=== PATIENT | female | born 1955 | race Caucasian/White ===

== ENCOUNTER 2021-06-07 13:59 | Inpatient (IN) | payer MEDICARE, OTHER ==
[~2021-06-07] VITALS: Ht 167.6 cm; Wt 97.5 kg
[2021-06-07] MEDS ORDERED: BUPR75TA5 PO (14:12)
[2021-06-07] MEDS ORDERED: BUPR300T92 PO (14:12)
[2021-06-07] MEDS ORDERED: ELIQ5TAB PO ×2 (14:12→21:32)
[2021-06-07] MEDS ORDERED: ASPI81CH33 PO (14:12)
[2021-06-07] MEDS ORDERED: METO37.5 PO ×2 (14:13)
[2021-06-07] MEDS ORDERED: QC A650T3 PO (14:14)
--- OUTSIDE RECORDS SUMMARY | 2021-06-07 18:30 | CCD ---
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 Active confirmed 04774431 Problem Chronic venous hypertension (idiopathic) with ulcer of left lower extremity I87.312 Active confirmed [id number] ALLERGIES Allergen (clinical drug ingredient) Drug/Non Drug Allergy do cumented on EMR Reaction Allergy Type Onset Date Status Motrin Dyspnea Drug Allergy Active ENCOUNTERS from 1955 to 2021-05-24 Encounter Location Date Provider Diagnosis [facility] [address] [facility] [phone] [place] [address] May, Gabriela Phillips IMMUNIZATIONS No Information SOCIAL HISTORY Tobacco Use: Social History Observation Description Date Details (start date - stop date) Current Smoker Sex Assigned At : Social History Observation Description Sex Assigned At Unknown Education: Question Answer Notes Level of Education: Finished High School [employer]: Question Answer Notes [employer] Sexual Hx: Question Answer Notes Had sex in the last 12 months (vaginal, oral, or anal)? 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 No Tobacco Use: Question Answer Notes Are you a: current smoker How many cigarettes a day do you smoke? 2-3 CIGARETTES/DAY REASON FOR REFERRAL No Information VITAL SIGNS No information MEDICATIONS Medication SIG (Take, Route, Frequency, Duration) Notes Start Da te End Date Status Metoprolol Tartrate 100 MG 1 tablet with food Orally Twice a day for 30 day(s) Active Eliquis 5 MG as directed Orally Acti ve Cephalexin 500 MG 1 tablet Orally Four times a day for 5 day(s) Active PROCEDURES No Information RESULTS No Results REASON FOR VISIT Confirmation WCC Apt MEDICAL (GENERAL) HISTORY Type Description Date Medical History ATRIAL FIBRILLATION Medical History DVT IN LEFT LEG Medical History x3 PULMONARY EMBOLISM, MOST RECENT 1987 Medical History HYPERTENSION Surgical History GALLBLADDER REMOVAL Surgical History STRIPPING LIGATION IN BILATERAL LEGS Surgical History TONSILLECTOMY Surgical History RIGHT SHOULDER SURGERY Hospitalization History HOSPITALIZATION AFTER SHOULDER SURGE RY Goals Section No Information Health Concerns No Information MEDICAL EQUIPMENT No Information MENTAL STATUS No Information FUNCTIONAL STATUS No Information ASSESSMENTS No Information PLAN OF TREATMENT Next Appt Details Provider Name:Wilbert Julien, 02:30:00 PM, [address], , [place], [address], Insurance Providers Payer Name Payer Address Payer Phone Insured Name Patient Relati onship to Insured Coverage Start Date Coverage End Date MEDICARE Part A and B [address] [facility] [id number] PILI HERNANDEZ self FOR LIFE [address] [facility] [id number] PILI HERNANDEZ self
--- OUTSIDE RECORDS SUMMARY | 2021-06-07 18:30 | CCD | Continuity of Care Document ---
Author Author Elise HARTMAN PA Organization Unknown Address [address] [facility] [address] [place] [address] Phone [phone] Care Team Providers Care Punch Hand Name Role Phone Antwan Walker MD AUTM [phone] [facility] AUTM [phone] Rakesh Niño MD AUTM Unavailable [facility] Hematology/Oncology AUTM [phone] An Kearns PHYSICIAN INTERNIST AUTM [phone] Problems Active Problems Provider Date Chronic atrial fibrillation Protime Onset: 05/14 Essential hypertension Elise Souza FNP Onset: 05/14/2017 Deep venous thrombosis of lower extremity Elise Souza FN P Onset: 05/14/2017 Pure hypercholesterolemia Elise Souza FNP Onset: 017 Anxiety state Elise Souza FNP Onset: 05/14/2017 Chronic pulmonary embolism Elise Souza FNP Onset: 2016 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 Elise Souza FNP Onset: 05/14/2017 Gastroesophageal reflux disease Elise Souza FNP Onset: 1 07/14/2016 Scoliosis deformity of spine Elise Souza FNP Onset: 02/2017 Chronic tension-type headache Elise Souza FNP Onset: 02/2017 Varicose veins of lower extremity Elise Souza FNP Onset: 05/14/2017 Tobacco user Elise Souza FNP Onset: 05/14/2017 Hypercalcemia Elise Souza FNP Onset: 05/14/2017 Social History Type Date Description Comments Sex Unknown ETOH Use Consumes 3 glasses of wine per w te-moak Tobacco Use Start: Unknown Patient is a current smoker, smo kes every day STARTED AGE 29 1-3 CIGARETTES A DAY Allergies and adverse reactions Active Allergies Criticality Reaction | Severity Comments Date Ibuprofen Unable to assess criticality STOMACH UPSET HEADACHE mo michael 04/22/2017 Latex Unable to assess criticality rash, itches | Mild 04/22/2018 Medications Active Medications SIG Qnty Indications Ordering Provide r Date Claritin 10mg Tablets 1 by mouth every night at bedtime seasonally Brant Castillo 05/22/2021 Fluoxetine HCL 20mg Capsules 1 by mouth every day 90caps Apryl Recinos M.D. 05/22/20 21 Excedrin Migraine [id number] Tab lets 1 as needed h/a as needed mdd=1 Apryl Recinos M.D. 09/20/2020 Famotidine 20mg Tablets 1 by mouth every day 90tabs Apryl Recinos M.D. 09/20/19 21 Furosemide 20mg Tablets 1 by mouth qd 180tabs Apryl Recinos M.D. 09/19/2020 Bupropion Hydrochloride ER (XL) 150mg Tablets ER 24HR take 1 tablet by mouth in the morning 90tabs Apryl Recinos M.D. 08/07/2020 Eliquis 5mg Tablets take one tablet by mouth twice a day 180tabs Apryl Recinos M.D. 2019 Methimazole 5mg Tablets 2 every day by mouth 180tabs Apryl Recinos M.D. 10/04/19 20 Shingrix 50mcg/0.5ML Suspension Re c administer at pharmacy 1units Elise Souza FNP 08/25 Voltaren 1% Gel apply up to 4 grams three times a day to affected knee as needed 100gm Apryl Recinos M.D. 06/19/2018 Aspirin Adult Low Dose 81mg Tablet s DR 1 by mouth every day Elise Souza FNP 7 Acetaminophen Extra Strength 500mg Tablets take 2 tabs every 6 hours as needed Elise Strickland FNP 04/22/2017 Womens 50+ Multi Vitamin & Mineral Formu la Tablets 1 every day PO Vit O=8543Hb KB=338 Elise Souza FNP 04/22/2017 Metoprolol Tartrate 25mg Tablets Take One Tablet By Mouth Twice A Day 180tabs Brant Castillo 04/22/2017 Atorvastatin Calcium 20mg Tablets take one tablet by mouth every day 90tabs Brian Castillo 04/22/2017 Flecainide Acetate 100mg Tablets take one tablet by mouth twice a day 180tabs Brant Castillo 04/22/2017 Digoxin 250mcg Tablets 1 by mouth every day 90tabs Apryl Recinos M.D. History Medications Cephalexin 500mg Capsules take one tablet by mouth 3 times daily x 7 days 21caps KIMBERLY Lebron JR 04/11/2021 - 05/22/2021 Medications Administered in Office Medication SIG Qnty Indications Ordering Provider Date Administration Of Flu Vaccine Inj ection KIMBERLY Spencer JR 021 Administration Of Flu Vaccine Inj ection Apryl Recinos M.D. 04/20/20 20 Administration Of Flu Vaccine Inj ection Elise Souza FNP 04/22/2019 Administration Of Flu Vaccine Inj ection Elise Souza FNP 04/22/2018 Administration Of Flu Vaccine Inj ection Elise Souza FNP 04/22/2017 Immunizations CPT Code Status Date Vaccine Lot # [id number] Given 04/11/2021 Influenza Vaccin e Quadrivalent Preser/Antibiotic Free Im Use [id number] Given 04/20/2020 Influenza Vaccin e Quadrivalent Preser/Antibiotic Free Im Use [id number] 11211 Given 08/31/2019 Shingrix Zoster Vaccine (HZV), Recombinant, Subunit, Adjuvanted 41591 Given 04/22/2019 Influenza Vaccin e Quadrivalent Preser/Antibiotic Free Im Use [id number] 78074 Given 04/22/2018 Influenza Virus Vaccine, Quadrivalent ([id number]), Derived From 6 Given 07/25/2017 Pneumovax 23 [id number] Given 04/22/2017 Influenza Vaccin e Quadrivalent Preser/Antibiotic Free Im Use [id number] Vital Signs Date Vital Result Comment 05/22/2021 11:38am BP Systolic 112 mmHg RT Arm BP Diastolic 70 mmHg RT Arm Heart Rate 68 /min Height 66 inches 5'6" Weight 215.12 lb O2 % BldC Oximetry 96 % BMI (Body Mass Index) 34.7 kg/m2 04/24/2021 3:12pm BP Systolic 122 mmHg BP Diastolic 76 mmHg Heart Rate 86 /min Height 66 inches 5'6" Weight 223.00 lb BMI (Body Mass Index) 36.0 kg/m2 Results Test Acquired Date Facility Test Result H/L Range Note Laboratory test finding 05/22/2021 [facility] ab[facility] martinez Evaporator Repairer: [place] [address] [phone] Magnesium 2.0 mg/dL 1.8 - 2.4 Comprehensive Chem Profile 05/22/2021 [facility] Evaporator Repairer: [place] [address] [phone] Glucose 113 mg/dL High 74 - 99 1 BUN 14 mg/dL 7 - 18 Creatinine 1.0 mg/dL 0.6 - 1.3 Sodium 145 mEq/L 136 - 145 Potassium 4.1 mEq/L 3.5 - 5.1 Chloride 105 mEq/L 98 - 107 Carbon Dioxide 31 mEq/L 21 - 32 Calcium 10.5 mg/dL High 8.5 - 10.1 2 Alk. Phosphatase 110 mg/dL 46 - 116 Total Bilirubin 0.4 mg/dL 0.2 - 1.0 Ast (Sgot) 22 U/L 15 - 37 Alt (SGPT) 27 U/L 12 - 78 Albumin 2.8 g/dL Low 3.4 - 5.0 3 Total Protein 8.3 g/dL High 6.4 - 8.2 A/G Ratio 0.51 CALC Low 1.00 - 1.90 GFR 55 mL/min Low >60 GFR >= 60 mL/min >60 4 Laboratory test finding 05/22/2021 [facility] [address] [place] [address] [phone] Digoxin Level 0.1 NG/ML Low 0.5-2.0 5 Complete Blood Count 05/22/2021 [facility] Evaporator Repairer: [place] [address] [phone] WBC 5.6 x10*3/UL 4.1 - 10.9 RBC 4.36 x10*6/UL 4.20 - 6.30 Hemoglobin 14.0 g/dL 12.0 - 18.0 Hematocrit 40.9 % 37.0 - 51.0 MCV 93.9 fL 80.0 - 97.0 MCH 32.0 pg 26.0 - 32.0 MCHC 34.1 g/dL 31.0 - 38.0 RDW 14.0 % High 11.6 - 13.7 PLT 233 x10*3/UL 140 - 440 MPV 8.9 FL 7.8 - 11.0 Lymph % 20.4 % 10.0 - 58.5 Mid % 5.2 % 1.7 - 9.3 Neut % 74.4 % 37.0 - 92.0 Lymph # 1.1 x10*3/UL 0.6 - 4.1 Mid # 0.3 x10*3/UL 0.1 - 0.6 Neut # 4.2 x10*3/UL 2.0 - 7.8 Laboratory test finding 04/30/[address] [address] [phone] NT-Pro BNP 5817 pg/mL High <125 6 Digoxin Level 0.5 NG/ML Normal 0.5-2.0 7 Thyroxine (T4) 10.1 g/dL Normal 4.5-12.0 8 Thyroid Stimulating Hormone 0.051 uIU/ML Low 0.358-3.740 9 Flecainide <0.10 ug/mL Low 0.20-1.00 10 Basic Metabolic Profile 04/30/[address] [address] [phone] Glucose, Fasting 106 mg/dL High 70-100 Blood Urea Nitrogen 18 mg/dL Normal 7-18 Creatinine For GFR 0.94 mg/dL Normal 0.55-1.30 Glomerular Filtration Rate > 60.0 Normal >45 1 1 Sodium Level 140 mEq/L Normal 136-145 Potassium Serum 4.6 mEq/L Normal 3.5-5.1 Chloride Level 111 mEq/L High 98-107 Carbon Dioxide Level 22 mEq/L Normal 21-32 Anion Gap 7 mEq/L Low 8-16 Calcium Level 10.7 mg/dL High 8.8-10.2 Liver Profile 04/30/2021 [facility]ter [address] [place] [address] [phone] Ast/Sgot 26 U/L Normal 7-37 Alt/SGPT 28 U/L Normal 12-78 Alkaline Phosphatase 105 U/L Normal 45-117 Bilirubin,Total 0.8 mg/dL Normal 0.2-1.0 Bilirubin,Direct 0.4 mg/dL High 0.0-0.2 Total Protein 7.9 GM/DL Normal 6.4-8.2 Albumin 2.8 GM/DL Low 3.2-5.2 Albumin/Globulin Ratio 0.5 Low 1.2-2.2 Cardiac Marker Panel 04/30/2021 [facility] enter [address] [place] [address] [phone] CPK Creatine Phosphokinase 26 U/L Normal 26-19 2 CK-MB Value Mass 1.0 NG/ML Normal <3.6 MB/CK Relative Index 3.85 Normal < Or =4 12 Troponin I 0.02 NG/ML Normal < 0.10 13 CBC With Differential 04/30/[address] [facility] [address] [place] [address] [phone] White Blood Count 6.3 10 Normal 4.0-10.0 Red Blood Count 4.12 10 Normal 4.00-5.40 Hemoglobin 12.9 g/dL Normal 12.0-15.5 Hematocrit 41.3 % Normal 36.0-47.0 Mean Corpuscular Volume 100.2 fl High 80.0-96.0 Mean Corpuscular Hemoglobin 31.3 pg Normal 27.0-33.0 Mean Corpuscular HGB Conc 31.2 g/dL Low 32.0-36.5 Red Cell Distribution Width 14.8 % High 11.5-14.5 Platelet Count, Automated 202 10 Normal 150-450 Neutrophils % 79.5 % High 36.0-66.0 Lymph % 13.8 % Low 24.0-44.0 Alcorn % 4.8 % Normal 2.0-8.0 Eos % 1.1 % Normal 0.0-3.0 Baso % 0.3 % Normal 0.0-1.0 Immature Granulocyte % 0.5 % Normal 0-3.0 Nucleated Red Blood Cell % 0.0 % Normal 0-0 Neutrophils # 5.0 10 Normal 1.5-8.5 Lymph # 0.9 10 Low 1.5-5.0 Alcorn # 0.3 10 Normal 0.0-0.8 Eos # 0.1 10 Normal 0.0-0.5 Baso # 0.0 10 Normal 0.0-0.2 Influenza A/B RSV Covid Amp 04/30/[address] [address] [phone] Influenza A Amplification NEGATIVE Normal Negati ve 14 Influenza B Amplification NEGATIVE Normal Negative 15 RSV Amplification NEGATIVE Normal Negative 16 Sars Covid-19 Amplification NEGATIVE Normal Negative 17 CBC With Differential 01/17/[address] [address] [phone] White Blood Count 6.8 10 Normal 4.0-10.0 Red Blood Count 3.85 10 Low 4.00-5.40 Hemoglobin 12.7 g/dL Normal 12.0-15.5 Hematocrit 39.4 % Normal 36.0-47.0 Mean Corpuscular Volume 102.3 fl High 80.0-96.0 Mean Corpuscular Hemoglobin 33.0 pg Normal 27.0-33.0 Mean Corpuscular HGB Conc 32.2 g/dL Normal 32.0-36.5 Red Cell Distribution Width 12.3 % Normal 11.5-14.5 Platelet Count, Automated 187 10 Normal 150-450 Neutrophils % 72.2 % High 36.0-66.0 Lymph % 19.9 % Low 24.0-44.0 Alcorn % 6.0 % Normal 2.0-8.0 Eos % 1.5 % Normal 0.0-3.0 Baso % 0.3 % Normal 0.0-1.0 Immature Granulocyte % 0.1 % Normal 0-3.0 Nucleated Red Blood Cell % 0.0 % Normal 0-0 Neutrophils # 4.9 10 Normal 1.5-8.5 Lymph # 1.4 10 Low 1.5-5.0 Alcorn # 0.4 10 Normal 0.0-0.8 Eos # 0.1 10 Normal 0.0-0.5 Baso # 0.0 10 Normal 0.0-0.2 PT & Aptt 01/02/2021 [facility] nter [address] [place] [address] [phone] Prothrombin Time 13.8 seconds Normal 12.5-14.3 Inr 1.04 Normal 18 Partial Thromboplastin Time 30.6 seconds Normal 24.2-38.5 CBC With Differential 01/02/[address] [facility] [address] [place] [address] [phone] White Blood Count 6.2 10 Normal 4.0-10.0 Red Blood Count 3.76 10 Low 4.00-5.40 Hemoglobin 12.5 g/dL Normal 12.0-15.5 Hematocrit 39.0 % Normal 36.0-47.0 Mean Corpuscular Volume 103.7 fl High 80.0-96.0 Mean Corpuscular Hemoglobin 33.2 pg High 27.0-33.0 Mean Corpuscular HGB Conc 32.1 g/dL Normal 32.0-36.5 Red Cell Distribution Width 12.9 % Normal 11.5-14.5 Platelet Count, Automated 199 10 Normal 150-450 Neutrophils % 74.5 % High 36.0-66.0 Lymph % 16.4 % Low 24.0-44.0 Alcorn % 7.0 % Normal 2.0-8.0 Eos % 1.1 % Normal 0.0-3.0 Baso % 0.5 % Normal 0.0-1.0 Immature Granulocyte % 0.5 % Normal 0-3.0 Nucleated Red Blood Cell % 0.0 % Normal 0-0 Neutrophils # 4.6 10 Normal 1.5-8.5 Lymph # 1.0 10 Low 1.5-5.0 Alcorn # 0.4 10 Normal 0.0-0.8 Eos # 0.1 10 Normal 0.0-0.5 Baso # 0.0 10 Normal 0.0-0.2 Comprehensive Metabolic Profil 01/02/[address] [facility] [address] [place], [place] [address] [phone] Glucose, Fasting 98 mg/dL Normal 70-100 Blood Urea Nitrogen 28 mg/dL High 7-18 Creatinine For GFR 0.90 mg/dL Normal 0.55-1.30 Glomerular Filtration Rate > 60.0 Normal >45 1 9 Sodium Level 137 mEq/L Normal 136-145 Potassium Serum 4.7 mEq/L Normal 3.5-5.1 Chloride Level 107 mEq/L Normal 98-107 Carbon Dioxide Level 27 mEq/L Normal 21-32 Anion Gap 3 mEq/L Low 8-16 Calcium Level 10.2 mg/dL Normal 8.8-10.2 Ast/Sgot 23 U/L Normal 7-37 Alt/SGPT 19 U/L Normal 12-78 Alkaline Phosphatase 77 U/L Normal 45-117 Bilirubin,Total 0.5 mg/dL Normal 0.2-1.0 Total Protein 8.3 GM/DL High 6.4-8.2 Albumin 3.0 GM/DL Low 3.2-5.2 Albumin/Globulin Ratio 0.6 Low 1.2-2.2 Complete Blood Count 12/25/2020 [facility] Evaporator Repairer: [place] [address] [phone] WBC 5.9 x10*3/UL 4.1 - 10.9 RBC 4.11 x10*6/UL Low 4.20 - 6.30 Hemoglobin 13.6 g/dL 12.0 - 18.0 Hematocrit 40.0 % 37.0 - 51.0 MCV 97.4 fL High 80.0 - 97.0 MCH 33.1 pg High 26.0 - 32.0 MCHC 34.0 g/dL 31.0 - 38.0 RDW 13.2 % 11.6 - 13.7 PLT 209 x10*3/UL 140 - 440 MPV 8.1 FL 7.8 - 11.0 Lymph % 25.6 % 10.0 - 58.5 Mid % 7.5 % 1.7 - 9.3 Neut % 66.9 % 37.0 - 92.0 Lymph # 1.5 x10*3/UL 0.6 - 4.1 Mid # 0.5 x10*3/UL 0.1 - 0.6 Neut # 3.9 x10*3/UL 2.0 - 7.8 Laboratory test finding 12/25/2020 [facility] Efrain martinez Evaporator Repairer: Dr Maxime Ball [place] [id number] [phone] Sed Rate 25 mm/hr High 0 - 15 Basic Metabolic Panel 12/25/2020 [facility] Evaporator Repairer: Dr Maxime Ball [place] [id number] [phone] Glucose 100 mg/dL High 74 - 99 20 BUN 18 mg/dL 7 - 18 Creatinine 0.8 mg/dL 0.6 - 1.3 Sodium 141 mEq/L 136 - 145 Potassium 3.8 mEq/L 3.5 - 5.1 Chloride 104 mEq/L 98 - 107 Carbon Dioxide 29 mEq/L 21 - 32 Calcium 10.8 mg/dL High 8.5 - 10.1 21 GFR >= 60 mL/min >60 GFR >= 60 mL/min >60 22 Laboratory test finding 12/25/2020 [facility] Efrain martinez Evaporator Repairer: [place] [address] [phone] Thyroid Stimulating Hormone 0.19 uIU/mL Low 0.3 6 - 3.74 1 100-125 mg/dL PRE-DIABET ES/FASTING >126 mg/dL DIABETES/FASTING 2 NOTE: RESULT VERIFIED. 3 NOTE: RESULT VERIFIED. 4 CHRONIC KIDNEY DISEASE STAGI NG PER NKF STAGE I & II GFR >= 60 NORMAL TO MILDLY DECREASED STAGE III GFR 30-59 MODERATELY DECREASED STAGE IV GFR 15-29 SEVERELY DECREASED STAGE V GFR <15 VERY LITTLE GFR LEFT ESRD GFR <[address] JUDGE 5 note:<nlbl:demographic_chang ed> 6 note:<nlbl:demographic_chang ed> 7 note:<nlbl:demographic_chang ed> 8 note:<nlbl:demographic_chang ed> 9 note:<nlbl:demographic_chang ed> 10 This test was developed and its performance characteristics determined by [facility]. It has not been cleared or approved by the Food and Drug Administration. Detection Limit = 0.10 Performed at: [address] [id number] Evaporator Repairer: Jyoti Espinal MD, Phone: [phone] 11 Units are mL/min/1.73 m2 Chronic Kidney Disease Staging per NKF: Stage I & II GFR >=60 Normal to Mildly Decreased Stage III GFR 30-59 Moderately Decreased Stage IV GFR 15-29 Severely Decreased Stage V GFR <15 Very Little GFR Left ESRD GFR <[address] JUDGE 12 DIAGNOSIS CRITERIA MMB ng/ml Relative Index (RI) NON-AMI < or = 5 N/A LAM ZONE > 5 < or = 4 AMI > 5 > 4 13 Troponin I Reference Interva l for [facility] [place] LOCI: 99th Percentile= 0.00-0.045 ng/ml Risk Stratification: <= 0.10 ng/ml Decreased Risk for Adverse Clinical Events. 0.10-1.50 ng/ml Increased Risk for Adv erse Clinical Events. Evaluation of additional criterion and/or repeat testing in 2-6 hours is suggested to rule out myocardial damage. >= 1.50 ng/ml Indicative of Myocardial Injury. 14 Negative results do not prec lude influenza or RSV virus infection and should not be used as the sole basis for treatment or other patient management decisions. 15 Negative results do not prec lude influenza or RSV virus infection and should not be used as the sole basis for treatment or other patient management decisions. 16 Negative results do not prec lude influenza or RSV virus infection and should not be used as the sole basis for treatment or other patient management decisions. 17 A false negative result may occur if a specimen is improperly collected, transported or handled. False negative results may also occur if inadequate numbers of organisms are present in the specimen. As with any molecular test, mutations within the target regions of [employer] SARS-CoV-2 could affect primer and/or probe binding resulting in failure to detect the presence of virus. This test cannot rule out diseases caused by other bacterial or viral pathogens. DISCLAIMER: Testing was performed using the [facility] SARS-CoV-2 test. This test was developed and its performance characteristics determined by [facility]. This test has not been FDA cleared or approved. This test has been authorized by FDA under an Emergency Use Authorization (EUA). This test is only authorized for the duration of time the declaration that circumstances exist justifying the authorization of the emergency use of in vitro diagnostic tests for detection of SARS-CoV-2 virus and/or diagnosis of COVID-19 infection under section 564(b)(1) of the Act, 21 U.S.C. 360bbb-3(b)(1), unless the authorization is terminated or revoked sooner. 18 THERAPUTIC HUMAN INR VALUES INDICATIONS NORMAL RANGES PROPHYLAXIS/TREATMENT OF: VENOUS THROMBOSIS 2.0-3.0 PULMONARY EMBOLISM 2.0-3.0 PREVENTION OF SYSTEMIC EMBOLISM FROM: TISSUE HEART VALVES 2.0-3.0 ACUTE MYOCARDIAL INFARCTION 2.0-3.0 VALVULAR HEART DISEASE 2.0-3.0 ATRIAL FIBRILLATION 2.0-3.0 MECHANICAL VALVES(HIGH RISK) 2.5-3.5 RECURRENT MYOCARDIAL INFARCTION 2.5-3.5 19 Units are mL/min/1.73 m2 Chronic Kidney Disease Staging per NKF: Stage I & II GFR >=60 Normal to Mildly Decreased Stage III GFR 30-59 Moderately Decreased Stage IV GFR 15-29 Severely Decreased Stage V GFR <15 Very Little GFR Left ESRD GFR <[address] JUDGE 20 100-125 mg/dL PRE-DIABET ES/FASTING >126 mg/dL DIABETES/FASTING 21 NOTE: CALCIUM,TSH VERIFIED 22 CHRONIC KIDNEY DISEASE STAGI NG PER NKF STAGE I & II GFR >= 60 NORMAL TO MILDLY DECREASED STAGE III GFR 30-59 MODERATELY DECREASED STAGE IV GFR 15-29 SEVERELY DECREASED STAGE V GFR <15 VERY LITTLE GFR LEFT ESRD GFR <[address] JUDGE Procedures Date Code Description Status 04/24/2021 63321 Office/Outpatient Established Lo w MDM 20-29 Min Completed 04/11/2021 38610 Office/Outpatient Established Lo w MDM 20-29 Min Completed 04/05/2021 49385 Complex Chronic Care MGMT Servic e Ea Addl 30 Min Completed 04/05/2021 49605 Complex Chronic Care Management SVC 1St 60 Min Completed 04/04/2021 97963 Complex Chronic Care MGMT Servic e Ea Addl 30 Min Completed 04/04/2021 62358 Complex Chronic Care Management SVC 1St 60 Min Completed 02/16/2021 91449 Chronic Care MGMT 20 Mins Clinical Staff Time Per Calendar Month Completed 02/16/2021 98635 Chronic Care Management Services Ea Addl 20 Min Completed 01/30/2021 53978 Complex Chronic Care MGMT Servic e Ea Addl 30 Min Completed 01/30/2021 66180 Complex Chronic Care Management SVC 1St 60 Min Completed 12/29/2020 09204 Complex Chronic Care MGMT Servic e Ea Addl 30 Min Completed 12/29/2020 61858 Complex Chronic Care Management SVC 1St 60 Min Completed 12/25/2020 75802 Office/Outpatient Established Mo d MDM 30-39 Min Completed 09/21/2020 [id number] Bone Mineral Density Test Comple katy 09/21/2020 [id number] Mammogram Completed Medical Devices Description No Information Available Encounters Type Date Location Provider Dx Diagnosis Office Visit 04/24/2021 3:20p Topher InternBelén martinez JR, [place] S81.802D Unspecified open wound, left lower leg, subsequent encounter I11.0 Hypertensive heart disease w ith heart failure Office Visit 04/11/2021 2:20p Topher InternBelén martinez JR, [place] S81.802A Unspecified open wound, left lower leg, initial encounter Z23 Encounter for immunization Office Visit 12/25/2020 1:30p Topher InternBelén martinez M.D. 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 nticoagulants R60.9 Edema, unspecified I10 Essential (primary) hyperten pippa E05.90 Thyrotoxicosis, unsp without thyrotoxic crisis or storm I82.502 Chronic embolism and thombos unsp deep veins of l low extrem F17.210 Nicotine dependence, cigaret nunu, uncomplicated F32.89 Other specified depressive e pisodes D47.2 Monoclonal gammopathy K21.9 Gastro-esophageal reflux dis ease without esophagitis M19.90 Unspecified osteoarthritis, unspecified site E78.00 Pure hypercholesterolemia, u nspecified Assessments Date Code Description Provider 05/22/2021 I48.20 Chronic atrial fibrillation, uns pecified Apryl Recinos M.D. 05/22/2021 Z79.01 termite treater helper (current) use of antic oagulants Apryl Recinos M.D. 05/22/2021 I11.0 Hypertensive heart disease with heart failure Apryl Recinos M.D. 05/22/2021 E05.00 Thyrotoxicosis with diffuse goiter without thyrotoxic crisis or storm Apryl Recinos M.D. 05/22/2021 I82.502 Chronic embolism and thrombosis of unspecified deep veins of left lower extremity Apryl Recinos M.D. 05/22/2021 F32.89 Other specified depressive episo jimenez Apryl Recinos M.D. 05/22/2021 D47.2 Monoclonal gammopathy Apryl merritt M.D. 05/22/2021 K21.9 Gastro-esophageal reflux disease without esophagitis Apryl Recinos M.D. 05/22/2021 S81.802A Unspecified open wound, left low er leg, initial encounter Apryl Recinos M.D. 05/22/2021 G31.84 Mild cognitive impairment, so st ated Apryl Recinos M.D. 04/24/2021 S81.802D Unspecified open wou nd, left lower leg, subsequent encounter KIMBERLY Spencer JR 04/24/2021 I11.0 Hypertensive heart disease with heart failure KIMBERLY Spencer JR 04/11/2021 S81.802A Unspecified open wound, left low er leg, initial encounter KIMBERLY Spencer JR 04/11/2021 Z23 Encounter for immunization KIMBERLY Islas JR 04/05/2021 I10 Essential (primary) hypertension Apryl Recinos M.D. 04/05/2021 K21.9 Gastro-esophageal reflux disease without esophagitis Apryl Recinos M.D. 04/05/2021 M15.9 Polyosteoarthritis, unspecified Apryl Recinos M.D. 04/04/2021 I10 Essential (primary) hypertension Apryl Recinos M.D. 04/04/2021 K21.9 Gastro-esophageal reflux disease without esophagitis Apryl Recinos M.D. 04/04/2021 I11.0 Hypertensive heart disease with heart failure Apryl Recinos M.D. 02/16/2021 I10 Essential (primary) hypertension Apryl Recinos M.D. 02/16/2021 K21.9 Gastro-esophageal reflux disease without esophagitis Apryl Recinos M.D. 02/16/2021 E78.00 Pure hypercholesterolemia, unspe cified Apryl Recinos M.D. 01/30/2021 I10 Essential (primary) hypertension Apryl Recinos M.D. 01/30/2021 K21.9 Gastro-esophageal reflux disease without esophagitis Apryl Recinos M.D. 01/30/2021 E78.00 Pure hypercholesterolemia, unspe cified Apryl Recinso M.D. 01/30/2021 M15.9 Polyosteoarthritis, unspecified Apryl Recinos M.D. 12/29/2020 I10 Essential (primary) hypertension Apryl Recinos M.D. 12/29/2020 K21.9 Gastro-esophageal reflux disease without esophagitis Apryl Recinos M.D. 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 12/25/2020 I48.20 Chronic atrial fibrillation, uns pecleandro Recinos M.D. 12/25/2020 Z79.01 correction (current) use of antic oagulants Apryl Recinos M.D. 12/25/2020 R60.9 Edema, unspecified Apryl hale M.D. 12/25/2020 I10 Essential (primary) hypertension Apryl Recinos M.D. 12/25/2020 E05.90 Thyrotoxicosis, unspecified with out thyrotoxic crisis or sto Apryl Recinos M.D. 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 12/25/2020 F17.210 Nicotine dependence, cigarettes, uncomplicated Apryl Recinos M.D. 12/25/2020 F32.89 Other specified depressive episo jimenez Apryl Recinos M.D. 12/25/2020 D47.2 Monoclonal gammopathy Apryl merritt M.D. 12/25/2020 K21.9 Gastro-esophageal reflux disease without esophagitis Apryl Recinos M.D. 12/25/2020 M19.90 Unspecified osteoarthritis, unsp ecified site Apryl Recinos M.D. 12/25/2020 E78.00 Pure hypercholesterolemia, unspe cified Apryl Recinos M.D. Plan of Treatment Future Appointment(s):* 06/07/2021 11:00 am - REESE Haney at [facility] * 06/13/2021 3:15 pm - Apryl Recinos M.D. at [facility] 05/22/2021 - Apryl Recinos M.D.* I48.20 Chronic atrial fibrillation, unspecified * Z79.01 termite treater helper (current) use of anticoagulants * I11.0 Hypertensive heart disease with heart failure * E05.00 Thyrotoxicosis with diffuse goiter without thyrotoxic crisis or storm * I82.502 Chronic embolism and thrombosis of unspecified deep veins of left lower extremity * F32.89 Other specified depressive episodes * D47.2 Monoclonal gammopathy * K21.9 Gastro-esophageal reflux disease without esophagitis * S81.802A Unspecified open wound, left lower leg, initial encounter * G31.84 Mild cognitive impairment, so stated * All * New Medication:* Fluoxetine HCL 20 mg - 1 by mouth every day * Claritin 10 mg - 1 by mouth every night at bedtime seasonally Functional Status Description No Information Available Mental Status Description No Information Available Referrals Refer to Reason for Referral Status Appt Date Nadia Salas CARDIOLOGY CONSULT FOR CHF,ATRIAL FIB Created [facility] [address] , [place] [address] [phone] Wilbert Julien MD STAT CONSULT FOR OPEN WOUND LT LEG PLEASE LET OFFICE KNOW WHEN APPT IS MADE Created [facility] [address] [place] [address] [phone] Janes Martinez MD CONSULT FOR PVD WITH OPEN WOUND LT LEG Patient Declined 04/25/2021 [facility] [address] ,[address] [facility] [address] [phone]
--- OUTSIDE RECORDS SUMMARY | 2021-06-07 18:31 | CCD | Continuity of Care Document ---
Author Author Elise Recinos M.D. 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 AUTM [phone] Problems Active Problems Provider Date Chronic atrial [...] Gastroesophageal reflux disease Elise Souza FNP Onset: 07/14/2016 Scoliosis deformity of spine Elise Souza FNP Onset: 02/2017 Chronic tension-type headache Elise Souza FNP Onset: 02/2017 Varicose veins of lower extremity Elise Souza FNP Onset: 05/14/2017 Tobacco user Elise Souza FNP Onset: 05/14/2017 Hypercalcemia Elise Souza FNP Onset: 05/14/2017 Social History Type Date Description Comments Sex Unknown ETOH Use Consumes 3 glasses of wine per w [place] Tobacco Use Start: Unknown Patient is a [...] Apryl Recinos M.D. 05/22/20 21 Excedrin Migraine [phone] Tab lets 1 as needed h/a as [...] la Tablets 1 every day PO Vit L=[id number] HN=998 Elise Souza FNP 04/22/2017 Metoprolol Tartrate 25mg [...] JR 021 Administration Of Flu Vaccine Inj nareshion Apryl Recinos M.D. 04/20/20 20 [facility] FNP 04/22/2019 Administration Of Flu Vaccine Inj ection Elise Souza FNP 04/22/2018 Administration Of Flu Vaccine Inj [facility] Elise Souza FNP 04/22/2017 Immunizations CPT Code Status Date Vaccine Lot # [id number] Given 04/11/2021 Influenza Vaccin e Quadrivalent Preser/Antibiotic Free Im Use [id number] 80159 Given 04/20/2020 Influenza Vaccin e Quadrivalent Preser/Antibiotic Free Im Use [id number] 48614 Given 08/31/2019 Shingrix Zoster Vaccine (HZV), Recombinant, Subunit, Adjuvanted 50567 Given 04/22/2019 Influenza Vaccin e Quadrivalent Preser/Antibiotic Free Im Use [id number] 80480 Given 04/22/2018 Influenza Virus Vaccine, Quadrivalent (Cciiv4), Derived From 4 Given 07/25/2017 Pneumovax 23 [id number] 33727 Given 04/22/2017 Influenza Vaccin e Quadrivalent Preser/Antibiotic Free Im Use [id number] Vital Signs Date Vital Result Comment 05/22/2021 [...] H/L Range Note Laboratory test finding 05/22/2021 [facility] abril martinez Confectionery Cooker: Dr Maxime Ball [place], [place] [id number] [phone] Magnesium, Serum <pending> Laboratory test finding 04/30/2021 [facility] [address] [place], [place] [address] [phone] NT-Pro BNP 5817 pg/mL High <125 1 Digoxin Level 0.5 NG/ML Normal 0.5-2.0 2 Thyroxine (T4) 10.1 g/dL Normal 4.5-12.0 3 Thyroid Stimulating Hormone 0.051 uIU/ML Low 0.358-3.740 4 Flecainide <0.10 ug/mL Low 0.20-1.00 5 Basic Metabolic Profile 04/30/2021 [facility] [address] [place] [address] [phone] Glucose, Fasting 106 mg/dL High 70-100 Blood Urea Nitrogen 18 mg/dL Normal 7-18 Creatinine For GFR 0.94 mg/dL Normal 0.55-1.30 Glomerular Filtration Rate > 60.0 Normal >45 6 Sodium Level 140 mEq/L Normal 136-145 Potassium Serum 4.6 mEq/L Normal 3.5-5.1 Chloride Level 111 mEq/L High 98-107 Carbon Dioxide Level 22 mEq/L Normal 21-32 Anion Gap 7 mEq/L Low 8-16 Calcium Level 10.7 mg/dL High 8.8-10.2 Liver Profile 04/30/2021 [facility] nter [address] [place] [address] [phone] Ast/Sgot 26 U/L Normal 7-37 Alt/SGPT 28 U/L Normal 12-78 Alkaline Phosphatase 105 U/L Normal 45-117 Bilirubin,Total 0.8 mg/dL Normal 0.2-1.0 Bilirubin,Direct 0.4 mg/dL High 0.0-0.2 Total Protein 7.9 GM/DL Normal 6.4-8.2 Albumin 2.8 GM/DL Low 3.2-5.2 Albumin/Globulin Ratio 0.5 Low 1.2-2.2 Cardiac Marker Panel 04/30/2021 [facility] enter [address] [place] [address] [phone] CPK Creatine Phosphokinase 26 U/L Normal 26-19 2 CK-MB Value Mass 1.0 NG/ML Normal <3.6 MB/CK Relative Index 3.85 Normal < Or =4 7 Troponin I 0.02 NG/ML Normal < 0.10 8 CBC With Differential 04/30/2021 [facility] [address] [place] [address] [phone] White Blood Count 6.3 10 Normal 4.0-10.0 [...] 36.0-66.0 Lymph % 13.8 % Low 24.0-44.0 Tensas % 4.8 % Normal 2.0-8.0 Eos % 1.1 % Normal 0.0-3.0 Baso % 0.3 % Normal 0.0-1.0 Immature Granulocyte % 0.5 % Normal 0-3.0 Nucleated Red Blood Cell % 0.0 % Normal 0-0 Neutrophils # 5.0 10 Normal 1.5-8.5 Lymph # 0.9 10 Low 1.5-5.0 Tensas # 0.3 10 Normal 0.0-0.8 Eos # 0.1 10 Normal 0.0-0.5 Baso # 0.0 10 Normal 0.0-0.2 Influenza A/B RSV Covid Amp 04/30/[address] [address] [phone] Influenza A Amplification NEGATIVE Normal Negati ve 9 Influenza B Amplification NEGATIVE Normal Negative 10 RSV Amplification NEGATIVE Normal Negative 11 Sars Covid-19 Amplification NEGATIVE Normal Negative 12 CBC With Differential 01/17/[address] [address] [phone] White Blood Count 6.8 10 Normal 4.0-10.0 [...] 36.0-66.0 Lymph % 19.9 % Low 24.0-44.0 Tensas % 6.0 % Normal 2.0-8.0 Eos % 1.5 % Normal 0.0-3.0 Baso % 0.3 % Normal 0.0-1.0 Immature Granulocyte % 0.1 % Normal 0-3.0 Nucleated Red Blood Cell % 0.0 % Normal 0-0 Neutrophils # 4.9 10 Normal 1.5-8.5 Lymph # 1.4 10 Low 1.5-5.0 Tensas # 0.4 10 Normal 0.0-0.8 Eos # 0.1 10 Normal 0.0-0.5 Baso # 0.0 10 Normal 0.0-0.2 PT & Aptt 01/02/2021 [facility] nter [address] [place] [address] [phone] Prothrombin Time 13.8 seconds Normal 12.5-14.3 Inr 1.04 Normal 13 Partial Thromboplastin Time 30.6 seconds Normal 24.2-38.5 CBC With Differential 01/02/[address] [address] [phone] White Blood Count 6.2 10 Normal 4.0-10.0 [...] 36.0-66.0 Lymph % 16.4 % Low 24.0-44.0 Tensas % 7.0 % Normal 2.0-8.0 Eos % 1.1 % Normal 0.0-3.0 Baso % 0.5 % Normal 0.0-1.0 Immature Granulocyte % 0.5 % Normal 0-3.0 Nucleated Red Blood Cell % 0.0 % Normal 0-0 Neutrophils # 4.6 10 Normal 1.5-8.5 Lymph # 1.0 10 Low 1.5-5.0 Tensas # 0.4 10 Normal 0.0-0.8 Eos # 0.1 10 Normal 0.0-0.5 Baso # 0.0 10 Normal 0.0-0.2 Comprehensive Metabolic Profil 01/02/[address] [address] [phone] Glucose, Fasting 98 mg/dL Normal 70-100 Blood Urea Nitrogen 28 mg/dL High 7-18 Creatinine For GFR 0.90 mg/dL Normal 0.55-1.30 Glomerular Filtration Rate > 60.0 Normal >45 1 4 Sodium Level 137 mEq/L Normal 136-145 Potassium [...] 0.6 Low 1.2-2.2 Complete Blood Count 12/25/2020 [facility] Confectionery Cooker: [place] [address] [phone] WBC 5.9 x10*3/UL 4.1 - 10.9 RBC [...] 2.0 - 7.8 Laboratory test finding 12/25/2020 [facility] Confectionery Cooker: [place] [address] [phone] Sed Rate 25 mm/hr High 0 - 15 Basic Metabolic Panel 12/25/2020 [facility] Confectionery Cooker: [place] [address] [phone] Glucose 100 mg/dL High 74 - 99 15 BUN 18 mg/dL 7 - 18 Creatinine 0.8 mg/dL 0.6 - 1.3 Sodium 141 mEq/L 136 - 145 Potassium 3.8 mEq/L 3.5 - 5.1 Chloride 104 mEq/L 98 - 107 Carbon Dioxide 29 mEq/L 21 - 32 Calcium 10.8 mg/dL High 8.5 - 10.1 16 GFR >= 60 mL/min >60 GFR >= 60 mL/min >60 17 Laboratory test finding 12/25/2020 [facility] Confectionery Cooker: [place] [address] [phone] Thyroid Stimulating Hormone 0.19 uIU/mL Low 0.3 6 - 3.74 1 note:<nlbl:demographic_chang ed> 2 note:<nlbl:demographic_chang ed> 3 note:<nlbl:demographic_chang ed> 4 note:<nlbl:demographic_chang ed> 5 This test was developed and its performance characteristics determined by [facility]. It has not been cleared or approved by the Food and Drug Administration. Detection Limit = 0.10 Performed at: [address] [id number] Confectionery Cooker: Jyoti Epsinal MD, Phone: [phone] Units are mL/min/1.73 m2 Chronic Kidney Disease Staging per NKF: Stage I & II GFR >=60 Normal to Mildly Decreased Stage III GFR 30-59 Moderately Decreased Stage IV GFR 15-29 Severely Decreased Stage V GFR <15 Very Little GFR Left ESRD GFR <15 on CORRECTIONS OFFICER 7 DIAGNOSIS CRITERIA MMB ng/ml Relative Index (RI) NON-AMI < or = 5 N/A ALM ZONE > 5 < or = 4 AMI > 5 > 4 8 Troponin I Reference Interva l for [facility] LOCI: 99th Percentile= 0.00-0.045 ng/ml Risk Stratification: <= 0.10 ng/ml Decreased Risk for Adverse Clinical Events. 0.10-1.50 ng/ml Increased Risk for Adv erse Clinical Events. Evaluation of additional criterion and/or repeat testing in 2-6 hours is suggested to rule out myocardial damage. >= 1.50 ng/ml Indicative of Myocardial Injury. 9 Negative results do not prec lude influenza or RSV virus infection and should not be used as the sole basis for treatment or other patient management decisions. 10 Negative results do not prec lude influenza or RSV virus infection and should not be used as the sole basis for treatment or other patient management decisions. 11 Negative results do not prec lude influenza or RSV virus infection and should not be used as the sole basis for treatment or other patient management decisions. 12 A false negative result may occur if [...] pathogens. DISCLAIMER: Testing was performed using the [employer] SARS-CoV-2 test. This test was developed and its performance characteristics determined by [employer]. This test has not been FDA cleared [...] the authorization is terminated or revoked sooner. 13 THERAPUTIC HUMAN INR VALUES INDICATIONS NORMAL RANGES PROPHYLAXIS/TREATMENT OF: VENOUS THROMBOSIS 2.0-3.0 PULMONARY EMBOLISM 2.0-3.0 PREVENTION OF SYSTEMIC EMBOLISM FROM: TISSUE HEART VALVES 2.0-3.0 ACUTE MYOCARDIAL INFARCTION 2.0-3.0 VALVULAR HEART DISEASE 2.0-3.0 ATRIAL FIBRILLATION 2.0-3.0 MECHANICAL VALVES(HIGH RISK) 2.5-3.5 RECURRENT MYOCARDIAL INFARCTION 2.5-3.5 14 Units are mL/min/1.73 m2 Chronic Kidney Disease Staging per NKF: Stage I & II GFR >=60 Normal to Mildly Decreased Stage III GFR 30-59 Moderately Decreased Stage IV GFR 15-29 Severely Decreased Stage V GFR <15 Very Little GFR Left ESRD GFR <15 on CORRECTIONS OFFICER 15 100-125 mg/dL PRE-DIABET ES/FASTING >126 mg/dL DIABETES/FASTING 16 NOTE: CALCIUM,TSH VERIFIED 17 CHRONIC KIDNEY DISEASE STAGI NG PER NKF STAGE I & II GFR >= 60 NORMAL TO MILDLY DECREASED STAGE III GFR 30-59 MODERATELY DECREASED STAGE IV GFR 15-29 SEVERELY DECREASED STAGE V GFR <15 VERY LITTLE GFR LEFT ESRD GFR <15 ON CORRECTIONS OFFICER Procedures Date Code Description Status 04/11/2021 45731 Office/Outpatient Established Lo w MDM 20-29 Min Completed 04/05/2021 46663 Complex Chronic Care MGMT Servic e Ea Addl 30 Min Completed 04/05/2021 29433 Complex Chronic Care Management SVC 1St 60 Min Completed 02/16/2021 33126 Chronic Care MGMT 20 Mins Clinical Staff Time Per Calendar Month Completed 02/16/2021 41640 Chronic Care Management Services Ea Addl 20 Min Completed 01/30/2021 43873 Complex Chronic Care MGMT Servic e Ea Addl 30 Min Completed 01/30/2021 47614 Complex Chronic Care Management SVC 1St 60 Min Completed 12/29/2020 59621 Complex Chronic Care MGMT Servic e Ea Addl 30 Min Completed 12/29/2020 36675 Complex Chronic Care Management SVC 1St 60 Min Completed 12/25/2020 76199 Office/Outpatient Established Mo d MDM 30-39 Min Completed 11/27/2020 52143 Complex Chronic Care MGMT Servic e Ea Addl 30 Min Completed 11/27/2020 17999 Complex Chronic Care Management SVC 1St 60 Min Completed 09/21/2020 771700506 Bone Mineral Density Test Comple [facility] 09/21/2020 [id number] Mammogram Completed Medical Devices Description No Information Available Encounters Type Date Location Provider Dx Diagnosis Office Visit 04/11/2021 2:20p [facility] PHelen Holt JR, PA S81.802A Unspecified open wound, left lower leg, initial encounter Z23 Encounter for immunization Office Visit 12/25/2020 1:30p [facility] Recinos M.D. I48.20 Chronic atrial fibrillation, unspecified Z79.01 shelter (current) use of a nticoagulants R60.9 Edema, [...] u nspecified Assessments Date Code Description Provider 04/11/2021 S81.802A Unspecified open wound, left low er leg, initial encounter KIMBERLY Spencer JR 04/11/2021 Z23 Encounter for immunization KIMBERLY Islas JR 04/05/2021 I10 Essential (primary) hypertension Apryl Recinos M.D. 04/05/2021 K21.9 Gastro-esophageal reflux disease without esophagitis Apryl Recinos M.D. 04/05/2021 M15.9 Polyosteoarthritis, unspecified Apryl Recinos M.D. 02/16/2021 I10 Essential (primary) hypertension Apryl Recinos M.D. 02/16/2021 K21.9 Gastro-esophageal reflux disease without esophagitis Apryl Recinos M.D. 02/16/2021 E78.00 Pure hypercholesterolemia, unspe cified Apryl Recinos M.D. 01/30/2021 I10 Essential (primary) hypertension Apryl Recinos M.D. 01/30/2021 K21.9 Gastro-esophageal reflux disease without esophagitis Apryl Recinos M.D. 01/30/2021 E78.00 Pure hypercholesterolemia, unspe cified Apryl Recinos M.D. 01/30/2021 M15.9 Polyosteoarthritis, unspecified Apryl Recinos M.D. 12/29/2020 I10 Essential (primary) hypertension Apryl Recinos M.D. 12/29/2020 K21.9 Gastro-esophageal reflux disease without esophagitis Apryl Recinos M.D. 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 12/25/2020 I48.20 Chronic atrial fibrillation, uns pecified Apryl Recinos M.D. 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 11/27/2020 I10 Essential (primary) hypertension Apryl Recinos M.D. 11/27/2020 K21.9 Gastro-esophageal reflux disease without esophagitis Apryl Recinos M.D. 11/27/2020 E78.00 Pure hypercholesterolemia, unspe cified Apryl Recinos M.D. Plan of Treatment Future Appointment(s):* 06/13/2021 3:15 pm - Apryl Recinos M.D. at [facility] Functional Status Description No Information Available Mental Status Description No Information Available Referrals Refer to Reason for Referral Status Appt Date Wilbert Julien MD STAT CONSULT FOR OPEN WOUND LT LEG PLEASE LET OFFICE KNOW WHEN APPT IS MADE Created [facility] [address] [facility] [place] [address] [phone] Janes Martinez MD CONSULT FOR PVD WITH OPEN WOUND LT LEG Patient Declined 04/25/2021 [facility] [address] [facility] ,[address] [facility] [address] [phone]
--- OUTSIDE RECORDS SUMMARY | 2021-06-07 18:31 | CCD ---
Author Author [facility] Organization [facility] Address Unknown Phone Unavailable Care Team Providers Care Assistant To The Dean Name Role Phone Gabriela Phillips Unavailable PROBLEMS Type Condition ICD9-CM Code [id number] Code Onset Dates Condition S tatus W/U Status Risk SNOMED Code Notes Problem Non-pressure chronic ulcer o f other part of left lower leg with fat layer exposed L97.822 Active confirmed 85378229 Problem Chronic venous hypertension (idiopathic) with ulcer of left lower extremity I87.312 Active confirmed [id number] ALLERGIES Allergen (clinical drug ingredient) Drug/Non Drug Allergy do cumented on EMR Reaction Allergy Type Onset Date Status Motrin Dyspnea Drug Allergy Active ENCOUNTERS from 1955 to 2021-05-03 Encounter Location Date Provider Diagnosis [facility] [address] [place] [address] [place] [address] Apr, Gabriela Phillips Chronic venous hypertension (idiopathic) with ulcer of left lower extremity I87.312 and Non-pressure chronic ulcer of other part of left lower leg with fat layer exposed L97.822 IMMUNIZATIONS No Information SOCIAL HISTORY Tobacco Use: Social History Observation Description Date Details (start date - stop date) Current Smoker Sex Assigned At : Social History Observation Description Sex Assigned At Unknown Education: Question Answer Notes Level of Education: Finished High School Temple: Question Answer Notes [employer] Sexual Hx: Question Answer Notes Had sex in the last 12 months (vaginal, oral, or anal)? 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 No Tobacco Use: Question Answer Notes Are you a: current smoker How many cigarettes a day do you smoke? 2-3 CIGARETTES/DAY REASON FOR REFERRAL No Information VITAL SIGNS Weight 240 lbs Apr, Weight-kg 108.86 kg Apr, Height 65 in Apr, BMI 39.93 kg/m2 Apr, Heart Rate 70 /min Apr, Respiratory Rate 18 /min Apr, Temperature 95.2 degrees Fahrenheit Apr, Oximetry 93 Apr, Blood pressure systolic 121 mm Hg Apr, Blood pressure diastolic 84 mm Hg Apr, MEDICATIONS Medication SIG (Take, Route, Frequency, Duration) Notes Start Da te End Date Status Metoprolol Tartrate 100 MG 1 tablet with food Orally Twice a day for 30 day(s) Active Eliquis 5 MG as directed Orally Acti ve Cephalexin 500 MG 1 tablet Orally Four times a day for 5 day(s) Active PROCEDURES from 1955 to 2021-05-03 Procedure Date Ordered Result Body Site Medication: 4% Lidocaine topical cream (Anecream) 5gm 2021-05-01 N/A RESULTS No Results REASON FOR VISIT LLE Wound MEDICAL (GENERAL) HISTORY Type Description Date Medical [...] No Information FUNCTIONAL STATUS No Information ASSESSMENTS Encounter Date Diagnosis Assessment Notes Treatment Notes Treatm ent Clinical Notes Apr, Chronic venous hypertension (idiopathic) with ulcer of left lower extremity (ICD-10 - I87.312) Dressing changes 3x a week. The dressing should follow those documented in the procedure note Apr, Non-pressure chronic ulcer o f other part of left lower leg with fat layer exposed (ICD-10 - L97.822) PLAN OF TREATMENT Treatment Notes Assessment Notes Clinical Notes Chronic venous hypertension (idiopathic) with ulcer of left lower extremity Dressing changes 3x a week. The dressing should follow those documented in the procedure note Next Appt Details 1 Week Reason: Provider Name:Gabriela Phillips, 05-10 09:30:00 AM, [address], , [place], [address], Insurance Providers Payer Name Payer Address Payer Phone Insured Name Patient Relati onship to Insured Coverage Start Date Coverage End Date MEDICARE Part A and B [address] [facility] [address] PILI HERNANDEZ self FOR LIFE [address] [facility] [address] PILI HERNANDEZ self
--- OUTSIDE RECORDS SUMMARY | 2021-06-07 18:31 | CCD ---
Author Author [facility] Organization [facility] Address Unknown Phone Unavailable Care Team Providers Care Mixing Roll Operator Name Role Phone Alan, Gabriela Unavailable PROBLEMS Type Condition ICD9-CM Code [id number] Code Onset Dates Condition S tatus W/U Status Risk SNOMED Code Notes Problem Non-pressure chronic ulcer o f other part of left lower leg with fat layer exposed L97.822 Active confirmed 05708410 Problem Chronic venous hypertension (idiopathic) with ulcer of left lower extremity I87.312 Active confirmed [id number] ALLERGIES Allergen (clinical drug ingredient) Drug/Non Drug Allergy do cumented on EMR Reaction Allergy Type Onset Date Status Motrin Dyspnea Drug Allergy Active ENCOUNTERS from 1955 to 2021-05-18 Encounter Location Date Provider Diagnosis [facility] [address] [facility] [phone] [place] [address] May, Gabriela Phillips IMMUNIZATIONS No Information SOCIAL HISTORY Tobacco Use: Social History Observation Description Date Details (start date - stop date) Current Smoker Sex Assigned At : Social History Observation Description Sex Assigned At Unknown Education: Question Answer Notes Level of Education: Finished High School Yazdanism: Question Answer Notes Yazdanism CHRISTIAN Sexual Hx: Question Answer Notes Had sex in the last 12 months (vaginal, oral, or anal)? 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 No [...] Information RESULTS No Results REASON FOR VISIT R/s [facility] Apt. MEDICAL (GENERAL) HISTORY Type Description Date Medical [...] PLAN OF TREATMENT Next Appt Details Provider Name:Gabriela Phillips, 05-24 09:45:00 AM, [address], , [place], [address], Insurance Providers Payer Name Payer Address Payer Phone Insured Name Patient Relati onship to Insured Coverage Start Date Coverage End Date MEDICARE Part A and B [address] [facility] [phone] PILI HERNANDEZ FOR LIFE [address] [facility] [address] PILI HERNANDEZ self
--- OUTSIDE RECORDS SUMMARY | 2021-06-07 18:31 | CCD | Continuity of Care Document ---
Author Author Elise Recinos M.D. Organization Unknown Address [address] [facility] [address] [place] [address] Phone [phone] Care Team Providers Care Clinical Genetics Laboratory Chief Name Role Phone Antwan Walker MD AUTM [phone] [facility] Hea AUTM [phone] Rakesh Niño MD AUTM Unavailable [facility] Hematology/Oncology AUTM [phone] An [facility]ear[facility] IN HOME CAREGIVER AUTM [phone] Problems Active Problems Provider Date Chronic atrial [...] Consumes 3 glasses of wine per w [place] Tobacco Use Start: Unknown Patient is a [...] Apryl Recinos M.D. 05/22/20 21 Excedrin Migraine [phone] Tab lets 1 as needed h/a as [...] la Tablets 1 every day PO Vit [id number] JN=216 Elise Souza FNP 04/22/2017 Metoprolol Tartrate 25mg [...] 04/20/20 20 Administration Of Flu Vaccine Inj [facility] Elise Souza FNP 04/22/2019 Administration Of Flu Vaccine Inj ection Elsie Souza FNP 04/22/2018 Administration Of Flu Vaccine Inj formerly [facility] Elise Souza FNP 04/22/2017 Immunizations CPT Code Status Date Vaccine Lot # [id number] Given 04/11/2021 Influenza Vaccin e Quadrivalent Preser/Antibiotic Free Im Use [id number] 95530 Given 04/20/2020 Influenza Vaccin e Quadrivalent Preser/Antibiotic Free Im Use [id number] 18620 Given 08/31/2019 Shingrix Zoster Vaccine (HZV), Recombinant, Subunit, Adjuvanted 49373 Given 04/22/2019 Influenza Vaccin e Quadrivalent Preser/Antibiotic Free Im Use [id number] 00650 Given 04/22/2018 Influenza Virus Vaccine, Quadrivalent (Cciiv4), Derived From 3 Given 07/25/2017 Pneumovax 23 [id number] 23554 Given 04/22/2017 Influenza Vaccin e Quadrivalent Preser/Antibiotic Free Im Use [id number] Vital Signs Date Vital Result Comment 05/22/2021 [...] H/L Range Note Laboratory test finding 05/22/2021 [facility] ab[facility] martinez Kerrick Kleaner Operator: Dr Maxime Ball [place], [place] [id number] [phone] Magnesium 2.0 mg/dL 1.8 - 2.4 Comprehensive Chem Profile 05/22/2021 [facility] Kerrick Kleaner Operator: Dr Maxime Ball [place], [place] [id number] [phone] Glucose 113 mg/dL High 74 - 99 [...] mL/min >60 4 Laboratory test finding 05/22/2021 [facility] [address] [place] [address] [phone] Digoxin Level 0.1 NG/ML Low 0.5-2.0 5 Complete Blood Count 05/22/2021 [facility] Kerrick Kleaner Operator: Dr Maxime Ball [place] [id number] [phone] WBC 5.6 x10*3/UL 4.1 - 10.9 RBC [...] 2.0 - 7.8 Laboratory test finding 04/30/[address] [address] [phone] NT-Pro BNP 5817 pg/mL High <125 6 Digoxin Level 0.5 NG/ML Normal 0.5-2.0 7 Thyroxine (T4) 10.1 g/dL Normal 4.5-12.0 8 Thyroid Stimulating Hormone 0.051 uIU/ML Low 0.358-3.740 9 Flecainide <0.10 ug/mL Low 0.20-1.00 10 Basic Metabolic Profile 04/30/[address] [address] [phone] Glucose, Fasting 106 mg/dL High 70-100 Blood [...] 10.7 mg/dL High 8.8-10.2 Liver Profile 04/30/2021 [facility] nter [address] [place], [place] [address]761 [phone] Ast/Sgot 26 U/L Normal 7-37 Alt/SGPT 28 U/L Normal 12-78 Alkaline Phosphatase 105 U/L Normal 45-117 Bilirubin,Total 0.8 mg/dL Normal 0.2-1.0 Bilirubin,Direct 0.4 mg/dL High 0.0-0.2 Total Protein 7.9 GM/DL Normal 6.4-8.2 Albumin 2.8 GM/DL Low 3.2-5.2 Albumin/Globulin Ratio 0.5 Low 1.2-2.2 Cardiac Marker Panel 04/30/2021 [facility] enter [address] [place], [place] [id number] [phone] CPK Creatine Phosphokinase 26 U/L Normal 26-19 2 CK-MB Value Mass 1.0 NG/ML Normal <3.6 MB/CK Relative Index 3.85 Normal < Or =4 12 Troponin I 0.02 NG/ML Normal < 0.10 13 CBC With Differential 04/30/2021 [facility] [address] [place] [address] [phone] White Blood Count 6.3 10 Normal 4.0-10.0 [...] 36.0-66.0 Lymph % 13.8 % Low 24.0-44.0 Angelina % 4.8 % Normal 2.0-8.0 Eos % 1.1 % Normal 0.0-3.0 Baso % 0.3 % Normal 0.0-1.0 Immature Granulocyte % 0.5 % Normal 0-3.0 Nucleated Red Blood Cell % 0.0 % Normal 0-0 Neutrophils # 5.0 10 Normal 1.5-8.5 Lymph # 0.9 10 Low 1.5-5.0 Angelina # 0.3 10 Normal 0.0-0.8 Eos # 0.1 10 Normal 0.0-0.5 Baso # 0.0 10 Normal 0.0-0.2 Influenza A/B RSV Covid Amp 04/30/[address] [address] [phone] Influenza A Amplification NEGATIVE Normal Negati ve 14 Influenza B Amplification NEGATIVE Normal Negative 15 RSV Amplification NEGATIVE Normal Negative 16 Sars Covid-19 Amplification NEGATIVE Normal Negative 17 CBC With Differential 01/17/[address] [address] [phone] White Blood Count 6.8 10 Normal 4.0-10.0 [...] 36.0-66.0 Lymph % 19.9 % Low 24.0-44.0 Angelina % 6.0 % Normal 2.0-8.0 Eos % 1.5 % Normal 0.0-3.0 Baso % 0.3 % Normal 0.0-1.0 Immature Granulocyte % 0.1 % Normal 0-3.0 Nucleated Red Blood Cell % 0.0 % Normal 0-0 Neutrophils # 4.9 10 Normal 1.5-8.5 Lymph # 1.4 10 Low 1.5-5.0 Angelina # 0.4 10 Normal 0.0-0.8 Eos # 0.1 10 Normal 0.0-0.5 Baso # 0.0 10 Normal 0.0-0.2 PT & Aptt 01/02/2021 [facility] nter [address] [place] [address] [phone] Prothrombin Time 13.8 seconds Normal 12.5-14.3 Inr 1.04 Normal 18 Partial Thromboplastin Time 30.6 seconds Normal 24.2-38.5 CBC With Differential 01/02/2021 [facility] [address] [place] [address] [phone] White Blood Count 6.2 10 Normal 4.0-10.0 [...] 36.0-66.0 Lymph % 16.4 % Low 24.0-44.0 Angelina % 7.0 % Normal 2.0-8.0 Eos % 1.1 % Normal 0.0-3.0 Baso % 0.5 % Normal 0.0-1.0 Immature Granulocyte % 0.5 % Normal 0-3.0 Nucleated Red Blood Cell % 0.0 % Normal 0-0 Neutrophils # 4.6 10 Normal 1.5-8.5 Lymph # 1.0 10 Low 1.5-5.0 Angelina # 0.4 10 Normal 0.0-0.8 Eos # 0.1 10 Normal 0.0-0.5 Baso # 0.0 10 Normal 0.0-0.2 Comprehensive Metabolic Profil 01/02/2021 [facility] [address] [place], [place] [address] [phone] Glucose, Fasting 98 mg/dL Normal 70-100 Blood [...] 0.6 Low 1.2-2.2 Complete Blood Count 12/25/2020 [facility] Kerrick Kleaner Operator: Dr Maxime Ball [place], [place] [id number] [phone] WBC 5.9 x10*3/UL 4.1 - 10.9 RBC [...] 2.0 - 7.8 Laboratory test finding 12/25/2020 [place] Efrain martinez Kerrick Kleaner Operator: Dr Maxime Ball [place] [address]93 [phone] Sed Rate 25 mm/hr High 0 - 15 Basic Metabolic Panel 12/25/2020 [facility] Kerrick Kleaner Operator: Dr Maxime Ball [place] [address]34 [phone] Glucose 100 mg/dL High 74 - 99 [...] mL/min >60 22 Laboratory test finding 12/25/2020 [place] Efrain martinez, Kerrick Kleaner Operator: [place] [address] [phone] Thyroid Stimulating Hormone 0.19 uIU/mL Low 0.3 [...] LITTLE GFR LEFT ESRD GFR <15 ON REFINERY OPERATOR 5 note:<nlbl:demographic_chang ed> 6 note:<nlbl:demographic_chang ed> 7 note:<nlbl:demographic_chang ed> 8 note:<nlbl:demographic_chang ed> 9 note:<nlbl:demographic_chang ed> 10 This test was developed and its performance characteristics determined by [employer]. It has not been cleared or approved by the Food and Drug Administration. Detection Limit = 0.10 Performed at: [address] [id number] Kerrick Kleaner Operator: Jyoti Espinal MD, Phone: [phone] Units are mL/min/1.73 m2 Chronic Kidney Disease Staging per NKF: Stage I & II GFR >=60 Normal to Mildly Decreased Stage III GFR 30-59 Moderately Decreased Stage IV GFR 15-29 Severely Decreased Stage V GFR <15 Very Little GFR Left ESRD GFR <15 on REFINERY OPERATOR 12 DIAGNOSIS CRITERIA MMB ng/ml Relative Index (RI) NON-AMI < or = 5 N/A LAM ZONE > 5 < or = 4 AMI > 5 > 4 13 Troponin I Reference Interva l for [employer] [place] LOCI: 99th Percentile= 0.00-0.045 ng/ml Risk Stratification: [...] pathogens. DISCLAIMER: Testing was performed using the [employer] SARS-CoV-2 test. This test was developed and its performance characteristics determined by [employer]. This test has not been FDA cleared [...] Little GFR Left ESRD GFR <15 on REFINERY OPERATOR 20 100-125 mg/dL PRE-DIABET ES/FASTING >126 mg/dL DIABETES/FASTING 21 NOTE: CALCIUM,TSH VERIFIED 22 CHRONIC KIDNEY DISEASE STAGI NG PER NKF STAGE I & II GFR >= 60 NORMAL TO MILDLY DECREASED STAGE III GFR 30-59 MODERATELY DECREASED STAGE IV GFR 15-29 SEVERELY DECREASED STAGE V GFR <15 VERY LITTLE GFR LEFT ESRD GFR <15 ON REFINERY OPERATOR Procedures Date Code Description Status 04/11/2021 15483 Office/Outpatient Established Lo w MDM 20-29 Min Completed 04/05/2021 52461 Complex Chronic Care MGMT Servic e Ea Addl 30 Min Completed 04/05/2021 34851 Complex Chronic Care Management SVC 1St 60 Min Completed 02/16/2021 16142 Chronic Care MGMT 20 Mins Clinical Staff Time Per Calendar Month Completed 02/16/2021 38854 Chronic Care Management Services Ea Addl 20 Min Completed 01/30/2021 99076 Complex Chronic Care MGMT Servic e Ea Addl 30 Min Completed 01/30/2021 58960 Complex Chronic Care Management SVC 1St 60 Min Completed 12/29/2020 37832 Complex Chronic Care MGMT Servic e Ea Addl 30 Min Completed 12/29/2020 65615 Complex Chronic Care Management SVC 1St 60 Min Completed 12/25/2020 73802 Office/Outpatient Established Mo d MDM 30-39 Min Completed 11/27/2020 33212 Complex Chronic Care MGMT Servic e Ea Addl 30 Min Completed 11/27/2020 90535 Complex Chronic Care Management SVC 1St 60 Min Completed 09/21/2020 788690143 Bone Mineral Density Test Comple katy 09/21/2020 70584828 Mammogram Completed Medical Devices Description No Information Available Encounters Type Date Location Provider Dx Diagnosis Office Visit 04/11/2021 2[facility]p [facility] [place] S81.802A Unspecified open wound, left lower leg, initial encounter Z23 Encounter for immunization Office Visit 12/25/2020 1:30p [facility] Rec[facility] M.[facility] I48.20 Chronic atrial fibrillation, unspecified Z79.01 long-term (current) use of a nticoagulants R60.9 Edema, [...] uns pecified Apryl Recinos M.D. 05/22/2021 Z79.01 manager terminal (current) use of antic oagulants Apryl Recinos M.D. 05/22/2021 I11.0 Hypertensive heart disease with heart failure Apryl Recinos M.D. 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 04/11/2021 S81.802A Unspecified open wound, left low [...] fibrillation, uns pecleandro Recinos M.D. 12/25/2020 Z79.01 long-term (current) use of antic oagulants Apryl Recinos M.D. 12/25/2020 R60.9 Edema, unspecified Apryl ahle M.D. 12/25/2020 I10 Essential (primary) hypertension Apryl [...] Recinos M.D. 12/25/2020 E78.00 Pure hypercholesterolemia, unspe ciesha Recinos M.D. 11/27/2020 I10 Essential (primary) hypertension Apryl Recinos M.D. 11/27/2020 K21.9 Gastro-esophageal reflux disease without esophagitis Apryl Recinos M.D. 11/27/2020 E78.00 Pure hypercholesterolemia, unspe cified Apryl Recinos M.D. Plan of Treatment Future Appointment(s):* 06/13/2021 3:15 pm - Apryl Recinos M.D. at [facility] Functional Status Description No Information Available Mental Status Description No Information Available Referrals Refer to Dr Reason for Referral Status Appt Date Nadia Salas CARDIOLOGY CONSULT FOR CHF,ATRIAL FIB Created [facility] [address] [place] [address] [phone] Wilbert Julien MD STAT CONSULT FOR OPEN WOUND LT LEG PLEASE LET OFFICE KNOW WHEN APPT IS MADE Created [facility] [address] [place] [address] [phone] Janes Martinez MD CONSULT FOR PVD WITH OPEN WOUND LT LEG Patient Declined 04/25/2021 [facility] [address] ,[address] [facility] [address] [phone]
--- OUTSIDE RECORDS SUMMARY | 2021-06-07 18:31 | CCD ---
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.822 Active confirmed 31622311 Problem Chronic venous hypertension (idiopathic) with ulcer of left lower extremity I87.312 Active confirmed [id number] ALLERGIES Allergen (clinical drug ingredient) Drug/Non Drug Allergy do cumented on EMR Reaction Allergy Type Onset Date Status Motrin Dyspnea Drug Allergy Active ENCOUNTERS from 1955 to 2021-04-30 Encounter Location Date Provider Diagnosis [facility] [address] [phone] [place] [address] Apr, Wilbert Julien Chronic venous hypertension (idiopathic) with ulcer of [...] Notes Level of Education: Finished High School Evangelical: Question Answer Notes Evangelical YAZIDI Sexual Hx: Question Answer Notes Had sex in the last 12 months (vaginal, oral, or anal)? 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 No Tobacco Use: Question Answer Notes Are you a: current smoker How many cigarettes a day do you smoke? 2-3 CIGARETTES/DAY REASON FOR REFERRAL No Information VITAL SIGNS Weight 240 lbs Apr, Weight-kg 108.86 kg Apr, Height 65 in Apr, BMI 39.93 kg/m2 Apr, Heart Rate 153 /min Apr, Respiratory Rate 18 /min Apr, Temperature 98.2 degrees Fahrenheit Apr, Oximetry 99 ON ROOM AIR Apr, Blood pressure systolic 142 mm Hg Apr, Blood pressure diastolic 96 mm Hg Apr, MEDICATIONS Medication SIG (Take, Route, Frequency, Duration) Notes Start Da te End Date Status Metoprolol Tartrate 100 MG 1 tablet with food Orally Twice a day for 30 day(s) Active Cephalexin 500 MG 1 tablet Orally Four times a day for 5 day(s) Active Eliquis 5 MG as directed Orally Acti ve PROCEDURES from 1955 to 2021-04-30 Procedure Date Ordered Result Body Site Medication: 4% Lidocaine topical cream (Anecream) 5gm 2021-04-26 N/A RESULTS No Results REASON FOR VISIT [...] of left lower extremity (ICD-10 - I87.312) Apr, Non-pressure chronic ulcer o f other part of left lower leg with fat layer exposed (ICD-10 - L97.822) Apr, Other Chronic venous i nsufficiency material was printed,Quiting smoking material was printed,Debridement of a wound, infection, or burn material was printed PLAN OF TREATMENT Next Appt Details 1 Week Reason: Provider Name:Gabriela Phillips, 05-03 09:45:00 AM, Kasi ROSS, , [place], [address], Insurance Providers Payer Name Payer Address Payer Phone Insured Name Patient Relati onship to Insured Coverage Start Date Coverage End Date MEDICARE Part A and B [address] [facility] [phone] PILI HERNANDEZ self FOR LIFE [address] [facility] [id number] PILI HERNANDEZ self
--- OUTSIDE RECORDS SUMMARY | 2021-06-07 18:31 | CCD | Continuity of Care Document ---
Author Author Elise Recinos M.D. Organization Unknown Address [address] [facility] [address] [place] [address] Phone [phone] Care Team Providers Care Compensation Associate Name Role Phone Antwan Walker MD AUTM [phone] [facility] AUTM [phone] Rakesh Niño MD AUTM Unavailable [facility] Hematology/Oncology AUTM [phone] An Kearns DRAWER UPFITTER AUTM [phone] Problems Active Problems Provider Date Chronic atrial [...] Consumes 3 glasses of wine per w augustine Tobacco Use Start: Unknown Patient is a [...] Apryl Recinos M.D. 05/22/20 21 Excedrin Migraine [phone] Tab lets 1 as needed h/a as [...] la Tablets 1 every day PO Vit A=[id number] LO=360 Elise Souza FNP 04/22/2017 Metoprolol Tartrate 25mg [...] 04/20/20 20 [facility] FNP 04/22/2019 Administration Of Flu Vaccine Inj ection Elise Souza FNP 04/22/2018 Administration Of Flu Vaccine Inj [facility] Elise Souza FNP 04/22/2017 Immunizations CPT Code Status Date Vaccine Lot # [id number] Given 04/11/2021 Influenza Vaccin e Quadrivalent Preser/Antibiotic Free Im Use [id number] 25073 Given 04/20/2020 Influenza Vaccin e Quadrivalent Preser/Antibiotic Free Im Use [id number] 84621 Given 08/31/2019 Shingrix Zoster Vaccine (HZV), Recombinant, Subunit, Adjuvanted 89957 Given 04/22/2019 Influenza Vaccin e Quadrivalent Preser/Antibiotic Free Im Use [id number] 81370 Given 04/22/2018 Influenza Virus Vaccine, Quadrivalent (Cciiv4), Derived From 7 Given 07/25/2017 Pneumovax 23 [id number] 31615 Given 04/22/2017 Influenza Vaccin e Quadrivalent Preser/Antibiotic Free Im Use [id number] Vital Signs Date Vital Result Comment 05/22/2021 [...] H/L Range Note Laboratory test finding 05/22/2021 [facility] abril martinez Principal Clerk Typist: Dr Maxime Ball [place] [id number] [phone] Magnesium 2.0 mg/dL 1.8 - 2.4 Comprehensive Chem Profile 05/22/2021 [facility] morse Principal Clerk Typist: [place] [address] [phone] Glucose 113 mg/dL High 74 - 99 [...] >60 GFR >= 60 mL/min >60 4 Complete Blood Count 05/22/2021 [place] [facility] Joshua Principal Clerk Typist: Dr Maxime Ball [place], [place] [id number] [phone] WBC 5.6 x10*3/UL 4.1 - 10.9 RBC [...] 2.0 - 7.8 Laboratory test finding 04/30/2021 [facility] [address] [place] [address] [phone] NT-Pro BNP 5817 pg/mL High <125 5 Digoxin Level 0.5 NG/ML Normal 0.5-2.0 6 Thyroxine (T4) 10.1 g/dL Normal 4.5-12.0 7 Thyroid Stimulating Hormone 0.051 uIU/ML Low 0.358-3.740 8 Flecainide <0.10 ug/mL Low 0.20-1.00 9 Basic Metabolic Profile 04/30/2021 [facility] [address] [place], [place] [id number] [phone] Glucose, Fasting 106 mg/dL High 70-100 Blood Urea Nitrogen 18 mg/dL Normal 7-18 Creatinine For GFR 0.94 mg/dL Normal 0.55-1.30 Glomerular Filtration Rate > 60.0 Normal >45 1 0 Sodium Level 140 mEq/L Normal 136-145 Potassium Serum 4.6 mEq/L Normal 3.5-5.1 Chloride Level 111 mEq/L High 98-107 Carbon Dioxide Level 22 mEq/L Normal 21-32 Anion Gap 7 mEq/L Low 8-16 Calcium Level 10.7 mg/dL High 8.8-10.2 Liver Profile 04/30/2021 [facility] [address] [place] [address] [phone] Ast/Sgot 26 U/L Normal 7-37 Alt/SGPT 28 U/L Normal 12-78 Alkaline Phosphatase 105 U/L Normal 45-117 Bilirubin,Total 0.8 mg/dL Normal 0.2-1.0 Bilirubin,Direct 0.4 mg/dL High 0.0-0.2 Total Protein 7.9 GM/DL Normal 6.4-8.2 Albumin 2.8 GM/DL Low 3.2-5.2 Albumin/Globulin Ratio 0.5 Low 1.2-2.2 Cardiac Marker Panel 04/30/2021 [facility] [address] [place] [address] [phone] CPK Creatine Phosphokinase 26 U/L Normal 26-19 2 CK-MB Value Mass 1.0 NG/ML Normal <3.6 MB/CK Relative Index 3.85 Normal < Or =4 11 Troponin I 0.02 NG/ML Normal < 0.10 12 CBC With Differential 04/30/2021 [place] [address] [place] [address] [phone] White Blood Count 6.3 10 Normal 4.0-10.0 [...] 36.0-66.0 Lymph % 13.8 % Low 24.0-44.0 Laurel % 4.8 % Normal 2.0-8.0 Eos % 1.1 % Normal 0.0-3.0 Baso % 0.3 % Normal 0.0-1.0 Immature Granulocyte % 0.5 % Normal 0-3.0 Nucleated Red Blood Cell % 0.0 % Normal 0-0 Neutrophils # 5.0 10 Normal 1.5-8.5 Lymph # 0.9 10 Low 1.5-5.0 Laurel # 0.3 10 Normal 0.0-0.8 Eos # 0.1 10 Normal 0.0-0.5 Baso # 0.0 10 Normal 0.0-0.2 Influenza A/B RSV Covid Amp 04/30/2021 [place] [id number] [phone] Influenza A Amplification NEGATIVE Normal Negati ve 13 Influenza B Amplification NEGATIVE Normal Negative 14 RSV Amplification NEGATIVE Normal Negative 15 Sars Covid-19 Amplification NEGATIVE Normal Negative 16 CBC With Differential 01/17/[address] [address] [phone] White Blood Count 6.8 10 Normal 4.0-10.0 [...] 36.0-66.0 Lymph % 19.9 % Low 24.0-44.0 Laurel % 6.0 % Normal 2.0-8.0 Eos % 1.5 % Normal 0.0-3.0 Baso % 0.3 % Normal 0.0-1.0 Immature Granulocyte % 0.1 % Normal 0-3.0 Nucleated Red Blood Cell % 0.0 % Normal 0-0 Neutrophils # 4.9 10 Normal 1.5-8.5 Lymph # 1.4 10 Low 1.5-5.0 Laurel # 0.4 10 Normal 0.0-0.8 Eos # 0.1 10 Normal 0.0-0.5 Baso # 0.0 10 Normal 0.0-0.2 PT & Aptt 01/02/2021 [facility] [address] [place] [address] [phone] Prothrombin Time 13.8 seconds Normal 12.5-14.3 Inr 1.04 Normal 17 Partial Thromboplastin Time 30.6 seconds Normal 24.2-38.5 CBC With Differential 01/02/[address] [address] [phone] White Blood Count 6.2 10 Normal 4.0-10.0 [...] 36.0-66.0 Lymph % 16.4 % Low 24.0-44.0 Laurel % 7.0 % Normal 2.0-8.0 Eos % 1.1 % Normal 0.0-3.0 Baso % 0.5 % Normal 0.0-1.0 Immature Granulocyte % 0.5 % Normal 0-3.0 Nucleated Red Blood Cell % 0.0 % Normal 0-0 Neutrophils # 4.6 10 Normal 1.5-8.5 Lymph # 1.0 10 Low 1.5-5.0 Laurel # 0.4 10 Normal 0.0-0.8 Eos # 0.1 10 Normal 0.0-0.5 Baso # 0.0 10 Normal 0.0-0.2 Comprehensive Metabolic Profil 01/02/[address] [address] [phone] Glucose, Fasting 98 mg/dL Normal 70-100 Blood Urea Nitrogen 28 mg/dL High 7-18 Creatinine For GFR 0.90 mg/dL Normal 0.55-1.30 Glomerular Filtration Rate > 60.0 Normal >45 1 8 Sodium Level 137 mEq/L Normal 136-145 Potassium [...] 0.6 Low 1.2-2.2 Complete Blood Count 12/25/2020 [facility] Principal Clerk Typist: Dr Maxime Ball [place], [place] [id number] [phone] WBC 5.9 x10*3/UL 4.1 - 10.9 RBC [...] 2.0 - 7.8 Laboratory test finding 12/25/2020 [facility] Principal Clerk Typist: Dr Maxime Ball [place], [place] [id number] [phone] Sed Rate 25 mm/hr High 0 - 15 Basic Metabolic Panel 12/25/2020 [facility] Principal Clerk Typist: [place] [address] [phone] Glucose 100 mg/dL High 74 - 99 19 BUN 18 mg/dL 7 - 18 Creatinine 0.8 mg/dL 0.6 - 1.3 Sodium 141 mEq/L 136 - 145 Potassium 3.8 mEq/L 3.5 - 5.1 Chloride 104 mEq/L 98 - 107 Carbon Dioxide 29 mEq/L 21 - 32 Calcium 10.8 mg/dL High 8.5 - 10.1 20 GFR >= 60 mL/min >60 GFR >= 60 mL/min >60 21 Laboratory test finding 12/25/2020 [facility] Principal Clerk Typist: [place] [address] [phone] Thyroid Stimulating Hormone 0.19 uIU/mL Low 0.3 [...] LITTLE GFR LEFT ESRD GFR <15 ON SIEVE MAKER 5 note:<nlbl:demographic_chang ed> 6 note:<nlbl:demographic_chang ed> 7 note:<nlbl:demographic_chang ed> 8 note:<nlbl:demographic_chang ed> 9 This test was developed and its performance characteristics determined by [facility]. It has not been cleared or approved by the Food and Drug Administration. Detection Limit = 0.10 Performed at: [address] [id number] Principal Clerk Typist: Jyoti Espinal MD, Phone: [phone] 10 Units are mL/min/1.73 m2 Chronic Kidney Disease Staging per NKF: Stage I & II GFR >=60 Normal to Mildly Decreased Stage III GFR 30-59 Moderately Decreased Stage IV GFR 15-29 Severely Decreased Stage V GFR <15 Very Little GFR Left ESRD GFR <15 on SIEVE MAKER 11 DIAGNOSIS CRITERIA MMB ng/ml Relative Index (RI) NON-AMI < or = 5 N/A LAM ZONE > 5 < or = 4 AMI > 5 > 4 12 Troponin I Reference Interva l for Siemens [place] LOCI: 99th Percentile= 0.00-0.045 ng/ml Risk Stratification: <= 0.10 ng/ml Decreased Risk for Adverse Clinical Events. 0.10-1.50 ng/ml Increased Risk for Adv erse Clinical Events. Evaluation of additional criterion and/or repeat testing in 2-6 hours is suggested to rule out myocardial damage. >= 1.50 ng/ml Indicative of Myocardial Injury. 13 Negative results do not prec lude influenza or RSV virus infection and should not be used as the sole basis for treatment or other patient management decisions. 14 Negative results do not prec lude influenza or RSV virus infection and should not be used as the sole basis for treatment or other patient management decisions. 15 Negative results do not prec lude influenza or RSV virus infection and should not be used as the sole basis for treatment or other patient management decisions. 16 A false negative result may occur if [...] pathogens. DISCLAIMER: Testing was performed using the [employer] SARS-CoV-2 test. This test was developed and its performance characteristics determined by [facility]. This test has not been FDA cleared [...] the authorization is terminated or revoked sooner. 17 THERAPUTIC HUMAN INR VALUES INDICATIONS NORMAL RANGES PROPHYLAXIS/TREATMENT OF: VENOUS THROMBOSIS 2.0-3.0 PULMONARY EMBOLISM 2.0-3.0 PREVENTION OF SYSTEMIC EMBOLISM FROM: TISSUE HEART VALVES 2.0-3.0 ACUTE MYOCARDIAL INFARCTION 2.0-3.0 VALVULAR HEART DISEASE 2.0-3.0 ATRIAL FIBRILLATION 2.0-3.0 MECHANICAL VALVES(HIGH RISK) 2.5-3.5 RECURRENT MYOCARDIAL INFARCTION 2.5-3.5 18 Units are mL/min/1.73 m2 Chronic Kidney Disease Staging per NKF: Stage I & II GFR >=60 Normal to Mildly Decreased Stage III GFR 30-59 Moderately Decreased Stage IV GFR 15-29 Severely Decreased Stage V GFR <15 Very Little GFR Left ESRD GFR <15 on [facility]KER 19 100-125 mg/dL PRE-DIABET ES/FASTING >126 mg/dL DIABETES/FASTING 20 NOTE: CALCIUM,TSH VERIFIED 21 CHRONIC KIDNEY DISEASE STAGI NG PER NKF STAGE I & II GFR >= 60 NORMAL TO MILDLY DECREASED STAGE III GFR 30-59 MODERATELY DECREASED STAGE IV GFR 15-29 SEVERELY DECREASED STAGE V GFR <15 VERY LITTLE GFR LEFT ESRD GFR <15 ON SIEV[facility] Procedures Date Code Description Status 04/11/2021 00049 Office/Outpatient Established Lo w MDM 20-29 Min Completed 04/05/2021 70675 Complex Chronic Care MGMT Servic e Ea Addl 30 Min Completed 04/05/2021 10853 Complex Chronic Care Management SVC 1St 60 Min Completed 02/16/2021 16181 Chronic Care MGMT 20 Mins Clinical Staff Time Per Calendar Month Completed 02/16/2021 22528 Chronic Care Management Services Ea Addl 20 Min Completed 01/30/2021 65276 Complex Chronic Care MGMT Servic e Ea Addl 30 Min Completed 01/30/2021 67505 Complex Chronic Care Management SVC 1St 60 Min Completed 12/29/2020 00271 Complex Chronic Care MGMT Servic e Ea Addl 30 Min Completed 12/29/2020 34787 Complex Chronic Care Management SVC 1St 60 Min Completed 12/25/2020 55246 Office/Outpatient Established Mo d MDM 30-39 Min Completed 11/27/2020 26090 Complex Chronic Care MGMT Servic e Ea Addl 30 Min Completed 11/27/2020 20010 Complex Chronic Care Management SVC 1St 60 Min Completed 09/21/2020 [id number] Bone Mineral Density Test Comple katy 09/21/2020 [id number] Mammogram Completed Medical Devices Description No Information Available Encounters Type Date Location Provider Dx Diagnosis Office Visit 04/11/2021 2:20p [facility] PKIMBERLY Mcpherson JR S81.802A Unspecified open wound, left lower leg, initial encounter Z23 Encounter for immunization Office Visit 12/25/2020 1:30p [facility] PHelen Recinos M.D. 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 05/22/2021 Z79.01 watermelon inspector (current) use of antic oagulants Apryl Recinos [...] Spencer JR 04/11/2021 Z23 Encounter for immunization Joaquin KIMBERLY Hernandez JR 04/05/2021 I10 Essential (primary) hypertension Apryl [...] uns pecified Apryl Recinos M.D. 12/25/2020 Z79.01 watermelon inspector (current) use of antic oagulants Apryl Recinos [...] 3:15 pm - Apryl Recinos M.D. at [facility] Functional Status Description No Information Available Mental Status Description No Information Available Referrals Refer to Dr Reason for Referral Status Appt Date Wilbert Julien MD STAT CONSULT FOR OPEN WOUND LT LEG PLEASE LET OFFICE KNOW WHEN APPT IS MADE Created [facility] [address] [place], [place] [id number] [phone] Janes Martinez MD CONSULT FOR PVD WITH OPEN WOUND LT LEG Patient Declined 04/25/2021 [facility] [address] [facility] [id number] [phone]
--- OUTSIDE RECORDS SUMMARY | 2021-06-07 18:31 | CCD | Continuity of Care Document ---
Author Author Elise Recinos M.D. Organization Unknown Address [address] [facility] [address] [place] [address] Phone [phone] Care Team Providers Care Storm Door Maker Name Role Phone Antwan Walker MD AUTM [phone] [facility] Hea AUTM [phone] Rakesh Niño MD AUTM Unavailable [facility] Hematology/Oncology AUTM [phone] An Kearns RESIDENTIAL LIVING ASSISTANT AUTM [phone] Problems Active Problems Provider Date Chronic atrial [...] Consumes 3 glasses of wine per w [place] Tobacco Use Start: Unknown Patient is a current smoker, smo kes every day STARTED AGE 29 1-3 CIGARETTES A DAY Allergies and adverse reactions Active Allergies Criticality Reaction | Severity Comments Date Ibuprofen Unable to assess criticality STOMACH UPSET HEADACHE mo michael 04/22/2017 Latex Unable to assess criticality rash, itches | Mild 04/22/2018 Medications Active Medications SIG Qnty Indications Ordering Provide r Date Cephalexin 500mg Capsules take one tablet by mouth 3 times daily x 7 days 21caps Paresh gaines JR, PA 04/11/2021 Excedrin Migraine [id number] Tab lets 1 as needed h/a as needed mdd=1 Apryl Recinos M.D. 09/20/2020 Famotidine 20mg Tablets 1 by mouth every day 90tabs Apryl Recinos M.D. 09/20/19 21 Furosemide 20mg Tablets 1 by mouth twice a day 180tabs Apryl Recinos M.D. 09/20/19 21 Bupropion Hydrochloride ER (XL) 150mg Tablets ER [...] la Tablets 1 every day PO Vit Z=[id number] LG=825 Elise Souza FNP 04/22/2017 Metoprolol Tartrate 25mg Tablets Take One Tablet By Mouth Twice A Day 180tabs Brant Castillo 04/22/2017 Atorvastatin Calcium 20mg Tablets take one tablet by mouth every day 90tabs Brian Castillo 04/22/2017 Flecainide Acetate 100mg Tablets take one tablet by mouth twice a day 180tabs Brant Castillo 04/22/2017 Digoxin 250mcg Tablets 1 by mouth every day 90tabs Apryl Recinos M.D. Medications Administered in Office Medication SIG Qnty Indications Ordering Provider Date Administration Of Flu Vaccine Inj ection KIMBERLY Spencer JR 021 Administration Of Flu Vaccine Inj nareshion Apryl Recinos M.D. 04/20/20 20 Administration Of Flu Vaccine Inj ection Elise Souza FNP 04/22/2019 Administration Of Flu Vaccine Inj ection Elise Souza FNP 04/22/2018 Administration Of Flu Vaccine Inj Elise Schofield FNP 04/22/2017 Immunizations CPT Code Status Date Vaccine Lot # [id number] Given 04/11/2021 Influenza Vaccin e Quadrivalent Preser/Antibiotic Free Im Use [id number] Given 04/20/2020 Influenza Vaccin e Quadrivalent Preser/Antibiotic Free Im Use [id number] 37795 Given 08/31/2019 Shingrix Zoster Vaccine (HZV), Recombinant, Subunit, Adjuvanted 99472 Given 04/22/2019 Influenza Vaccin e Quadrivalent Preser/Antibiotic Free Im Use [id number] 21822 Given 04/22/2018 Influenza Virus Vaccine, Quadrivalent ([id number]), Derived From 3 Given 07/25/2017 Pneumovax 23 [id number] [id number] Given 04/22/2017 Influenza Vaccin e Quadrivalent Preser/Antibiotic Free Im Use [id number] Vital Signs Date Vital Result Comment 04/24/2021 3:12pm BP Systolic 122 mmHg BP Diastolic 76 mmHg Heart Rate 86 /min Height 66 inches 5'6" Weight 223.00 lb BMI (Body Mass Index) 36.0 kg/m2 04/11/2021 2:17pm BP Systolic 124 mmHg BP Diastolic 68 mmHg Heart Rate 86 /min Height 66 inches 5'6" Weight 217.00 lb BMI (Body Mass Index) 35.0 kg/m2 Results Test Acquired Date Facility Test Result H/L Range Note Influenza A/B RSV Covid Amp 04/30/[address] [address] [phone] Influenza A Amplification NEGATIVE Normal Negati ve 1 Influenza B Amplification NEGATIVE Normal Negative 2 RSV Amplification NEGATIVE Normal Negative 3 Sars Covid-19 Amplification NEGATIVE Normal Negative 4 CBC With Differential 04/30/[address] [address] [phone] White Blood Count 6.3 10 Normal 4.0-10.0 [...] 36.0-66.0 Lymph % 13.8 % Low 24.0-44.0 Davie % 4.8 % Normal 2.0-8.0 Eos % 1.1 % Normal 0.0-3.0 Baso % 0.3 % Normal 0.0-1.0 Immature Granulocyte % 0.5 % Normal 0-3.0 Nucleated Red Blood Cell % 0.0 % Normal 0-0 Neutrophils # 5.0 10 Normal 1.5-8.5 Lymph # 0.9 10 Low 1.5-5.0 Davie # 0.3 10 Normal 0.0-0.8 Eos # 0.1 10 Normal 0.0-0.5 Baso # 0.0 10 Normal 0.0-0.2 Cardiac Marker Panel 04/30/2021 [facility] C enter [address] [place] [address] [phone] CPK Creatine Phosphokinase 26 U/L Normal 26-19 2 CK-MB Value Mass 1.0 NG/ML Normal <3.6 MB/CK Relative Index 3.85 Normal < Or =4 5 Troponin I 0.02 NG/ML Normal < 0.10 6 Liver Profile 04/30/2021 [facility] nter [address] [place] [address] [phone] Ast/Sgot 26 U/L Normal 7-37 Alt/SGPT 28 U/L Normal 12-78 Alkaline Phosphatase 105 U/L Normal 45-117 Bilirubin,Total 0.8 mg/dL Normal 0.2-1.0 Bilirubin,Direct 0.4 mg/dL High 0.0-0.2 Total Protein 7.9 GM/DL Normal 6.4-8.2 Albumin 2.8 GM/DL Low 3.2-5.2 Albumin/Globulin Ratio 0.5 Low 1.2-2.2 Basic Metabolic Profile 04/30/2021 [facility] [address] [place] [address] [phone] Glucose, Fasting 106 mg/dL High 70-100 Blood Urea Nitrogen 18 mg/dL Normal 7-18 Creatinine For GFR 0.94 mg/dL Normal 0.55-1.30 Glomerular Filtration Rate > 60.0 Normal >45 7 Sodium Level 140 mEq/L Normal 136-145 Potassium Serum 4.6 mEq/L Normal 3.5-5.1 Chloride Level 111 mEq/L High 98-107 Carbon Dioxide Level 22 mEq/L Normal 21-32 Anion Gap 7 mEq/L Low 8-16 Calcium Level 10.7 mg/dL High 8.8-10.2 Laboratory test finding 04/30/2021 [facility] [address] [place] [address] [phone] NT-Pro BNP 5817 pg/mL High <125 8 Digoxin Level 0.5 NG/ML Normal 0.5-2.0 9 Thyroxine (T4) 10.1 g/dL Normal 4.5-12.0 10 Thyroid Stimulating Hormone 0.051 uIU/ML Low 0.358-3.740 11 CBC With Differential 01/17/2021 [facility] [address] [place] [address] [phone] White Blood Count 6.8 10 Normal 4.0-10.0 [...] 36.0-66.0 Lymph % 19.9 % Low 24.0-44.0 Davie % 6.0 % Normal 2.0-8.0 Eos % 1.5 % Normal 0.0-3.0 Baso % 0.3 % Normal 0.0-1.0 Immature Granulocyte % 0.1 % Normal 0-3.0 Nucleated Red Blood Cell % 0.0 % Normal 0-0 Neutrophils # 4.9 10 Normal 1.5-8.5 Lymph # 1.4 10 Low 1.5-5.0 Davie # 0.4 10 Normal 0.0-0.8 Eos # 0.1 10 Normal 0.0-0.5 Baso # 0.0 10 Normal 0.0-0.2 PT & Aptt 01/02/2021 [facility] nter [address] [place] [address] [phone] Prothrombin Time 13.8 seconds Normal 12.5-14.3 Inr 1.04 Normal 12 Partial Thromboplastin Time 30.6 seconds Normal 24.2-38.5 CBC With Differential 01/02/2021 [facility] [address] [place] [address] [phone] White Blood Count 6.2 10 Normal 4.0-10.0 [...] 36.0-66.0 Lymph % 16.4 % Low 24.0-44.0 Davie % 7.0 % Normal 2.0-8.0 Eos % 1.1 % Normal 0.0-3.0 Baso % 0.5 % Normal 0.0-1.0 Immature Granulocyte % 0.5 % Normal 0-3.0 Nucleated Red Blood Cell % 0.0 % Normal 0-0 Neutrophils # 4.6 10 Normal 1.5-8.5 Lymph # 1.0 10 Low 1.5-5.0 Davie # 0.4 10 Normal 0.0-0.8 Eos # 0.1 10 Normal 0.0-0.5 Baso # 0.0 10 Normal 0.0-0.2 Comprehensive Metabolic Profil 01/02/[address] [address] [phone] Glucose, Fasting 98 mg/dL Normal 70-100 Blood Urea Nitrogen 28 mg/dL High 7-18 Creatinine For GFR 0.90 mg/dL Normal 0.55-1.30 Glomerular Filtration Rate > 60.0 Normal >45 1 3 Sodium Level 137 mEq/L Normal 136-145 Potassium [...] 0.6 Low 1.2-2.2 Complete Blood Count 12/25/2020 [facility] Guide Tour: [place] [address] [phone] WBC 5.9 x10*3/UL 4.1 - 10.9 RBC [...] 2.0 - 7.8 Laboratory test finding 12/25/2020 [facility] Guide Tour: [place] [address] [phone] Sed Rate 25 mm/hr High 0 - 15 Basic Metabolic Panel 12/25/2020 [facility] Guide Tour: [place] [address] [phone] Glucose 100 mg/dL High 74 - 99 14 BUN 18 mg/dL 7 - 18 Creatinine 0.8 mg/dL 0.6 - 1.3 Sodium 141 mEq/L 136 - 145 Potassium 3.8 mEq/L 3.5 - 5.1 Chloride 104 mEq/L 98 - 107 Carbon Dioxide 29 mEq/L 21 - 32 Calcium 10.8 mg/dL High 8.5 - 10.1 15 GFR >= 60 mL/min >60 GFR >= 60 mL/min >60 16 Laboratory test finding 12/25/2020 [facility] abril martinez Guide Tour: [place] [address] [phone] Thyroid Stimulating Hormone 0.19 uIU/mL Low 0.3 6 - 3.74 1 Negative results do not prec lude influenza or RSV virus infection and should not be used as the sole basis for treatment or other patient management decisions. 2 Negative results do not prec lude influenza or RSV virus infection and should not be used as the sole basis for treatment or other patient management decisions. 3 Negative results do not prec lude influenza or RSV virus infection and should not be used as the sole basis for treatment or other patient management decisions. 4 A false negative result may occur if [...] pathogens. DISCLAIMER: Testing was performed using the [facility] SARS-CoV-2 test. This test was developed and its performance characteristics determined by [employer]. This test has not been FDA cleared [...] the authorization is terminated or revoked sooner. 5 DIAGNOSIS CRITERIA MMB ng/ml Relative Index (RI) NON-AMI < or = 5 N/A LAM ZONE > 5 < or = 4 AMI > 5 > 4 6 Troponin I Reference Interva l for Siemens [place] LOCI: 99th Percentile= 0.00-0.045 ng/ml Risk Stratification: <= 0.10 ng/ml Decreased Risk for Adverse Clinical Events. 0.10-1.50 ng/ml Increased Risk for Adv erse Clinical Events. Evaluation of additional criterion and/or repeat testing in 2-6 hours is suggested to rule out myocardial damage. >= 1.50 ng/ml Indicative of Myocardial Injury. 7 Units are mL/min/1.73 m2 Chronic Kidney Disease Staging per NKF: Stage I & II GFR >=60 Normal to Mildly Decreased Stage III GFR 30-59 Moderately Decreased Stage IV GFR 15-29 Severely Decreased Stage V GFR <15 Very Little GFR Left ESRD GFR <15 on NEGATIVE STRIPPER 8 note:<nlbl:demographic_[facility] ed> 9 note:<nlbl:demographic_[facility] ed> 10 note:<nlbl:demographic_[facility] ed> 11 note:<nlbl:[facility] ed> 12 THERAPUTIC HUMAN INR VALUES INDICATIONS NORMAL RANGES PROPHYLAXIS/TREATMENT OF: VENOUS THROMBOSIS 2.0-3.0 PULMONARY EMBOLISM 2.0-3.0 PREVENTION OF SYSTEMIC EMBOLISM FROM: TISSUE HEART VALVES 2.0-3.0 ACUTE MYOCARDIAL INFARCTION 2.0-3.0 VALVULAR HEART DISEASE 2.0-3.0 ATRIAL FIBRILLATION 2.0-3.0 MECHANICAL VALVES(HIGH RISK) 2.5-3.5 RECURRENT MYOCARDIAL INFARCTION 2.5-3.5 13 Units are mL/min/1.73 m2 Chronic Kidney Disease Staging per NKF: Stage I & II GFR >=60 Normal to Mildly Decreased Stage III GFR 30-59 Moderately Decreased Stage IV GFR 15-29 Severely Decreased Stage V GFR <15 Very Little GFR Left ESRD GFR <15 on NEGATIVE STRIPPER 14 100-125 mg/dL PRE-DIABET ES/FASTING >126 mg/dL DIABETES/FASTING 15 NOTE: CALCIUM,TSH VERIFIED 16 CHRONIC KIDNEY DISEASE STAGI NG PER NKF STAGE I & II GFR >= 60 NORMAL TO MILDLY DECREASED STAGE III GFR 30-59 MODERATELY DECREASED STAGE IV GFR 15-29 SEVERELY DECREASED STAGE V GFR <15 VERY LITTLE GFR LEFT ESRD GFR <15 ON NEGATIVE STRIPPER Procedures Date Code Description Status 04/11/2021 76304 Office/Outpatient Established Lo w MDM 20-29 Min Completed 04/05/2021 78021 Complex Chronic Care MGMT Servic e Ea Addl 30 Min Completed 04/05/2021 26294 Complex Chronic Care Management SVC 1St 60 Min Completed 02/16/2021 50793 Chronic Care MGMT 20 Mins Clinical Staff Time Per Calendar Month Completed 02/16/2021 65591 Chronic Care Management Services Ea Addl 20 Min Completed 01/30/2021 71845 Complex Chronic Care MGMT Servic e Ea Addl 30 Min Completed 01/30/2021 52322 Complex Chronic Care Management SVC 1St 60 Min Completed 12/29/2020 48624 Complex Chronic Care MGMT Servic e Ea Addl 30 Min Completed 12/29/2020 25557 Complex Chronic Care Management SVC 1St 60 Min Completed 12/25/2020 68456 Office/Outpatient Established Mo d MDM 30-39 Min Completed 11/27/2020 60184 Complex Chronic Care MGMT Servic e Ea Addl 30 Min Completed 11/27/2020 43302 Complex Chronic Care Management SVC 1St 60 Min Completed 09/21/2020 578027911 Bone Mineral Density Test Comple katy 09/21/2020 86635315 Mammogram Completed Medical Devices Description No Information Available Encounters Type Date Location Provider Dx Diagnosis Office Visit 04/11/2021 2:20p [facility]CKIMBERLY Rawls JR S81.802A Unspecified open wound, left lower leg, initial encounter Z23 Encounter for immunization Office Visit 12/25/2020 1:30p [facility]CAmber Recinos M.D. I48.20 Chronic atrial fibrillation, unspecified Z79.01 detention (current) use of a nticoagulants R60.9 Edema, [...] Recinos M.D. 01/30/2021 E78.00 Pure hypercholesterolemia, unspe ciesha Recinos M.D. 01/30/2021 M15.9 Polyosteoarthritis, unspecified Apryl Recinos M.D. 12/29/2020 I10 Essential (primary) hypertension Apryl Recinos M.D. 12/29/2020 K21.9 Gastro-esophageal reflux disease without esophagitis Apryl Recinos M.D. 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 12/25/2020 I48.20 Chronic atrial fibrillation, uns pecleandro Recinos M.D. 12/25/2020 Z79.01 detention (current) use of antic oagulants Apryl Recinos [...] 3:15 pm - Apryl Recinos M.D. at [facility] Functional Status Description No Information Available Mental Status Description No Information Available Referrals Refer to Dr Reason for Referral Status Appt Date Wilbert Julien MD STAT CONSULT FOR OPEN WOUND LT LEG PLEASE LET OFFICE KNOW WHEN APPT IS MADE [facility] [address] [place] [address] [phone] Janes Martinez MD CONSULT FOR PVD WITH OPEN WOUND LT LEG Patient Declined 04/25/2021 [facility] [address] ,[address] [place] [address] [phone]
--- OUTSIDE RECORDS SUMMARY | 2021-06-07 18:31 | CCD ---
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 Active confirmed 11494063 Problem Chronic venous hypertension (idiopathic) with ulcer of left lower extremity I87.312 Active confirmed [id number] ALLERGIES Allergen (clinical drug ingredient) Drug/Non Drug Allergy do cumented on EMR Reaction Allergy Type Onset Date Status Motrin Dyspnea Drug Allergy Active ENCOUNTERS from 1955 to 2021-05-10 Encounter Location Date Provider Diagnosis [facility] [address] [facility] [phone] [place] [address] May, Gabriela Phillips IMMUNIZATIONS No Information SOCIAL HISTORY Tobacco Use: Social History Observation Description Date Details (start date - stop date) Current Smoker Sex Assigned At : Social History Observation Description Sex Assigned At Unknown Education: Question Answer Notes Level of Education: Finished High School Mormon: Question Answer Notes Mormon [place] Sexual Hx: Question Answer Notes Had sex in the last 12 months (vaginal, oral, or anal)? No LMP: ADJUSTER Have you ever had an STD? No [...] Information RESULTS No Results REASON FOR VISIT R/S WCC APT MEDICAL (GENERAL) HISTORY Type Description Date Medical [...] TREATMENT Next Appt Details Provider Name:Gabriela Phillips, 05-17 09:30:00 AM, [address], , [place], [address], Insurance Providers Payer Name Payer Address Payer Phone Insured Name Patient Relati onship to Insured Coverage Start Date Coverage End Date MEDICARE Part A and B [address] [facility] [id number] PILI HERNANDEZ self FOR LIFE [address] [facility] [address] PILI HERNANDEZ self
--- OUTSIDE RECORDS SUMMARY | 2021-06-07 18:31 | CCD | Continuity of Care Document ---
Author Author Elise Recinos M.D. Organization Unknown Address [address] [facility] [address] [place] [address] Phone [phone] Care Team Providers Care Business Analytics Manager Name Role Phone Antwan Walker MD AUTM [phone] [facility] Hea AUTM [phone] Rakesh Niño MD AUTM Unavailable [facility] Hematology/Oncology AUTM [phone] An Kearns RADIATION ONCOLOGY NURSE AUTM [phone] Problems Active Problems Provider Date Chronic atrial [...] Consumes 3 glasses of wine per w [place] Tobacco Use Start: Unknown Patient is a [...] Paresh gaines JR, PA 04/11/2021 Excedrin Migraine [phone] Tab lets 1 as needed h/a as [...] la Tablets 1 every day PO Vit O=9556Gp IH=067 Elise Souza FNP 04/22/2017 Metoprolol Tartrate 25mg [...] CPT Code Status Date Vaccine Lot # 63677 Given 04/11/2021 Influenza Vaccin e Quadrivalent Preser/Antibiotic Free Im Use [id number] 35152 Given 04/20/2020 Influenza Vaccin e Quadrivalent Preser/Antibiotic Free Im Use [id number] 87822 Given 08/31/2019 Shingrix Zoster Vaccine (HZV), Recombinant, Subunit, Adjuvanted 29005 Given 04/22/2019 Influenza Vaccin e Quadrivalent Preser/Antibiotic Free Im Use [id number] 64727 Given 04/22/2018 Influenza Virus Vaccine, Quadrivalent (Cciiv4), Derived From 0 Given 07/25/2017 Pneumovax 23 [id number] 51242 Given 04/22/2017 Influenza Vaccin e Quadrivalent Preser/Antibiotic Free Im Use [id number] Vital Signs Date Vital Result Comment 04/24/2021 [...] Note Influenza A/B RSV Covid Amp 04/30/[address] [address] [phone] Influenza A Amplification NEGATIVE Normal Negati ve 1 Influenza B Amplification NEGATIVE Normal Negative 2 RSV Amplification NEGATIVE Normal Negative 3 Sars Covid-19 Amplification NEGATIVE Normal Negative 4 CBC With Differential 04/30/[address] [address] [phone] White Blood Count 6.3 10 Normal 4.0-10.0 [...] 36.0-66.0 Lymph % 13.8 % Low 24.0-44.0 Gaston % 4.8 % Normal 2.0-8.0 Eos % 1.1 % Normal 0.0-3.0 Baso % 0.3 % Normal 0.0-1.0 Immature Granulocyte % 0.5 % Normal 0-3.0 Nucleated Red Blood Cell % 0.0 % Normal 0-0 Neutrophils # 5.0 10 Normal 1.5-8.5 Lymph # 0.9 10 Low 1.5-5.0 Gaston # 0.3 10 Normal 0.0-0.8 Eos # 0.1 10 Normal 0.0-0.5 Baso # 0.0 10 Normal 0.0-0.2 Cardiac Marker Panel 04/30/2021 [facility] C enter [address] [place] [address] [phone] CPK Creatine Phosphokinase 26 U/L Normal 26-19 2 CK-MB Value Mass 1.0 NG/ML Normal <3.6 MB/CK Relative Index 3.85 Normal < Or =4 5 Troponin I 0.02 NG/ML Normal < 0.10 6 Liver Profile 04/30/2021 [facility] nter [address] [place] [address] [phone] Ast/Sgot 26 U/L Normal 7-37 Alt/SGPT 28 U/L Normal 12-78 Alkaline Phosphatase 105 U/L Normal 45-117 Bilirubin,Total 0.8 mg/dL Normal 0.2-1.0 Bilirubin,Direct 0.4 mg/dL High 0.0-0.2 Total Protein 7.9 GM/DL Normal 6.4-8.2 Albumin 2.8 GM/DL Low 3.2-5.2 Albumin/Globulin Ratio 0.5 Low 1.2-2.2 Basic Metabolic Profile 04/30/2021 [facility] [address] [place] [address] [phone] Glucose, Fasting 106 mg/dL High 70-100 Blood [...] mg/dL High 8.8-10.2 Laboratory test finding 04/30/2021 [facility] [address] [place] [address] [phone] NT-Pro BNP 5817 pg/mL High <125 8 Digoxin Level 0.5 NG/ML Normal 0.5-2.0 9 Thyroxine (T4) 10.1 g/dL Normal 4.5-12.0 10 Thyroid Stimulating Hormone 0.051 uIU/ML Low 0.358-3.740 11 Flecainide <0.10 ug/mL Low 0.20-1.00 12 CBC With Differential 01/17/2021 [facility] [address] [place] [address] [phone] White Blood Count 6.8 10 Normal 4.0-10.0 [...] 36.0-66.0 Lymph % 19.9 % Low 24.0-44.0 Gaston % 6.0 % Normal 2.0-8.0 Eos % 1.5 % Normal 0.0-3.0 Baso % 0.3 % Normal 0.0-1.0 Immature Granulocyte % 0.1 % Normal 0-3.0 Nucleated Red Blood Cell % 0.0 % Normal 0-0 Neutrophils # 4.9 10 Normal 1.5-8.5 Lymph # 1.4 10 Low 1.5-5.0 Gaston # 0.4 10 Normal 0.0-0.8 Eos # 0.1 10 Normal 0.0-0.5 Baso # 0.0 10 Normal 0.0-0.2 PT & Aptt 01/02/2021 [facility] nter [address] [place] [address] [phone] Prothrombin Time 13.8 seconds Normal 12.5-14.3 Inr 1.04 Normal 13 Partial Thromboplastin Time 30.6 seconds Normal 24.2-38.5 CBC With Differential 01/02/2021 [facility] [address] [place] [address] [phone] White Blood Count 6.2 10 Normal 4.0-10.0 [...] 36.0-66.0 Lymph % 16.4 % Low 24.0-44.0 Gaston % 7.0 % Normal 2.0-8.0 Eos % 1.1 % Normal 0.0-3.0 Baso % 0.5 % Normal 0.0-1.0 Immature Granulocyte % 0.5 % Normal 0-3.0 Nucleated Red Blood Cell % 0.0 % Normal 0-0 Neutrophils # 4.6 10 Normal 1.5-8.5 Lymph # 1.0 10 Low 1.5-5.0 Gaston # 0.4 10 Normal 0.0-0.8 Eos # 0.1 10 Normal 0.0-0.5 Baso # 0.0 10 Normal 0.0-0.2 Comprehensive Metabolic Profil 01/02/2021 [place] 4667505 [phone] Glucose, Fasting 98 mg/dL Normal 70-100 Blood [...] 0.6 Low 1.2-2.2 Complete Blood Count 12/25/2020 [facility] Automatic I Threading Machine Feeder: Dr Maxime Ball [place] [id number] [phone] WBC 5.9 x10*3/UL 4.1 - 10.9 RBC [...] 2.0 - 7.8 Laboratory test finding 12/25/2020 [facility] Automatic I Threading Machine Feeder: [place] [address] [phone] Sed Rate 25 mm/hr High 0 - 15 Basic Metabolic Panel 12/25/2020 [facility] Automatic I Threading Machine Feeder: [place] [address] [phone] Glucose 100 mg/dL High 74 - 99 [...] mL/min >60 17 Laboratory test finding 12/25/2020 [facility] abril martinez Automatic I Threading Machine Feeder: [place] [address] [phone] Thyroid Stimulating Hormone 0.19 uIU/mL Low 0.3 [...] pathogens. DISCLAIMER: Testing was performed using the [facility] SARS-CoV-2 test. This test was developed and its performance characteristics determined by [facility]. This test has not been FDA cleared [...] 6 Troponin I Reference Interva l for Thucy LOCI: 99th Percentile= 0.00-0.045 ng/ml Risk Stratification: [...] Little GFR Left ESRD GFR <15 on TAR AND AMMONIA PUMP OPERATOR 8 note:<nlbl:demographic_chang ed> 9 note:<nlbl:demographic_[facility] ed> 10 note:<nlbl:demographic_[facility] ed> 11 note:<nlbl:demographic_[facility] ed> 12 This test was developed and its performance characteristics determined by [facility]. It has not been cleared or approved by the Food and Drug Administration. Detection Limit = 0.10 Performed at: [address] [id number] Automatic I Threading Machine Feeder: Jyoti Espinal MD, Phone: [phone] 13 THERAPUTIC HUMAN INR VALUES INDICATIONS NORMAL [...] Little GFR Left ESRD GFR <15 on TAR AND AMMONIA PUMP OPERATOR 15 100-125 mg/dL PRE-DIABET ES/FASTING >126 mg/dL DIABETES/FASTING 16 NOTE: CALCIUM,TSH VERIFIED 17 CHRONIC KIDNEY DISEASE STAGI NG PER NKF STAGE I & II GFR >= 60 NORMAL TO MILDLY DECREASED STAGE III GFR 30-59 MODERATELY DECREASED STAGE IV GFR 15-29 SEVERELY DECREASED STAGE V GFR <15 VERY LITTLE GFR LEFT ESRD GFR <15 ON TAR AND AMMONIA PUMP OPERATOR Procedures Date Code Description Status 04/11/2021 32872 Office/Outpatient Established Lo w MDM 20-29 Min Completed 04/05/2021 71213 Complex Chronic Care MGMT Servic e Ea Addl 30 Min Completed 04/05/2021 23355 Complex Chronic Care Management SVC 1St 60 Min Completed 02/16/2021 44447 Chronic Care MGMT 20 Mins Clinical Staff Time Per Calendar Month Completed 02/16/2021 95711 Chronic Care Management Services Ea Addl 20 Min Completed 01/30/2021 90053 Complex Chronic Care MGMT Servic e Ea Addl 30 Min Completed 01/30/2021 56006 Complex Chronic Care Management SVC 1St 60 Min Completed 12/29/2020 56663 Complex Chronic Care MGMT Servic e Ea Addl 30 Min Completed 12/29/2020 09668 Complex Chronic Care Management SVC 1St 60 Min Completed 12/25/2020 38095 Office/Outpatient Established Mo d MDM 30-39 Min Completed 11/27/2020 43054 Complex Chronic Care MGMT Servic e Ea Addl 30 Min Completed 11/27/2020 11420 Complex Chronic Care Management SVC 1St 60 Min Completed 09/21/2020 820633015 Bone Mineral Density Test Comple katy 09/21/2020 13698133 Mammogram Completed Medical Devices Description No Information Available Encounters Type Date Location Provider Dx Diagnosis Office Visit 04/11/2021 2:20p [facility]mber[facility] Holt JR, PA S81.802A Unspecified open wound, left lower leg, initial encounter Z23 Encounter for immunization Office Visit 12/25/2020 1:30p [facility] Recinos M.D. I48.20 Chronic atrial fibrillation, unspecified Z79.01 long term care phlebotomist (current) use of a nticoagulants R60.9 Edema, [...] fibrillation, uns pecleandro Recinos M.D. 12/25/2020 Z79.01 group home (current) use of antic oagulants Apryl Recinos [...] Recinos M.D. Plan of Treatment Future Appointment(s):* 05/21/2021 3:30 pm - Apryl Recinos M.D. at [facility] * 06/13/2021 3:15 pm - Apryl Recinos M.D. at [facility] Functional Status Description No Information Available Mental Status Description No Information Available Referrals Refer to Reason for Referral Status Appt Date Wilbert Julien MD STAT CONSULT FOR OPEN WOUND LT LEG PLEASE LET OFFICE KNOW WHEN APPT IS MADE [facility] [address] [place] [id number] [phone] Janes Martinez MD CONSULT FOR PVD WITH OPEN WOUND LT LEG Patient Declined 04/25/2021 [facility] [address] ,[address] [place] [id number] [phone]
--- OUTSIDE RECORDS SUMMARY | 2021-06-07 18:31 | CCD ---
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 Active confirmed 95515573 Problem Chronic venous hypertension (idiopathic) with ulcer of left lower extremity I87.312 Active confirmed [id number] ALLERGIES Allergen (clinical drug ingredient) Drug/Non Drug Allergy do cumented on EMR Reaction Allergy Type Onset Date Status Motrin Dyspnea Drug Allergy Active ENCOUNTERS from 1955 to 2021-05-22 Encounter Location Date Provider Diagnosis [facility] Care [address] [facility] [phone] [place] [address] May, Gabriela Phillips IMMUNIZATIONS No Information SOCIAL HISTORY Tobacco Use: Social History Observation Description Date Details (start date - stop date) Current Smoker Sex Assigned At : Social History Observation Description Sex Assigned At Unknown Education: Question Answer Notes Level of Education: Finished High School Buddhism: Question Answer Notes Buddhism RELIGION Sexual Hx: Question Answer Notes Had sex in the last 12 months (vaginal, oral, or anal)? 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 No [...] RESULTS No Results REASON FOR VISIT R/S Appt MEDICAL (GENERAL) HISTORY Type Description Date Medical [...] TREATMENT Next Appt Details Provider Name:Gabriela Phillips, 06-12 02:30:00 PM, [address], , [place], [address], Insurance Providers Payer Name Payer Address Payer Phone Insured Name Patient Relati onship to Insured Coverage Start Date Coverage End Date MEDICARE Part A and B [address] [facility] [phone] PILI HERNANDEZ self FOR LIFE [address] [facility] [address] PILI HERNANDEZ self
--- OUTSIDE RECORDS SUMMARY | 2021-06-07 18:32 | CCD | Continuity of Care Document ---
Author Author Elise HARTMAN PA Organization Unknown Address [address] [facility] [address] [place] [address] Phone [phone] Care Team Providers Care Gymnastics Coach Name Role Phone Antwan Walker MD AUTM [phone] [facility] AUTM [phone] Rakesh Niño MD AUTM Unavailable [facility] Hematology/Oncology AUTM [phone] An Kearns REFINISHER AUTM [phone] Problems Active Problems Provider Date Chronic atrial [...] Consumes 3 glasses of wine per w [place] Tobacco Use Start: Unknown Patient is a [...] daily x 7 days 21caps Paresh gaines JR PA 04/11/2021 Excedrin Migraine [phone] Tab lets 1 as needed h/a as [...] la Tablets 1 every day PO Vit Z=7661Sd CP=038 Elise Souza FNP 04/22/2017 Metoprolol Tartrate 25mg [...] JR 021 Administration Of Flu Vaccine Inj won Recinos M.D. 04/20/20 20 Administration Of Flu Vaccine Inj nareshion Elise Souza FNP 04/22/2019 Administration Of Flu Vaccine Inj ection Elise Souza FNP 04/22/2018 Administration Of Flu Vaccine Inj Elise Schofield FNP 04/22/2017 Immunizations CPT Code Status Date Vaccine Lot # [id number] Given 04/11/2021 Influenza Vaccin e Quadrivalent Preser/Antibiotic Free Im Use [id number] 48996 Given 04/20/2020 Influenza Vaccin e Quadrivalent Preser/Antibiotic Free Im Use 541036 92832 Given 08/31/2019 Shingrix Zoster Vaccine (HZV), Recombinant, Subunit, Adjuvanted 62337 Given 04/22/2019 Influenza Vaccin e Quadrivalent Preser/Antibiotic Free Im Use 277818 92799 Given 04/22/2018 Influenza Virus Vaccine, Quadrivalent (Cciiv4), Derived From 2 Given 07/25/2017 Pneumovax 23 [id number] 61858 Given 04/22/2017 Influenza Vaccin e Quadrivalent Preser/Antibiotic Free Im Use 847188 Vital Signs Date Vital Result Comment 04/24/2021 [...] Result H/L Range Note Laboratory test finding 04/11/2021 [facility] [address] [place] [address] [phone] Wound Culture <pending> CBC With Differential 01/17/2021 [facility] [address] [place] [address] [phone] White Blood Count 6.8 10 Normal 4.0-10.0 [...] 36.0-66.0 Lymph % 19.9 % Low 24.0-44.0 [place] % 6.0 % Normal 2.0-8.0 Eos % 1.5 % Normal 0.0-3.0 Baso % 0.3 % Normal 0.0-1.0 Immature Granulocyte % 0.1 % Normal 0-3.0 Nucleated Red Blood Cell % 0.0 % Normal 0-0 Neutrophils # 4.9 10 Normal 1.5-8.5 Lymph # 1.4 10 Low 1.5-5.0 [place] # 0.4 10 Normal 0.0-0.8 Eos # 0.1 10 Normal 0.0-0.5 Baso # 0.0 10 Normal 0.0-0.2 PT & Aptt 01/02/2021 [facility] nter [address] [place] [address] [phone] Prothrombin Time 13.8 seconds Normal 12.5-14.3 Inr 1.04 Normal 1 Partial Thromboplastin Time 30.6 seconds Normal 24.2-38.5 CBC With Differential 01/02/[address] [address] [phone] White Blood Count 6.2 10 Normal 4.0-10.0 [...] 36.0-66.0 Lymph % 16.4 % Low 24.0-44.0 [place] % 7.0 % Normal 2.0-8.0 Eos % 1.1 % Normal 0.0-3.0 Baso % 0.5 % Normal 0.0-1.0 Immature Granulocyte % 0.5 % Normal 0-3.0 Nucleated Red Blood Cell % 0.0 % Normal 0-0 Neutrophils # 4.6 10 Normal 1.5-8.5 Lymph # 1.0 10 Low 1.5-5.0 [place] # 0.4 10 Normal 0.0-0.8 Eos # 0.1 10 Normal 0.0-0.5 Baso # 0.0 10 Normal 0.0-0.2 Comprehensive Metabolic Profil 01/02/[address] [address] [phone] Glucose, Fasting 98 mg/dL Normal 70-100 Blood Urea Nitrogen 28 mg/dL High 7-18 Creatinine For GFR 0.90 mg/dL Normal 0.55-1.30 Glomerular Filtration Rate > 60.0 Normal >45 2 Sodium Level 137 mEq/L Normal 136-145 Potassium [...] 0.6 Low 1.2-2.2 Complete Blood Count 12/25/2020 [facility] Dust Operator: [place] [address] [phone] WBC 5.9 x10*3/UL 4.1 - 10.9 RBC [...] 2.0 - 7.8 Laboratory test finding 12/25/2020 [facility] Dust Operator: [place] [address] [phone] Sed Rate 25 mm/hr High 0 - 15 Basic Metabolic Panel 12/25/2020 [facility] Dust Operator: [place] [address] [phone] Glucose 100 mg/dL High 74 - 99 3 BUN 18 mg/dL 7 - 18 Creatinine 0.8 mg/dL 0.6 - 1.3 Sodium 141 mEq/L 136 - 145 Potassium 3.8 mEq/L 3.5 - 5.1 Chloride 104 mEq/L 98 - 107 Carbon Dioxide 29 mEq/L 21 - 32 Calcium 10.8 mg/dL High 8.5 - 10.1 4 GFR >= 60 mL/min >60 GFR >= 60 mL/min >60 5 Laboratory test finding 12/25/2020 [facility] Dust Operator: [place] [address] [phone] Thyroid Stimulating Hormone 0.19 uIU/mL Low 0.3 6 - 3.74 Complete Blood Count 10/26/2020 [facility] Dust Operator: [place] [address] [phone] WBC 8.4 x10*3/UL 4.1 - 10.9 RBC 4.20 x10*6/UL 4.20 - 6.30 Hemoglobin 14.0 g/dL 12.0 - 18.0 Hematocrit 40.3 % 37.0 - 51.0 MCV 95.8 fL 80.0 - 97.0 MCH 33.3 pg High 26.0 - 32.0 MCHC 34.7 g/dL 31.0 - 38.0 RDW 13.3 % 11.6 - 13.7 PLT 207 x10*3/UL 140 - 440 MPV 8.0 FL 7.8 - 11.0 Lymph % 17.5 % 10.0 - 58.5 Mid % 4.8 % 1.7 - 9.3 Neut % 77.7 % 37.0 - 92.0 Lymph # 1.4 x10*3/UL 0.6 - 4.1 Mid # 0.5 x10*3/UL 0.1 - 0.6 Neut # 6.5 x10*3/UL 2.0 - 7.8 Laboratory test finding 10/26/2020 [facility] Dust Operator: [place] [address] [phone] Sed Rate 45 mm/hr High 0 - 15 Magnesium 1.8 mg/dL 1.8 - 2.4 Basic Metabolic Panel 10/26/2020 [facility] Dust Operator: [place] [address] [phone] Glucose 70 mg/dL Low 74 - 99 6 BUN 23 mg/dL High 7 - 18 Creatinine 0.9 mg/dL 0.6 - 1.3 Sodium 144 mEq/L 136 - 145 Potassium 3.8 mEq/L 3.5 - 5.1 Chloride 104 mEq/L 98 - 107 Carbon Dioxide 32 mEq/L 21 - 32 Calcium 10.1 mg/dL 8.5 - 10.1 GFR >= 60 mL/min >60 GFR >= 60 mL/min >60 7 Lipid Profile 10/26/2020 [facility] Dust Operator: [place] [address] [phone] Cholesterol 132 mg/dL 131 - 200 Triglycerides 72 mg/dL 30 - 150 HDL Cholesterol 54 mg/dL 35 - 60 LDL (Calculated) 64 CALC 50 - 159 Laboratory test finding 10/26/2020 [facility] Dust Operator: [place] [address] [phone] Thyroid Stimulating Hormone 0.32 uIU/mL Low 0.3 6 - 3.74 Laboratory test finding 10/26/2020 [facility] [address] [place] [address] [phone] Digoxin Level 0.3 NG/ML Low 0.5-2.0 8 1 THERAPUTIC HUMAN INR VALUES INDICATIONS NORMAL RANGES PROPHYLAXIS/TREATMENT OF: VENOUS THROMBOSIS 2.0-3.0 PULMONARY EMBOLISM 2.0-3.0 PREVENTION OF SYSTEMIC EMBOLISM FROM: TISSUE HEART VALVES 2.0-3.0 ACUTE MYOCARDIAL INFARCTION 2.0-3.0 VALVULAR HEART DISEASE 2.0-3.0 ATRIAL FIBRILLATION 2.0-3.0 MECHANICAL VALVES(HIGH RISK) 2.5-3.5 RECURRENT MYOCARDIAL INFARCTION 2.5-3.5 2 Units are mL/min/1.73 m2 Chronic Kidney Disease Staging per NKF: Stage I & II GFR >=60 Normal to Mildly Decreased Stage III GFR 30-59 Moderately Decreased Stage IV GFR 15-29 Severely Decreased Stage V GFR <15 Very Little GFR Left ESRD GFR <15 on PERSONAL LINES SALES REP 3 100-125 mg/dL PRE-DIABET ES/FASTING >126 mg/dL DIABETES/FASTING 4 NOTE: CALCIUM,TSH VERIFIED 5 CHRONIC KIDNEY DISEASE STAGI NG PER NKF STAGE I & II GFR >= 60 NORMAL TO MILDLY DECREASED STAGE III GFR 30-59 MODERATELY DECREASED STAGE IV GFR 15-29 SEVERELY DECREASED STAGE V GFR <15 VERY LITTLE GFR LEFT ESRD GFR <15 ON PERSONAL LINES SALES REP 6 100-125 mg/dL PRE-DIABET ES/FASTING >126 mg/dL DIABETES/FASTING 7 CHRONIC KIDNEY DISEASE STAGI NG PER NKF STAGE I & II GFR >= 60 NORMAL TO MILDLY DECREASED STAGE III GFR 30-59 MODERATELY DECREASED STAGE IV GFR 15-29 SEVERELY DECREASED STAGE V GFR <15 VERY LITTLE GFR LEFT ESRD GFR <15 ON PERSONAL LINES SALES REP 8 note:<nlbl:demographic_chang ed> Procedures Date Code Description Status 04/11/2021 34104 Office/Outpatient Established Lo w MDM 20-29 Min Completed 02/16/2021 80436 Chronic Care MGMT 20 Mins Clinical Staff Time Per Calendar Month Completed 02/16/2021 10834 Chronic Care Management Services Ea Addl 20 Min Completed 01/30/2021 38264 Complex Chronic Care MGMT Servic e Ea Addl 30 Min Completed 01/30/2021 43559 Complex Chronic Care Management SVC 1St 60 Min Completed 12/29/2020 25136 Complex Chronic Care MGMT Servic e Ea Addl 30 Min Completed 12/29/2020 02608 Complex Chronic Care Management SVC 1St 60 Min Completed 12/25/2020 06819 Office/Outpatient Established Mo d MDM 30-39 Min Completed 11/27/2020 15549 Complex Chronic Care MGMT Servic e Ea Addl 30 Min Completed 11/27/2020 16641 Complex Chronic Care Management SVC 1St 60 Min Completed 10/27/2020 67731 Complex Chronic Care MGMT Servic e Ea Addl 30 Min Completed 10/27/2020 54865 Complex Chronic Care Management SVC 1St 60 Min Completed 10/26/2020 12266 Office/Outpatient Established Mo d MDM 30-39 Min Completed 09/21/2020 630298162 Bone Mineral Density Test Comple katy 09/21/2020 05445186 Mammogram Completed Medical Devices Description No Information Available Encounters Type Date Location Provider Dx Diagnosis Office Visit 04/11/2021 2:20p [place] [facility], [place] S81.802A Unspecified open wound, left lower leg, initial encounter Z23 Encounter for immunization Office Visit 12/25/2020 1:30p [facility] Belén Cesar M.D. 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 Z79.01 nursing home (current) use of a nticoagulants F17.210 Nicotine dependence, cigaret nunu, uncomplicated F32.89 Other specified depressive e pisodes E83.52 Hypercalcemia D47.2 Monoclonal gammopathy K21.9 Gastro-esophageal reflux dis ease without esophagitis M15.9 Polyosteoarthritis, unspecif ied E78.00 Pure hypercholesterolemia, u nspecified Assessments Date Code Description Provider 04/11/2021 S81.802A Unspecified open wound, left low er leg, initial encounter KIMBERLY Spencer JR 04/11/2021 Z23 Encounter for immunization KIMBERLY Islas JR 02/16/2021 I10 Essential (primary) hypertension Apryl Recinos [...] fibrillation, uns pecleandro Recinos M.D. 12/25/2020 Z79.01 inventory clerk (current) use of antic oagulants Apryl Recinos [...] Pure hypercholesterolemia, unspe cified Apryl Recinos M.D. 10/27/2020 I48.20 Chronic atrial fibrillation, uns pecified Apryl Recinos M.D. 10/27/2020 F17.210 Nicotine dependence, cigarettes, uncomplicated Apryl Recinos M.D. 10/27/2020 K21.9 Gastro-esophageal reflux disease without esophagitis Apryl Recinos M.D. 10/27/2020 E78.00 Pure hypercholesterolemia, unspe ciesha Recinos M.D. 10/26/2020 I48.20 Chronic atrial fibrillation, uns pecleandro Recinos M.D. 10/26/2020 I10 Essential (primary) hypertension Apryl Recinos M.D. 10/26/2020 E05.90 Thyrotoxicosis, unspecified with out thyrotoxic crisis or sto Apryl Recinos M.D. 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 10/26/2020 Z79.01 nursing home (current) use of antic oagulants Apryl Recinos M.D. 10/26/2020 F17.210 Nicotine dependence, cigarettes, uncomplicated Apryl Recinos M.D. 10/26/2020 F32.89 Other specified depressive episo jimenez Apryl Recinos M.D. 10/26/2020 E83.52 Hypercalcemia Apryl campbell M.D. 10/26/2020 D47.2 Monoclonal gammopathy Apryl merritt M.D. 10/26/2020 K21.9 Gastro-esophageal reflux disease without esophagitis Apryl Recinos M.D. 10/26/2020 M15.9 Polyosteoarthritis, unspecified Apryl Recinos M.D. 10/26/2020 E78.00 Pure hypercholesterolemia, unspe cified Apryl Recinos M.D. Plan of Treatment Future Appointment(s):* 06/13/2021 3:15 pm - Apyrl Recinos M.D. at [facility] Functional Status Description No Information Available Mental Status Description No Information Available Referrals Refer to Dr Reason for Referral Status Appt Date Wilbert Julien MD STAT CONSULT FOR OPEN WOUND LT LEG PLEASE LET OFFICE KNOW WHEN APPT IS MADE Created [facility] [address] [facility] [place] [address] [phone] Janes Martinez MD CONSULT FOR PVD WITH OPEN WOUND LT LEG Patient Declined 04/25/2021 [facility] [address] [facility] [address] [phone]
--- OUTSIDE RECORDS SUMMARY | 2021-06-07 18:32 | CCD | Continuity of Care Document ---
Author Author Elise HARTMAN PA Organization Unknown Address [address] [facility] [address] [place] [address] Phone [phone] Care Team Providers Care Powerhouse Mechanic Supervisor Name Role Phone Antwan Walker MD AUTM [phone] [facility] AUTM [phone] Rakesh Niño MD AUTM Unavailable [facility] Hematology/Oncology AUTM [phone] An [place] [employer] AUTM [phone] Problems Active Problems Provider Date Chronic atrial [...] Souza FNP Onset: 05/14/2017 Tobacco user Elise Souaz FNP Onset: 05/14/2017 Hypercalcemia Elise Souza FNP Onset: 05/14/2017 Social History Type Date Description Comments Sex Unknown ETOH Use Consumes 3 glasses of wine per w chipewwa Tobacco Use Start: Unknown Patient is a [...] Paresh gaines JR PA 04/11/2021 Excedrin Migraine [phone] Tab lets 1 as needed h/a as [...] la Tablets 1 every day PO Vit [id number] Elise Souza FNP 04/22/2017 Metoprolol Tartrate 25mg [...] Provider Date Administration Of Flu Vaccine Inj nareshion Apryl Recinos M.D. 04/20/20 20 Administration Of Flu Vaccine Inj ection Elise Souza FNP 04/22/2019 Administration Of Flu Vaccine Inj ection Elise Souza FNP 04/22/2018 Administration Of Flu Vaccine Inj ection Elise Souza FNP 04/22/2017 Immunizations CPT Code Status Date Vaccine Lot # [id number] Given 04/11/2021 Influenza Vaccin e Quadrivalent Preser/Antibiotic Free Im Use [id number] 51410 Given 04/20/2020 Influenza Vaccin e Quadrivalent Preser/Antibiotic Free Im Use [id number] 86524 Given 08/31/2019 Shingrix Zoster Vaccine (HZV), Recombinant, Subunit, Adjuvanted 43248 Given 04/22/2019 Influenza Vaccin e Quadrivalent Preser/Antibiotic Free Im Use [id number] 69335 Given 04/22/2018 Influenza Virus Vaccine, Quadrivalent (Cciiv4), Derived From 3 Given 07/25/2017 Pneumovax 23 [id number] 01184 Given 04/22/2017 Influenza Vaccin e Quadrivalent Preser/Antibiotic Free Im Use [id number] Vital Signs Date Vital Result Comment 04/11/2021 2:17pm BP Systolic 124 mmHg BP Diastolic 68 mmHg Heart Rate 86 /min Height 66 inches 5'6" Weight 217.00 lb BMI (Body Mass Index) 35.0 kg/m2 12/25/2020 1:31pm BP Systolic 136 mmHg RT Arm BP Diastolic 88 mmHg RT Arm Heart Rate 120 /min Height 66 inches 5'6" Weight 223.50 lb BMI (Body Mass Index) 36.1 kg/m2 Results Test Acquired Date Facility Test Result H/L Range Note Laboratory test finding 04/11/2021 [facility] [address] [place] [address] [phone] Wound Culture <pending> CBC With Differential 01/17/2021 [facility] [address] [place] [address] [phone] White Blood Count 6.8 10 Normal 4.0-10.0 [...] 36.0-66.0 Lymph % 19.9 % Low 24.0-44.0 [place] % 6.0 % Normal 2.0-8.0 Eos % 1.5 % Normal 0.0-3.0 Baso % 0.3 % Normal 0.0-1.0 Immature Granulocyte % 0.1 % Normal 0-3.0 Nucleated Red Blood Cell % 0.0 % Normal 0-0 Neutrophils # 4.9 10 Normal 1.5-8.5 Lymph # 1.4 10 Low 1.5-5.0 [place] # 0.4 10 Normal 0.0-0.8 Eos # 0.1 10 Normal 0.0-0.5 Baso # 0.0 10 Normal 0.0-0.2 PT & Aptt 01/02/2021 [facility] [address] [place] [address] [phone] Prothrombin Time 13.8 seconds Normal 12.5-14.3 Inr 1.04 Normal 1 Partial Thromboplastin Time 30.6 seconds Normal 24.2-38.5 CBC With Differential 01/02/[address] [address] [phone] White Blood Count 6.2 10 Normal 4.0-10.0 [...] 36.0-66.0 Lymph % 16.4 % Low 24.0-44.0 [place] % 7.0 % Normal 2.0-8.0 Eos % 1.1 % Normal 0.0-3.0 Baso % 0.5 % Normal 0.0-1.0 Immature Granulocyte % 0.5 % Normal 0-3.0 Nucleated Red Blood Cell % 0.0 % Normal 0-0 Neutrophils # 4.6 10 Normal 1.5-8.5 Lymph # 1.0 10 Low 1.5-5.0 [place] # 0.4 10 Normal 0.0-0.8 Eos # 0.1 10 Normal 0.0-0.5 Baso # 0.0 10 Normal 0.0-0.2 Comprehensive Metabolic Profil 01/02/[address] [address] [phone] Glucose, Fasting 98 mg/dL Normal 70-100 Blood [...] 0.6 Low 1.2-2.2 Complete Blood Count 12/25/2020 [facility] Coding Compliance Manager: [place] [address] [phone] WBC 5.9 x10*3/UL 4.1 - 10.9 RBC [...] 2.0 - 7.8 Laboratory test finding 12/25/2020 [facility] Coding Compliance Manager: [place] [address] [phone] Sed Rate 25 mm/hr High 0 - 15 Basic Metabolic Panel 12/25/2020 [facility] Coding Compliance Manager: [place] [address] [phone] Glucose 100 mg/dL High 74 - 99 [...] mL/min >60 5 Laboratory test finding 12/25/2020 [facility] Coding Compliance Manager: [place] [address] [phone] Thyroid Stimulating Hormone 0.19 uIU/mL Low 0.3 6 - 3.74 Lipid Profile 10/26/2020 [facility] Coding Compliance Manager: [place] [address] [phone] Cholesterol 132 mg/dL 131 - 200 Triglycerides 72 mg/dL 30 - 150 HDL Cholesterol 54 mg/dL 35 - 60 LDL (Calculated) 64 CALC 50 - 159 Laboratory test finding 10/26/[address] [id number] [phone] Digoxin Level 0.3 NG/ML Low 0.5-2.0 6 Laboratory test finding 10/26/2020 [facility] Coding Compliance Manager: Dr Maxime Ball [place], [place] [id number] [phone] Thyroid Stimulating Hormone 0.32 uIU/mL Low 0.3 6 - 3.74 Basic Metabolic Panel 10/26/2020 [facility] Coding Compliance Manager: Dr Maxime Ball [place], [place] [address] [phone] Glucose 70 mg/dL Low 74 - 99 7 BUN 23 mg/dL High 7 - 18 Creatinine 0.9 mg/dL 0.6 - 1.3 Sodium 144 mEq/L 136 - 145 Potassium 3.8 mEq/L 3.5 - 5.1 Chloride 104 mEq/L 98 - 107 Carbon Dioxide 32 mEq/L 21 - 32 Calcium 10.1 mg/dL 8.5 - 10.1 GFR >= 60 mL/min >60 GFR >= 60 mL/min >60 8 Laboratory test finding 10/26/2020 [facility] Coding Compliance Manager: [place] [address] [phone] Sed Rate 45 mm/hr High 0 - 15 Magnesium 1.8 mg/dL 1.8 - 2.4 Complete Blood Count 10/26/2020 [facility] Coding Compliance Manager: [place] [address] [phone] WBC 8.4 x10*3/UL 4.1 - 10.9 RBC [...] Neut # 6.5 x10*3/UL 2.0 - 7.8 Ua Routine 10/18/2020 [facility] [address] [place] [address] [phone] Appearance, Urine CLEAR Normal Clear Color, Urine [place] Normal Yellow PH,Urine 5.0 units Normal 5.0-9.0 Specific [place] Urine Auto 1.028 Normal 1.002-1.035 Protein, Urine Auto 2+ mg/dL High Negative Glucose, Urine (Ua) Auto NEGATIVE mg/dL Normal Negative Ketone, Urine Auto TRACE mg/dL High Negative Urobilinogen, Urine Auto 4.0 mg/dL High 0.0-2.0 Bilirubin, Urine Auto NEGATIVE Normal Negative Nitrite, Urine Auto NEGATIVE Normal Negative Leukocyte Esterase, Urine Auto NEGATIVE Normal Negative Blood, Urine Blood NEGATIVE Normal Negative WBC, Urine Auto 2 /HPF Normal 0-3 RBC, Urine Auto 2 /HPF Normal 0-3 Bacteria, Urine Auto 1+ High Negative Squamous Epithelial Cell Ur AU 0 /HPF Normal 0-6 Mucus, Urine SMALL Normal Negative Hyaline Cast, Urine Auto 0 /LPF Normal 0-1 CBC With Differential 10/18/[address] [address] [phone] White Blood Count 7.6 10 Normal 4.0-10.0 Red Blood Count 4.29 10 Normal 4.00-5.40 Hemoglobin 13.9 g/dL Normal 12.0-15.5 Hematocrit 43.3 % Normal 36.0-47.0 Mean Corpuscular Volume 100.9 fl High 80.0-96.0 Mean Corpuscular Hemoglobin 32.4 pg Normal 27.0-33.0 Mean Corpuscular HGB Conc 32.1 g/dL Normal 32.0-36.5 Red Cell Distribution Width 13.1 % Normal 11.5-14.5 Platelet Count, Automated 175 10 Normal 150-450 Neutrophils % 73.1 % High 36.0-66.0 Lymph % 18.1 % Low 24.0-44.0 [place] % 6.8 % Normal 2.0-8.0 Eos % 1.3 % Normal 0.0-3.0 Baso % 0.3 % Normal 0.0-1.0 Immature Granulocyte % 0.4 % Normal 0-3.0 Nucleated Red Blood Cell % 0.0 % Normal 0-0 Neutrophils # 5.6 10 Normal 1.5-8.5 Lymph # 1.4 10 Low 1.5-5.0 [place] # 0.5 10 Normal 0.0-0.8 Eos # 0.1 10 Normal 0.0-0.5 Baso # 0.0 10 Normal 0.0-0.2 Laboratory test finding 10/18/2020 [facility] [address] [place] [address] [phone] Erythrocyte Sedimentation Rate 68 mm/hr High 0 -30 Comprehensive Metabolic Profil 10/18/2020 [place] [address] [place] [address] [phone] Glucose, Fasting 97 mg/dL Normal 70-100 Blood Urea Nitrogen 24 mg/dL High 7-18 Creatinine For GFR 0.85 mg/dL Normal 0.55-1.30 Glomerular Filtration Rate > 60.0 Normal >45 9 Sodium Level 139 mEq/L Normal 136-145 Potassium Serum 4.6 mEq/L Normal 3.5-5.1 Chloride Level 106 mEq/L Normal 98-107 Carbon Dioxide Level 26 mEq/L Normal 21-32 Anion Gap 7 mEq/L Low 8-16 Calcium Level 11.8 mg/dL High 8.8-10.2 Ast/Sgot 33 U/L Normal 7-37 Alt/SGPT 44 U/L Normal 12-78 Alkaline Phosphatase 116 U/L Normal 45-117 Bilirubin,Total 0.6 mg/dL Normal 0.2-1.0 Total Protein 8.9 GM/DL High 6.4-8.2 Albumin 3.2 GM/DL Normal 3.2-5.2 Albumin/Globulin Ratio 0.6 Low 1.2-2.2 Total Iron Binding Capacit 10/18/2020 [place] [id number] [phone] Iron (Fe) 131 g/dL Normal 50-170 Total Iron Binding Capacity 305 g/dL Normal 250-450 Percent Saturation 43.0 % Normal 13.2-45.0 Immunoglobulin G,A,M 10/18/[address] [address] [phone] Immunoglobulin A 2640.0 mg/dL High 70-400 Immunoglobulin G 510 mg/dL Low 681-1648 Immunoglobulin M < 5.3 mg/dL Low 40-230 Immunotyping (Immunofixation) Serum (If 10/18/[address] [address] [phone] Immunotyping Serum Iga ABNORMAL High Normal Immunotyping Serum Lambda ABNORMAL High Normal It Serum Interpretation SEE COMMENT Normal 10 Its Pathologist Review REV'D BY O ADJAP <SEE NOTE> Normal 11 Laboratory test finding 10/18/[address] [address] [phone] Ferritin 128 NG/ML Normal 8-252 12 Beta 2 Microglobulin 3.7 mg/L High 0.6-2.4 13 Free [place] & Lambda LT Chains 10/18/2020 [place] [address] [place] [id number] [phone] Free [place] Light Chains Serum 6.4 mg/L Normal 3. 3-19.4 Free Lambda Light Chains Serum 517.2 mg/L High 5.7-26.3 [place]/Lambda Ratio Serum 0.01 Low 0.26-1.65 1 THERAPUTIC HUMAN INR VALUES INDICATIONS NORMAL [...] Little GFR Left ESRD GFR <15 on WIRE TURNING MACHINE OPERATOR 3 100-125 mg/dL PRE-DIABET ES/FASTING >126 mg/dL DIABETES/FASTING 4 NOTE: CALCIUM,TSH VERIFIED 5 CHRONIC KIDNEY DISEASE STAGI NG PER NKF STAGE I & II GFR >= 60 NORMAL TO MILDLY DECREASED STAGE III GFR 30-59 MODERATELY DECREASED STAGE IV GFR 15-29 SEVERELY DECREASED STAGE V GFR <15 VERY LITTLE GFR LEFT ESRD GFR <15 ON WIRE TURNING MACHINE OPERATOR 6 note:<nlbl:demographic_chang ed> 7 100-125 mg/dL PRE-DIABET ES/FASTING >126 mg/dL DIABETES/FASTING 8 CHRONIC KIDNEY DISEASE STAGI NG PER NKF STAGE I & II GFR >= 60 NORMAL TO MILDLY DECREASED STAGE III GFR 30-59 MODERATELY DECREASED STAGE IV GFR 15-29 SEVERELY DECREASED STAGE V GFR <15 VERY LITTLE GFR LEFT ESRD GFR <15 ON WIRE TURNING MACHINE OPERATOR 9 Units are mL/min/1.73 m2 Chronic Kidney Disease Staging per NKF: Stage I & II GFR >=60 Normal to Mildly Decreased Stage III GFR 30-59 Moderately Decreased Stage IV GFR 15-29 Severely Decreased Stage V GFR <15 Very Little GFR Left ESRD GFR <15 on WIRE TURNING MACHINE OPERATOR 10 MONOCLONAL IGA,LAMBDA 11 REV'D BY Cindy AL 12 note:<nlbl:demographic_chang ed> 13 Siemens Immulite 2000 Immuno chemiluminometric assay (ICMA) . Values obtained with different assay methods or kits cannot be used interchangeably. Results cannot be interpreted as absolute evidence of the presence or absence of malignant disease. Performed at: - [facility] [address] [id number] Coding Compliance Manager: Claudia Ellis MD, Phone: [phone] Performed at: - [facility] [address] [id number] Coding Compliance Manager: Jyoti Espinal MD, Phone: [phone] Procedures Date Code Description Status 02/16/2021 74371 Chronic Care MGMT 20 Mins Clinical Staff Time Per Calendar Month Completed 02/16/2021 05989 Chronic Care Management Services Ea Addl 20 Min Completed 01/30/2021 95019 Complex Chronic Care MGMT Servic e Ea Addl 30 Min Completed 01/30/2021 00650 Complex Chronic Care Management SVC 1St 60 Min Completed 12/29/2020 76813 Complex Chronic Care MGMT Servic e Ea Addl 30 Min Completed 12/29/2020 05196 Complex Chronic Care Management SVC 1St 60 Min Completed 12/25/2020 52877 Office/Outpatient Established Mo d MDM 30-39 Min Completed 11/27/2020 47686 Complex Chronic Care MGMT Servic e Ea Addl 30 Min Completed 11/27/2020 85629 Complex Chronic Care Management SVC 1St 60 Min Completed 10/27/2020 14014 Complex Chronic Care MGMT Servic e Ea Addl 30 Min Completed 10/27/2020 26624 Complex Chronic Care Management SVC 1St 60 Min Completed 10/26/2020 38780 Office/Outpatient Established Mo d MDM 30-39 Min Completed 09/21/2020 [id number] Bone Mineral Density Test Comple katy 09/21/2020 [id number] Mammogram Completed Medical Devices Description No Information Available Encounters Type Date Location Provider Dx Diagnosis Office Visit 12/25/2020 1:30p [facility] Recinos M.D. I48.20 Chronic atrial fibrillation, unspecified Z79.01 alf (current) use of a nticoagulants R60.9 Edema, [...] hypercholesterolemia, u nspecified Office Visit 10/26/2020 1:30p [facility] Goldy Recinos M.D. 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 12/25/2020 Z79.01 alf (current) use of antic oagulants Apryl Recinos M.D. 12/25/2020 R60.9 Edema, unspecified Apryl hale M.D. 12/25/2020 I10 Essential (primary) hypertension Apryl Recinos M.D. 12/25/2020 E05.90 Thyrotoxicosis, unspecified with out thyrotoxic crisis or sto Apryl Reicnos M.D. 12/25/2020 I82.502 Chronic embolism and thrombosis [...] M.D. 10/27/2020 I48.20 Chronic atrial fibrillation, uns pecleandro Recinos M.D. 10/27/2020 F17.210 Nicotine dependence, cigarettes, uncomplicated Apryl Recinos M.D. 10/27/2020 K21.9 Gastro-esophageal reflux disease without esophagitis Apryl Recinos M.D. 10/27/2020 E78.00 Pure hypercholesterolemia, unspe ciesha Recinos M.D. 10/26/2020 I48.20 Chronic atrial fibrillation, uns david Recinos M.D. 10/26/2020 I10 Essential (primary) hypertension Apryl Recinos M.D. 10/26/2020 E05.90 Thyrotoxicosis, unspecified with out thyrotoxic crisis or sto Apryl Recinos M.D. 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 10/26/2020 Z79.01 alf (current) use of antic oagulants Apryl Recinos [...] 3:15 pm - [facility] 04/11/2021 - KIMBERLY Spencer JR* S81.802A Unspecified open wound, left lower leg, initial encounter * All * New Medication:* Cephalexin 500 mg - take one tablet by mouth 3 times daily x 7 days Functional Status Description No Information Available Mental Status Description No Information Available Referrals Description No Information Available
--- OUTSIDE RECORDS SUMMARY | 2021-06-07 18:32 | CCD | Continuity of Care Document ---
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 [employer] AUTM [phone] Problems Active Problems Provider Date Chronic atrial [...] Consumes 3 glasses of wine per w [place] Tobacco Use Start: Unknown Patient is a [...] Paresh gaines JR PA 04/11/2021 Excedrin Migraine [phone] Tab lets 1 as needed h/a as [...] la Tablets 1 every day PO Vit [id number] Elise Souza FNP 04/22/2017 Metoprolol Tartrate 25mg [...] CPT Code Status Date Vaccine Lot # [id number] Given 04/11/2021 Influenza Vaccin e Quadrivalent Preser/Antibiotic Free Im Use [id number] 81909 Given 04/20/2020 Influenza Vaccin e Quadrivalent Preser/Antibiotic Free Im Use [id number] 02896 Given 08/31/2019 Shingrix Zoster Vaccine (HZV), Recombinant, Subunit, Adjuvanted 08821 Given 04/22/2019 Influenza Vaccin e Quadrivalent Preser/Antibiotic Free Im Use 274124 11272 Given 04/22/2018 Influenza Virus Vaccine, Quadrivalent (Cciiv4), Derived From 8 Given 07/25/2017 Pneumovax 23 [id number] 91684 Given 04/22/2017 Influenza Vaccin e Quadrivalent Preser/Antibiotic Free Im Use [id number] Vital Signs Date Vital Result Comment 04/11/2021 [...] H/L Range Note Laboratory test finding 04/11/2021 [facility] [address] [place] [address] [phone] Wound Culture <pending> CBC With Differential 01/17/2021 [facility] [address] [place] [address] [phone] White Blood Count 6.8 10 Normal 4.0-10.0 [...] 36.0-66.0 Lymph % 19.9 % Low 24.0-44.0 [place] % 6.0 % Normal 2.0-8.0 Eos % 1.5 % Normal 0.0-3.0 Baso % 0.3 % Normal 0.0-1.0 Immature Granulocyte % 0.1 % Normal 0-3.0 Nucleated Red Blood Cell % 0.0 % Normal 0-0 Neutrophils # 4.9 10 Normal 1.5-8.5 Lymph # 1.4 10 Low 1.5-5.0 [place] # 0.4 10 Normal 0.0-0.8 Eos # 0.1 10 Normal 0.0-0.5 Baso # 0.0 10 Normal 0.0-0.2 PT & Aptt 01/02/2021 [facility] [address] [place] [address] [phone] Prothrombin Time 13.8 seconds Normal 12.5-14.3 Inr 1.04 Normal 1 Partial Thromboplastin Time 30.6 seconds Normal 24.2-38.5 CBC With Differential 01/02/[address] [address] [phone] White Blood Count 6.2 10 Normal 4.0-10.0 [...] 36.0-66.0 Lymph % 16.4 % Low 24.0-44.0 [place] % 7.0 % Normal 2.0-8.0 Eos % 1.1 % Normal 0.0-3.0 Baso % 0.5 % Normal 0.0-1.0 Immature Granulocyte % 0.5 % Normal 0-3.0 Nucleated Red Blood Cell % 0.0 % Normal 0-0 Neutrophils # 4.6 10 Normal 1.5-8.5 Lymph # 1.0 10 Low 1.5-5.0 [place] # 0.4 10 Normal 0.0-0.8 Eos # 0.1 10 Normal 0.0-0.5 Baso # 0.0 10 Normal 0.0-0.2 Comprehensive Metabolic Profil 01/02/[address] [address] [phone] Glucose, Fasting 98 mg/dL Normal 70-100 Blood [...] 0.6 Low 1.2-2.2 Complete Blood Count 12/25/2020 [facility] Floor Manager: [place] [address] [phone] WBC 5.9 x10*3/UL 4.1 - 10.9 RBC [...] 2.0 - 7.8 Laboratory test finding 12/25/2020 [facility] Floor Manager: [place] [address] [phone] Sed Rate 25 mm/hr High 0 - 15 Basic Metabolic Panel 12/25/2020 [facility] Floor Manager: [place] [address] [phone] Glucose 100 mg/dL High 74 - 99 [...] mL/min >60 5 Laboratory test finding 12/25/2020 [facility] Floor Manager: [place] [address] [phone] Thyroid Stimulating Hormone 0.19 uIU/mL Low 0.3 6 - 3.74 Lipid Profile 10/26/2020 [facility] Floor Manager: [place] [address] [phone] Cholesterol 132 mg/dL 131 - 200 Triglycerides 72 mg/dL 30 - 150 HDL Cholesterol 54 mg/dL 35 - 60 LDL (Calculated) 64 CALC 50 - 159 Laboratory test finding 10/26/[address] [id number] [phone] Digoxin Level 0.3 NG/ML Low 0.5-2.0 6 Laboratory test finding 10/26/2020 [facility]inez Floor Manager: Dr Maxime Ball [place], [place] [address] [phone] Thyroid Stimulating Hormone 0.32 uIU/mL Low 0.3 6 - 3.74 Basic Metabolic Panel 10/26/2020 [facility] Floor Manager: Dr Maxime Ball [place], [place] [address]692 [phone] Glucose 70 mg/dL Low 74 - 99 [...] mL/min >60 8 Laboratory test finding 10/26/2020 [facility] Floor Manager: [place] [address] [phone] Sed Rate 45 mm/hr High 0 - 15 Magnesium 1.8 mg/dL 1.8 - 2.4 Complete Blood Count 10/26/2020 [facility] Floor Manager: [place] [address] [phone] WBC 8.4 x10*3/UL 4.1 - 10.9 RBC [...] x10*3/UL 2.0 - 7.8 Ua Routine 10/18/2020 [facility] [address] [place] [address] [phone] Appearance, Urine CLEAR Normal Clear Color, Urine [place] Normal Yellow PH,Urine 5.0 units Normal 5.0-9.0 Specific [place] Urine Auto 1.028 Normal 1.002-1.035 Protein, Urine [...] /LPF Normal 0-1 CBC With Differential 10/18/[address] [address] [phone] White Blood Count 7.6 10 Normal 4.0-10.0 [...] 36.0-66.0 Lymph % 18.1 % Low 24.0-44.0 [place] % 6.8 % Normal 2.0-8.0 Eos % 1.3 % Normal 0.0-3.0 Baso % 0.3 % Normal 0.0-1.0 Immature Granulocyte % 0.4 % Normal 0-3.0 Nucleated Red Blood Cell % 0.0 % Normal 0-0 Neutrophils # 5.6 10 Normal 1.5-8.5 Lymph # 1.4 10 Low 1.5-5.0 [place] # 0.5 10 Normal 0.0-0.8 Eos # 0.1 10 Normal 0.0-0.5 Baso # 0.0 10 Normal 0.0-0.2 Laboratory test finding 10/18/2020 [facility] [address] [place] [address] [phone] Erythrocyte Sedimentation Rate 68 mm/hr High 0 -30 Comprehensive Metabolic Profil 10/18/2020 [place] [address] [place] [address] [phone] Glucose, Fasting 97 mg/dL Normal 70-100 Blood [...] Low 1.2-2.2 Total Iron Binding Capacit 10/18/2020 [place] [id number] [phone] Iron (Fe) 131 g/dL Normal 50-170 Total Iron Binding Capacity 305 g/dL Normal 250-450 Percent Saturation 43.0 % Normal 13.2-45.0 Immunoglobulin G,A,M 10/18/[address] [address] [phone] Immunoglobulin A 2640.0 mg/dL High 70-400 Immunoglobulin G 510 mg/dL Low 681-1648 Immunoglobulin M < 5.3 mg/dL Low 40-230 Immunotyping (Immunofixation) Serum (If 10/18/[address] [address] [phone] Immunotyping Serum Iga ABNORMAL High Normal Immunotyping Serum Lambda ABNORMAL High Normal It Serum Interpretation SEE COMMENT Normal 10 Its Pathologist Review REV'D BY O ADJAP <SEE NOTE> Normal 11 Laboratory test finding 10/18/[address] [address] [phone] Ferritin 128 NG/ML Normal 8-252 12 Beta 2 Microglobulin 3.7 mg/L High 0.6-2.4 13 Free [place] & Lambda LT Chains 10/18/2020 [place] [address] [place] [address]561 [phone] Free [place] Light Chains Serum 6.4 mg/L Normal 3. 3-19.4 Free Lambda Light Chains Serum 517.2 mg/L High 5.7-26.3 [place]/Lambda Ratio Serum 0.01 Low 0.26-1.65 1 THERAPUTIC [...] Little GFR Left ESRD GFR <15 on SANDING MACHINE TENDER AUT[employer]AT[employer] 3 100-125 mg/dL PRE-DIABET ES/FASTING >126 mg/dL DIABETES/FASTING 4 NOTE: CALCIUM,TSH VERIFIED 5 CHRONIC KIDNEY DISEASE STAGI NG PER NKF STAGE I & II GFR >= 60 NORMAL TO MILDLY DECREASED STAGE III GFR 30-59 MODERATELY DECREASED STAGE IV GFR 15-29 SEVERELY DECREASED STAGE V GFR <15 VERY LITTLE GFR LEFT ESRD GFR <15 ON SANDING MACHINE TENDER AUTOMATIC 6 note:<nlbl:demographic_chang ed> 7 100-125 mg/dL PRE-DIABET ES/FASTING >126 mg/dL DIABETES/FASTING 8 CHRONIC KIDNEY DISEASE STAGI NG PER NKF STAGE I & II GFR >= 60 NORMAL TO MILDLY DECREASED STAGE III GFR 30-59 MODERATELY DECREASED STAGE IV GFR 15-29 SEVERELY DECREASED STAGE V GFR <15 VERY LITTLE GFR LEFT ESRD GFR <15 ON SANDING MACHINE TENDER [employer]IC 9 Units are mL/min/1.73 m2 Chronic Kidney Disease Staging per NKF: Stage I & II GFR >=60 Normal to Mildly Decreased Stage III GFR 30-59 Moderately Decreased Stage IV GFR 15-29 Severely Decreased Stage V GFR <15 Very Little GFR Left ESRD GFR <15 on SANDING MACHINE TENDER [employer]IC 10 MONOCLONAL IGA,LAMBDA 11 REV'D BY Cindy AL 12 note:<nlbl:demographic_chang ed> 13 Siemens Immulite 2000 Immuno chemiluminometric assay (ICMA) . Values obtained with different assay methods or kits cannot be used interchangeably. Results cannot be interpreted as absolute evidence of the presence or absence of malignant disease. Performed at: - [facility] [address] [id number] Floor Manager: Claudia Ellis MD, Phone: [phone] Performed at: - [facility] [address] [id number] Floor Manager: Jyoti Espinal MD, Phone: [phone] Procedures Date Code Description Status 02/16/2021 00907 Chronic Care MGMT 20 Mins Clinical Staff Time Per Calendar Month Completed 02/16/2021 90587 Chronic Care Management Services Ea Addl 20 Min Completed 01/30/2021 21543 Complex Chronic Care MGMT Servic e Ea Addl 30 Min Completed 01/30/2021 14125 Complex Chronic Care Management SVC 1St 60 Min Completed 12/29/2020 37183 Complex Chronic Care MGMT Servic e Ea Addl 30 Min Completed 12/29/2020 04426 Complex Chronic Care Management SVC 1St 60 Min Completed 12/25/2020 14598 Office/Outpatient Established Mo d MDM 30-39 Min Completed 11/27/2020 98242 Complex Chronic Care MGMT Servic e Ea Addl 30 Min Completed 11/27/2020 38871 Complex Chronic Care Management SVC 1St 60 Min Completed 10/27/2020 04174 Complex Chronic Care MGMT Servic e Ea Addl 30 Min Completed 10/27/2020 62432 Complex Chronic Care Management SVC 1St 60 Min Completed 10/26/2020 73633 Office/Outpatient Established Mo d MDM 30-39 Min Completed 09/21/2020 [id number] Bone Mineral Density Test Comple katy 09/21/2020 38390936 Mammogram Completed Medical Devices Description No Information Available Encounters Type Date Location Provider Dx Diagnosis Office Visit 12/25/2020 1:30p [facility] Recinos M.D. I48.20 Chronic atrial fibrillation, unspecified Z79.01 longterm (current) use of a nticoagulants R60.9 Edema, [...] hypercholesterolemia, u nspecified Office Visit 10/26/2020 1:30p [facility] Goldy Recinos M.D. 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 Z79.01 longterm (current) use of a nticoagulants F17.210 Nicotine [...] Recinos M.D. 01/30/2021 I10 Essential (primary) hypertension Aprly Recinos M.D. 01/30/2021 K21.9 Gastro-esophageal reflux disease [...] uns pecified Apryl Recinos M.D. 12/25/2020 Z79.01 longterm (current) use of antic oagulants Apryl Recinos M.D. 12/25/2020 R60.9 Edema, unspecified Apryl hale M.D. 12/25/2020 I10 Essential (primary) hypertension Apryl Recinos M.D. 12/25/2020 E05.90 Thyrotoxicosis, unspecified with out thyrotoxic crisis or sto Apryl Recions M.D. 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 12/25/2020 F17.210 Nicotine dependence, cigarettes, uncomplicated Apryl Recnios M.D. 12/25/2020 F32.89 Other specified depressive episo [...] unspecified deep veins of left lower extremity Arpyl Recinos M.D. 10/26/2020 Z79.01 longterm (current) use of antic oagulants Apryl Recinos [...] 3:15 pm - Apryl Rec[facility].D[facility] at [facility] 04/11/2021 - KIMBERLY Spencer JR* S81.802A Unspecified open wound, left lower leg, initial encounter * All * New Medication:* Cephalexin 500 mg - take one tablet by mouth 3 times daily x 7 days Functional Status Description No Information Available Mental Status Description No Information Available Referrals Description No Information Available
--- OUTSIDE RECORDS SUMMARY | 2021-06-07 18:32 | CCD | Continuity of Care Document ---
Author Author Elise HARTMAN PA Organization Unknown Address [address] [facility] [address] [place] [address] Phone [phone] Care Team Providers Care Home Health Travel Pt Name Role Phone Antwan Walker MD AUTM [phone] [facility] AUTM [phone] Rakesh Niño MD AUTM Unavailable [facility] Hematology/Oncology AUTM [phone] An Kearns ARABIC LINGUIST AUTM [phone] Problems Active Problems Provider Date Chronic atrial [...] Consumes 3 glasses of wine per w [place] Tobacco Use Start: Unknown Patient is a [...] Paresh gaines JR PA 04/11/2021 Excedrin Migraine [phone] Tab lets 1 as needed h/a as [...] la Tablets 1 every day PO Vit H=2234Hw GB=046 Elise Souza FNP 04/22/2017 Metoprolol Tartrate 25mg [...] CPT Code Status Date Vaccine Lot # 30785 Given 04/11/2021 Influenza Vaccin e Quadrivalent Preser/Antibiotic Free Im Use [id number] 99339 Given 04/20/2020 Influenza Vaccin e Quadrivalent Preser/Antibiotic Free Im Use 636118 20939 Given 08/31/2019 Shingrix Zoster Vaccine (HZV), Recombinant, Subunit, Adjuvanted 73127 Given 04/22/2019 Influenza Vaccin e Quadrivalent Preser/Antibiotic Free Im Use 985394 34798 Given 04/22/2018 Influenza Virus Vaccine, Quadrivalent (Cciiv4), Derived From 0 Given 07/25/2017 Pneumovax 23 [id number] 76402 Given 04/22/2017 Influenza Vaccin e Quadrivalent Preser/Antibiotic Free Im Use 478142 Vital Signs Date Vital Result Comment 04/24/2021 [...] Date Facility Test Result H/L Range Note CBC With Differential 01/17/2021 [facility] [address] [place] [address] [phone] White Blood Count 6.8 10 Normal 4.0-10.0 [...] 36.0-66.0 Lymph % 19.9 % Low 24.0-44.0 [place] % 6.0 % Normal 2.0-8.0 Eos % 1.5 % Normal 0.0-3.0 Baso % 0.3 % Normal 0.0-1.0 Immature Granulocyte % 0.1 % Normal 0-3.0 Nucleated Red Blood Cell % 0.0 % Normal 0-0 Neutrophils # 4.9 10 Normal 1.5-8.5 Lymph # 1.4 10 Low 1.5-5.0 [place] # 0.4 10 Normal 0.0-0.8 Eos # 0.1 10 Normal 0.0-0.5 Baso # 0.0 10 Normal 0.0-0.2 PT & Aptt 01/02/2021 [facility] [address] [place], [place] [address] [phone] Prothrombin Time 13.8 seconds Normal 12.5-14.3 Inr 1.04 Normal 1 Partial Thromboplastin Time 30.6 seconds Normal 24.2-38.5 CBC With Differential 01/02/[address] [address]216[address] [phone] White Blood Count 6.2 10 Normal 4.0-10.0 [...] 36.0-66.0 Lymph % 16.4 % Low 24.0-44.0 [place] % 7.0 % Normal 2.0-8.0 Eos % 1.1 % Normal 0.0-3.0 Baso % 0.5 % Normal 0.0-1.0 Immature Granulocyte % 0.5 % Normal 0-3.0 Nucleated Red Blood Cell % 0.0 % Normal 0-0 Neutrophils # 4.6 10 Normal 1.5-8.5 Lymph # 1.0 10 Low 1.5-5.0 [place] # 0.4 10 Normal 0.0-0.8 Eos # 0.1 10 Normal 0.0-0.5 Baso # 0.0 10 Normal 0.0-0.2 Comprehensive Metabolic Profil 01/02/[address] [address]2512 [phone] Glucose, Fasting 98 mg/dL Normal 70-100 Blood [...] 0.6 Low 1.2-2.2 Complete Blood Count 12/25/2020 [facility] Software Development Manager: [place] [address] [phone] WBC 5.9 x10*3/UL 4.1 - 10.9 RBC [...] 2.0 - 7.8 Laboratory test finding 12/25/2020 [facility] Software Development Manager: [place] [address] [phone] Sed Rate 25 mm/hr High 0 - 15 Basic Metabolic Panel 12/25/2020 [facility] Software Development Manager: [place] [address] [phone] Glucose 100 mg/dL High 74 - 99 [...] mL/min >60 5 Laboratory test finding 12/25/2020 [facility] Software Development Manager: Dr Maxime Ball [place] [address] [phone] Thyroid Stimulating Hormone 0.19 uIU/mL Low 0.3 6 - 3.74 1 THERAPUTIC HUMAN INR VALUES INDICATIONS NORMAL [...] Little GFR Left ESRD GFR <15 on NETWORK SYSTEMS ADMINISTRATOR 3 100-125 mg/dL PRE-DIABET ES/FASTING >126 mg/dL DIABETES/FASTING 4 NOTE: CALCIUM,TSH VERIFIED 5 CHRONIC KIDNEY DISEASE STAGI NG PER NKF STAGE I & II GFR >= 60 NORMAL TO MILDLY DECREASED STAGE III GFR 30-59 MODERATELY DECREASED STAGE IV GFR 15-29 SEVERELY DECREASED STAGE V GFR <15 VERY LITTLE GFR LEFT ESRD GFR <15 ON NETWORK SYSTEMS ADMINISTRATOR Procedures Date Code Description Status 04/11/2021 88518 Office/Outpatient Established Lo w MDM 20-29 Min Completed 02/16/2021 93608 Chronic Care MGMT 20 Mins Clinical Staff Time Per Calendar Month Completed 02/16/2021 30522 Chronic Care Management Services Ea Addl 20 Min Completed 01/30/2021 94957 Complex Chronic Care MGMT Servic e Ea Addl 30 Min Completed 01/30/2021 74478 Complex Chronic Care Management SVC 1St 60 Min Completed 12/29/2020 54646 Complex Chronic Care MGMT Servic e Ea Addl 30 Min Completed 12/29/2020 42815 Complex Chronic Care Management SVC 1St 60 Min Completed 12/25/2020 46133 Office/Outpatient Established Mo d MDM 30-39 Min Completed 11/27/2020 99604 Complex Chronic Care MGMT Servic e Ea Addl 30 Min Completed 11/27/2020 42247 Complex Chronic Care Management SVC 1St 60 Min Completed 10/27/2020 90859 Complex Chronic Care MGMT Servic e Ea Addl 30 Min Completed 10/27/2020 21254 Complex Chronic Care Management SVC 1St 60 Min Completed 09/21/2020 [id number] Bone Mineral Density Test Comple katy 09/21/2020 [id number] Mammogram Completed Medical Devices Description No Information Available Encounters Type Date Location Provider Dx Diagnosis Office Visit 04/11/2021 2:20p [facility]CKIMBERLY Rawls JR S81.802A Unspecified open wound, left lower leg, initial encounter Z23 Encounter for immunization Office Visit 12/25/2020 1:30p [facility] M.[facility]. 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 02/16/2021 K21.9 Gastro-esophageal reflux disease without [...] fibrillation, uns pecleandro Recinos M.D. 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 10/27/2020 E78.00 Pure hypercholesterolemia, unspe cified Apryl Recinos M.D. Plan of Treatment Future Appointment(s):* 06/13/2021 3:15 pm - Apryl Recinos M.D. at [facility] Functional Status Description No Information Available Mental Status Description No Information Available Referrals Refer to Dr Reason for Referral Status Appt Date Wilbert Julien MD STAT CONSULT FOR OPEN WOUND LT LEG PLEASE LET OFFICE KNOW WHEN APPT IS MADE Created [facility] [address] [place] [address] [phone] Janes Martinez MD CONSULT FOR PVD WITH OPEN WOUND LT LEG Patient Declined 04/25/2021 [facility] [address] [facility] [address] [phone]
--- OUTSIDE RECORDS SUMMARY | 2021-06-07 18:32 | CCD | Continuity of Care Document ---
Author Author Elise Recinos M.D. Organization Unknown Address [address] [facility] [address] [place] [address] Phone [phone] Care Team Providers Care Instructional Design Technologist Name Role Phone Antwan Walker MD AUTM [phone] [facility] Hea AUTM [phone] Rakesh Niño MD AUTM Unavailable [facility] Hematology/Oncology AUTM [phone] An Kearns VOLUNTEER MANAGER AUTM [phone] Problems Active Problems Provider Date Chronic atrial [...] Consumes 3 glasses of wine per w tanana Tobacco Use Start: Unknown Patient is a [...] Paresh gaines JR, PA 04/11/2021 Excedrin Migraine [phone] Tab lets 1 as needed h/a as [...] la Tablets 1 every day PO Vit J=6615Oa OC=094 Elise Souza FNP 04/22/2017 Metoprolol Tartrate 25mg [...] CPT Code Status Date Vaccine Lot # [id number] Given 04/11/2021 Influenza Vaccin e Quadrivalent Preser/Antibiotic Free Im Use [id number] 29457 Given 04/20/2020 Influenza Vaccin e Quadrivalent Preser/Antibiotic Free Im Use 736047 29999 Given 08/31/2019 Shingrix Zoster Vaccine (HZV), Recombinant, Subunit, Adjuvanted 56120 Given 04/22/2019 Influenza Vaccin e Quadrivalent Preser/Antibiotic Free Im Use 984621 39628 Given 04/22/2018 Influenza Virus Vaccine, Quadrivalent (Cciiv4), Derived From 6 Given 07/25/2017 Pneumovax 23 [id number] 60499 Given 04/22/2017 Influenza Vaccin e Quadrivalent Preser/Antibiotic Free Im Use 014432 Vital Signs Date Vital Result Comment 04/24/2021 [...] Note Influenza A/B RSV Covid Amp 04/30/[address] [address] [phone] Influenza A Amplification NEGATIVE Normal Negati ve 1 Influenza B Amplification NEGATIVE Normal Negative 2 RSV Amplification NEGATIVE Normal Negative 3 Sars Covid-19 Amplification NEGATIVE Normal Negative 4 CBC With Differential 04/30/[address] [address] [phone] White Blood Count 6.3 10 Normal 4.0-10.0 [...] 36.0-66.0 Lymph % 13.8 % Low 24.0-44.0 [place] % 4.8 % Normal 2.0-8.0 Eos % 1.1 % Normal 0.0-3.0 Baso % 0.3 % Normal 0.0-1.0 Immature Granulocyte % 0.5 % Normal 0-3.0 Nucleated Red Blood Cell % 0.0 % Normal 0-0 Neutrophils # 5.0 10 Normal 1.5-8.5 Lymph # 0.9 10 Low 1.5-5.0 [place] # 0.3 10 Normal 0.0-0.8 Eos # 0.1 10 Normal 0.0-0.5 Baso # 0.0 10 Normal 0.0-0.2 Cardiac Marker Panel 04/30/2021 [facility] enter [address] [place] [address] [phone] CPK Creatine Phosphokinase 26 U/L Normal 26-19 2 CK-MB Value Mass 1.0 NG/ML Normal <3.6 MB/CK Relative Index 3.85 Normal < Or =4 5 Troponin I 0.02 NG/ML Normal < 0.10 6 Liver Profile 04/30/2021 [facility] n[facility] [address] [place] [address] [phone] Ast/Sgot 26 U/L Normal 7-37 Alt/SGPT 28 U/L Normal 12-78 Alkaline Phosphatase 105 U/L Normal 45-117 Bilirubin,Total 0.8 mg/dL Normal 0.2-1.0 Bilirubin,Direct 0.4 mg/dL High 0.0-0.2 Total Protein 7.9 GM/DL Normal 6.4-8.2 Albumin 2.8 GM/DL Low 3.2-5.2 Albumin/Globulin Ratio 0.5 Low 1.2-2.2 Basic Metabolic Profile 04/30/2021 [facility] [address] [place] [address] [phone] Glucose, Fasting 106 mg/dL High 70-100 Blood [...] mg/dL High 8.8-10.2 Laboratory test finding 04/30/2021 [facility] [address] [place] [address] [phone] NT-Pro BNP 5817 pg/mL High <125 8 Digoxin Level 0.5 NG/ML Normal 0.5-2.0 9 Thyroxine (T4) 10.1 g/dL Normal 4.5-12.0 10 Thyroid Stimulating Hormone 0.051 uIU/ML Low 0.358-3.740 11 CBC With Differential 01/17/2021 [facility] [address] [place] [address] [phone] White Blood Count 6.8 10 Normal 4.0-10.0 [...] 36.0-66.0 Lymph % 19.9 % Low 24.0-44.0 [place] % 6.0 % Normal 2.0-8.0 Eos % 1.5 % Normal 0.0-3.0 Baso % 0.3 % Normal 0.0-1.0 Immature Granulocyte % 0.1 % Normal 0-3.0 Nucleated Red Blood Cell % 0.0 % Normal 0-0 Neutrophils # 4.9 10 Normal 1.5-8.5 Lymph # 1.4 10 Low 1.5-5.0 [place] # 0.4 10 Normal 0.0-0.8 Eos # 0.1 10 Normal 0.0-0.5 Baso # 0.0 10 Normal 0.0-0.2 PT & Aptt 01/02/2021 [facility] [address] [place] [address] [phone] Prothrombin Time 13.8 seconds Normal 12.5-14.3 Inr 1.04 Normal 12 Partial Thromboplastin Time 30.6 seconds Normal 24.2-38.5 CBC With Differential 01/02/2021 [facility] [address] [place] [address] [phone] White Blood Count 6.2 10 Normal 4.0-10.0 [...] 36.0-66.0 Lymph % 16.4 % Low 24.0-44.0 [place] % 7.0 % Normal 2.0-8.0 Eos % 1.1 % Normal 0.0-3.0 Baso % 0.5 % Normal 0.0-1.0 Immature Granulocyte % 0.5 % Normal 0-3.0 Nucleated Red Blood Cell % 0.0 % Normal 0-0 Neutrophils # 4.6 10 Normal 1.5-8.5 Lymph # 1.0 10 Low 1.5-5.0 [place] # 0.4 10 Normal 0.0-0.8 Eos # 0.1 10 Normal 0.0-0.5 Baso # 0.0 10 Normal 0.0-0.2 Comprehensive Metabolic Profil 01/02/[address] [address] [phone] Glucose, Fasting 98 mg/dL Normal 70-100 Blood [...] 0.6 Low 1.2-2.2 Complete Blood Count 12/25/2020 [facility] Power Plant Operations Manager: [place] [address] [phone] WBC 5.9 x10*3/UL 4.1 - 10.9 RBC [...] 2.0 - 7.8 Laboratory test finding 12/25/2020 [employer] [facility] Power Plant Operations Manager: [place] [address] [phone] Sed Rate 25 mm/hr High 0 - 15 Basic Metabolic Panel 12/25/2020 [facility] Power Plant Operations Manager: [place] [address] [phone] Glucose 100 mg/dL High 74 - 99 [...] mL/min >60 16 Laboratory test finding 12/25/2020 [employer] [facility] abril martinez Power Plant Operations Manager: [place] [address] [phone] Thyroid Stimulating Hormone 0.19 uIU/mL Low 0.3 [...] pathogens. DISCLAIMER: Testing was performed using the [employer] SARS-CoV-2 test. This test was developed and its performance characteristics determined by [employer]. This test has not been FDA cleared [...] Troponin I Reference Interva l for Siemens [place] LOCI: 99th Percentile= 0.00-0.045 ng/ml Risk Stratification: [...] Little GFR Left ESRD GFR <15 on RADIO AERIAL INSTALLER 8 note:<nlbl:demographic_[facility] ed> 9 note:<nlbl:demographic_[facility] ed> 10 note:<nlbl:demographic_[facility] ed> 11 note:<nlbl:[facility] ed> 12 THERAPUTIC HUMAN INR VALUES INDICATIONS [...] Little GFR Left ESRD GFR <15 on RADIO AERIAL INSTALLER 14 100-125 mg/dL PRE-DIABET ES/FASTING >126 mg/dL DIABETES/FASTING 15 NOTE: CALCIUM,TSH VERIFIED 16 CHRONIC KIDNEY DISEASE STAGI NG PER NKF STAGE I & II GFR >= 60 NORMAL TO MILDLY DECREASED STAGE III GFR 30-59 MODERATELY DECREASED STAGE IV GFR 15-29 SEVERELY DECREASED STAGE V GFR <15 VERY LITTLE GFR LEFT ESRD GFR <15 ON RADIO AERIAL INSTALLER Procedures Date Code Description Status 04/11/2021 46838 Office/Outpatient Established Lo w MDM 20-29 Min Completed 04/05/2021 15257 Complex Chronic Care MGMT Servic e Ea Addl 30 Min Completed 04/05/2021 77187 Complex Chronic Care Management SVC 1St 60 Min Completed 02/16/2021 60003 Chronic Care MGMT 20 Mins Clinical Staff Time Per Calendar Month Completed 02/16/2021 49534 Chronic Care Management Services Ea Addl 20 Min Completed 01/30/2021 80082 Complex Chronic Care MGMT Servic e Ea Addl 30 Min Completed 01/30/2021 76836 Complex Chronic Care Management SVC 1St 60 Min Completed 12/29/2020 00561 Complex Chronic Care MGMT Servic e Ea Addl 30 Min Completed 12/29/2020 59232 Complex Chronic Care Management SVC 1St 60 Min Completed 12/25/2020 51753 Office/Outpatient Established Mo d MDM 30-39 Min Completed 11/27/2020 96344 Complex Chronic Care MGMT Servic e Ea Addl 30 Min Completed 11/27/2020 71518 Complex Chronic Care Management SVC 1St 60 Min Completed 09/21/2020 894495009 Bone Mineral Density Test Comple katy 09/21/2020 [id number] Mammogram Completed Medical Devices Description No Information Available Encounters Type Date Location Provider Dx Diagnosis Office Visit 04/11/2021 2:20p [facility]CKIMBERLY Rawls JR S81.802A Unspecified open wound, left lower leg, initial encounter Z23 Encounter for immunization Office Visit 12/25/2020 1:30p [facility]CAmber Recinos M.D. I48.20 Chronic atrial fibrillation, unspecified Z79.01 [facility] (current) use of a nticoagulants R60.9 Edema, [...] fibrillation, uns pecleandro Recinos M.D. 12/25/2020 Z79.01 [facility] (current) use of antic oagulants Apryl Recinos [...] 3:15 pm - Apryl Recinos M.D. at [facility] Functional Status Description No Information Available Mental Status Description No Information Available Referrals Refer to Dr Reason for Referral Status Appt Date Wilbetr Julien MD STAT CONSULT FOR OPEN WOUND LT LEG PLEASE LET OFFICE KNOW WHEN APPT IS MADE [facility] [address] [place] [address] [phone] Janes Martinez MD CONSULT FOR PVD WITH OPEN WOUND LT LEG Patient Declined 04/25/2021 [facility] [address] ,[address] [place] [address] [phone]
--- OUTSIDE RECORDS SUMMARY | 2021-06-07 18:32 | CCD | Continuity of Care Document ---
Author Author Elise HARTMAN PA Organization Unknown Address [address] [facility] [address] [place] [address] Phone [phone] Care Team Providers Care Ship Rigger Apprentice Name Role Phone Antwan Walker MD AUTM [phone] [facility] AUTM [phone] Rakesh Niño MD AUTM Unavailable [facility] Hematology/Oncology AUTM [phone] An Kearns CREDIT RATING INSPECTOR AUTM [phone] Problems Active Problems Provider Date Chronic atrial [...] FNP Onset: 02/2017 Chronic tension-type headache Elise oSuza FNP Onset: 02/2017 Varicose veins of lower extremity Elise Souza FNP Onset: 05/14/2017 Tobacco user Elise Souza FNP Onset: 05/14/2017 Hypercalcemia Elise Souza FNP Onset: 05/14/2017 Social History Type Date Description Comments Sex Unknown ETOH Use Consumes 3 glasses of wine per w [employer] Tobacco Use Start: Unknown Patient is a [...] Paresh gaines JR PA 04/11/2021 Excedrin Migraine [phone] Tab lets 1 as needed h/a as [...] la Tablets 1 every day PO Vit D=5557Le OD=783 Elise Souza FNP 04/22/2017 Metoprolol Tartrate 25mg [...] CPT Code Status Date Vaccine Lot # 21331 Given 04/11/2021 Influenza Vaccin e Quadrivalent Preser/Antibiotic Free Im Use [id number] 82332 Given 04/20/2020 Influenza Vaccin e Quadrivalent Preser/Antibiotic Free Im Use 639750 96818 Given 08/31/2019 Shingrix Zoster Vaccine (HZV), Recombinant, Subunit, Adjuvanted 11419 Given 04/22/2019 Influenza Vaccin e Quadrivalent Preser/Antibiotic Free Im Use 214955 18685 Given 04/22/2018 Influenza Virus Vaccine, Quadrivalent (Cciiv4), Derived From 9 Given 07/25/2017 Pneumovax 23 [id number] 12367 Given 04/22/2017 Influenza Vaccin e Quadrivalent Preser/Antibiotic Free Im Use 707909 Vital Signs Date Vital Result Comment 04/11/2021 [...] H/L Range Note Laboratory test finding 04/11/2021 [facility] [address] [place] [address] [phone] Wound Culture <pending> CBC With Differential 01/17/2021 [facility] [address] [place] [address] [phone] White Blood Count 6.8 10 Normal 4.0-10.0 [...] 36.0-66.0 Lymph % 19.9 % Low 24.0-44.0 [place] % 6.0 % Normal 2.0-8.0 Eos % 1.5 % Normal 0.0-3.0 Baso % 0.3 % Normal 0.0-1.0 Immature Granulocyte % 0.1 % Normal 0-3.0 Nucleated Red Blood Cell % 0.0 % Normal 0-0 Neutrophils # 4.9 10 Normal 1.5-8.5 Lymph # 1.4 10 Low 1.5-5.0 [place] # 0.4 10 Normal 0.0-0.8 Eos # 0.1 10 Normal 0.0-0.5 Baso # 0.0 10 Normal 0.0-0.2 PT & Aptt 01/02/2021 [facility] nter [address] [place] [address] [phone] Prothrombin Time 13.8 seconds Normal 12.5-14.3 Inr 1.04 Normal 1 Partial Thromboplastin Time 30.6 seconds Normal 24.2-38.5 CBC With Differential 01/02/[address] [address] [phone] White Blood Count 6.2 10 Normal 4.0-10.0 [...] 36.0-66.0 Lymph % 16.4 % Low 24.0-44.0 [place] % 7.0 % Normal 2.0-8.0 Eos % 1.1 % Normal 0.0-3.0 Baso % 0.5 % Normal 0.0-1.0 Immature Granulocyte % 0.5 % Normal 0-3.0 Nucleated Red Blood Cell % 0.0 % Normal 0-0 Neutrophils # 4.6 10 Normal 1.5-8.5 Lymph # 1.0 10 Low 1.5-5.0 [place] # 0.4 10 Normal 0.0-0.8 Eos # 0.1 10 Normal 0.0-0.5 Baso # 0.0 10 Normal 0.0-0.2 Comprehensive Metabolic Profil 01/02/[address] [address] [phone] Glucose, Fasting 98 mg/dL Normal 70-100 Blood [...] 0.6 Low 1.2-2.2 Complete Blood Count 12/25/2020 [facility] Paper Sales Manager: [place] [address] [phone] WBC 5.9 x10*3/UL 4.1 - 10.9 RBC [...] 2.0 - 7.8 Laboratory test finding 12/25/2020 [facility] Paper Sales Manager: [place] [address] [phone] Sed Rate 25 mm/hr High 0 - 15 Basic Metabolic Panel 12/25/2020 [facility] Paper Sales Manager: [place] [address] [phone] Glucose 100 mg/dL High 74 - 99 [...] mL/min >60 5 Laboratory test finding 12/25/2020 [facility] abril martinez Paper Sales Manager: [place] [address] [phone] Thyroid Stimulating Hormone 0.19 uIU/mL Low 0.3 6 - 3.74 Lipid Profile 10/26/2020 [facility] Paper Sales Manager: [place] [address] [phone] Cholesterol 132 mg/dL 131 - 200 Triglycerides 72 mg/dL 30 - 150 HDL Cholesterol 54 mg/dL 35 - 60 LDL (Calculated) 64 CALC 50 - 159 Laboratory test finding 10/26/[address] [address]73 [phone] Digoxin Level 0.3 NG/ML Low 0.5-2.0 6 Laboratory test finding 10/26/2020 [facility] abril martinez Paper Sales Manager: Dr Maxime Ball [place], [place] [address] [phone] Thyroid Stimulating Hormone 0.32 uIU/mL Low 0.3 6 - 3.74 Basic Metabolic Panel 10/26/2020 [facility] Paper Sales Manager: Dr Maxime Ball [place], [place] [address] [phone] Glucose 70 mg/dL Low 74 - 99 [...] mL/min >60 8 Laboratory test finding 10/26/2020 [facility] abril martinez Paper Sales Manager: [place] [address] [phone] Sed Rate 45 mm/hr High 0 - 15 Magnesium 1.8 mg/dL 1.8 - 2.4 Complete Blood Count 10/26/2020 [facility] Paper Sales Manager: [place] [address] [phone] WBC 8.4 x10*3/UL 4.1 - 10.9 RBC [...] x10*3/UL 2.0 - 7.8 Ua Routine 10/18/2020 [facility] nter [address] [place] [address] [phone] Appearance, Urine CLEAR Normal Clear Color, Urine [place] Normal Yellow PH,Urine 5.0 units Normal 5.0-9.0 Specific [place] Urine Auto 1.028 Normal 1.002-1.035 Protein, Urine [...] /LPF Normal 0-1 CBC With Differential 10/18/[address] [address] [phone] White Blood Count 7.6 10 Normal 4.0-10.0 [...] 36.0-66.0 Lymph % 18.1 % Low 24.0-44.0 [place] % 6.8 % Normal 2.0-8.0 Eos % 1.3 % Normal 0.0-3.0 Baso % 0.3 % Normal 0.0-1.0 Immature Granulocyte % 0.4 % Normal 0-3.0 Nucleated Red Blood Cell % 0.0 % Normal 0-0 Neutrophils # 5.6 10 Normal 1.5-8.5 Lymph # 1.4 10 Low 1.5-5.0 [place] # 0.5 10 Normal 0.0-0.8 Eos # 0.1 10 Normal 0.0-0.5 Baso # 0.0 10 Normal 0.0-0.2 Laboratory test finding 10/18/2020 [facility] [address] [place] [address] [phone] Erythrocyte Sedimentation Rate 68 mm/hr High 0 -30 Comprehensive Metabolic Profil 10/18/2020 [place] [address] [place] [address] [phone] Glucose, Fasting 97 mg/dL Normal 70-100 Blood [...] Low 1.2-2.2 Total Iron Binding Capacit 10/18/2020 [place] [id number] [phone] Iron (Fe) 131 g/dL Normal 50-170 Total Iron Binding Capacity 305 g/dL Normal 250-450 Percent Saturation 43.0 % Normal 13.2-45.0 Immunoglobulin G,A,M 10/18/[address] [address] [phone] Immunoglobulin A 2640.0 mg/dL High 70-400 Immunoglobulin G 510 mg/dL Low 681-1648 Immunoglobulin M < 5.3 mg/dL Low 40-230 Immunotyping (Immunofixation) Serum (If 10/18/[address] [address] [phone] Immunotyping Serum Iga ABNORMAL High Normal Immunotyping Serum Lambda ABNORMAL High Normal It Serum Interpretation SEE COMMENT Normal 10 Its Pathologist Review REV'D BY O ADJAP <SEE NOTE> Normal 11 Laboratory test finding 10/18/[address] [address] [phone] Ferritin 128 NG/ML Normal 8-252 12 Beta 2 Microglobulin 3.7 mg/L High 0.6-2.4 13 Free Brandon & Lambda LT Chains 10/18/2020 [place] [address] [place] 0[address]5561 [phone] Free Brandon Light Chains Serum 6.4 mg/L Normal 3. 3-19.4 Free Lambda Light Chains Serum 517.2 mg/L High 5.7-26.3 Brandon/Lambda Ratio Serum 0.01 Low 0.26-1.65 1 THERAPUTIC [...] Little GFR Left ESRD GFR <15 on HYDRO ELECTRIC STATION OPERATOR 3 100-125 mg/dL PRE-DIABET ES/FASTING >126 mg/dL DIABETES/FASTING 4 NOTE: CALCIUM,TSH VERIFIED 5 CHRONIC KIDNEY DISEASE STAGI NG PER NKF STAGE I & II GFR >= 60 NORMAL TO MILDLY DECREASED STAGE III GFR 30-59 MODERATELY DECREASED STAGE IV GFR 15-29 SEVERELY DECREASED STAGE V GFR <15 VERY LITTLE GFR LEFT ESRD GFR <15 ON HYDRO ELECTRIC STATION OPERATOR 6 note:<nlbl:demographic_chang ed> 7 100-125 mg/dL PRE-DIABET ES/FASTING >126 mg/dL DIABETES/FASTING 8 CHRONIC KIDNEY DISEASE STAGI NG PER NKF STAGE I & II GFR >= 60 NORMAL TO MILDLY DECREASED STAGE III GFR 30-59 MODERATELY DECREASED STAGE IV GFR 15-29 SEVERELY DECREASED STAGE V GFR <15 VERY LITTLE GFR LEFT ESRD GFR <15 ON HYDRO ELECTRIC STATION OPERATOR 9 Units are mL/min/1.73 m2 Chronic Kidney Disease Staging per NKF: Stage I & II GFR >=60 Normal to Mildly Decreased Stage III GFR 30-59 Moderately Decreased Stage IV GFR 15-29 Severely Decreased Stage V GFR <15 Very Little GFR Left ESRD GFR <15 on HYDRO ELECTRIC STATION OPERATOR 10 MONOCLONAL IGA,LAMBDA 11 REV'D BY Cindy AL 12 note:<nlbl:demographic_chang ed> 13 Siemens Immulite 2000 Immuno chemiluminometric assay (ICMA) . Values obtained with different assay methods or kits cannot be used interchangeably. Results cannot be interpreted as absolute evidence of the presence or absence of malignant disease. Performed at: - [facility] [address] [id number] Paper Sales Manager: Claudia Ellis MD, Phone: [phone] Performed at: - [facility] [address] [id number] Paper Sales Manager: Jyoti Espinal MD, Phone: [phone] Procedures Date Code Description Status 02/16/2021 65437 Chronic Care MGMT 20 Mins Clinical Staff Time Per Calendar Month Completed 02/16/2021 30338 Chronic Care Management Services Ea Addl 20 Min Completed 01/30/2021 24114 Complex Chronic Care MGMT Servic e Ea Addl 30 Min Completed 01/30/2021 28371 Complex Chronic Care Management SVC 1St 60 Min Completed 12/29/2020 33189 Complex Chronic Care MGMT Servic e Ea Addl 30 Min Completed 12/29/2020 90067 Complex Chronic Care Management SVC 1St 60 Min Completed 12/25/2020 37758 Office/Outpatient Established Mo d MDM 30-39 Min Completed 11/27/2020 97614 Complex Chronic Care MGMT Servic e Ea Addl 30 Min Completed 11/27/2020 30276 Complex Chronic Care Management SVC 1St 60 Min Completed 10/27/2020 45675 Complex Chronic Care MGMT Servic e Ea Addl 30 Min Completed 10/27/2020 79573 Complex Chronic Care Management SVC 1St 60 Min Completed 10/26/2020 66362 Office/Outpatient Established Mo d MDM 30-39 Min Completed 09/21/2020 [id number] Bone Mineral Density Test Comple katy 09/21/2020 39591198 Mammogram Completed Medical Devices Description No Information Available Encounters Type Date Location Provider Dx Diagnosis Office Visit 12/25/2020 1:30p [facility] Rec[facility] M.[facility]. I48.20 Chronic atrial [...] hypercholesterolemia, u nspecified Office Visit 10/26/2020 1:30p [facility] Goldy Recinos M.D. I48.20 Chronic [...] hale M.D. 12/25/2020 I10 Essential (primary) hypertension pAryl Recinos M.D. 12/25/2020 E05.90 Thyrotoxicosis, unspecified with [...] 3:15 pm - [facility] 04/11/2021 - KIMBERLY Spencer JR* S81.802A Unspecified open wound, left lower leg, initial encounter * All * New Medication:* Cephalexin 500 mg - take one tablet by mouth 3 times daily x 7 days Functional Status Description No Information Available Mental Status Description No Information Available Referrals Description No Information Available
--- OUTSIDE RECORDS SUMMARY | 2021-06-07 18:32 | CCD | Continuity of Care Document ---
Author Author Elise HARTMAN PA Organization Unknown Address [address] [facility] [address] [place] [address] Phone [phone] Care Team Providers Care Drawbench Operator Name Role Phone Antwan Walker MD AUTM [phone] [facility] AUTM [phone] Rakesh Niño MD AUTM Unavailable [facility] Hematology/Oncology AUTM [phone] An [place] CASHIER CREDIT AUTM [phone] Problems Active Problems Provider Date Chronic atrial [...] Consumes 3 glasses of wine per w [place] Tobacco Use Start: Unknown Patient is a [...] Paresh gaines JR PA 04/11/2021 Excedrin Migraine [phone] Tab lets 1 as needed h/a as needed mdd=1 Apryl Recinos M.D. 09/20/2020 Famotidine 20mg Tablets 1 by mouth every day 90tabs Apryl Recinso M.D. 09/20/19 21 Furosemide 20mg Tablets 1 [...] s DR 1 by mouth every day Eilse Souza FNP 7 Acetaminophen Extra Strength 500mg Tablets take 2 tabs every 6 hours as needed Elise Strickland FNP 04/22/2017 Womens 50+ Multi Vitamin & Mineral Formu la Tablets 1 every day PO Vit [id number] BH=487 Elise Souza FNP 04/22/2017 Metoprolol Tartrate 25mg [...] CPT Code Status Date Vaccine Lot # [id number] Given 04/11/2021 Influenza Vaccin e Quadrivalent Preser/Antibiotic Free Im Use [id number] 58971 Given 04/20/2020 Influenza Vaccin e Quadrivalent Preser/Antibiotic Free Im Use [id number] 38393 Given 08/31/2019 Shingrix Zoster Vaccine (HZV), Recombinant, Subunit, Adjuvanted 34013 Given 04/22/2019 Influenza Vaccin e Quadrivalent Preser/Antibiotic Free Im Use [id number] 20761 Given 04/22/2018 Influenza Virus Vaccine, Quadrivalent (Cciiv4), Derived From 6 Given 07/25/2017 Pneumovax 23 [id number] 55068 Given 04/22/2017 Influenza Vaccin e Quadrivalent Preser/Antibiotic Free Im Use [id number] Vital Signs Date Vital Result Comment 04/11/2021 [...] H/L Range Note Laboratory test finding 04/11/2021 [facility] [address] [place] [address] [phone] Wound Culture <pending> CBC With Differential 01/17/2021 [facility] [address] [place] [address] [phone] White Blood Count 6.8 10 Normal 4.0-10.0 [...] 36.0-66.0 Lymph % 19.9 % Low 24.0-44.0 Nolan % 6.0 % Normal 2.0-8.0 Eos % 1.5 % Normal 0.0-3.0 Baso % 0.3 % Normal 0.0-1.0 Immature Granulocyte % 0.1 % Normal 0-3.0 Nucleated Red Blood Cell % 0.0 % Normal 0-0 Neutrophils # 4.9 10 Normal 1.5-8.5 Lymph # 1.4 10 Low 1.5-5.0 Nolan # 0.4 10 Normal 0.0-0.8 Eos # 0.1 10 Normal 0.0-0.5 Baso # 0.0 10 Normal 0.0-0.2 PT & Aptt 01/02/2021 [facility] [address] [place] [address] [phone] Prothrombin Time 13.8 seconds Normal 12.5-14.3 Inr 1.04 Normal 1 Partial Thromboplastin Time 30.6 seconds Normal 24.2-38.5 CBC With Differential 01/02/[address] [address] [phone] White Blood Count 6.2 10 Normal 4.0-10.0 [...] 36.0-66.0 Lymph % 16.4 % Low 24.0-44.0 Nolan % 7.0 % Normal 2.0-8.0 Eos % 1.1 % Normal 0.0-3.0 Baso % 0.5 % Normal 0.0-1.0 Immature Granulocyte % 0.5 % Normal 0-3.0 Nucleated Red Blood Cell % 0.0 % Normal 0-0 Neutrophils # 4.6 10 Normal 1.5-8.5 Lymph # 1.0 10 Low 1.5-5.0 Nolan # 0.4 10 Normal 0.0-0.8 Eos # 0.1 10 Normal 0.0-0.5 Baso # 0.0 10 Normal 0.0-0.2 Comprehensive Metabolic Profil 01/02/[address] [address] [phone] Glucose, Fasting 98 mg/dL Normal 70-100 Blood [...] 0.6 Low 1.2-2.2 Complete Blood Count 12/25/2020 [facility] Photograph Inspector: [place] [address] [phone] WBC 5.9 x10*3/UL 4.1 - 10.9 RBC [...] 2.0 - 7.8 Laboratory test finding 12/25/2020 [facility] Photograph Inspector: [place] [address] [phone] Sed Rate 25 mm/hr High 0 - 15 Basic Metabolic Panel 12/25/2020 [facility] Photograph Inspector: [place] [address] [phone] Glucose 100 mg/dL High 74 - 99 [...] mL/min >60 5 Laboratory test finding 12/25/2020 [facility] Photograph Inspector: [place] [address] [phone] Thyroid Stimulating Hormone 0.19 uIU/mL Low 0.3 6 - 3.74 Complete Blood Count 10/26/2020 [facility] Photograph Inspector: Dr Maxime Ball [place] [id number] [phone] WBC 8.4 x10*3/UL 4.1 - 10.9 RBC [...] 2.0 - 7.8 Laboratory test finding 10/26/2020 [facility] Photograph Inspector: [place] [address] [phone] Sed Rate 45 mm/hr High 0 - 15 Magnesium 1.8 mg/dL 1.8 - 2.4 Basic Metabolic Panel 10/26/2020 [facility] Photograph Inspector: [place] [address] [phone] Glucose 70 mg/dL Low 74 - 99 [...] 60 mL/min >60 7 Lipid Profile 10/26/2020 [facility] Photograph Inspector: [place] [address] [phone] Cholesterol 132 mg/dL 131 - 200 Triglycerides 72 mg/dL 30 - 150 HDL Cholesterol 54 mg/dL 35 - 60 LDL (Calculated) 64 CALC 50 - 159 Laboratory test finding 10/26/2020 [facility] Photograph Inspector: [place] [address] [phone] Thyroid Stimulating Hormone 0.32 uIU/mL Low 0.3 6 - 3.74 Laboratory test finding 10/26/2020 [facility] [address] [place] [address] [phone] Digoxin Level 0.3 NG/ML Low 0.5-2.0 8 [...] Little GFR Left ESRD GFR <15 on BUILDING TRADES TEACHER 3 100-125 mg/dL PRE-DIABET ES/FASTING >126 mg/dL DIABETES/FASTING 4 NOTE: CALCIUM,TSH VERIFIED 5 CHRONIC KIDNEY DISEASE STAGI NG PER NKF STAGE I & II GFR >= 60 NORMAL TO MILDLY DECREASED STAGE III GFR 30-59 MODERATELY DECREASED STAGE IV GFR 15-29 SEVERELY DECREASED STAGE V GFR <15 VERY LITTLE GFR LEFT ESRD GFR <15 ON BUILDING TRADES TEACHER 6 100-125 mg/dL PRE-DIABET ES/FASTING >126 mg/dL DIABETES/FASTING 7 CHRONIC KIDNEY DISEASE STAGI NG PER NKF STAGE I & II GFR >= 60 NORMAL TO MILDLY DECREASED STAGE III GFR 30-59 MODERATELY DECREASED STAGE IV GFR 15-29 SEVERELY DECREASED STAGE V GFR <15 VERY LITTLE GFR LEFT ESRD GFR <15 ON BUILDING TRADES TEACHER 8 note:<nlbl:demographic_chang ed> Procedures Date Code Description Status 04/11/2021 83983 Office/Outpatient Established Lo w MDM 20-29 Min Completed 02/16/2021 23176 Chronic Care MGMT 20 Mins Clinical Staff Time Per Calendar Month Completed 02/16/2021 95477 Chronic Care Management Services Ea Addl 20 Min Completed 01/30/2021 80838 Complex Chronic Care MGMT Servic e Ea Addl 30 Min Completed 01/30/2021 12281 Complex Chronic Care Management SVC 1St 60 Min Completed 12/29/2020 51270 Complex Chronic Care MGMT Servic e Ea Addl 30 Min Completed 12/29/2020 26843 Complex Chronic Care Management SVC 1St 60 Min Completed 12/25/2020 46755 Office/Outpatient Established Mo d MDM 30-39 Min Completed 11/27/2020 88691 Complex Chronic Care MGMT Servic e Ea Addl 30 Min Completed 11/27/2020 61501 Complex Chronic Care Management SVC 1St 60 Min Completed 10/27/2020 74855 Complex Chronic Care MGMT Servic e Ea Addl 30 Min Completed 10/27/2020 54036 Complex Chronic Care Management SVC 1St 60 Min Completed 10/26/2020 73229 Office/Outpatient Established Mo d MDM 30-39 Min Completed 09/21/2020 [id number] Bone Mineral Density Test Comple katy 09/21/2020 19780714 Mammogram Completed Medical Devices Description No Information Available Encounters Type Date Location Provider Dx Diagnosis [facility] S81.802A Unspecified open wound, left lower leg, initial encounter Z23 Encounter for immunization Office Visit 12/25/2020 1:30p [facility] I48.20 Chronic atrial fibrillation, unspecified Z79.01 jail (current) use of a nticoagulants R60.9 Edema, [...] hypercholesterolemia, u nspecified Office Visit 10/26/2020 1[facility]p [facility] 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 12/25/2020 Z79.01 jail (current) use of antic oagulants Apryl Recinos [...] Recinos M.D. 11/27/2020 E78.00 Pure hypercholesterolemia, unspe ciesha Recinos M.D. 10/27/2020 I48.20 Chronic atrial fibrillation, [...] lower extremity Apryl Recinos M.D. 10/26/2020 Z79.01 jail (current) use of antic oagulants Apryl Recinos [...] 3:15 pm - [facility] 04/11/2021 - KIMBERLY Spencer JR* S81.802A Unspecified open wound, left lower leg, initial encounter * Z23 Encounter for immunization * All * New Medication:* Cephalexin 500 mg - take one tablet by mouth 3 times daily x 7 days * Comments:* Total time spent was 43 minutes. Most of this time was spent counseling the patient and dressing the wound. She verbalized understanding and agreement, She was accompanied by a friend who also verbalized understanding and agreement.Flu shot was given. Functional Status Description No Information Available Mental Status Description No Information Available Referrals Refer to Dr Reason for Referral Status Appt Date Wilbert Julien MD STAT CONSULT FOR OPEN WOUND LT LEG PLEASE LET OFFICE KNOW WHEN APPT IS MADE Created [facility] [address] [place] [address] [phone] Janes Martinez MD CONSULT FOR PVD WITH OPEN WOUND LT LEG Patient Declined 04/25/2021 [facility] [address] [facility] ,[address] [place] [address] [phone]
--- OUTSIDE RECORDS SUMMARY | 2021-06-07 18:32 | CCD ---
Author Author [facility] Organization [facility] Address Unknown Phone Unavailable Care Team Providers Care Electrolytic De Scaler Name Role Phone Agustinthai Wilbert Unavailable PROBLEMS Type Condition ICD9-CM Code [id number] Code Onset Dates Condition S tatus W/U Status Risk SNOMED Code Notes Problem Non-pressure chronic ulcer o f other part of left lower leg with fat layer exposed L97.822 Active confirmed 43676196 Problem Chronic venous hypertension (idiopathic) with ulcer of left lower extremity I87.312 Active confirmed [id number] ALLERGIES Allergen (clinical drug ingredient) Drug/Non Drug Allergy do cumented on EMR Reaction Allergy Type Onset Date Status Motrin Dyspnea Drug Allergy Active ENCOUNTERS from 1955 to 2021-04-26 Encounter Location Date Provider Diagnosis [facility] [address] [facility] [phone] [place] [address] Apr, Wilbert Julien IMMUNIZATIONS No Information SOCIAL HISTORY Tobacco Use: Social History Observation Description Date Details (start date - stop date) Current Smoker Sex Assigned At : Social History Observation Description Sex Assigned At Unknown Education: Question Answer Notes Level of Education: Finished High School Christian: Question Answer Notes Christian [employer] Sexual Hx: Question Answer Notes Had sex in the last 12 months (vaginal, oral, or anal)? 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 No [...] MG as directed Orally Acti ve PROCEDURES No Information RESULTS No Results REASON FOR VISIT tachycardia MEDICAL (GENERAL) HISTORY Type Description Date Medical [...] TREATMENT Next Appt Details Provider Name:Gabriela Phillips, 05-03 09:45:00 AM, [address], , [place], [address], Insurance Providers Payer Name Payer Address Payer Phone Insured Name Patient Relati onship to Insured Coverage Start Date Coverage End Date FOR LIFE [address] [facility] [id number] PILI HERNANDEZ self MEDICARE Part A and B [address] [facility] [address] [phone] PILI HERNANDEZ self
[2021-06-07] MEDS ORDERED: ISOVUE-370 76% 100ML VIAL As Ordered ONE (18:33)
--- OUTSIDE RECORDS SUMMARY | 2021-06-07 18:33 | CCD | Continuity of Care Document ---
Author Author Elise GRANADO PA Organization Unknown Address [address] [place] [address], [place] [address] Phone [phone] Care Team Providers Care Corrosion Control Engineer Name Role Phone Apryl Recinos MD AUTM [phone] Fernanda Guzmán MD AUTM [phone] Problems Active Problems Provider Date Precordial pain Wilbert Hayes MD Onset: 06/14/2019 Dyspnea Wilbert Hayes MD Onset: 06/14/2019 Palpitations Wilbert Hayes MD Onset: 06/14/2019 Paroxysmal atrial fibrillation Wilbert Hayes MD Onset: Electrocardiogram abnormal Wilbert Hayes MD Onset: 2018 Cardiomegaly Wilbert Hayes MD Onset: 06/14/2019 Right bundle branch block Wilbert Hayes MD Onset: 019 Dietary management surveillance Wilbert Hayes MD Onset: 1 08/15/2018 Obstructive sleep apnea syndrome Wilbert Hayes MD Onset: 06/14/2019 Syncope and collapse Wilbert Hayes MD Onset: 06/14/2019 Chronic diastolic heart failure Wilbert Hayes MD Onset: 0 09/13/2019 Chronic pulmonary heart disease Wilbert Hayes MD Onset: 0 09/13/2019 Benign hypertensive heart disease with congestive card iac failure Wilbert Hayes MD Onset: 09/13/2019 Mitral valve disorder Wilbert Hayes MD Onset: 09/13/2019 Chronic cor pulmonale KIMBERLY Castellanos Onset: 02/27/20 21 Mixed hyperlipidemia KIMBERLY Castellanos Onset: 1 Deep venous thrombosis of lower extremity KIMBERLY Castellanos Onset: 08/29/2020 Carotid artery occlusion KIMBERLY Castellanos Onset: 08/29 Social History Type Date Description Comments Sex Unknown ETOH Use Occasionally consumes wine Tobacco Use Start: Unknown Patient is a current smoker, smo kes every day Started smoking at age 26, smokes 3 cigarettes a day Smoking Status Reviewed: 08/29/20 Patient is a current smoker, smokes every day Started smoking at age 26, smokes 3 cigarettes a day Exercise Type/Frequency Walks daily in good weather Exercise Type/Frequency Does housework daily Exercise Limitations Back Pain Exercise Limitations Orthopedic Problem Knee sheila n Exercise Limitations Claudication Allergies, Adverse Reactions, Alerts Active Allergies Criticality Reaction | Severity Comments Date Motrin Unable to assess criticality GI Upset 06/14/2019 Medications Active Medications SIG Qnty Indications Ordering Provide r Date Eliquis 5mg Tablets 1 by mouth twice a day Apryl Recinos MD 08/28/2020 Digox 250mcg Tablets 1 by mouth every day 90tabs Wilbert Hayes MD 08/01/2019 Famotidine 40mg Tablets 1 tablet daily at bedtime 30tabs R07.2 Wilbert Hayes MD 06/14/2019 Acetaminophen 500mg Tablets 1-2 by mouth every 6 hours as needed Unknown 06/13/20 19 Atorvastatin Calcium 20mg Tablets 1 by mouth every night at bedtime Unknown 02/2019 One Daily Tablets 1 by mo uth every day Unknown 06/13/2019 Methimazole 10mg Tablets 1 by mouth every morning Unknown 06/13/2019 Vitamin E Blend 400Unit Capsules 1 by mouth every day Unknown 06/13/2019 Flecainide Acetate 100mg Tablets take one tablet by mouth twice a day 180tabs Wilbert Hayes MD 1 08/14/[address] 1 by mouth every day Unknown 06/13/2019 Metoprolol Tartrate 25mg Tablets 1 by mouth twice a day Unknown 06/13/2019 Mucus Relief DM 20-400mg Tablets 1 tab po at bedtime Unknown 06/13/2019 Furosemide 20mg Tablets 1 by mouth once a day Unknown Immunizations Description No Information Available Vital Signs Date Vital Result Comment 08/29/2020 1:02pm Weight 220.00 lb Height 65 inches 5'5" BMI (Body Mass Index) 36.6 kg/m2 Heart Rate 65 /min BP Systolic Sitting 136 mmHg Ra, large cuff BP Diastolic Sitting 84 mmHg Ra, large cuff 12/09/2019 12:43pm Weight 229.00 lb Height 65 inches 5'5" BMI (Body Mass Index) 38.1 kg/m2 Heart Rate 67 /min BP Systolic Sitting 126 mmHg large cuff, Ra BP Diastolic Sitting 74 mmHg large cuff, Ra Results Test Acquired Date Facility Test Result H/L Range Note CBC without Differential 01/17/2021 [facility] - not inter faced (315)- - White Blood Count 6.8 5.0-10.0 Red Blood Count 3.85 Low 4.00-5.40 Platelets 187 172-450 Hemoglobin 12.7 Hematocrit 39.4 CBC without Differential 01/02/2021 [facility] - not inter faced (315)- - White Blood Count 6.2 5.0-10.0 Red Blood Count 3.76 Low 4.00-5.40 Platelets 199 172-450 Hemoglobin 12.5 Hematocrit 39.0 CMP 01/02/2021 [facility] - not interfaced (315)- - Albumin Serum/Plasma 3.0 Alt - SGPT 19 Calcium Ser/Plasma Mass/Vol 10.2 Carbon Dioxide Ser/Plasm 27 Chloride Serum/Plasma 107 Alkaline Phosphatase 77 Potassium 4.7 Protein Total 8.3 Sodium 137 Ast - Sgot 23 BUN - Urea Nitrogen 28 Glucose 98 83-110 Creatinine For GFR 0.90 Complete Blood Count 10/26/2020 N2N[facility]Direct CCD Impo rt WBC 8.4 x10*3/UL 4.1-10.9 RBC 4.20 x10*6/UL 4.20-6.30 Hemoglobin 14.0 g/dL 12.0-18.0 Hematocrit 40.3 % 37.0-51.0 MCV 95.8 fL 80.0-97.0 MCH 33.3 pg High 26.0-32.0 MCHC 34.7 g/dL 31.0-38.0 RDW 13.3 % 11.6-13.7 PLT 207 x10*3/UL 140-440 MPV 8.0 FL 7.8-11.0 Lymph % 17.5 % 10.0-58.5 Mid % 4.8 % 1.7-9.3 Neut % 77.7 % 37.0-92.0 Lymph # 1.4 x10*3/UL 0.6-4.1 Mid # 0.5 x10*3/UL 0.1-0.6 Neut # 6.5 x10*3/UL 2.0-7.8 Basic Metabolic Panel 10/26/2020 [facility]Direct CCD Imp ort Glucose 70 mg/dL Low 74-99 1 BUN 23 mg/dL High 7-18 Creatinine 0.9 mg/dL 0.6-1.3 Sodium 144 mEq/L 136-145 Potassium 3.8 mEq/L 3.5-5.1 Chloride 104 mEq/L 98-107 Carbon Dioxide 32 mEq/L 21-32 Calcium 10.1 mg/dL 8.5-10.1 GFR >= 60 mL/min GFR >= 60 mL/min 2 Lipid Profile 10/26/2020 N[facility]Direct CCD Impor t Cholesterol 132 mg/dL 131-200 Triglycerides 72 mg/dL 30-150 HDL Cholesterol 54 mg/dL 35-60 LDL (Calculated) 64 CALC 50-159 Laboratory test finding 10/26/2020 N2N/Direct CCD I mport Thyroid Stimulating Hormone 0.32 uIU/mL Low 0.36-3.74 Digoxin Level 0.3 ng/mL Low 0.5-2.0 3 1 100-125 mg/dL PRE-DIABET ES/FASTING >126 mg/dL DIABETES/FASTING 2 CHRONIC KIDNEY DISEASE STAGI NG PER NKF STAGE I & II GFR >= 60 NORMAL TO MILDLY DECREASED STAGE III GFR 30-59 MODERATELY DECREASED STAGE IV GFR 15-29 SEVERELY DECREASED STAGE V GFR <15 VERY LITTLE GFR LEFT ESRD GFR <15 ON ENCHILADA MAKER 3 note:<nlbl:demographic_chang ed> Procedures Date Code Description Status 03/09/2021 42529 Office/Outpatient Established Mo d MDM 30-39 Min Completed 03/09/2021 29809 ECG 12-Lead Completed 02/26/2021 97702 Office/Outpatient Established Mo d MDM 30-39 Min Completed 02/26/2021 41468 ECG 12-Lead Completed Medical Devices Description No Information Available Encounters Description No Information Available Assessments Date Code Description Provider 03/09/2021 I48.0 Paroxysmal atrial fibrillation C KIMBERLY Nye 03/09/2021 I50.32 Chronic diastolic (congestive) h eart failure KIMBERLY Castellanos 03/09/2021 I11.0 Hypertensive heart disease with heart failure Christy Dickerson, PA 03/09/2021 I27.81 Cor pulmonale (chronic) Shellyr ruben Dickerson, PA 03/09/2021 I65.29 Occlusion and stenosis of unspec ified carotid artery Christy Dickerson, PA 03/09/2021 I34.0 Nonrheumatic mitral (valve) insu fficiency Christy Dickerson, PA 03/09/2021 E78.2 Mixed hyperlipidemia Christy Dickerson, PA 03/09/2021 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, bilateral Christy Dickerson, PA 03/09/2021 R94.31 Abnormal electrocardiogram [ECG] [EKG] Christy Dickerson, PA 03/09/2021 Z71.3 Dietary counseling and surveilla nve Christy Dickerson PA 02/26/2021 I48.0 Paroxysmal atrial fibrillation C tano Dickerson, PA 02/26/2021 I50.32 Chronic diastolic (congestive) h eart failure Christy Dickerson, PA 02/26/2021 I11.0 Hypertensive heart disease with heart failure Christy Dickerson, PA 02/26/2021 I27.81 Cor pulmonale (chronic) Pedro Dickerson, PA 02/26/2021 I65.29 Occlusion and stenosis of unspec ified carotid artery Christy Dickerson, PA 02/26/2021 I34.0 Nonrheumatic mitral (valve) insu fficiency Christy Dickerson, PA 02/26/2021 E78.2 Mixed hyperlipidemia Christy Dickerson, PA 02/26/2021 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, bilateral Christy Dickerson, PA 02/26/2021 R94.31 Abnormal electrocardiogram [ECG] [EKG] Christy Dickerson, KIMBERLY 02/26/2021 Z71.3 Dietary counseling and surveilla KIMBERLY Lamas Plan of Treatment 08/29/2020 - KIMBERLY Castellanos* I48.0 Paroxysmal atrial fibrillation* Recommendations:* Continue Eliquis, digoxin, flecainide, and metoprolol at the current dosages Patient agreeable to contact us with more frequent episodes of tachycardia or palpitations, discussed Holter monitor therapy with patient at this time she would like to refrain further evaluation * I50.32 Chronic diastolic (congestive) heart failure* Recommendations:* Continue digoxin, furosemide, and metoprolol at the current dosages Please alert our office with a weight gain of more than 3 pounds, onset of shortness of breath, or lower extremity edema * I11.0 Hypertensive heart disease with heart failure* Recommendations:* Continue metoprolol at the current dosage Advised patient to monitor blood pressures at home and to alert our office with readings >140/>90 * I27.81 Cor pulmonale (chronic)* Recommendations:* No medication changes made today Patient agreeable to contact us with the onset of any shortness of breath or edema * I65.29 Occlusion and stenosis of unspecified carotid artery* Recommendations: * Carotid ultrasound ordered for further evaluation Advised patient to seek emergency medical attention if she develops any further lateralizing neurologic symptoms * I34.0 Nonrheumatic mitral (valve) insufficiency* Recommendations:* No further evaluation is needed at this time * E78.2 Mixed hyperlipidemia* Recommendations:* Please obtain fasting labs Continue atorvastatin at the current dosage * 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 Guzmán for further evaluation of patient's probable coagulopathy Please obtain labs, to patient's knowledge she has never been assessed for protein C or protein S deficiency or for factor V Leiden mutation Advised patient to seek emergency medical attention if she does believe she is having another DVT or if she develops symptoms of shortness of breath, hemoptysis, or chest pain * R94.31 Abnormal electrocardiogram [ECG] [EKG]* Recommendations:* No further evaluation is needed at this time. * Z71.3 Dietary counseling and surveillance* Recommendations:* Recommended for patient to follow a more whole food diet. Advised patient to avoid overly processed foods and packaged foods. Advised patient to avoid sodas, juices and other liquid calories. Recommended at least 30 minutes of exercise 3 days a week. * All * Follow up:* Follow up in 6 months Functional Status Functional Condition Comment Date Status Independent with all ADL's Activ e Requires assistance with ambulating Active Mental Status Description No Information Available Referrals Description No Information Available
--- OUTSIDE RECORDS SUMMARY | 2021-06-07 18:33 | CCD ---
Continuity of Care Document (CCD) Created on: 03/13/2021 Elise Reeves External Reference #: [id number] : [id number] Sex: Female Author Author Elise DICKERSON PA Organization Unknown Address [address] [place] [address], [place] [address] Phone [phone] Care Team Providers Care Slot Floor Person Name Role Phone Apryl Recinos MD [facility] [phone] Fernanda Guzmán MD [facility] [phone] Problems Active Problems Provider Date Precordial pain [...] H/L Range Note CBC without Differential 01/17/2021 [facility] - not inter faced (315)- - White Blood Count 6.8 5.0-10.0 Red Blood Count 3.85 Low 4.00-5.40 Platelets 187 172-450 Hemoglobin 12.7 Hematocrit 39.4 CBC without Differential 01/02/2021 [facility] - not inter faced (315)- - White Blood Count 6.2 5.0-10.0 Red Blood Count 3.76 Low 4.00-5.40 Platelets 199 172-450 Hemoglobin 12.5 Hematocrit 39.0 CMP 01/02/2021 [facility] - not interfaced (315)- - Albumin Serum/Plasma [...] LITTLE GFR LEFT ESRD GFR <15 ON MANAGER LEARNING 3 note:<nlbl:[email or web address]> Procedures Date Code Description Status 03/09/2021 74294 Office/Outpatient Established Mo d MDM 30-39 Min Completed 03/09/2021 20455 ECG 12-Lead Completed 02/26/2021 56388 Office/Outpatient Established Mo d MDM 30-39 Min Completed 02/26/2021 48029 ECG 12-Lead Completed Medical Devices Description No [...] PA 03/09/2021 Z71.3 Dietary counseling and surveilla vae Christy Dickerson PA 02/26/2021 I48.0 Paroxysmal atrial [...]
--- OUTSIDE RECORDS SUMMARY | 2021-06-07 18:35 | CCD ---
Author Author [facility] Organization [facility] Address Unknown Phone Unavailable Care Team Providers Care Procurement Accountant Name Role Phone Karen Calix MD Unavailable Unavailable Karen Calix MD Unavailable Unavailable Karen Calix MD Unavailable Unavailable Karen Calix MD Unavailable Unavailable Karen Calix MD Unavailable Unavailable Karen Calix MD Unavailable Unavailable Karen Calix MD Unavailable Unavailable Karen Calix MD Unavailable Unavailable Karen Calix MD Unavailable Unavailable Karen Calix MD Unavailable Unavailable Karen Calix MD Unavailable Unavailable Fish, B Santosh TINOCO Unavailable Unavailable Fish, B Santosh T[place] Unavailable Unavailable Fish, B Santosh [place] Unavailable Unavailable Fish, B Santosh [place] Unavailable Unavailable Fish, B Santosh [place] Unavailable Unavailable Fish, B Santosh [place] Unavailable Unavailable Fish, B Santosh [place] Unavailable Unavailable Fish, B Santosh [place] Unavailable Unavailable Fish, B Santosh [place] Unavailable Unavailable Fish, B Santosh [place] Unavailable Unavailable Fish, B Santosh [place] Unavailable Unavailable Fish, B Santosh [place] Unavailable Unavailable Fish, B Santosh [place] Unavailable Unavailable Fish, B Santosh [place] Unavailable Unavailable Fish, B Santosh [place] Unavailable Unavailable Fish, B Santosh [place] Unavailable Unavailable Fish, B Santosh [place] Unavailable Unavailable Fish, B Santosh [place] Unavailable Unavailable Fish, B Santosh [place] Unavailable Unavailable Fish, B Santosh [place] Unavailable Unavailable Fish, B Santosh [place] Unavailable Unavailable Fish, B Santosh [place] Unavailable Unavailable Fish, B Santosh [place] Unavailable Unavailable Fish, B Santosh [place] Unavailable Unavailable Fish, B Santosh [place] Unavailable Unavailable Fish, B Santosh [place] Unavailable Unavailable Fish, B Santosh [place] Unavailable Unavailable Fish, B Santosh [place] Unavailable Unavailable Fish, B Santosh T[place] Unavailable Unavailable Fish, B Santosh [place] Unavailable Unavailable Fish, B Santosh [place] Unavailable Unavailable Fish, B Santosh [place] Unavailable Unavailable Fish, B Santosh [place] Unavailable Unavailable Fish, B Santosh [place] Unavailable Unavailable Fish, B Santosh [place] Unavailable Unavailable Fish, B Santosh [place] Unavailable Unavailable Fish, B Santosh [place] Unavailable Unavailable Fish, B Santosh T[place]O Unavailable Unavailable Fish, B Santosh T[place] Unavailable Unavailable Fish, B Santosh [place] Unavailable Unavailable Fish, B Santosh [place] Unavailable Unavailable Fish, B Santosh [place] Unavailable Unavailable Fish, B Santosh [place] Unavailable Unavailable Fish, B Santosh T[place] Unavailable Unavailable Fish, B Santosh T[place] Unavailable Unavailable Fish, B Santosh T[place] Unavailable Unavailable Fish, B Santosh T[place] Unavailable Unavailable Fish, B Santosh T[place] Unavailable Unavailable Fish, B Santosh T[place] Unavailable Unavailable Fish, B Santosh T[place] Unavailable Unavailable Fish, B Santosh [place] Unavailable Unavailable Fish, B Santosh [place] Unavailable Unavailable Fish, B Santosh [place] Unavailable Unavailable Fish, B Santosh [place] Unavailable Unavailable Fish, B Santosh [place] Unavailable Unavailable Fish, B Santosh [place] Unavailable Unavailable Fish, B Santosh [place] Unavailable Unavailable Fish, [facility], PA-C Unavailable Unavailabl e Fish, [facility], PA-C Unavailable Unavailabl e Fish, [facility], PA-C Unavailable Unavailabl e Fish, [facility], PA-C Unavailable Unavailabl e Fish, [facility], PA-C Unavailable Unavailabl e Fish, [facility], PA-C Unavailable Unavailabl e Fish, [facility], PA-C Unavailable Unavailabl e Fish, [facility], PA-C Unavailable Unavailabl e Fish, [facility], PA-C Unavailable Unavailabl e Fish, [facility], PA-C Unavailable Unavailabl e Fish, [facility], PA-C Unavailable Unavailabl e Fish, [facility], PA-C Unavailable Unavailabl e Fish, [facility], PA-C Unavailable Unavailabl e Fish, [facility], PA-C Unavailable Unavailabl e Fish, [facility], PA-C Unavailable Unavailabl e Fish, [facility], PA-C Unavailable Unavailabl e Fish, [facility], PA-C Unavailable Unavailabl e Fish, [facility], PA-C Unavailable Unavailabl e Fish, [facility], PA-C Unavailable Unavailabl e Fish, [facility], PA-C Unavailable Unavailabl e Fish, [facility], PA-C Unavailable Unavailabl e Fish, [facility], PA-C Unavailable Unavailabl e Fish, [facility], PA-C Unavailable Unavailabl e Fish, [facility], PA-C Unavailable Unavailabl e Fish, [facility], PA-C Unavailable Unavailabl e Fish, [facility], PA-C Unavailable Unavailabl e Fish, [facility], PA-C Unavailable Unavailabl e Fish, [facility], PA-C Unavailable Unavailabl e Fish, [facility], PA-C Unavailable Unavailabl e Fish, [facility], PA-C Unavailable Unavailabl e Fish, [facility], PA-C Unavailable Unavailabl e Fish, [facility], PA-C Unavailable Unavailabl e Fish, [facility], PA-C Unavailable Unavailabl e Fish, [facility], PA-C Unavailable Unavailabl e Fish, [facility], PA-C Unavailable Unavailabl e Fish, [facility], PA-C Unavailable Unavailabl e PICKKaren GAUTAM JR, PA-C Unavailable Unavailable PICKERAL JR, Karen MENDOZA PA-C Unavailable Unavailable PICKERAL JRKaren PA-C Unavailable Unavailable PICKERAL JRKaren PA-C Unavailable Unavailable PICKERAL JRKaren PA-C Unavailable Unavailable PICKERAL JRKaren PA-C Unavailable Unavailable PICKERAL JR, J KELLY PA-C Unavailable Unavailable PICKERAL JR, J KELLY PA-C Unavailable Unavailable PICKERAL JR, J KELLY PA-C Unavailable Unavailable PICKERAL JR, J KELLY PA-C Unavailable Unavailable PICKERAL JR, J KELLY PA-C Unavailable Unavailable PICKERAL JR, J KELLY PA-C Unavailable Unavailable PICKERAL JR, J KELLY PA-C Unavailable Unavailable PICKERAL JR, J KELLY PA-C Unavailable Unavailable PICKERAL JR, J KELLY PA-C Unavailable Unavailable PICKERAL JR, J KELLY PA-C Unavailable Unavailable PICKERAL JR, J KELLY PA-C Unavailable Unavailable PICKERAL JR, J KELLY PA-C Unavailable Unavailable PICKERAL JR, J KELLY PA-C Unavailable Unavailable PICKERAL JR, J KELLY PA-C Unavailable Unavailable PICKERAL JR, J KELLY PA-C Unavailable Unavailable PICKERAL JR, J KELLY PA-C Unavailable Unavailable PICKERAL JR, J KELLY PA-C Unavailable Unavailable PICKERAL JR, J KELLY PA-C Unavailable Unavailable PICKERAL JR, J KELLY PA-C Unavailable Unavailable PICKERAL JR, J KELLY PA-C Unavailable Unavailable PICKERAL JR, J KELLY PA-C Unavailable Unavailable Brant Recinos MD Unavailable Unavailable Brant Recinos MD Unavailable Unavailable Brant Recinos MD Unavailable Unavailable Brant Recinos MD Unavailable Unavailable Brant Recinos MD Unavailable Unavailable Brant Recinos MD Unavailable Unavailable Brant Recinos MD Unavailable Unavailable Brant Recinos MD Unavailable Unavailable Brant Recinos MD Unavailable Unavailable Brant Recinos MD Unavailable Unavailable Brant Recinos MD Unavailable Unavailable Brant Recinos MD Unavailable Unavailable Brant Recinos MD Unavailable Unavailable Brant Recinos MD Unavailable Unavailable Brant Recinos MD Unavailable Unavailable Brant Recinos MD Unavailable Unavailable Brant Recinos MD Unavailable Unavailable Brant Recinos MD Unavailable Unavailable Brant Recinos MD Unavailable Unavailable Brant Recinos MD Unavailable Unavailable Brant Recinos MD Unavailable Unavailable Brant Recinos MD Unavailable Unavailable Brant Recinos MD Unavailable Unavailable Brant Recinos MD Unavailable Unavailable Brant Recinos MD Unavailable Unavailable Brant Recinos MD Unavailable Unavailable Brant Recinos MD Unavailable Unavailable Brant Recinos MD Unavailable Unavailable GriselBrant MD Unavailable Unavailable GriselBrant vicente MD Unavailable Unavailable GriselBrant MD Unavailable Unavailable GriselBrant MD Unavailable Unavailable GriselBrant MD Unavailable Unavailable GriselBrant MD Unavailable Unavailable GriselBrant MD Unavailable Unavailable GriselBrant MD Unavailable Unavailable GriselBrant MD Unavailable Unavailable GriselBrant campbell MD Unavailable Unavailable GriselBrant MD Unavailable Unavailable GriselBrant MD Unavailable Unavailable GriselBrant MD Unavailable Unavailable GriselBrant vicente MD Unavailable Unavailable GriselBrant MD Unavailable Unavailable GriselBrant MD Unavailable Unavailable GriselBrant MD Unavailable Unavailable GriselBrant campbell MD Unavailable Unavailable GriselBrant MD Unavailable Unavailable Brant Recinos MD Unavailable Unavailable GriselBrant vicente MD Unavailable Unavailable Brant Recinos MD Unavailable Unavailable Brant Recinos MD Unavailable Unavailable Brant Recinos MD Unavailable Unavailable Brant Recinos MD Unavailable Unavailable Brant Recinos MD Unavailable Unavailable Brant Recinos MD Unavailable Unavailable Brant Recinos MD Unavailable Unavailable Brant Recinos MD Unavailable Unavailable Brant Recinos MD Unavailable Unavailable Brant Recinos MD Unavailable Unavailable Brant Recinos MD Unavailable Unavailable Brant Recinos MD Unavailable Unavailable Brant Recinos MD Unavailable Unavailable Brant Recinos MD Unavailable Unavailable Brant Recinos MD Unavailable Unavailable Brant Recinos MD Unavailable Unavailable Brant Recinos MD Unavailable Unavailable Brant Recinos MD Unavailable Unavailable Brant Recinos MD Unavailable Unavailable Brant Recinos MD Unavailable Unavailable Brant Recinos MD Unavailable Unavailable Brant Recinos MD Unavailable Unavailable Brant Recinos MD Unavailable Unavailable Brant Recinos MD Unavailable Unavailable Brant Recinos MD Unavailable Unavailable Brant Recinos MD Unavailable Unavailable Brant Recinos MD Unavailable Unavailable Brant Recinos MD Unavailable Unavailable Brant Recinos MD Unavailable Unavailable Grisel, Brant Pink MD Unavailable Unavailable Grisel, Brant Pink MD Unavailable Unavailable Grisel, Brant Pink MD Unavailable Unavailable Grisel, Brant Pink MD Unavailable Unavailable Grisel, Brant Pink MD Unavailable Unavailable Grisel, Brant Pink MD Unavailable Unavailable Grisel, Brant Pink MD Unavailable Unavailable PAULA, L ALONSO PA Unavailable Unavailable PAULA, L ALONSO PA Unavailable Unavailable PAULA, L ALONSO PA Unavailable Unavailable PAULA, L ALONSO PA Unavailable Unavailable PAULA, L ALONSO PA Unavailable Unavailable PAULA, L ALONSO PA Unavailable Unavailable PAULA, L ALONSO PA Unavailable Unavailable PAULA, L ALONSO PA Unavailable Unavailable PAULA, L ALONSO PA Unavailable Unavailable PAULA, L ALONSO PA Unavailable Unavailable PAULA, L ALONSO PA Unavailable Unavailable PAULA, L ALONSO PA Unavailable Unavailable PAULA, L ALNOSO PA Unavailable Unavailable PAULA, L ALONSO PA Unavailable Unavailable PAULA, L ALONSO PA Unavailable Unavailable PAULA, L ALONSO PA Unavailable Unavailable ADJAPONG, NOAM Unavailable Unavailable Vargas, L Lety RPA Unavailable Unavailable Vargas, L Lety RPA Unavailable Unavailable Vargas, L Lety RPA Unavailable Unavailable Vargas, L Lety RPA Unavailable Unavailable Vargas, L Lety RPA Unavailable Unavailable Vargas, L Lety RPA Unavailable Unavailable Vargas, L Lety RPA Unavailable Unavailable Vargas, L Lety RPA Unavailable Unavailable Vargas, L Lety RPA Unavailable Unavailable Vargas, L Lety RPA Unavailable Unavailable Vargas, L Lety RPA Unavailable Unavailable Vargas, L Lety RPA Unavailable Unavailable Vargas, L Lety RPA Unavailable Unavailable Vargas, L Lety RPA Unavailable Unavailable Vargas, L Lety RPA Unavailable Unavailable Vargas, L Lety RPA Unavailable Unavailable Vargas, L Lety RPA Unavailable Unavailable Vargas, L Lety RPA Unavailable Unavailable Vargas, L Lety RPA Unavailable Unavailable Vargas, L Lety RPA Unavailable Unavailable Vargas, L Lety RPA Unavailable Unavailable Vargas, L Lety RPA Unavailable Unavailable Vargas, L Lety RPA Unavailable Unavailable Vargas, L Lety RPA Unavailable Unavailable Vargas, L Lety RPA Unavailable Unavailable Vargas, L Lety RPA Unavailable Unavailable Vargas, L Lety RPA Unavailable Unavailable Vargas, L Lety RPA Unavailable Unavailable Vargas, L Lety RPA Unavailable Unavailable Vargas, L Lety RPA Unavailable Unavailable Vargas, L Lety RPA Unavailable Unavailable Vargas, L Lety RPA Unavailable Unavailable Re-disclosure Warning The records that you are about to access may contain information from federally-assisted alcohol or drug abuse programs. If such information is present, then the following federally mandated warning applies: This information has been disclosed to you from records protected by federal confidentiality rules (42 CFR part 2). The federal rules prohibit you from making any further disclosure of this information unless further disclosure is expressly permitted by the written consent of the person to whom it pertains or as otherwise permitted by 42 CFR part 2. A general authorization for the release of medical or other information is NOT sufficient for this purpose. The Federal rules restrict any use of the information to criminally investigate or prosecute any alcohol or drug abuse patient.The records that you are about to access may contain highly sensitive health information, the redisclosure of which is protected by Article 27-F of the [facility] Public Health law. If you continue you may have access to information: Regarding HIV / AIDS; Provided by facilities licensed or operated by the [facility] Office of Mental Health; or Provided by the [facility] Office for People With Developmental Disabilities. If such information is present, then the following [facility] mandated warning applies: This information has been disclosed to you from confidential records which are protected by state law. State law prohibits you from making any further disclosure of this information without the specific written consent of the person to whom it pertains, or as otherwise permitted by law. Any unauthorized further disclosure in violation of state law may result in a fine or shelter sentence or both. A general authorization for the release of medical or other information is NOT sufficient authorization for further disc losure. Allergies and Adverse Reactions Type Description Substance Reaction Status Data Source(s ) Drug Allergy Drug Allergy NKDA MEDENT ([facility]) Family History Family Member Name Family Member Gender Family Member Status Date o f Status Description Data Source(s) Unknown Male Problem MEDENT ([facility]) Unknown Male Problem MEDENT ([facility]) Encounters Encounter Providers Location Date Indications Data Source(s ) O Attender: Apryl Recinos MD 05/30/2021 12:00:00 AM EST NDOC ([facility]) Patient admitted. Unknown [address] [facility] [place] [address] 05/22/2021 12:00:00 AM EST [facility] [place] [address] [facility] [place] [address] 05/18/2021 12:00:00 AM EST [facility]CW[facility] Unknown [address] [facility] [place] [address] 05/17/2021 12:00:00 AM EST [facility]CW1 [facility] [place] [address] [facility] [place] [address] 05/10/2021 12:00:00 AM EDT eCW1 [facility]) Outpatient [address] [place] [address] 05/01/2021 12:00:00 AM EDT eCW1 [facility]) (WND NP120) New Patient 120 Min [address] [place] [address] 04/26/2021 12:00:00 AM EDT eCW1 ([facility]) Unknown [address] [facility] [address] 04/26/2021 12:00:00 AM EDT eCW1 [facility]) Outpatient Attender: KELLY Saeed 1 03:20:00 PM EDT MEDENT ([facility] ) Outpatient Attender: KELLY Saeed 1 02:20:00 PM EDT MEDENT ([facility] ) Outpatient Admitter: NOAM ALReferrer: NOAM AL 01/17/2021 12:00:00 AM EDT Multiple myeloma not having achieved remission [facility] Multiple myeloma not having achieved rem ission Outpatient Attender: Lety Ordoñez/Kassidy/Lázaro/Zay veliz 01/01/2021 10:15:00 AM EDT MEDENT ([facility]) Outpatient Attender: Apryl Saeed 01:30:00 PM EDT MEDENT ([facility] ) Outpatient Attender: Lety Vargas RPA Tiago/Williston/Lázaro/R eindl 12/14/2020 10:45:00 AM EDT MEDENT ([facility] Outpatient Attender: Apryl Saeed 01:30:00 PM EDT MEDENT ([facility] ) Outpatient Attender: Jordan Calix MD Physical Therapy 10:30:00 AM EDT MEDENT ([facility] ) Office Visit Attender: Susy BURGOS PA-C Physical Therapy 10/17/2020 01:15:00 PM EDT MEDENT ([facility] ) Outpatient Attender: Santosh Bailey MD Physical Therapy 10/03/2020 1 2:45:00 PM EDT MEDENT ([facility] ) Outpatient Attender: Susy BURGOS PA-C Physical Therapy 09/26/2020 11:15:00 AM EDT [facility] Out[facility] Attender: Apryl Saeed 02:30:00 PM EDT MEDENT ([facility] ) Outpatient Attender: Lety Alanizang/Williston/Lázaro/R eindl 09/14/2020 09:15:00 AM EST MEDENT ([facility] ) Outpatient Attender: ALONSO HARRIS Main Office 08/29/2020 1 1:45:00 AM EST MEDENT ([facility]) Outpatient Attender: Apryl Saeed 12:00:00 PM EST MEDENT ([facility] ) Outpatient Attender: Apryl Saeed 10:30:00 AM EDT MEDENT ([facility] ) Immunizations Vaccine Date Status Description Data Source(s) Influenza, injectable, MDCK, preservative free, pierce valent 04/11/2021 02:31:00 PM EDT completed [facility]) Influenza, injectable, MDCK, preservative free, pierce valent 04/20/2020 12:10:00 PM EDT completed [facility] ([facility]) Medications Medication Brand Name Start Date Product Form Dose Route Admi nistrative Instructions Pharmacy Instructions Status Indications Reaction Description Data Source(s) Fluoxetine 20 MG Oral Capsule Fluoxetine HCL 05/22/2021 12:00:[address] ORAL active MEDENT ([facility]) Loratadine 10 MG Oral Tablet [Claritin] Claritin 05/22/2021 12:00:0 0 AM EST ORAL active MEDENT ([facility]) Cephalexin 500 MG Oral Capsule CEPHALEXIN 04/25/2021 12:00:00 AM EDT capsule 21 TAKE ONE CAPSULE BY MOUTH THREE TIMES A DAY FOR 7 DAYS TAKE ONE CAPSULE BY MOUTH THREE TIMES A DAY FOR 7 DAYS SOLD: 04/25/2021 [facility] Cephalexin 500 MG Oral Capsule CEPHALEXIN 04/11/2021 12:00:00 AM EDT capsule 21 TAKE ONE CAPSULE BY MOUTH THREE TIMES A DAY FOR 7 DAYS TAKE ONE CAPSULE BY MOUTH THREE TIMES A DAY FOR 7 DAYS SOLD: 04/11/2021 [facility] Cephalexin 500 MG Oral Capsule Cephalexin 04/11/2021 12:00:00 AM EDT ORAL completed [facility] ([facility]) Administration Of Flu Vaccine 04/11/2021 12:00:00 AM EDT completed [facility] ([facility]) Medication administered onsite 2 ML Sodium Hyaluronate 10 MG/ML Prefilled Syringe [Euflexxa ] Euflexxa 10/17/2020 12:00:00 AM EDT active MEDENT ([facility] ) atorvastatin 20 MG Oral Tablet ATORVASTATIN CALCIUM 09/27/2020 1 2:00:00 AM EDT tablet 90 TAKE ONE TABLET BY MOUTH EVERY D AY TAKE ONE TABLET BY MOUTH EVERY DAY SOLD: 10/10/2020 [facility] 25 mg 09/27/2020 12:00:00 AM EDT tablet 180 TAKE ONE TABLET BY MOUTH TWICE A DAY TAKE ONE TABLET BY MOUTH TWICE A DAY SOLD: 04/27/2021 [facility] atorvastatin 20 MG Oral Tablet ATORVASTATIN CALCIUM 09/27/2020 1 2:00:00 AM EDT tablet 90 TAKE ONE TABLET BY MOUTH EVERY D AY TAKE ONE TABLET BY MOUTH EVERY DAY SOLD: 04/27/2021 [facility] 25 mg 09/27/2020 12:00:00 AM EDT tablet 180 TAKE ONE TABLET BY MOUTH TWICE A DAY TAKE ONE TABLET BY MOUTH TWICE A DAY SOLD: 10/10/2020 [facility] 100 mg 09/21/2020 12:00:00 AM EDT tablet 180 TAKE ONE TABLET BY MOUTH TWICE A DAY TAKE ONE TABLET BY MOUTH TWICE A DAY SOLD: 09/22/2020 [facility] Famotidine 20 MG Oral Tablet FAMOTIDINE 09/20/2020 12:00:00 AM EDT tab let 90 TAKE ONE TABLET BY MOUTH EVERY DAY TAKE ONE TABLET BY MOUTH EVERY DAY SOLD: 04/27/2021 [facility] Acetaminophen 250 MG / Aspirin 250 MG / Caffeine 65 MG Oral Tablet [Excedrin] Excedrin Migraine 09/20/2020 12:00:00 AM EDT activ e MEDENT ([facility]) 20 mg 09/20/2020 12:00:00 AM EDT tablet 180 TAKE ONE TABLET BY MOUTH TWICE A DAY TAKE ONE TABLET BY MOUTH TWICE A DAY SOLD: 04/27/2021 [facility] 20 mg 09/20/2020 12:00:00 AM EDT tablet 90 TAKE ONE TABLET BY MOUTH EVERY DAY TAKE ONE TABLET BY MOUTH EVERY DAY SOLD: 09/21/2020 [facility] 20 mg 09/20/2020 12:00:00 AM EDT tablet 180 TAKE ONE TABLET BY MOUTH TWICE A DAY TAKE ONE TABLET BY MOUTH TWICE A DAY SOLD: 09/21/2020 [facility] 1 % 09/20/2020 12:00:00 AM EDT gel 100 APPLY UP TO 4 GRAMS THREE TIMES A DAY TO AFFECTED KNEE NEEDED APPLY UP TO 4 GRAMS THREE TIMES A DAY TO AFFECTED KNEE NEEDED SOLD: 09/21/2020 [facility] Famotidine 20 MG Oral Tablet Famotidine 09/19/2020 12:00:00 AM EDT ORAL active [facility] ([facility]) Furosemide 20 MG Oral Tablet Furosemide 09/19/2020 12:00:00 AM EDT ORAL active [facility] ([facility]) 5 mg 09/18/2020 12:00:00 AM EDT tablet 40 TAKE ONE TABLET BY MOUTH EVERY DAY, EXCEPT TAKE 2 TABLETS ON FRIDAY, FRIDAY AND FRIDAY TAKE ONE TABLET BY MOUTH EVERY DAY, EXCEPT TAKE 2 TABLETS ON FRIDAY, FRIDAY AND FRIDAY SOLD: 09/19/2020 [facility] apixaban 5 MG Oral Tablet [Eliquis] Eliquis 08/28/2020 12:00:[address] ORAL active [facility]) 24 HR Bupropion Hydrochloride 150 MG Extended Release Oral T ablet BUPROPION HCL 08/08/2020 12:00:00 AM EST tablet extended release 24 hr 30 TAKE ONE TABLET BY MOUTH EVERY MORNING TAKE ONE TABLET BY MOUTH EVERY MORNING SOLD: 08/09/2020 [facility] 5 mg 08/08/2020 12:00:00 AM EST tablet 60 TAKE ONE TABLET BY MOUTH TWICE A DAY TAKE ONE TABLET BY MOUTH TWICE A DAY SOLD: 09/19/2020 [facility] 24 HR Bupropion Hydrochloride 150 MG Extended Release Oral T ablet BUPROPION HCL 08/08/2020 12:00:00 AM EST tablet extended release 24 hr 30 TAKE ONE TABLET BY MOUTH EVERY MORNING TAKE ONE TABLET BY MOUTH EVERY MORNING SOLD: 09/17/2020 [facility] 5 mg 08/08/2020 12:00:00 AM EST tablet 60 TAKE ONE TABLET BY MOUTH TWICE A DAY TAKE ONE TABLET BY MOUTH TWICE A DAY SOLD: 08/09/2020 [facility] 24 HR Bupropion Hydrochloride 150 MG Extended Release Oral Tablet Bupropion Hydrochloride ER (XL) 08/07/2020 12:00:00 AM EST ORAL a ctive MEDENT ([facility]) 24 HR Bupropion Hydrochloride 150 MG Extended Release Oral Tablet Bupropion Hydrochloride ER (XL) 08/07/2020 12:00:00 AM EST ORAL a ctive MEDENT ([facility]) 5 mg 06/17/2020 12:00:00 AM EST tablet 30 TAKE ONE TABLET BY MOUTH TWICE A DAY TAKE ONE TABLET BY MOUTH TWICE A DAY SOLD: 06/19/2020 [facility] 5 mg 06/17/2020 12:00:00 AM EST tablet 30 TAKE ONE TABLET BY MOUTH TWICE A DAY TAKE ONE TABLET BY MOUTH TWICE A DAY SOLD: 07/20/2020 [facility] Cephalexin 500 MG Oral Capsule CEPHALEXIN 06/16/2020 12:00:00 AM EST capsule 30 TAKE ONE CAPSULE BY MOUTH THREE TIMES A DAY TAKE ONE C APSULE BY MOUTH THREE TIMES A DAY SOLD: 06/19/2020 [facility] apixaban 5 MG Oral Tablet [Eliquis] Eliquis 05/22/2020 12:00:[address] ORAL active MED[facility] ([facility]) apixaban 5 MG Oral Tablet [Eliquis] Eliquis 05/22/2020 12:00:[address] ORAL active [facility] ([facility]) Administration Of Flu Vaccine 04/20/2020 12:00:00 AM EDT completed [facility]) Medication administered onsite 20 mg 02/09/2020 12:00:00 AM EDT tablet 90 TAKE ONE TABLET BY MOUTH EVERY MORNING TAKE ONE TABLET BY MOUTH EVERY MORNING SOLD: 07/20/2020 [facility] 5 mg 01/12/2020 12:00:00 AM EDT tablet 30 TAKE 1/2 TABLET BY MOUTH ONCE DAILY TAKE 1/2 TABLET BY MOUTH ONCE DAILY SOLD: 04/29/2020 [facility] 40 mg 12/21/2019 12:00:00 AM EDT tablet 30 TAKE ONE TABLET BY MOUTH AT BEDTIME TAKE ONE TABLET BY MOUTH AT BEDTIME SOLD: 04/29/2020 [facility] 40 mg 12/21/2019 12:00:00 AM EDT tablet 30 TAKE ONE TABLET BY MOUTH AT BEDTIME TAKE ONE TABLET BY MOUTH AT BEDTIME SOLD: 07/20/2020 [facility] Famotidine 40 MG Oral Tablet FAMOTIDINE 12/21/2019 12:00:00 AM EDT tab let 30 TAKE ONE TABLET BY MOUTH AT BEDTIME TAKE ONE TABLET BY MOUTH AT BEDTIME SOLD: 09/17/2020 [facility] Digoxin 0.25 MG Oral Tablet 250 mcg (0.25 mg) DIGOXIN 10/07/2019 12:00:00 AM EDT tablet 90 TAKE ONE TABLET BY MOUTH HUGO DAY TAKE ONE TABLET BY MOUTH EVERY DAY SOLD: 07/20/2020 [facility] 10 mg 06/09/2019 12:00:00 AM EST tablet 90 TAKE ONE TABLET BY MOUTH EVERY DAY TAKE ONE TABLET BY MOUTH EVERY DAY SOLD: 04/29/2020 [facility] 100 mg 05/27/2019 12:00:00 AM EST tablet 180 TAKE ONE TABLET BY MOUTH TWICE A DAY TAKE ONE TABLET BY MOUTH TWICE A DAY SOLD: 04/29/2020 [facility] 25 mg 05/27/2019 12:00:00 AM EST tablet 180 TAKE ONE TABLET BY MOUTH TWICE A DAY TAKE ONE TABLET BY MOUTH TWICE A DAY SOLD: 04/29/2020 [facility] Insurance Providers Payer name Policy type / Coverage type Policy ID Covered libertarian ID Covered libertarian's relationship to marroquin Policy Mar[place]quin Plan Information [place] [facility] [facility] Part B [id number] Family Dependent [id number] [place] [facility] Part B [id number] Family Dependent [id number] [place] [employer] [facility] Part B [id number] Family Dependent [id number] MEDICARE A [id number] Self [id number] [id number] Medicare Natl Govt Servic Medicare Primary [id number] Self [id number] [place] [id number] Self [id number] [place] Primary [id number] Self [id number] Medicare Natl Govt Servic Medicare Primary [id number] Self [id number] [place] Primary [id number] Self [id number] Medicare Natl Govt Servic Medicare Primary [id number] Self [id number] Medicare Natl Govt Servic Medicare Primary [id number] Self [id number] Medicare Natl Govt Servic Medicare Primary [id number] [id number] Self [id number] Medicare Natl Govt Serv Medicare Primary [id number] [id number] Self [id number] Medicare Natl Govt Serv Medicare Primary [id number] Self [id number] Medicare Natl [facility] Medicare Primary [id number] Self [id number] Medicare Natl Govt Servic Medicare Primary [id number] Self [id number] Medicare Natl Govt Servic Medicare Primary [id number] Self [id number] Medicare Natl [facility] Medicare Primary [id number] Self [id number] Medicare Natl Govt Servic Medicare Primary [id number] Self [id number] Medicare Natl [facility] Serv[facility] Medicare Primary [id number] Self [id number] FOR LIFE U [id number] Self [id number] [employer] For Life Medigap Part B [id number] Family Dependent [id number] [facility] C [id number] S [id number] WPS For Life Medigap Part B [id number] Family Dependent [id number] [employer] Life Medigap Part B [id number] Family Dependent [id number] [employer] Life Medigap Part B [id number] Family Dependent [id number] MEDICARE [id number] SP [id number] R49 MEDICARE C [id number] S [id number] R49 FOR LIFE O [id number] S [id number] [employer]PS For Life Medigap Part B [id number] Family Dependent [id number] [employer] For Life Medigap Part B [id number] Family Dependent [id number] MEDICARE [id number] SP [id number] [employer]PS For Life Medigap Part B [id number] Family Dependent [id number] [employer] For Life Medigap Part B [id number] Family Dependent [id number] [employer] Life Medigap Part B [id number] Family Dependent [id number] [employer] For Life Medigap Part B [id number] Family Dependent [id number] FOR LIFE [id number] [facility] [id number] WPS For Life Medigap Part B [id number] Family Dependent [id number] [employer] For Life Medigap Part B [id number] Family Dependent [id number] [employer] For Life Medigap Part B [id number] Family Dependent [id number] MEDICARE [id number] SP [id number] A MEDICARE C [id number] S [id number] A Problems, Conditions, and Diagnoses Code Display Name Description Problem Type Effective Dates Data Source(s) Z86.711 Personal history of pulmonary embolism P ersonal history of pulmonary embolism Diagnosis 05/30/2021 12:00:00 AM EST NDOC ([facility] [employer] [facility]) 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 Diagnosis 05/30/2021 12:00:00 AM EST NDOC ([facility]) E78.5 Hyperlipidemia, unspecified Hyperlipidemia, unspecifie d Diagnosis 05/30/2021 12:00:00 AM EST NDOC ([facility]) K21.9 Gastro-esophageal reflux disease without esophagitis Gastro-esophageal reflux disease without esophagitis Diagnosis 05/30/2021 12:00:00 AM ES T NDOC ([facility]) D47.2 Monoclonal gammopathy Monoclonal gammopathy Diagnosis 05/30/2021 12:00:00 AM EST [facility] ([facility]) 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 Diagnosis 05/30/2021 12:00:00 AM EST [facility] ([facility]) F32.89 Other specified depressive episodes Other specif ied depressive episodes Diagnosis 05/30/2021 12:00:00 AM EST [facility]OC ([facility] ) N17.9 Acute kidney failure, unspecified Acute kidney f ailure, unspecified Diagnosis 05/30/2021 12:00:00 AM EST [facility]OC ([facility] ) G31.84 Mild cognitive impairment, so stated Mil d cognitive impairment, so stated Diagnosis 05/30/2021 12:00:00 AM EST NDOC ([facility]) I25.10 Atherosclerotic heart diseas e of [place] coronary artery without angina pectoris Atherosclerotic heart disease of [place] coronary artery without angina pectoris Diagnosis 05/30/2021 12:00:00 AM EST NDOC ([facility]) I48.20 I48.20 Chronic atrial fibrillation, unspecified Diagnosis 05/30/2021 12:00:00 AM EST NDOC ([facility]) I82.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 Chronic embolism and thrombosis of unspe cified deep veins of left lower extremity Diagnosis 05/30/2021 12:00:00 AM EST NDOC ([facility]) S81.802D Unspecified open wound, left lower leg, subsequent encounter Unspecified open wound, left lower leg, subsequent encounter Diagnosis 05/30/2021 12:00:00 AM EST NDOC ([facility]) I50.23 Acute on chronic systolic (congestive) h eart failure Acute on chronic systolic (congestive) heart failure Diagnosis 05/30/2021 12:00:[address] [facility] ([facility]) I11.0 Hypertensive heart disease with heart fa ilure Hypertensive heart disease with heart failure Diagnosis 05/30/2021 12:00:00 AM EST NDOC ([facility]) C90.00 Multiple myeloma not having achieved rem ission Multiple myeloma not having achieved remission Diagnosis 01/17/2021 01:43:00 PM EDT [facility] I87.312 [id number] Chronic venous hyper tension (idiopathic) with ulcer of left lower extremity Problem 04/26/2021 12:00:00 AM EDT eCW1 ([facility]) L97.822 [id number] Non-pressure chronic ulcer of other part of left lower leg with fat layer exposed Problem 04/26/2021 12:00:00 AM EDT eCW1 ([facility]) I27.81 Chronic cor pulmonale Chronic cor pulmonale Problem 02/26/2021 12:00:00 AM EDT MEDENT ([facility]) I65.29 Carotid artery occlusion Carotid artery occlusion Prob rubio 08/29/2020 12:00:00 AM EST MED[facility] ([facility]) I82.503 Deep venous thrombosis of lower extremit y Deep venous thrombosis of lower extremity Problem 08/29/2020 12:00:00 AM EST [facility] E78.2 Mixed hyperlipidemia Mixed hyperlipidemia Problem 08/29/2020 12:00:00 AM EST [facility] ([facility]) Surgeries/Procedures Procedure Description Date Indications Data Source(s) FINE NEEDLE ASPIRATION W/O IMAGING GUIDANCE 05/01/2021 12:00:00 AM EDT eCW ([facility]) FINE NEEDLE ASPIRATION W/O IMAGING GUIDANCE 04/26/2021 12:00:00 AM EDT eC ([facility]) OFFICE OUTPATIENT VISIT 15 MINUTES 04/24/2021 12:00:00 AM EDT MEDENT ([facility]) OFFICE OUTPATIENT VISIT 15 MINUTES 04/11/2021 12:00:00 AM EDT MEDENT ([facility]) Complex Chronic Care Management SVC 1St 60 Min 021 12:00:00 AM EDT MED[facility] ([facility]) Complex Chronic Care MGMT Service Ea Addl 30 Min 04/05 12:00:00 AM EDT MEDJD ([facility]) Complex Chronic Care Management SVC 1St 60 Min 021 12:00:00 AM EDT [facility] ([facility]) Complex Chronic Care MGMT Service Ea Addl 30 Min 04/04 12:00:00 AM EDT [facility] ECG ROUTINE ECG W/LEAST 12 LDS W/I&R 03/09/2021 12:00: 00 AM EDT MEDENT ([facility]) OFFICE OUTPATIENT VISIT 25 MINUTES 03/09/2021 12:00:00 AM EDT MED[facility] ([facility]) ECG ROUTINE ECG W/LEAST 12 LDS W/I&R 02/26/2021 12:00: 00 AM EDT MED[facility] ([facility]) OFFICE OUTPATIENT VISIT 25 MINUTES 02/26/2021 12:00:00 AM EDT MEDJD ([facility]) Chronic Care Management Services Ea Addl 20 Min 2020 12:00:00 AM EDT MEDJD ([facility]) Chronic Care MGMT 20 Mins Clinical Staff Time Per Calendar [facility] 02/16/2021 12:00:00 AM EDT MEDJD ([facility] ) Complex Chronic Care Management SVC 1St 60 Min 021 12:00:00 AM EDT MED[facility] ([facility]) Complex Chronic Care MGMT Service Ea Addl 30 Min 01/30 12:00:00 AM EDT MED[facility] ([facility]) OFFICE OUTPATIENT VISIT 25 MINUTES 01/01/2021 12:00:00 AM EDT MEDENT ([facility] ) Complex Chronic Care Management SVC 1St 60 Min 021 12:00:00 AM EDT MED[facility] ([facility]) Complex Chronic Care MGMT Service Ea Addl 30 Min 12/29 12:00:00 AM EDT MEDJD ([facility]) OFFICE OUTPATIENT VISIT 25 MINUTES 12/25/2020 12:00:00 AM EDT MED[facility] ([facility]) OFFICE OUTPATIENT VISIT 25 MINUTES 12/14/2020 12:00:00 AM EDT MEDENT ([facility] ) Complex Chronic Care Management SVC 1St 60 Min 021 12:00:00 AM EDT [facility] ([facility]) Complex Chronic Care MGMT Service Ea Addl 30 Min 11/27 12:00:00 AM EDT MEDJD ([facility]) Complex Chronic Care Management SVC 1St 60 Min 021 12:00:00 AM EDT [facility] ([facility]) Complex Chronic Care MGMT Service Ea Addl 30 Min 10/27 12:00:00 AM EDT MED[facility] ([facility]) OFFICE OUTPATIENT VISIT 25 MINUTES 10/26/2020 12:00:00 AM EDT MED[facility] ([facility]) ARTHROCENTESIS ASPIR&/INJECTION MAJOR JT/BURSA 021 12:00:00 AM EDT MEDJD ([facility] ) RADEX SHOULDER COMPLETE MINIMUM 2 VIEWS 10/20/2020 12: 00:00 AM EDT MEDJD ([facility] ) ARTHROCENTESIS ASPIR&/INJECTION MAJOR JT/BURSA 021 12:00:00 AM EDT MEDJD ([facility] ) Complex Chronic Care Management SVC 1St 60 Min 021 12:00:00 AM EDT MED[facility] ([facility]) Complex Chronic Care MGMT Service Ea Addl 30 Min 10/03 12:00:00 AM EDT MED[facility] ([facility]) INJECTION 1 TENDON SHEATH/LIGAMENT APONEUROSIS 021 12:00:00 AM EDT MEDJD ([facility] ) ARTHROCENTESIS ASPIR&/INJECTION MAJOR JT/BURSA 021 12:00:00 AM EDT MEDJD ([facility] ) RADIOLOGIC EXAM KNEE COMPLETE 4/MORE VIEWS 09/26/2020 12:00:00 AM EDT MEDJD ([facility] ) RADIOLOGIC EXAM KNEE COMPLETE 4/MORE VIEWS 09/26/2020 12:00:00 AM EDT MEDJD ([facility]) Mammogram 09/21/2020 12:00:00 AM EDT M ELIZABETH ([facility]) Bone Mineral Density Test 09/21/2020 12:00:00 AM EDT MEDJD ([facility]) Brief Emotional/Behav Assessment W/ Scoring Doc Per Standard Inst 09/19/2020 12:00:00 AM EDBrianna LOERA ([facility] ) OFFICE OUTPATIENT VISIT 25 MINUTES 09/19/2020 12:00:00 AM EDT MEDJD ([facility]) OFFICE OUTPATIENT NEW 45 MINUTES 09/14/2020 12:00:00 A Brant LOERA ([facility] ) ECG ROUTINE ECG W/LEAST 12 LDS W/I&R 08/29/2020 12:00: 00 AM EST MEDENT ([facility]) OFFICE OUTPATIENT VISIT 15 MINUTES 08/29/2020 12:00:00 AM EST MEDENT ([facility]) Complex Chronic Care Management SVC 1St 60 Min 021 12:00:00 AM EST MED[facility] ([facility]) Complex Chronic Care MGMT Service Ea Addl 30 Min 08/29 12:00:00 AM EST [facility] ([facility]) OFFICE OUTPATIENT VISIT 25 MINUTES 08/07/2020 12:00:00 AM EST [facility] ([facility]) Complex Chronic Care Management SVC 1St 60 Min 020 12:00:00 AM EST [facility] ([facility]) Complex Chronic Care MGMT Service Ea Addl 30 Min 06/27 12:00:00 AM EST [facility] ([facility]) Brief Emotional/Behav Assessment W/ Scoring Doc Per Standard Inst 05/04/2020 12:00:00 AM EDT MED[facility] ([facility] ) Results ID Date Data Source [id number] 05/22/2021 12:23:00 PM EST MEDENT ([facility]) Name Value Range Interpretation Code Description Data Portia rce(s) Supporting Document(s) Leukocytes [#/volume] in Blood by Automated count 5.6 x10*3/UL 4.1-10 .9 [facility] ([facility]) Erythrocytes [#/volume] in Blood by Automated count 4.36 x10*6/UL 4.2 0-6.30 [facility]) Hematocrit [Volume Fraction] of Blood by Automated count 40.9 % 3 7.0-51.0 [facility] ([facility]) Hemoglobin [Mass/volume] in Blood 14.0 g/dL 12.0-18.0 [facility]) MCH 32.0 pg 26.0-32.0 [facility] [facility]) MCV 93.9 fL 80.0-97.0 [facility] [facility]) MCHC 34.1 g/dL 31.0-38.0 MED[facility] ([facility]) Platelets [#/volume] in Blood by Automated count 233 x10*3/UL 140-440 [facility] ([facility]) Erythrocyte distribution width [Ratio] by Automated count 14.0 % 11.6-13.7 [facility] ([facility]) MPV 8.9 FL 7.8-11.0 [facility] [facility]) Lymph % 20.4 % 10.0-58.5 [facility] [facility]) Neut % 74.4 % 37.0-92.0 [facility] [facility]) Mid % 5.2 % 1.7-9.3 [facility] ([facility]) Mid # 0.3 x10*3/UL 0.1-0.6 [facility] ([facility]) Lymph # 1.1 x10*3/UL 0.6-4.1 [facility] ([facility]) Neut # 4.2 x10*3/UL 2.0-7.8 [facility] ([facility]) ID Date Data Source [id number] 05/22/2021 12:23:00 PM EST MED[facility] ([facility]) Name Value Range Interpretation Code Description Data Portia rce(s) Supporting Document(s) Digoxin [Mass/volume] in Serum or Plasma 0.1 ng/mL 0.5-2.0 [facility] ([facility]) <content>note:<nlbl:demographic_changed> </content>
<content></content> ID Date Data Source [id number] 05/22/2021 12:23:00 PM EST [facility] ([facility]) Name Value Range Interpretation Code Description Data Portia rce(s) Supporting Document(s) Glucose [Mass/volume] in Serum or Plasma 113 mg/dL 74-99 [facility] ([facility]) 100-125 mg/dL PRE-DIABETES/FASTING >126 mg/dL DIABETES/FASTING Urea nitrogen [Mass/volume] in Serum or Plasma 14 mg/dL 7-18 [facility] ([facility]) Sodium [Moles/volume] in Serum or Plasma 145 meq/L 136-145 [facility] ([facility]) Creatinine 1.0 mg/dL 0.6-1.3 [facility] ([facility]) Potassium [Moles/volume] in Serum or Plasma 4.1 meq/L 3.5-5.1 [facility] ([facility]) Chloride [Moles/volume] in Serum or Plasma 105 meq/L 98-107 [facility] ([facility]) Calcium [Mass/volume] in Serum or Plasma 10.5 mg/dL 8.5-10.1 [facility] ([facility]) NOTE: RESULT VERIFIED. Carbon dioxide, total [Moles/volume] in Serum or Plasma 31 meq/L 21 -32 [facility] ([facility]) Total Bilirubin 0.4 mg/dL 0.2-1.0 MED[facility] ([facility]) Alkaline phosphatase isoenzyme [Units/volume] in Serum or Pl asma 110 mg/dL 46-116 [facility] ([facility]) Aspartate aminotransferase [Enzymatic activity/volume] in Serum or Plasma 22 U/L 15-37 [facility] ([facility] ) Alanine aminotransferase [Enzymatic activity/volume] in Seru m or Plasma 27 U/L 12-78 [facility] ([facility]) Proteinase 3 Ab [Units/volume] in Serum 8.3 g/dL 6.4-8.2 [facility] ([facility]) Albumin [Mass/volume] in Serum or Plasma 2.8 g/dL 3.4-5.0 [facility] ([facility]) NOTE: RESULT VERIFIED. Glomerular filtration rate/1.73 sq M pre dicted among non-blacks [Volume Rate/Area] in Serum or Plasma by Creatinine-based formula (MDRD) 55 mL/min [facility] ([facility]) A/G Ratio 0.51 CALC 1.00-1.90 [facility] Glomerular filtration rate/1.73 sq M pre dicted among blacks [Volume Rate/Area] in Serum or Plasma by Creatinine-based formula (MDRD) Laboratory test result [facility] <content>CHRONIC KIDNEY DISEASE STAGING PER NKF</content>
<content></content>
<content>STAGE I & II GFR >= 60 NORMAL TO MILDLY DECREASED</content>
<content>STAGE III GFR 30-59 MODERATELY DECREASED</content>
<content>STAGE IV GFR 15-29 SEVERELY DECREASED</content>
<content>STAGE V GFR <15 VERY LITTLE GFR LEFT</content>
<content>ESRD GFR <15 ON RETAIL SERVICE LEAD MERCHANDISER</content>
<content></content> ID Date Data Source [id number] 05/22/2021 12:23:00 PM EST MED[facility] ([facility]) Name Value Range Interpretation Code Description Data Portia rce(s) Supporting Document(s) Magnesium 2.0 mg/dL 1.8-2.4 [facility]) ID Date Data Source [id number] 05/01/2021 04:20:00 PM EDT [facility] Name Value Range Interpretation Code Description Data Portia rce(s) Supporting Document(s) SARS-CoV-2 (COVID 19) NEGATIVE - SARS-CoV-2 (COVID19) [facility] This lab was ordered by [facility] a nd reported by [facility]. ID Date Data Source [id number] 04/30/2021 03:51:00 PM EDT MED[facility] ([facility]) Name Value Range Interpretation Code Description Data Portia rce(s) Supporting Document(s) Influenza A Amplification Laboratory test result [facility] ([facility]) Negative results do not preclude influen za or RSV virus infection and should not be used as the sole basis for treatment or other patient management decisions. Influenza B Amplification Laboratory test result [facility] ([facility]) Negative results do not preclude influen za or RSV virus infection and should not be used as the sole basis for treatment or other patient management decisions. RSV Amplification Laboratory test result [facility] ([facility]) Negative results do not preclude influen za or RSV virus infection and should not be used as the sole basis for treatment or other patient management decisions. Laboratory test finding (navigational concept) Laboratory test result [facility] ([facility]) A false negative result may occur if a s pecimen is improperly collected, transported or handled. False [...] pathogens. DISCLAIMER: Testing was performed using the [employer] SARS-CoV-2 test. This test was developed and its performance characteristics determined by [employer]. This test has not been FDA cleared [...] the authorization is terminated or revoked sooner. ID Date Data Source [id number] 04/30/2021 03:51:00 PM EDT [facility] Name Value Range Interpretation Code Description Data Portia rce(s) Supporting Document(s) SARS coronavirus 2 RNA [Presence] in Res piratory specimen by NITA with probe detection NEGATIVE [facility] This lab was ordered by [facility] a nd reported by [facility]. ID Date Data Source [id number] 04/30/2021 03:01:00 PM EDT [facility] ([facility]) Name Value Range Interpretation Code Description Data Portia rce(s) Supporting Document(s) Red Blood Count 4.12 10 4.00-5.40 MED[facility] ([facility]) White Blood Count 6.3 10 4.0-10.0 [facility] ([facility]) Hemoglobin 12.9 g/dL 12.0-15.5 [facility] Mean Corpuscular Volume 100.2 fl 80.0-96.0 [facility] ([facility]) Hematocrit 41.3 % 36.0-47.0 [facility] Mean Corpuscular Hemoglobin 31.3 pg 27.0-33.0 [facility] ([facility]) Mean Corpuscular HGB Conc 31.2 g/dL 32.0-36.5 [facility] ([facility]) Red Cell Distribution Width 14.8 % 11.5-14.5 [facility] ([facility]) Platelet Count, Automated 202 10 150-450 [facility] ([facility]) Neutrophils % 79.5 % 36.0-66.0 [facility] ([facility]) Lymph % 13.8 % 24.0-44.0 [facility]) [place] % 4.8 % 2.0-8.0 [facility] [facility] Eos % 1.1 % 0.0-3.0 [facility] [facility] Baso % 0.3 % 0.0-1.0 [facility] [facility] Immature Granulocyte % 0.5 % 0-3.0 [facility] ([facility]) Nucleated Red Blood Cell % 0.0 % 0-0 [facility] ([facility]) Neutrophils # 5.0 10 1.5-8.5 [facility] ([facility]) [place] # 0.3 10 0.0-0.8 [facility] Lymph # 0.9 10 1.5-5.0 [facility] [facility] Eos # 0.1 10 0.0-0.5 [facility] [facility] Baso # 0.0 10 0.0-0.2 [facility] [facility] ID Date Data Source [id number] 04/30/2021 03:01:00 PM EDT [facility] ([facility]) Name Value Range Interpretation Code Description Data Portia rce(s) Supporting Document(s) CPK Creatine Phosphokinase 26 U/L 26-192 [facility] ([facility]) CK-MB Value Mass 1.0 ng/mL [facility] ([facility]) MB/CK Relative Index 3.85 [facility] ([facility]) <content>DIAGNOSIS CRITERIA</content>
<content>MMB ng/ml Relative Index (RI)</content>
<content>NON-AMI < or = 5 N/A</content>
<content>LAM ZONE > 5 < or = 4</content>
<content>AMI > 5 > 4</content>
<content></content> Troponin I 0.02 ng/mL [facility] ([facility]) <content>Troponin I Reference Interval f or Siemens [place] LOCI:</content>
<content></content>
<content>99th Percentile= 0.00-0.045 ng/ml</content>
<content></content>
<content>Risk Stratification:</content>
<content><= 0.10 ng/ml Decreased Risk for Adverse Clinical</content>
<content>Events.</content>
<content>0.10-1.50 ng/ml Increased Risk for Adverse Clinical</content>
<content>Events. Evaluation of additional</content>
<content>criterion and/or repeat testing in 2-6</content>
<content>hours is suggested to rule out myocardial</content>
<content>damage.</content>
<content>>= 1.50 ng/ml Indicative of Myocardial Injury.</content>
<content></content> ID Date Data Source [id number] 04/30/2021 03:01:00 PM EDT [facility] ([facility] [facility] Name Value Range Interpretation Code Description Data Portia rce(s) Supporting Document(s) Ast/Sgot 26 U/L 7-37 [facility] ([place] [facility]) Alt/SGPT 28 U/L 12-78 [facility] ([place] [facility]) Alkaline Phosphatase 105 U/L 45-117 [facility] ([facility]) Bilirubin,Total 0.8 mg/dL 0.2-1.0 [facility] ([facility]) Bilirubin,Direct 0.4 mg/dL 0.0-0.2 [facility] ([facility]) Total Protein 7.9 GM/DL 6.4-8.2 [facility] ([facility]) Albumin 2.8 GM/DL 3.2-5.2 [facility] ([place] [facility]) Albumin/Globulin Ratio 0.5 1.2-2.2 [facility] ([facility]) ID Date Data Source [id number] 04/30/2021 03:01:00 PM EDT [facility] ([facility]) Name Value Range Interpretation Code Description Data Portia rce(s) Supporting Document(s) Glucose, Fasting 106 mg/dL 70-100 [facility] ([facility]) Creatinine For GFR 0.94 mg/dL 0.55-1.30 [facility] ([facility]) Blood Urea Nitrogen 18 mg/dL 7-18 [facility] ([facility]) Glomerular Filtration Rate Laboratory test result [facility] ([facility]) <content>Units are mL/min/1.73 m2</content>
<content></content>
<content>Chronic Kidney Disease Staging per NKF:</content>
<content></content>
<content>Stage I & II GFR >=60 Normal to Mildly Decreased</content>
<content>Stage III GFR 30- 59 Moderately Decreased</content>
<content>Stage IV GFR 15-29 Severely Decreased</content>
<content>Stage V GFR <15 Very Little GFR Left</content>
<content>ESRD GFR <15 on RETAIL SERVICE LEAD MERCHANDISER</content>
<content></content> Sodium Level 140 meq/L 136-145 [facility] ([facility]) Potassium Serum 4.6 meq/L 3.5-5.1 [facility] ([facility]) Chloride Level 111 meq/L 98-107 [facility] ([facility]) Carbon Dioxide Level 22 meq/L 21-32 [facility] ([facility]) Anion Gap 7 meq/L 8-16 [facility] ([place] [facility]) Calcium Level 10.7 mg/dL 8.8-10.2 [facility] ([facility]) ID Date Data Source [id number] 04/30/2021 03:01:00 PM EDT [facility] ([facility]) Name Value Range Interpretation Code Description Data Portia rce(s) Supporting Document(s) Natriuretic peptide.B prohormone N-Terminal [Mass/volu me] in Serum or Plasma 5817 pg/mL [facility] ([facility] ) <content>note:<nlbl:demographic_changed> </content>
<content></content> Digoxin [Mass/volume] in Serum or Plasma 0.5 ng/mL 0.5-2.0 [facility] ([facility]) <content>note:<nlbl:demographic_changed> </content>
<content></content> Thyroxine (T4) Ab [Units/volume] in Serum 10.1 ug/dL 4.5-12.0 [facility] ([facility]) <content>note:<nlbl:demographic_changed> </content>
<content></content> Thyrotropin [Units/volume] in Serum or Plasma by Detec tion limit <= 0.05 mIU/L 0.051 uIU/ML 0.358-3.740 [facility] ([facility] ) <content>note:<nlbl:demographic_changed> </content>
<content></content> Flecainide [Mass/volume] in Serum or Plasma Laboratory test result 0.20-1.00 [facility] ([facility]) This test was developed and its performa nce characteristics determined by [employer]. It has not been cleared or approved by the Food and Drug Administration. Detection Limit = 0.10 Performed at: [facility] [address] [id number] [address] Marker: Jyoti Espinal MD, Phone: [phone] ID Date Data Source [id number] 04/11/2021 02:57:00 PM EDT [facility] Name Value Range Interpretation Code Description Data Portia rce(s) Supporting Document(s) Bacteria identified in Wound shallow by Aerobe culture Laborator y test result [facility] ([facility]) ID Date Data Source [id number] 01/17/2021 12:29:00 PM EDT [facility] ([facility]) Name Value Range Interpretation Code Description Data Portia rce(s) Supporting Document(s) White Blood Count 6.8 5.0-10.0 [facility] ([facility]) Platelets 187 172-450 [facility] Red Blood Count 3.85 4.00-5.40 [facility] ([facility]) Hemoglobin 12.7 [facility] ([facility]) Hematocrit 39.4 [facility] ([facility]) ID Date Data Source [id number] 01/17/2021 12:21:00 PM EDT [facility] ([facility]) Name Value Range Interpretation Code Description Data Portia rce(s) Supporting Document(s) Red Blood Count 3.85 10 4.00-5.40 [facility] ([facility]) White Blood Count 6.8 10 4.0-10.0 [facility] ([facility]) Hemoglobin 12.7 g/dL 12.0-15.5 [facility] ([facility]) Hematocrit 39.4 % 36.0-47.0 [facility] ([facility]) Mean Corpuscular Volume 102.3 fl 80.0-96.0 [facility] Mean Corpuscular Hemoglobin 33.0 pg 27.0-33.0 [facility] ([facility]) Mean Corpuscular HGB Conc 32.2 g/dL 32.0-36.5 [facility] NT ([facility]) Red Cell Distribution Width 12.3 % 11.5-14.5 [facility] ([facility]) Platelet Count, Automated 187 10 150-450 [facility] NT ([facility] [facility]) Neutrophils % 72.2 % 36.0-66.0 [facility] ([facility]) Lymph % 19.9 % 24.0-44.0 [facility] [facility]) [place] % 6.0 % 2.0-8.0 [facility] [facility]) Eos % 1.5 % 0.0-3.0 [facility] [facility]) Baso % 0.3 % 0.0-1.0 [facility] [facility]) Immature Granulocyte % 0.1 % 0-3.0 [facility] ([facility] [facility]) Nucleated Red Blood Cell % 0.0 % 0-0 [facility] ([facility] [facility]) Neutrophils # 4.9 10 1.5-8.5 [facility] [facility]) Lymph # 1.4 10 1.5-5.0 [facility] [facility]) Concordia # 0.4 10 0.0-0.8 [facility] [facility]) Eos # 0.1 10 0.0-0.5 [facility] [facility]) Baso # 0.0 10 0.0-0.2 [facility] ([place] [facility]) ID Date Data Source [id number] 01/19/2021 05:25:00 PM EDT [facility] Hematopathology Report See Addendum Son wName: ELISE REEVESMRN: [id number] Number: [id number] Date: 01/17/2021 00:00Received Date: 01/18/2021 13:57Physician(s): NOAM AL MD ADJAPONG, [facility] [place] [facility]imen[facility]s) ReceivedA: Bone Marrow, Flow Cytometry; RECEIVED 1 GREEN TOP BM, 2 ASP AND 1 PBSMEAR (1 EXTRA EDTA BM SENT TO MOLECULAR)Clinical HistoryMultiple myeloma.TEST REQUESTED/PERFORMED: Flow cytometry analysis DiagnosisFlow cytometry of bone marrow: Dilute specimen with small population oflambda restricted plasma cells (1% on bone marrow aspirate), consistentwith plasma cell neoplasm. Correlation with full bone marrow biopsy isrecommended. FISH study is pending. Dale Langford M.D.;Resident PathologistElectronically Signed By CATRACHITA PINA M.D. Attending Pathologist 117:25:03The attending pathologist named above attests that he/she has personallyreviewed the relevant preparation(s) for the specimen(s) and rendered thefinal diagnosis. Addendum 01/29/2021 FISH identified gain of 1q, trisomy 5, and monosomy 13 in a plasmacell-enriched population. FISH was negative for gain/loss of chromosome 7and 9, deletion of IgH and TP53, and an IgH rearrangement. See [id number] of 1q and deletion of 13q are associated with progression. Mtdcqfox36s is generally associated with an intermediate risk and 1q gain isassociated with high risk. Addendum Electronically Signed By: Yuni Batres M.D. 01/29/2021 11:16 ProceduresFlow Cytometry Date Ordered:01/18/2021 Status: Signed Out01/19/2021 InterpretationPERIPHERAL BLOOD: CBC performed at [facility] (01/17/21)WBC 6.8 K/uLRBC *3.85 M/uLHgb 12.7 g/dLHct 39.4 %MCV *102.3 fLMCH 33.0 pgMCHC 32.2 g/dLRDW 12.3 %Platelets 187 K/ulDifferential Count (automated):72.2 % Neutrophils 1.5 % Eosinophils 0.3 % Unyoxtdue89.9 % Lymphocytes 0.1 % Atypical Lymphocytes 6.0 % Monocytes-------100.0 % A peripheral blood film is reviewed. BONE MARROW ASPIRATE:Differential Count (100 cells): 6 % Erythroid Precursors 2 % N. Myelocytes 1 % N. Metamyelocytes and Band Forms80 % Neutrophils 4 % Eosinophils 1 % Basophils 5 % Lymphocytes 1 % Plasma Cells--------100 % Morphology: Dilute sample.Lymphoid Panel: Leandro Olivares 21 1829 [id number] following markers were assayed: CD45 (gate), CD2, CD3, CD4, CD5, CD7,CD8, CD10, CD19, CD20, CD33, CD34, CD38, CD56, CD57, CD64, CD117, CD123,HLA-DR, [place], and Lambda.#events: [id number]: 98%Flow Cytometry Differential (CD45/SSC)Lymphocyte [place]: 15%CD45 dim [place]: 1%Monocyte [place]: 4%Granulocyte [place]: 73%Nucleated/Erythroid [place]: 2%The lymphocyte gate showsB-cells (CD19): 14%T-cells (CD3): 75%NK-cells (CD3-/CD56+): 9%[place]/Lambda Ratio: 2.9CD4/CD8 Ratio: 1.8Results: (expressed as % of lymphocyte gate)T-cell Markers: CD2 = 80, CD3 = 75, CD3/CD4 = 48, CD3/CD8 = 27, CD5 = 74,CD7 = 75, CD3/57 = 8B-cell linda ers: [place] = 9, Lambda = 3, CD19 = 14, CD20 = 16, CD19/10 = 1,CD19/CD5 = 3, CD38/CD20 = 15Light chain as % of B-Cells: CD19/[place] = 54, CD19/Lambda = 17CD19/CD5/[place] = 4, CD19/CD5/Lambda = 5CD19/CD10/[place] = 7, CD19/CD10/Lambda = 1NK cell Markers: CD56 = 12, CD57 = 13Other Markers: CD10 = 1, CD38 = 63Results: (expressed as % of CD45 dim gate)T-cell Markers: CD2 = 27, CD3 = 8, CD3/CD4 = 2, CD3/CD8 = 4, CD5 = 10, CD7= 26, CD3/57 = 2B-cell markers: [place] = 29, Lambda = 0, CD19 = 16, CD20 = 14, CD19/10 =12, CD19/CD5 = 3, CD38/CD20 = 11Light chain as % of B-Cells: CD19/[place] = 0, CD19/Lambda = 0CD19/CD10/[place] = 6, CD19/CD10/Lambda = 2NK cell Markers: CD56 = 16, CD57 = 13Basophil Markers: CD123 (HLA-DR-) = 19Other Markers: CD10 = 25, CD38 = 85, CD33 = 47, CD34 = 23, CD64 = 20,CD117 = 5, CD123 = 56, HLA-DR = 57Myeloma [facility] HP21 1829 [id number] following markers were assayed: CD45 (cell gate), CD138 (plasma cellgate), CD19, CD20, CD38, CD56, cytoplasmic [place], and cytoplasmic [place].(Please note, that Cytoplasmic [place] and Cytoplasmic Lambda are used todetect plasma cells, while surface [place] and Lambda are for lymphocytes).#events: [id number]: Routinely a minimum of 500,000 events are collected in each paneltube. Due to sample cellularity and/or processing this number was notachievable for this sample.Flow Cytometry Differential:Lymphocyte [place]: 13%CD45 dim [place]: 2%Monocyte [place]: 4%Granulocyte [place]: 74%NRBC [place]: 3%CD138 Plasma Cell [place]: 0%Results: (expressed as % of lymphocyte gate)B-Cells (CD19): 14% CD19 = 14, CD20 = 14Light chain as % of B-Cells: Cytoplasmic [place]/ CD20 = 49, CytoplasmicLambda/CD20 = 26Results: (expressed as % of total CD138+ plasma cell gate)CD38 = 64, CD56 = 40, CD38/56 = 37, CD19 = 12, CD20 = 5Cytoplasmic [place]/CD138 = 0, Cytoplasmic Lambda/CD138 = 67 Results- CommentsLymphocytes consist predominantly of T cells with normal expression of panT-cell markers and a normal CD4/CD8 ratio, normal proportions of NK andcytotoxic T cells, and polyclonal B cells.CD34+ blasts comprise fewer than 1% of cells studied. Blasts, monocytes,and granulocytes show no definitive immunophenotypic aberrancies.Plasma cell-associated markers show very small population of lambdarestricted plasma cells comprising less than 1% of cells, mostly negativefor CD19 and positive for CD56. Procedure Electronically Signed By:CATRACHITA PINA M.D.01/19/2021 This report may include one or more immunohistochemical stain/fluorochromeconjugated monoclonal antibody results that use analyte specific reagents.All positive and negative controls have been reviewed by the attendingpathologist and are satisfactory. The tests were developed and theirperformance characteristics determined by [facility] Pathology department.They have not been cleared or approved by the US Food and DrugAdminis tration. The FDA has determined that such clearance or approval isnot necessary. Name Value Range Interpretation Code Description Data Portia rce(s) Supporting Document(s) ID Date Data Source [id number] 01/26/2021 01:04:00 PM [facility] Cytogenetics ReportName: ELISE REEVESMRN: [id number] Number: [id number] Date: 01/17/2021 00:00Received Date: 01/18/2021 13:50Physician(s): NOAM AL MD ADJAPONG, OPOKU,MDSpecimen(s) ReceivedA: Bone Marrow - Karyo and Multiple Myel FISHClinical [id number] patient with multiple myeloma.TEST REQUESTED/PERFORMED: Chromosome analysis and fluorescence in situhybridization (FISH) DiagnosisFISH identified 11% of nuclei with gain of 1q; 11% with trisomy 5; and 10%with monosomy 13 in this plasma cell-enriched population of cells. FISHwas negative for gains or losses of chromosomes 7 and 9; deletions io81a34.3 (IgH), and 17p13 (TP53); and an IgH rearrangement.Gains of chromosome 1q in plasma cell dyscrasia/multiple myeloma occur inup to 40% of cases, are secondary aberrations and are associated withprogression. 13q deletions are detected in approximately 50% of MM and arealso secondary events, although their presence in monoclonal gammopathy ofuncertain significance (MGUS) suggests they occur early in diseaseprogression. While deletion 13q is generally associated with anintermediate risk, 1q gain is often characterized as high risk (1-3).Please correlate with the concurrent Hematopathology report, [id number]. References:1. Jared Sena. 1q rearrangements in multiple myeloma. AtlasGenet Cytogenet Oncol Haematol. 1998;2(3):86-87.http://[email or web address]. Lastvisited .2. Jennifer & Yuliana. Mature B- and T-cell neoplasms and Hodgkinlymphoma. In Cancer Cytogenetics: Chromosomal and Molecular GeneticAberrations of Tumor Cells, 4th Edition. Donavan & Tori, eds. [employer] Ltd. 2015. 3. Teressa SV. Multiple myeloma: 2020 update on diagnosis,risk-stratification and management. Am J Hematol. 2020 95(11):1444. Electronically Signed By Garland Conner, PhD Attending Pathologist 01/26/2021 13:04:45Gross DescriptionFluorescence in situ Hybridization (FISH)multiple myeloma FISH panel:nucish(GEPB5Ts8,CKS1Bx 3)[],(5p15.31,EGR1)x3[],(F27F477,13q34)x1[10/100],(IgHx2)[97/100],(T P53,D17Z1)x2[98/100] CEP 7/W5W664 (7q31):nuc sulaiman(D7Z1,Q7G815)x2[98/100] CEP 9:nuc sulaiman(D9Z1x2)[98/100]DescriptionA plasma cell-enriched population evaluated by FISH: gain of 1q (11%);trisomy 5 (11%); monosomy 13 (10%); negative for gains or losses ofchromosomes 7 and 9; deletions IgH, and TP53; and IgH rearrangement. Test Data:Fluorescence in situ Hybridization (FISH): Enriched Plasma Cells Probe Normal Cut-off Nuclei Analyzed FISH SIGNAL PATTERNS Normal Abnormal NKCS *LSI CDKN2C (1p22.3) G LSI CKS1B (1q21.3) O 3% 100 2G2O: 84% 2G3O: 11% 5% *LSI 5p15.31 G LSI EGR1 (5q31.2) R 3% 100 2G2R: 89% 3G3R: 11% 0% *CEP 7 (D7Z1) G LSI Y8Y333 (7q31) R 3% 100 2G2R: 98% 0% 2% CEP 9 (D9Z1) G 3%100 2% 0% 2% *LSI B85W802 (13q14.2) O LSI 13q34 G 3% 100 2O2% 1O1% 3% *LSI IgH(14q32) Y BA 3% 100 2Y: 97% 0% 3% *LSI TP53 (17p13.1) O CEP 17 (D17Z1) G 3% 100 2O2% 0% 2% Vendor: *Stroz Friedberg. Probes: LSI: Locus Specific Probe; CEP: Centromeric Probe; BA: BreakApartFluorochromes/ Signals: G - Green; O orange; R Red; Y - yellow(fusion) NKCS: Signals with No Known Clinical SignificanceDisclaimer: The plasma cells evaluated in this study were isolated fromthe bone marrow mixed cell population utilizing immunomagnetic cellseparation. This technology significantly enriches the test cellpopulation for plasma cells, thereby improving FISH detection of anomaliesassociated with plasma cell myeloma. However, as this is a selectivepopulation, the true in vivo frequencies of the anomalies identifiedcannot be determined. The FISH test was developed and its performance wasvalidated by the Cytogenetics section of the Department of ClinicalPathology. This test has not been cleared or approved by the U. S. Foodand Drug Administration (FDA). The FDA has determined that such approvalis not necessary. However, the procedure is considered investigational,and should not be used as the sole criteria for diagnosis. Name Value Range Interpretation Code Description Data Portia rce(s) Supporting Document(s) ID Date Data Source [id number] 01/02/2021 12:28:00 PM EDT [facility] ([facility]) Name Value Range Interpretation Code Description Data Portia rce(s) Supporting Document(s) Albumin [Mass/volume] in Serum or Plasma 3.0 [facility] ([facility]) Calcium [Mass/volume] in Serum or Plasma 10.2 [facility] ([facility]) Alanine aminotransferase [Enzymatic activity/volume] in Serum or Pl asma 19 [facility] ([facility]) Carbon dioxide, total [Moles/volume] in Serum or Plasma 27 [facility] ([facility]) Chloride [Moles/volume] in Serum or Plasma 107 [facility] ([facility]) Potassium [Moles/volume] in Serum or Plasma 4.7 [facility] ([facility]) Alkaline phosphatase [Enzymatic activity/volume] in Serum or Plasma 7 7 [facility] ([facility]) Sodium 137 [facility] ([facility]) Protein [Mass/volume] in Serum or Plasma 8.3 [facility] ([facility]) Aspartate aminotransferase [Enzymatic activity/volume] in Serum or Plasma 23 [facility] ([facility]) Urea nitrogen [Mass/volume] in Serum or Plasma 28 [facility] ([facility]) Creatinine For GFR 0.90 [facility] ([facility]) Glucose 98 83-110 [facility] ID Date Data Source [id number] 01/02/2021 12:28:00 PM EDT [facility] ([facility]) Name Value Range Interpretation Code Description Data Portia rce(s) Supporting Document(s) White Blood Count 6.2 5.0-10.0 [facility] ([facility]) Red Blood Count 3.76 4.00-5.40 [facility] ([facility]) Hemoglobin 12.5 [facility] ([facility]) Platelets 199 172-450 [facility] ([facility]) Hematocrit 39.0 [facility] ([facility]) ID Date Data Source [id number] 01/02/2021 12:03:00 PM EDT [facility] ([facility]) Name Value Range Interpretation Code Description Data Portia rce(s) Supporting Document(s) Prothrombin Time 13.8 s 12.5-14.3 [facility] ([facility]) Inr 1.04 [facility] [facility] THERAPUTIC HUMAN INR VALUES INDICATIONS NORMAL RANGES PROPHYLAXIS/TREATMENT OF: VENOUS THROMBOSIS 2.0-3.0 PULMONARY EMBOLISM 2.0-3.0 PREVENTION OF SYSTEMIC EMBOLISM FROM: TISSUE HEART VALVES 2.0-3.0 ACUTE MYOCARDIAL INFARCTION 2.0-3.0 VALVULAR HEART DISEASE 2.0-3.0 ATRIAL FIBRILLATION 2.0-3.0 MECHANICAL VALVES(HIGH RISK) 2.5-3.5 RECURRENT MYOCARDIAL INFARCTION 2.5-3.5 Partial Thromboplastin Time 30.6 s 24.2-38.5 [facility] ([facility]) ID Date Data Source [id number] 01/02/2021 10:38:00 AM EDT [facility] ([facility]) Name Value Range Interpretation Code Description Data Portia rce(s) Supporting Document(s) Blood Urea Nitrogen 28 mg/dL 7-18 [facility] ([facility]) Glucose, Fasting 98 mg/dL 70-100 [facility] ([facility]) Glomerular Filtration Rate [facility] <content>Units are mL/min/1.73 m2</content>
<content></content>
<content>Chronic Kidney Disease Staging per NKF:</content>
<content></content>
<content>Stage I & II GFR >=60 Normal to Mildly Decreased</content>
<content>Stage III GFR 30- 59 Moderately Decreased</content>
<content>Stage IV GFR 15-29 Severely Decreased</content>
<content>Stage V GFR <15 Very Little GFR Left</content>
<content>ESRD GFR <15 on RETAIL SERVICE LEAD MERCHANDISER</content>
<content></content> Creatinine For GFR 0.90 mg/dL 0.55-1.30 [facility] ([facility]) Sodium Level 137 meq/L 136-145 [facility] ([facility]) Potassium Serum 4.7 meq/L 3.5-5.1 [facility] ([facility]) Carbon Dioxide Level 27 meq/L 21-32 [facility] ([facility]) Chloride Level 107 meq/L 98-107 [facility] ([facility]) Anion Gap 3 meq/L 8-16 [facility] ([place] [facility]) Calcium Level 10.2 mg/dL 8.8-10.2 [facility] ([facility]) Ast/Sgot 23 U/L 7-37 [facility] ([place] [facility]) Alt/SGPT 19 U/L 12-78 [facility] ([place] [facility]) Bilirubin,Total 0.5 mg/dL 0.2-1.0 [facility] ([facility]) Alkaline Phosphatase 77 U/L 45-117 [facility] ([facility]) Albumin 3.0 GM/DL 3.2-5.2 [facility] ([place] [facility]) Total Protein 8.3 GM/DL 6.4-8.2 [facility] ([facility]) Albumin/Globulin Ratio 0.6 1.2-2.2 [facility] ([facility]) ID Date Data Source [id number] 01/02/2021 10:38:00 AM EDT [facility] ([facility]) Name Value Range Interpretation Code Description Data Portia rce(s) Supporting Document(s) White Blood Count 6.2 10 4.0-10.0 [facility] ([facility]) Red Blood Count 3.76 10 4.00-5.40 [facility] ([facility]) Hemoglobin 12.5 g/dL 12.0-15.5 [facility] [facility] Hematocrit 39.0 % 36.0-47.0 [facility] [facility] Mean Corpuscular Volume 103.7 fl 80.0-96.0 [facility] ([facility]) Mean Corpuscular Hemoglobin 33.2 pg 27.0-33.0 [facility] ([facility]) Mean Corpuscular HGB Conc 32.1 g/dL 32.0-36.5 [facility] NT ([facility]) Red Cell Distribution Width 12.9 % 11.5-14.5 [facility] ([facility]) Neutrophils % 74.5 % 36.0-66.0 [facility] ([facility]) Platelet Count, Automated 199 10 150-450 [facility] NT ([facility]) Lymph % 16.4 % 24.0-44.0 [facility] ([place] [facility]) [place] % 7.0 % 2.0-8.0 [facility] [facility] Eos % 1.1 % 0.0-3.0 [facility] [facility] Immature Granulocyte % 0.5 % 0-3.0 [facility] ([facility]) Baso % 0.5 % 0.0-1.0 [facility] [facility] Neutrophils # 4.6 10 1.5-8.5 [facility] ([facility]) Nucleated Red Blood Cell % 0.0 % 0-0 MED [facility] ([facility]) Lymph # 1.0 10 1.5-5.0 [facility] ([place] [facility]) [place] # 0.4 10 0.0-0.8 [facility] [facility] Eos # 0.1 10 0.0-0.5 [facility] [facility] Baso # 0.0 10 0.0-0.2 [facility] [facility] ID Date Data Source [id number] 12/25/2020 02:06:00 PM EDT [facility] ([facility]) Name Value Range Interpretation Code Description Data Portia rce(s) Supporting Document(s) Thyrotropin [Units/volume] in Serum or Plasma by Detec tion limit <= 0.05 mIU/L 0.19 uIU/mL 0.36-3.74 [facility] ([facility] ) ID Date Data Source [id number] 12/25/2020 02:06:00 PM EDT [facility] ([facility]) Name Value Range Interpretation Code Description Data Portia rce(s) Supporting Document(s) Urea nitrogen [Mass/volume] in Serum or Plasma 18 mg/dL 7-18 [facility] ([facility]) Glucose [Mass/volume] in Serum or Plasma 100 mg/dL 74-99 [facility] ([facility]) 100-125 mg/dL PRE-DIABETES/FASTING >126 mg/dL DIABETES/FASTING Sodium [Moles/volume] in Serum or Plasma 141 meq/L 136-145 [facility] ([facility]) Potassium [Moles/volume] in Serum or Plasma 3.8 meq/L 3.5-5.1 [facility] ([facility]) Creatinine 0.8 mg/dL 0.6-1.3 [facility] ([facility]) Carbon dioxide, total [Moles/volume] in Serum or Plasma 29 meq/L 21 -32 [facility] ([facility]) Chloride [Moles/volume] in Serum or Plasma 104 meq/L 98-107 [facility] ([facility]) Glomerular filtration rate/1.73 sq M pre dicted among non-blacks [Volume Rate/Area] in Serum or Plasma by Creatinine-based formula (MDRD) Laboratory test result [facility] ([facility] ) Calcium [Mass/volume] in Serum or Plasma 10.8 mg/dL 8.5-10.1 [facility] ([facility]) NOTE: CALCIUM,TSH VERIFIED Glomerular filtration rate/1.73 sq M pre dicted among blacks [Volume Rate/Area] in Serum or Plasma by Creatinine-based formula (MDRD) Laboratory test result [facility] <content>CHRONIC KIDNEY DISEASE STAGING PER NKF</content>
<content></content>
<content>STAGE I & II GFR >= 60 NORMAL TO MILDLY DECREASED</content>
<content>STAGE III GFR 30-59 MODERATELY DECREASED</content>
<content>STAGE IV GFR 15-29 SEVERELY DECREASED</content>
<content>STAGE V GFR <15 VERY LITTLE GFR LEFT</content>
<content>ESRD GFR <15 ON RETAIL SERVICE LEAD MERCHANDISER</content>
<content></content> ID Date Data Source [id number] 12/25/2020 02:06:00 PM EDT [facility] ([facility]) Name Value Range Interpretation Code Description Data Portia rce(s) Supporting Document(s) Erythrocyte sedimentation rate by Westergren method 25 mm/hr 0-15 [facility] ID Date Data Source [id number] 12/25/2020 02:06:00 PM EDT [facility] ([facility] Name Value Range Interpretation Code Description Data Portia rce(s) Supporting Document(s) Erythrocytes [#/volume] in Blood by Automated count 4.11 x10*6/UL 4.2 0-6.30 [facility] ([facility]) Leukocytes [#/volume] in Blood by Automated count 5.9 x10*3/UL 4.1-10 .9 [facility] ([facility]) Hematocrit [Volume Fraction] of Blood by Automated count 40.0 % 3 7.0-51.0 [facility] ([facility]) Hemoglobin [Mass/volume] in Blood 13.6 g/dL 12.0-18.0 [facility] ([facility]) MCV 97.4 fL 80.0-97.0 [facility] MCH 33.1 pg 26.0-32.0 [facility] [facility]) MCHC 34.0 g/dL 31.0-38.0 [facility] ([facility]) Platelets [#/volume] in Blood by Automated count 209 x10*3/UL 140-440 [facility] ([facility]) Erythrocyte distribution width [Ratio] by Automated count 13.2 % 11.6-13.7 [facility] ([facility]) Mid % 7.5 % 1.7-9.3 [facility] ([place] [facility]) MPV 8.1 FL 7.8-11.0 [facility] ([facility]) Lymph % 25.6 % 10.0-58.5 [facility] ([facility]) Lymph # 1.5 x10*3/UL 0.6-4.1 [facility] ([facility]) Neut % 66.9 % 37.0-92.0 [facility] ([facility]) Neut # 3.9 x10*3/UL 2.0-7.8 [facility] ([facility]) Mid # 0.5 x10*3/UL 0.1-0.6 [facility] ([facility]) ID Date Data Source [id number] 10/26/2020 01:37:00 PM EDT [facility] ([facility]) Name Value Range Interpretation Code Description Data Portia rce(s) Supporting Document(s) Digoxin [Mass/volume] in Serum or Plasma 0.3 ng/mL 0.5-2.0 [facility] ([facility]) <content>note:<nlbl:demographic_changed> </content>
<content></content> ID Date Data Source [id number] 10/26/2020 01:37:00 PM EDT [facility] ([facility]) Name Value Range Interpretation Code Description Data Portia rce(s) Supporting Document(s) Thyrotropin [Units/volume] in Serum or Plasma by Detec tion limit <= 0.05 mIU/L 0.32 uIU/mL 0.36-3.74 [facility] ([facility] ) ID Date Data Source [id number] 10/26/2020 01:37:00 PM EDT [facility] ([facility]) Name Value Range Interpretation Code Description Data Portia rce(s) Supporting Document(s) Cholesterol [Mass/volume] in Serum or Plasma 132 mg/dL 131-200 [facility] ([facility]) Cholesterol in HDL [Mass/volume] in Serum or Plasma 54 mg/dL 35-60 [facility] ([facility]) Cholesterol in LDL [Mass/volume] in Serum or Plasma by calcu lation 64 CALC 50-159 [facility] ([facility]) Triglyceride [Mass/volume] in Serum or Plasma 72 mg/dL 30-150 [facility] ([facility]) ID Date Data Source [id number] 10/26/2020 01:37:00 PM EDT [facility] ([facility]) Name Value Range Interpretation Code Description Data Portia rce(s) Supporting Document(s) Glucose [Mass/volume] in Serum or Plasma 70 mg/dL 74-99 [facility] ([facility]) 100-125 mg/dL PRE-DIABETES/FASTING >126 mg/dL DIABETES/FASTING Urea nitrogen [Mass/volume] in Serum or Plasma 23 mg/dL 7-18 [facility] ([facility]) Sodium [Moles/volume] in Serum or Plasma 144 meq/L 136-145 [facility] ([facility]) Creatinine 0.9 mg/dL 0.6-1.3 [facility] Carbon dioxide, total [Moles/volume] in Serum or Plasma 32 meq/L 21 -32 [facility] ([facility]) Potassium [Moles/volume] in Serum or Plasma 3.8 meq/L 3.5-5.1 [facility] ([facility]) Chloride [Moles/volume] in Serum or Plasma 104 meq/L 98-107 [facility] ([facility]) Glomerular filtration rate/1.73 sq M pre dicted among blacks [Volume Rate/Area] in Serum or Plasma by Creatinine-based formula (MDRD) Laboratory test result [facility]) <content>CHRONIC KIDNEY DISEASE STAGING PER NKF</content>
<content></content>
<content>STAGE I & II GFR >= 60 NORMAL TO MILDLY DECREASED</content>
<content>STAGE III GFR 30-59 MODERATELY DECREASED</content>
<content>STAGE IV GFR 15-29 SEVERELY DECREASED</content>
<content>STAGE V GFR <15 VERY LITTLE GFR LEFT</content>
<content>ESRD GFR <15 ON RETAIL SERVICE LEAD MERCHANDISER</content>
<content></content> Glomerular filtration rate/1.73 sq M pre dicted among non-blacks [Volume Rate/Area] in Serum or Plasma by Creatinine-based formula (MDRD) Laboratory test result [facility] ([facility] ) Calcium [Mass/volume] in Serum or Plasma 10.1 mg/dL 8.5-10.1 [facility] ([facility]) ID Date Data Source [id number] 10/26/2020 01:37:00 PM EDT [facility] ([facility] Name Value Range Interpretation Code Description Data Portia rce(s) Supporting Document(s) Erythrocyte sedimentation rate by Westergren method 45 mm/hr 0-15 [facility] ([facility] Magnesium 1.8 mg/dL 1.8-2.4 [facility] ([place] [facility]) ID Date Data Source [id number] 10/26/2020 01:37:00 PM EDT [facility] ([facility] Name Value Range Interpretation Code Description Data Portia rce(s) Supporting Document(s) Leukocytes [#/volume] in Blood by Automated count 8.4 x10*3/UL 4.1-10 .9 [facility] ([facility]) Erythrocytes [#/volume] in Blood by Automated count 4.20 x10*6/UL 4.2 0-6.30 [facility] ([facility]) Hemoglobin [Mass/volume] in Blood 14.0 g/dL 12.0-18.0 [facility] Hematocrit [Volume Fraction] of Blood by Automated count 40.3 % 3 7.0-51.0 [facility] ([facility]) MCV 95.8 fL 80.0-97.0 [facility] [facility] MCH 33.3 pg 26.0-32.0 [facility] ([place] [facility]) Erythrocyte distribution width [Ratio] by Automated count 13.3 % 11.6-13.7 [facility] ([facility]) MCHC 34.7 g/dL 31.0-38.0 [facility] [facility] Lymph % 17.5 % 10.0-58.5 [facility] ([place] [facility]) Platelets [#/volume] in Blood by Automated count 207 x10*3/UL 140-440 [facility] ([facility]) MPV 8.0 FL 7.8-11.0 [facility] [facility] Neut % 77.7 % 37.0-92.0 [facility] ([place] [facility]) Mid % 4.8 % 1.7-9.3 [facility] ([place] [facility]) Lymph # 1.4 x10*3/UL 0.6-4.1 [facility] ([facility]) Mid # 0.5 x10*3/UL 0.1-0.6 [facility] ([facility]) Neut # 6.5 x10*3/UL 2.0-7.8 [facility] ([facility]) ID Date Data Source [id number] 10/26/2020 01:37:00 PM EDT [facility] ([facility]) Name Value Range Interpretation Code Description Data Portia rce(s) Supporting Document(s) Thyrotropin [Units/volume] in Serum or Plasma by Detec tion limit <= 0.05 mIU/L 0.32 uIU/mL 0.36-3.74 [facility] ([facility]) Digoxin [Mass/volume] in Serum or Plasma 0.3 ng/mL 0.5-2.0 [facility] ([facility]) <content>note:<nlbl:demographic_changed></content>
<content></content>
< content></content> ID Date Data Source [id number] 10/26/2020 01:37:00 PM EDT [facility] ([facility]) Name Value Range Interpretation Code Description Data Portia rce(s) Supporting Document(s) Cholesterol [Mass/volume] in Serum or Plasma 132 mg/dL 131-200 [facility] ([facility]) Triglyceride [Mass/volume] in Serum or Plasma 72 mg/dL 30-150 [facility] ([facility]) Cholesterol in HDL [Mass/volume] in Serum or Plasma 54 mg/dL 35-60 [facility] ([facility]) Cholesterol in LDL [Mass/volume] in Serum or Plasma by calcu lation 64 CALC 50-159 [facility] ([facility]) ID Date Data Source [id number] 10/26/2020 01:37:00 PM EDT [facility] ([facility]) Name Value Range Interpretation Code Description Data Portia rce(s) Supporting Document(s) Glucose [Mass/volume] in Serum or Plasma 70 mg/dL 74-99 [facility] ([facility]) 100-125 mg/dL PRE-DIABETES/FASTING >126 mg/dL DIABETES/FASTING Urea nitrogen [Mass/volume] in Serum or Plasma 23 mg/dL 7-18 [facility] ([facility]) Creatinine 0.9 mg/dL 0.6-1.3 [facility] ([facility]) Sodium [Moles/volume] in Serum or Plasma 144 meq/L 136-145 [facility] ([facility]) Potassium [Moles/volume] in Serum or Plasma 3.8 meq/L 3.5-5.1 [facility] ([facility]) Carbon dioxide, total [Moles/volume] in Serum or Plasma 32 meq/L 21 -32 [facility] ([facility]) Chloride [Moles/volume] in Serum or Plasma 104 meq/L 98-107 [facility] ([facility]) Calcium [Mass/volume] in Serum or Plasma 10.1 mg/dL 8.5-10.1 [facility] ([facility]) Glomerular filtration rate/1.73 sq M pre dicted among non-blacks [Volume Rate/Area] in Serum or Plasma by Creatinine-based formula (MDRD) Laboratory test result [facility] ([facility]) Glomerular filtration rate/1.73 sq M pre dicted among blacks [Volume Rate/Area] in Serum or Plasma by Creatinine-based formula (MDRD) Laboratory test result [facility] ([facility]) <content>CHRONIC KIDNEY DISEASE STAGING PER NKF</content>
<content></content>
<content>STAGE I & II GFR >= 60 NORMAL TO MILDLY DECREASED</content>
<content>STAGE III GFR 30-59 MODERATELY DECREASED</content>
<content>STAGE IV GFR 15-29 SEVERELY DECREASED</content>
<content>STAGE V GFR <15 VERY LITTLE GFR LEFT</content>
<content>ESRD GFR <15 ON RETAIL SERVICE LEAD MERCHANDISER</content>
<content></content>
<content></content> ID Date Data Source [id number] 10/26/2020 01:37:00 PM EDT [facility] ([facility]) Name Value Range Interpretation Code Description Data Portia rce(s) Supporting Document(s) Leukocytes [#/volume] in Blood by Automated count 8.4 x10*3/UL 4.1-10 .9 [facility] ([facility]) Erythrocytes [#/volume] in Blood by Automated count 4.20 x10*6/UL 4.2 0-6.30 [facility] ([facility]) Hemoglobin [Mass/volume] in Blood 14.0 g/dL 12.0-18.0 [facility] ([facility]) Hematocrit [Volume Fraction] of Blood by Automated count 40.3 % 3 7.0-51.0 [facility] ([facility]) MCV 95.8 fL 80.0-97.0 [facility] ([facility]) MCH 33.3 pg 26.0-32.0 [facility] ([facility]) Erythrocyte distribution width [Ratio] by Automated count 13.3 % 11.6-13.7 [facility] ([facility]) MCHC 34.7 g/dL 31.0-38.0 [facility] ([facility]) Platelets [#/volume] in Blood by Automated count 207 x10*3/UL 140-440 [facility] ([facility]) Platelet mean volume [Entitic volume] in Blood by Valentín 8.0 FL 7.8-11.0 [facility] ([facility]) Lymphocytes/100 leukocytes in Blood by Automated count 17.5 % 10. 0-58.5 [facility] ([facility]) Mid % 4.8 % 1.7-9.3 [facility] ([facility]) Lymph # 1.4 x10*3/UL 0.6-4.1 [facility] (Cardiolog y [facility]) Neut % 77.7 % 37.0-92.0 [facility] ([facility]iology [facility]) Neutrophils [#/volume] in Semen by Manual count 6.5 x10*3/UL 2.0-7.8 [facility] ([facility]) Mid # 0.5 x10*3/UL 0.1-0.6 [facility] ([facility]iolog [facility]) ID Date Data Source [id number] 10/18/2020 02:59:00 PM EDT [facility] ([facility]) Name Value Range Interpretation Code Description Data Portia rce(s) Supporting Document(s) Free Lambda Light Chains Serum 517.2 mg/L 5.7-26.3 [facility] ([facility]) Free [place] Light Chains Serum 6.4 mg/L 3.3-19.4 [facility] ([facility]) [place]/Lambda Ratio Serum 0.01 0.26-1.65 [facility] ([facility] ID Date Data Source [id number] 10/18/2020 02:59:00 PM EDT [facility] ([facility] Name Value Range Interpretation Code Description Data Portia rce(s) Supporting Document(s) Ferritin [Mass/volume] in Serum or Plasma 128 ng/mL 8-252 [facility] ([facility]) <content>note:<nlbl:demographic_changed> </content>
<content></content> Ansq-5-Jaeosspoxxzkl [Mass/volume] in Serum or Plasma 3.7 mg/L 0.6- 2.4 [facility] ([facility]) Siemens Immulite 2000 Immunochemiluminom etric assay (ICMA) . Values obtained with different assay methods or kits cannot be used interchangeably. Results cannot be interpreted as absolute evidence of the presence or absence of malignant disease. Performed at: RN - [facility] [address] [id number] [place] Row Marker: Claudia Ellis MD, Phone: [phone] Performed at: - [facility] [address] [id number] Marker: Jyoti Espinal MD, Phone: [phone] ID Date Data Source [id number] 10/18/2020 02:59:00 PM EDT [facility] ([facility]) Name Value Range Interpretation Code Description Data Portia rce(s) Supporting Document(s) Immunotyping Serum Iga Laboratory test result [facility] ([facility]) Immunotyping Serum Lambda Laboratory test result [facility] ([facility]) Laboratory test finding (navigational concept) Laboratory test result [facility] ([facility]) REV'D BY O ADJAPONG It Serum Interpretation Laboratory test result [facility] ([facility]) MONOCLONAL IGA,LAMBDA ID Date Data Source [id number] 10/18/2020 02:59:00 PM EDT [facility] ([facility]) Name Value Range Interpretation Code Description Data Portia rce(s) Supporting Document(s) Immunoglobulin G 510 mg/dL [id number] [facility] ([facility]) Immunoglobulin A 2640.0 mg/dL 70-400 [facility] ([facility]) Immunoglobulin M Laboratory test result 40-230 [facility] ([facility]) ID Date Data Source [id number] 10/18/2020 02:59:00 PM EDT [facility] ([facility]) Name Value Range Interpretation Code Description Data Portia rce(s) Supporting Document(s) Iron (Fe) 131 ug/dL 50-170 [facility]) Total Iron Binding Capacity 305 ug/dL 250-450 [facility] ([facility]) Percent Saturation 43.0 % 13.2-45.0 [facility] ([facility]) ID Date Data Source [id number] 10/18/2020 02:59:00 PM EDT [facility] ([facility]) Name Value Range Interpretation Code Description Data Portia rce(s) Supporting Document(s) Glucose, Fasting 97 mg/dL 70-100 [facility] ([facility]) Blood Urea Nitrogen 24 mg/dL 7-18 [facility] ([facility]) Creatinine For GFR 0.85 mg/dL 0.55-1.30 [facility] ([facility]) Glomerular Filtration Rate Laboratory test result [facility] ([facility]) <content>Units are mL/min/1.73 m2</content>
<content></content>
<content>Chronic Kidney Disease Staging per NKF:</content>
<content></content>
<content>Stage I & II GFR >=60 Normal to Mildly Decreased</content>
<content>Stage III GFR 30- 59 Moderately Decreased</content>
<content>Stage IV GFR 15-29 Severely Decreased</content>
<content>Stage V GFR <15 Very Little GFR Left</content>
<content>ESRD GFR <15 on RETAIL SERVICE LEAD MERCHANDISER</content>
<content></content> Sodium Level 139 meq/L 136-145 [facility] ([facility]) Carbon Dioxide Level 26 meq/L 21-32 [facility] ([facility]) Potassium Serum 4.6 meq/L 3.5-5.1 [facility] ([facility]) Chloride Level 106 meq/L 98-107 [facility] ([facility]) Calcium Level 11.8 mg/dL 8.8-10.2 [facility] ([facility]) Anion Gap 7 meq/L 8-16 [facility] [facility]) Alt/SGPT 44 U/L 12-78 [facility] ([place] [facility]) Alkaline Phosphatase 116 U/L 45-117 [facility] ([facility]) Ast/Sgot 33 U/L 7-37 [facility] ([place] [facility]) Bilirubin,Total 0.6 mg/dL 0.2-1.0 [facility] ([facility]) Total Protein 8.9 GM/DL 6.4-8.2 [facility] ([facility]) Albumin 3.2 GM/DL 3.2-5.2 [facility] ([place] [facility]) Albumin/Globulin Ratio 0.6 1.2-2.2 [facility] ([facility]) ID Date Data Source [id number] 10/18/2020 02:59:00 PM EDT [facility] ([facility]) Name Value Range Interpretation Code Description Data Portia rce(s) Supporting Document(s) Erythrocyte sedimentation rate by Westergren method 68 mm/hr 0-30 [facility] ([facility]) ID Date Data Source [id number] 10/18/2020 02:59:00 PM EDT [facility] ([facility]) Name Value Range Interpretation Code Description Data Portia rce(s) Supporting Document(s) White Blood Count 7.6 10 4.0-10.0 [facility] ([facility]) Red Blood Count 4.29 10 4.00-5.40 [facility] ([facility]) Hemoglobin 13.9 g/dL 12.0-15.5 [facility] ([place] [facility]) Hematocrit 43.3 % 36.0-47.0 [facility] ([facility]) Mean Corpuscular Hemoglobin 32.4 pg 27.0-33.0 ND [facility] ([facility]) Mean Corpuscular HGB Conc 32.1 g/dL 32.0-36.5 [facility] ([facility]) Mean Corpuscular Volume 100.9 fl 80.0-96.0 [facility] ([facility]) Red Cell Distribution Width 13.1 % 11.5-14.5 ND [facility] ([facility]) Platelet Count, Automated 175 10 150-450 [facility] ([facility]) Neutrophils % 73.1 % 36.0-66.0 [facility] ([facility]) Lymph % 18.1 % 24.0-44.0 [facility] [facility]) Eos % 1.3 % 0.0-3.0 [facility] [facility]) [place] % 6.8 % 2.0-8.0 [facility] [facility]) Baso % 0.3 % 0.0-1.0 [facility] ([place] [facility]) Immature Granulocyte % 0.4 % 0-3.0 [facility] ([facility]) Nucleated Red Blood Cell % 0.0 % 0-0 [facility] [facility] Neutrophils # 5.6 10 1.5-8.5 [facility] ([facility] Lymph # 1.4 10 1.5-5.0 [facility] ([place] [facility]) [place] # 0.5 10 0.0-0.8 [facility] ([place] [facility]) Eos # 0.1 10 0.0-0.5 [facility] ([place] [facility]) Baso # 0.0 10 0.0-0.2 [facility] ([facility]) ID Date Data Source [id number] 10/18/2020 02:59:00 PM EDT [facility] ([facility] Name Value Range Interpretation Code Description Data Portia rce(s) Supporting Document(s) Appearance, Urine Laboratory test result [facility] [facility] PH,Urine 5.0 units 5.0-9.0 [facility] ([facility]) Color, Urine Laboratory test result [facility] [facility] Protein, Urine Auto Laboratory test result [facility] [facility] Specific [place] Urine Auto 1.028 1.002-1.035 [facility] [facility] Ketone, Urine Auto Laboratory test result [facility] [facility] Glucose, Urine (Ua) Auto Laboratory test result [facility] ([facility]) Urobilinogen, Urine Auto 4.0 mg/dL 0.0-2.0 [facility] ([place] [facility] Leukocyte Esterase, Urine Auto Laboratory test result [facility] ([facility]) Nitrite, Urine Auto Laboratory test result [facility] ([facility]) Bilirubin, Urine Auto Laboratory test result [facility] Blood, Urine Blood Laboratory test result [facility] WBC, Urine Auto 2 /HPF 0-3 [facility] ([facility]) Squamous Epithelial Cell Ur AU 0 /HPF 0-6 [facility] ([facility]) RBC, Urine Auto 2 /HPF 0-3 [facility] ([facility]) Bacteria, Urine Auto Laboratory test result [facility] ([facility]) Mucus, Urine Laboratory test result [facility] NT ([facility]) Hyaline Cast, Urine Auto 0 /LPF 0-1 [facility] T ([facility]) ID Date Data Source [id number] 09/21/2020 02:43:00 PM EDT [facility] ([facility]) Name Value Range Interpretation Code Description Data Portia rce(s) Supporting Document(s) 3D Bi-Lateral Mammogram Laboratory test result [facility] ([facility]) Dexa/Bone Density Laboratory test result [facility] ([facility]) ID Date Data Source [id number] 09/19/2020 02:26:00 PM EDT [facility] ([facility]) Name Value Range Interpretation Code Description Data Portia rce(s) Supporting Document(s) Albumin % 41.3 % 55.8-66.1 [facility] ([place] [facility]) Fdtlm-2-Glawtrma % 3.8 % 2.9-4.9 [facility] ([facility]) Wwtwc-4-Gjpbkhsjn % 8.9 % 7.1-11.8 [facility] ([facility]) Vfgt-5-Puodoxrmb % 5.8 % 4.7-7.2 [facility] ([facility]) Gcko-4-Wotyqppuq % 35.2 % 3.2-6.5 [facility] ([facility]) Gamma Globulin % 5.0 % 11.1-18.8 [facility] [facility] Albumin 3.39 GM/DL 3.29-5.55 [facility] ([place] [facility]) Zzrtf-4-Rrbhxvyuc 0.31 GM/DL 0.17-0.41 [facility] ([facility] Vxqbt-6-Ymyxtlelq 0.73 GM/DL 0.42-0.99 [facility] ([facility]) Lhvg-4-Avngkquhq 0.48 GM/DL 0.28-0.60 [facility] Hemo-2-Iibnntbjr 2.89 GM/DL 0.19-0.55 [facility] ([facility]) Total Protein 8.2 GM/DL 6.4-8.2 [facility] ([facility]) Gamma Globulins 0.41 GM/DL 0.65-1.58 [facility] ([facility]) Spep Interpretation Laboratory test result [facility] ([facility]) M-SPIKE NOTED IN BETA 2 REGION. CONCENTRATION = 2.85 GM/DL SUGGEST SERUM AND URINE IMMUNOTYPING. Laboratory test finding (navigational concept) Laboratory test result [facility] ([place] [facility]) REV'D BY Cindy AL ID Date Data Source [id number] 09/19/2020 02:26:00 PM EDT [facility] ([facility]) Name Value Range Interpretation Code Description Data Portia rce(s) Supporting Document(s) Immunotyping Serum Iga Laboratory test result [facility] ([facility]) Immunotyping Serum Lambda Laboratory test result [facility] ([place] [facility]) It Serum Interpretation Laboratory test result [facility] ([place] [facility]) MONOCLONAL IGA LAMBDA Laboratory test finding (navigational concept) Laboratory test result [facility] ([facility]) ID Date Data Source [id number] 09/19/2020 02:25:00 PM EDT [facility] ([facility]) Name Value Range Interpretation Code Description Data Portia rce(s) Supporting Document(s) Glucose [Mass/volume] in Serum or Plasma 124 mg/dL 74-99 [facility] ([facility]) 100-125 mg/dL PRE-DIABETES/FASTING >126 mg/dL DIABETES/FASTING Urea nitrogen [Mass/volume] in Serum or Plasma 19 mg/dL 7-18 [facility] ([place] [facility]) Creatinine 0.7 mg/dL 0.6-1.3 [facility] [facility]) Sodium [Moles/volume] in Serum or Plasma 143 meq/L 136-145 [facility] ([place] [facility]) Chloride [Moles/volume] in Serum or Plasma 103 meq/L 98-107 [facility] ([place] [facility]) Potassium [Moles/volume] in Serum or Plasma 3.8 meq/L 3.5-5.1 [facility] ([place] [facility]) Carbon dioxide, total [Moles/volume] in Serum or Plasma 29 meq/L 21 -32 [facility] ([place] [facility]) Calcium [Mass/volume] in Serum or Plasma 10.2 mg/dL 8.5-10.1 [facility] ([facility]) NOTE: RESULT VERIFIED. Glomerular filtration rate/1.73 sq M pre dicted among non-blacks [Volume Rate/Area] in Serum or Plasma by Creatinine-based formula (MDRD) Laboratory test result [facility] ([facility] [facility] ) Glomerular filtration rate/1.73 sq M pre dicted among blacks [Volume Rate/Area] in Serum or Plasma by Creatinine-based formula (MDRD) Laboratory test result [facility] [facility] <content>CHRONIC KIDNEY DISEASE STAGING PER NKF</content>
<content></content>
<content>STAGE I & II GFR >= 60 NORMAL TO MILDLY DECREASED</content>
<content>STAGE III GFR 30-59 MODERATELY DECREASED</content>
<content>STAGE IV GFR 15-29 SEVERELY DECREASED</content>
<content>STAGE V GFR <15 VERY LITTLE GFR LEFT</content>
<content>ESRD GFR <15 ON RETAIL SERVICE LEAD MERCHANDISER</content>
<content></content> ID Date Data Source [id number] 08/28/2020 11:17:00 AM EST [facility] ([facility]) Name Value Range Interpretation Code Description Data Portia rce(s) Supporting Document(s) Erythrocyte sedimentation rate by Westergren method 108 mm/hr 0-30 [facility] ([place] [facility]) ID Date Data Source [id number] 08/28/2020 11:17:00 AM EST [facility] ([facility]) Name Value Range Interpretation Code Description Data Portia rce(s) Supporting Document(s) White Blood Count 4.3 10 4.0-10.0 [facility] ([facility]) Hematocrit 39.3 % 36.0-47.0 [facility] ([facility]) Hemoglobin 12.4 g/dL 12.0-15.5 [facility] ([facility]) Red Blood Count 3.96 10 4.00-5.40 [facility] ([facility]) Mean Corpuscular Hemoglobin 31.3 pg 27.0-33.0 [facility] ([place] [facility]) Mean Corpuscular Volume 99.2 fl 80.0-96.0 [facility] ([place] [facility]) Mean Corpuscular HGB Conc 31.6 g/dL 32.0-36.5 [facility] ([place] [facility]) Red Cell Distribution Width 13.2 % 11.5-14.5 [facility] ([place] [facility]) Platelet Count, Automated 193 10 150-450 [facility] ([place] [facility]) Neutrophils % 62.7 % 36.0-66.0 [facility] ([facility]) Concordia % 7.4 % 2.0-8.0 [facility] [facility] Lymph % 27.8 % 24.0-44.0 [facility] [facility] Baso % 0.5 % 0.0-1.0 [facility] [facility] Eos % 1.4 % 0.0-3.0 [facility] [facility] Neutrophils # 2.7 10 1.5-8.5 [facility] ([facility]) Nucleated Red Blood Cell % 0.0 % 0-0 [facility] ([place] [facility]) Immature Granulocyte % 0.2 % 0-3.0 [facility] ([place] [facility]) Concordia # 0.3 10 0.0-0.8 [facility] [facility] Lymph # 1.2 10 1.5-5.0 [facility] [facility] Baso # 0.0 10 0.0-0.2 [facility] [facility] Eos # 0.1 10 0.0-0.5 [facility] [facility] ID Date Data Source [id number] 08/28/2020 11:17:00 AM EST [facility] ([facility]) Name Value Range Interpretation Code Description Data Portia rce(s) Supporting Document(s) C reactive protein [Mass/volume] in Serum or Plasma by High sensitivity method 0.52 mg/dL 0.00-0.30 [facility] ([place] [facility] ) ID Date Data Source [id number] 08/28/2020 11:17:00 AM EST [facility] ([facility]) Name Value Range Interpretation Code Description Data Portia rce(s) Supporting Document(s) Glucose, Fasting 99 mg/dL 70-100 [facility] ([facility]) Creatinine For GFR 0.92 mg/dL 0.55-1.30 [facility] ([facility]) Blood Urea Nitrogen 29 mg/dL 7-18 [facility] ([facility]) Sodium Level 139 meq/L 136-145 [facility] ([place] [facility]) Glomerular Filtration Rate Laboratory test result [facility] ([place] [facility]) <content>Units are mL/min/1.73 m2</content>
<content></content>
<content>Chronic Kidney Disease Staging per NKF:</content>
<content></content>
<content>Stage I & II GFR >=60 Normal to Mildly Decreased</content>
<content>Stage III GFR 30- 59 Moderately Decreased</content>
<content>Stage IV GFR 15-29 Severely Decreased</content>
<content>Stage V GFR <15 Very Little GFR Left</content>
<content>ESRD GFR <15 on RETAIL SERVICE LEAD MERCHANDISER</content>
<content></content> Potassium Serum 4.9 meq/L 3.5-5.1 [facility] ([facility]) Chloride Level 105 meq/L 98-107 [facility] ([facility]) Carbon Dioxide Level 26 meq/L 21-32 [facility] ([facility]) Anion Gap 8 meq/L 8-16 [facility] ([place] [facility]) Calcium Level 10.8 mg/dL 8.8-10.2 [facility] ([facility]) ID Date Data Source [id number] 08/28/2020 11:17:00 AM EST [facility] ([facility]) Name Value Range Interpretation Code Description Data Portia rce(s) Supporting Document(s) aPTT in Blood by Coagulation assay 35.2 s 24.2-38.5 [facility] ([place] [facility]) ID Date Data Source [id number] 08/28/2020 11:17:00 AM EST [facility] ([facility]) Name Value Range Interpretation Code Description Data Portia rce(s) Supporting Document(s) Inr 1.05 [facility] [facility]) THERAPUTIC HUMAN INR VALUES INDICATIONS NORMAL RANGES PROPHYLAXIS/TREATMENT OF: VENOUS THROMBOSIS 2.0-3.0 PULMONARY EMBOLISM 2.0-3.0 PREVENTION OF SYSTEMIC EMBOLISM FROM: TISSUE HEART VALVES 2.0-3.0 ACUTE MYOCARDIAL INFARCTION 2.0-3.0 VALVULAR HEART DISEASE 2.0-3.0 ATRIAL FIBRILLATION 2.0-3.0 MECHANICAL VALVES(HIGH RISK) 2.5-3.5 RECURRENT MYOCARDIAL INFARCTION 2.5-3.5 Prothrombin Time 13.9 s 12.5-14.3 [facility] ([facility]) ID Date Data Source [id number] 08/07/2020 01:39:00 PM EST [facility] ([facility]) Name Value Range Interpretation Code Description Data Portia rce(s) Supporting Document(s) Parathyrin.intact [Mass/volume] in Serum or Plasma 26.3 pg/mL 18.5-88 .0 [facility] ([place] [facility]) ID Date Data Source [id number] 08/07/2020 01:39:00 PM EST [facility] ([facility]) Name Value Range Interpretation Code Description Data Portia rce(s) Supporting Document(s) Calcidiol [Mass/volume] in Serum or Plasma 32.7 24.0-80.0 [facility] ([place] [facility]) This test was performed using Fast[employer] I P Vitamin D immunoassay kit. Values obtained with different assay methods should not be used interchangeably. ID Date Data Source [id number] 08/07/2020 01:39:00 PM EST [facility] ([facility]) Name Value Range Interpretation Code Description Data Portia rce(s) Supporting Document(s) Thyrotropin [Units/volume] in Serum or Plasma by Detec tion limit <= 0.05 mIU/L 0.54 uIU/mL 0.36-3.74 [facility] ([place] [facility] ) ID Date Data Source [id number] 08/07/2020 01:39:00 PM EST [facility] ([facility]) Name Value Range Interpretation Code Description Data Portia rce(s) Supporting Document(s) Glucose [Mass/volume] in Serum or Plasma 98 mg/dL 74-99 [facility] ([place] [facility]) 100-125 mg/dL PRE-DIABETES/FASTING >126 mg/dL DIABETES/FASTING Urea nitrogen [Mass/volume] in Serum or Plasma 49 mg/dL 7-18 [facility] ([place] [facility]) NOTE: BUN,CALCIUM VERIFIED Potassium [Moles/volume] in Serum or Plasma 4.5 meq/L 3.5-5.1 [facility] ([place] [facility]) Creatinine 1.2 mg/dL 0.6-1.3 [facility] ([facility]) Sodium [Moles/volume] in Serum or Plasma 142 meq/L 136-145 [facility] ([place] [facility]) Chloride [Moles/volume] in Serum or Plasma 104 meq/L 98-107 [facility] ([place] [facility]) Carbon dioxide, total [Moles/volume] in Serum or Plasma 23 meq/L 21 -32 [facility] [facility] Glomerular filtration rate/1.73 sq M pre dicted among non-blacks [Volume Rate/Area] in Serum or Plasma by Creatinine-based formula (MDRD) 45 mL/min [facility] ([place] [facility]) Calcium [Mass/volume] in Serum or Plasma 10.6 mg/dL 8.5-10.1 [facility] ([place] [facility]) Glomerular filtration rate/1.73 sq M pre dicted among blacks [Volume Rate/Area] in Serum or Plasma by Creatinine-based formula (MDRD) 55 mL/min [facility] ([place] [facility]) <content>CHRONIC KIDNEY DISEASE STAGING PER NKF</content>
<content></content>
<content>STAGE I & II GFR >= 60 NORMAL TO MILDLY DECREASED</content>
<content>STAGE III GFR 30-59 MODERATELY DECREASED</content>
<content>STAGE IV GFR 15-29 SEVERELY DECREASED</content>
<content>STAGE V GFR <15 VERY LITTLE GFR LEFT</content>
<content>ESRD GFR <15 ON RETAIL SERVICE LEAD MERCHANDISER</content>
<content></content> ID Date Data Source [id number] 08/07/2020 01:39:00 PM EST [facility] ([facility]) Name Value Range Interpretation Code Description Data Portia rce(s) Supporting Document(s) Hemoglobin [Mass/volume] in Blood 13.1 g/dL 12.0-18.0 [facility] ([place] [facility]) Leukocytes [#/volume] in Blood by Automated count 5.8 x10*3/UL 4.1-10 .9 [facility] ([place] [facility]) Erythrocytes [#/volume] in Blood by Automated count 4.01 x10*6/UL 4.2 0-6.30 [facility] ([place] [facility]) Hematocrit [Volume Fraction] of Blood by Automated count 37.5 % 3 7.0-51.0 [facility] ([place] [facility]) MCV 93.4 fL 80.0-97.0 [facility] ([place] [facility]) MCH 32.6 pg 26.0-32.0 [facility] ([place] [facility]) MCHC 34.9 g/dL 31.0-38.0 [facility] ([place] [facility]) Platelets [#/volume] in Blood by Automated count 191 x10*3/UL 140-440 [facility] ([place] [facility]) MPV 8.6 FL 7.8-11.0 [facility] ([place] [facility]) Erythrocyte distribution width [Ratio] by Automated count 13.8 % 11.6-13.7 [facility] ([place] [facility]) Mid % 6.7 % 1.7-9.3 [facility] ([place] [facility]) Lymph % 24.4 % 10.0-58.5 [facility] ([place] [facility]) Mid # 0.4 x10*3/UL 0.1-0.6 [facility] ([place] [facility]) Neut % 68.9 % 37.0-92.0 [facility] ([place] [facility]) Lymph # 1.4 x10*3/UL 0.6-4.1 [facility] ([place] [facility]) Neut # 4.0 x10*3/UL 2.0-7.8 [facility] ([place] [facility]) ID Date Data Source [id number] 05/18/2020 11:57:00 AM EST [facility] ([facility]) Name Value Range Interpretation Code Description Data Portia rce(s) Supporting Document(s) Inr 6.49 Above upper panic limits [facility] [facility] THERAPUTIC HUMAN INR VALUES INDICATIONS NORMAL RANGES PROPHYLAXIS/TREATMENT OF: VENOUS THROMBOSIS 2.0-3.0 PULMONARY EMBOLISM 2.0-3.0 PREVENTION OF SYSTEMIC EMBOLISM FROM: TISSUE HEART VALVES 2.0-3.0 ACUTE MYOCARDIAL INFARCTION 2.0-3.0 VALVULAR HEART DISEASE 2.0-3.0 ATRIAL FIBRILLATION 2.0-3.0 MECHANICAL VALVES(HIGH RISK) 2.5-3.5 RECURRENT MYOCARDIAL INFARCTION 2.5-3.5 Prothrombin Time 58.4 s 12.5-14.3 [facility] ([facility]) ID Date Data Source [id number] 05/18/2020 11:56:00 AM EST [facility] ([facility] Name Value Range Interpretation Code Description Data Portia rce(s) Supporting Document(s) Leukocytes [#/volume] in Blood by Automated count 6.0 x10*3/UL 4.1-10 .9 [facility] ([place] [facility]) Hemoglobin [Mass/volume] in Blood 13.0 g/dL 12.0-18.0 [facility] [facility] Erythrocytes [#/volume] in Blood by Automated count 4.11 x10*6/UL 4.2 0-6.30 [facility] ([place] [facility]) MCV 91.1 fL 80.0-97.0 [facility] ([place] [facility]) Hematocrit [Volume Fraction] of Blood by Automated count 37.5 % 3 7.0-51.0 [facility] ([place] [facility]) MCH 31.6 pg 26.0-32.0 [facility] [facility] MCHC 34.7 g/dL 31.0-38.0 [facility] Erythrocyte distribution width [Ratio] by Automated count 14.2 % 11.6-13.7 [facility] ([place] [facility]) Platelets [#/volume] in Blood by Automated count 243 x10*3/UL 140-440 [facility] ([place] [facility]) MPV 8.3 FL 7.8-11.0 [facility] ([place] [facility] Lymph % 21.2 % 10.0-58.5 [facility] ([place] [facility] Mid % 5.8 % 1.7-9.3 [facility] ([place] [facility] Lymph # 1.2 x10*3/UL 0.6-4.1 [facility] ([place] [facility]) Neut % 73.0 % 37.0-92.0 [facility] ([place] [facility]) Neut # 4.4 x10*3/UL 2.0-7.8 [facility] ([place] [facility]) Mid # 0.4 x10*3/UL 0.1-0.6 [facility] ([place] [facility]) ID Date Data Source [id number] 05/18/2020 11:29:00 AM EST [facility] ([facility]) Name Value Range Interpretation Code Description Data Portia rce(s) Supporting Document(s) INR in Platelet poor plasma by Coagulation assay 7.9 [facility] ([place] [facility]) ID Date Data Source [id number] 05/18/2020 10:58:00 AM EST [facility] ([facility]) Name Value Range Interpretation Code Description Data Portia rce(s) Supporting Document(s) Glucose [Mass/volume] in Serum or Plasma 100 mg/dL 74-99 [facility] ([place] [facility]) 100-125 mg/dL PRE-DIABETES/FASTING >126 mg/dL DIABETES/FASTING Urea nitrogen [Mass/volume] in Serum or Plasma 17 mg/dL 7-18 [facility] ([place] [facility]) Creatinine 0.7 mg/dL 0.6-1.3 [facility] ([facility]) Sodium [Moles/volume] in Serum or Plasma 141 meq/L 136-145 [facility] ([place] [facility]) Potassium [Moles/volume] in Serum or Plasma 4.4 meq/L 3.5-5.1 [facility] ([place] [facility]) Chloride [Moles/volume] in Serum or Plasma 103 meq/L 98-107 [facility] ([place] [facility]) Carbon dioxide, total [Moles/volume] in Serum or Plasma 24 meq/L 21 -32 [facility] [facility] Calcium [Mass/volume] in Serum or Plasma 10.2 mg/dL 8.5-10.1 [facility] ([place] [facility]) NOTE: RESULT VERIFIED. Glomerular filtration rate/1.73 sq M pre dicted among non-blacks [Volume Rate/Area] in Serum or Plasma by Creatinine-based formula (MDRD) Laboratory test result [facility] ([facility] ) Glomerular filtration rate/1.73 sq M pre dicted among blacks [Volume Rate/Area] in Serum or Plasma by Creatinine-based formula (MDRD) Laboratory test result [facility] ([facility]) <content>CHRONIC KIDNEY DISEASE STAGING PER NKF</content>
<content></content>
<content>STAGE I & II GFR >= 60 NORMAL TO MILDLY DECREASED</content>
<content>STAGE III GFR 30-59 MODERATELY DECREASED</content>
<content>STAGE IV GFR 15-29 SEVERELY DECREASED</content>
<content>STAGE V GFR <15 VERY LITTLE GFR LEFT</content>
<content>ESRD GFR <15 ON RETAIL SERVICE LEAD MERCHANDISER</content>
<content></content> ID Date Data Source [id number] 05/09/2020 11:20:00 AM EST [facility] Name Value Range Interpretation Code Description Data Portia rce(s) Supporting Document(s) INR in Platelet poor plasma by Coagulation assay 3.7 [facility] [facility]) ID Date Data Source [id number] 05/04/2020 01:07:00 PM EDT [facility]) Name Value Range Interpretation Code Description Data Portia rce(s) Supporting Document(s) INR in Platelet poor plasma by Coagulation assay 2.7 [facility] ([place] [facility] ID Date Data Source [id number] 05/04/2020 11:26:00 AM EDT [facility] ([facility]) Name Value Range Interpretation Code Description Data Portia rce(s) Supporting Document(s) Digoxin [Mass/volume] in Serum or Plasma 0.6 ng/mL 0.5-2.0 [facility] ([place] [facility]) ID Date Data Source [id number] 05/04/2020 11:26:00 AM EDT [facility] ([facility] Name Value Range Interpretation Code Description Data Portia rce(s) Supporting Document(s) Digoxin [Mass/volume] in Serum or Plasma 0.6 ng/mL 0.5-2.0 [facility] ([facility]) ID Date Data Source [id number] 05/04/2020 11:25:00 AM EDT [facility] ([facility]) Name Value Range Interpretation Code Description Data Portia rce(s) Supporting Document(s) Urine PH 6.5 units 5.0-9.0 [facility] ([place] [facility]) Urine Appearance Laboratory test result [facility] ([place] [facility]) Urine Color Laboratory test result [facility] ([place] [facility]) Urine Leukocytes Laboratory test result [facility] ([place] [facility]) Specific gravity of Urine 1.010 1.005-1.030 [facility] ([place] [facility]) Urine Protein Laboratory test result 0-0 [facility] ([place] [facility]) Urine Blood Laboratory test result [facility] ([place] [facility]) Urine Nitrite Laboratory test result [facility] ([place] [facility]) Glucose [Presence] in Urine Laboratory test result [facility] ([place] [facility]) Urine Ketone Laboratory test result [facility] ([place] [facility]) Urine Urobilinogen 0.2 mg/dL 0.2-1.0 [facility] ([facility]) Bilirubin.total [Mass/volume] in Serum or Plasma Laboratory test resu lt [facility] ([place] [facility]) ID Date Data Source [id number] 05/04/2020 11:25:00 AM EDT [facility] ([facility]) Name Value Range Interpretation Code Description Data Portia rce(s) Supporting Document(s) Thyrotropin [Units/volume] in Serum or Plasma by Detec tion limit <= 0.05 mIU/L 0.16 uIU/mL 0.36-3.74 [facility] ([place] [facility] ) ID Date Data Source [id number] 05/04/2020 11:25:00 AM EDT [facility] ([facility]) Name Value Range Interpretation Code Description Data Portia rce(s) Supporting Document(s) Urea nitrogen [Mass/volume] in Serum or Plasma 17 mg/dL 7-18 [facility] ([place] [facility]) Glucose [Mass/volume] in Serum or Plasma 101 mg/dL 74-99 [facility] ([place] [facility]) 100-125 mg/dL PRE-DIABETES/FASTING >126 mg/dL DIABETES/FASTING Creatinine 0.7 mg/dL 0.6-1.3 [facility] ([facility]) Sodium [Moles/volume] in Serum or Plasma 143 meq/L 136-145 [facility] ([place] [facility]) Chloride [Moles/volume] in Serum or Plasma 104 meq/L 98-107 [facility] ([place] [facility]) Potassium [Moles/volume] in Serum or Plasma 4.0 meq/L 3.5-5.1 [facility] ([place] [facility]) Carbon dioxide, total [Moles/volume] in Serum or Plasma 30 meq/L 21 -32 [facility] ([place] [facility]) Calcium [Mass/volume] in Serum or Plasma 10.7 mg/dL 8.5-10.1 [facility] ([place] [facility]) NOTE: RESULT VERIFIED. Glomerular filtration rate/1.73 sq M pre dicted among non-blacks [Volume Rate/Area] in Serum or Plasma by Creatinine-based formula (MDRD) Laboratory test result [facility] ([place] [facility] Glomerular filtration rate/1.73 sq M pre dicted among blacks [Volume Rate/Area] in Serum or Plasma by Creatinine-based formula (MDRD) Laboratory test result [facility] ([place] [facility]) <content>CHRONIC KIDNEY DISEASE STAGING PER NKF</content>
<content></content>
<content>STAGE I & II GFR >= 60 NORMAL TO MILDLY DECREASED</content>
<content>STAGE III GFR 30-59 MODERATELY DECREASED</content>
<content>STAGE IV GFR 15-29 SEVERELY DECREASED</content>
<content>STAGE V GFR <15 VERY LITTLE GFR LEFT</content>
<content>ESRD GFR <15 ON RETAIL SERVICE LEAD [employer]CHAND[employer]ER</content>
<content></content> ID Date Data Source [id number] 05/04/2020 11:25:00 AM EDT [facility] ([facility]) Name Value Range Interpretation Code Description Data Portia rce(s) Supporting Document(s) Magnesium 2.1 mg/dL 1.8-2.4 [facility] ([facility]) ID Date Data Source [id number] 05/04/2020 11:25:00 AM EDT [facility] ([facility]) Name Value Range Interpretation Code Description Data Portia rce(s) Supporting Document(s) Erythrocytes [#/volume] in Blood by Automated count 4.36 x10*6/UL 4.2 0-6.30 [facility] ([place] [facility] Leukocytes [#/volume] in Blood by Automated count 6.2 x10*3/UL 4.1-10 .9 [facility] ([place] [facility]) Hemoglobin [Mass/volume] in Blood 13.8 g/dL 12.0-18.0 [facility] ([place] [facility]) Hematocrit [Volume Fraction] of Blood by Automated count 40.7 % 3 7.0-51.0 [facility] ([place] [facility]) MCH 31.6 pg 26.0-32.0 [facility] ([place] [facility]) MCV 93.2 fL 80.0-97.0 [facility] ([place] [facility]) MCHC 34.0 g/dL 31.0-38.0 [facility] ([facility]) Platelets [#/volume] in Blood by Automated count 236 x10*3/UL 140-440 [facility] ([place] [facility]) Erythrocyte distribution width [Ratio] by Automated count 14.5 % 11.6-13.7 [facility] ([place] [facility]) Lymph % 19.8 % 10.0-58.5 [facility] ([place] [facility]) MPV 7.8 FL 7.8-11.0 [facility] ([place] [facility]) Mid % 5.7 % 1.7-9.3 [facility] ([place] [facility] Neut % 74.5 % 37.0-92.0 [facility] [facility]) Lymph # 1.2 x10*3/UL 0.6-4.1 [facility] ([place] [facility]) Neut # 4.6 x10*3/UL 2.0-7.8 [facility] ([place] [facility]) Mid # 0.4 x10*3/UL 0.1-0.6 [facility] ([place] [facility]) ID Date Data Source [id number] 05/04/2020 11:25:00 AM EDT [facility] ([facility]) Name Value Range Interpretation Code Description Data Portia rce(s) Supporting Document(s) Leukocytes [#/volume] in Blood by Automated count 6.2 x10*3/UL 4.1-10 .9 [facility] ([facility]) Hematocrit [Volume Fraction] of Blood by Automated count 40.7 % 3 7.0-51.0 [facility] ([facility]) Erythrocytes [#/volume] in Blood by Automated count 4.36 x10*6/UL 4.2 0-6.30 [facility] ([facility]) Hemoglobin [Mass/volume] in Blood 13.8 g/dL 12.0-18.0 [facility]) MCHC 34.0 g/dL 31.0-38.0 [facility] MCV 93.2 fL 80.0-97.0 [facility] MCH 31.6 pg 26.0-32.0 [facility] Erythrocyte distribution width [Ratio] by Automated count 14.5 % 11.6-13.7 [facility] ([facility]) Platelets [#/volume] in Blood by Automated count 236 x10*3/UL 140-440 [facility] ([facility]) Platelet mean volume [Entitic volume] in Blood by Valentín 7.8 FL 7.8-11.0 [facility] ([facility]) Neut % 74.5 % 37.0-92.0 [facility] Mid % 5.7 % 1.7-9.3 [facility] (Cardiology [facility]) Lymphocytes/100 leukocytes in Blood by Automated count 19.8 % 10. 0-58.5 [facility] (Cardiology [facility]) Neutrophils [#/volume] in Semen by Manual count 4.6 x10*3/UL 2.0-7.8 [facility] ([facility]iology [facility]) Mid # 0.4 x10*3/UL 0.1-0.6 [facility] (Cardiolog y [facility]) Lymph # 1.2 x10*3/UL 0.6-4.1 [facility] ([facility]iolog y [facility]) ID Date Data Source [id number] 05/04/2020 11:24:00 AM EDT [facility] ([facility]) Name Value Range Interpretation Code Description Data Portia rce(s) Supporting Document(s) Thyroxine (T4) free [Mass/volume] in Serum or Plasma 1.33 ng/dL 0.76- 1.46 [facility] ID Date Data Source [id number] 05/01/2020 11:44:00 AM EDT [facility] ([facility]) Name Value Range Interpretation Code Description Data Portia rce(s) Supporting Document(s) INR in Platelet poor plasma by Coagulation assay 1.2 [facility] ([facility]) ID Date Data Source [id number] 04/27/2020 12:43:00 PM EDT [facility] ([facility]) Name Value Range Interpretation Code Description Data Portia rce(s) Supporting Document(s) INR in Platelet poor plasma by Coagulation assay 7.2 [facility] ([facility]) ID Date Data Source [id number] 04/27/2020 11:33:00 AM EDT [facility] ([facility]) Name Value Range Interpretation Code Description Data Portia rce(s) Supporting Document(s) Prothrombin Time 49.4 s 12.5-14.3 [facility] ([facility]) Inr 5.24 Above upper panic limits [facility] T ([facility]) THERAPUTIC HUMAN INR VALUES INDICATIONS NORMAL RANGES PROPHYLAXIS/TREATMENT OF: VENOUS THROMBOSIS 2.0-3.0 PULMONARY EMBOLISM 2.0-3.0 PREVENTION OF SYSTEMIC EMBOLISM FROM: TISSUE HEART VALVES 2.0-3.0 ACUTE MYOCARDIAL INFARCTION 2.0-3.0 VALVULAR HEART DISEASE 2.0-3.0 ATRIAL FIBRILLATION 2.0-3.0 MECHANICAL VALVES(HIGH RISK) 2.5-3.5 RECURRENT MYOCARDIAL INFARCTION 2.5-3.5 ID Date Data Source [id number] 04/27/2020 11:33:00 AM EDT [facility] ([facility]) Name Value Range Interpretation Code Description Data Portia rce(s) Supporting Document(s) Erythrocytes [#/volume] in Blood by Automated count 4.37 x10*6/UL 4.2 0-6.30 [facility] ([facility]) Leukocytes [#/volume] in Blood by Automated count 6.6 x10*3/UL 4.1-10 .9 [facility] ([facility]) Hemoglobin [Mass/volume] in Blood 13.7 g/dL 12.0-18.0 [facility] ([facility]) Hematocrit [Volume Fraction] of Blood by Automated count 40.2 % 3 7.0-51.0 [facility] ([facility]) MCV 91.9 fL 80.0-97.0 [facility] ([place] [facility]) MCH 31.4 pg 26.0-32.0 [facility] ([facility]) MCHC 34.2 g/dL 31.0-38.0 [facility] ([facility]) Erythrocyte distribution width [Ratio] by Automated count 13.7 % 11.6-13.7 [facility] ([facility]) Platelets [#/volume] in Blood by Automated count 251 x10*3/UL 140-440 [facility] ([facility]) MPV 8.3 FL 7.8-11.0 [facility] ([place] [facility]) Lymph % 16.8 % 10.0-58.5 [facility] ([place] [facility]) Mid % 4.7 % 1.7-9.3 [facility] ([facility]) Lymph # 1.1 x10*3/UL 0.6-4.1 [facility] ([facility]) Neut % 78.5 % 37.0-92.0 [facility]) Mid # 0.3 x10*3/UL 0.1-0.6 [facility] ([facility]) Neut # 5.2 x10*3/UL 2.0-7.8 [facility] ([facility]) ID Date Data Source [id number] 04/20/2020 12:07:00 PM EDT [facility]) Name Value Range Interpretation Code Description Data Portia rce(s) Supporting Document(s) INR in Platelet poor plasma by Coagulation assay 1.3 [facility] ([facility]) Procedure Social History Code Duration Value Status Description Data Source(s ) Smoking 05/01/2021 12:00:00 AM EDT Current Smoker completed Curre nt Smoker eCW1 ([facility]) Smoking 05/01/2021 12:00:00 AM EDT Current Smoker completed Curre nt Smoker eCW1 ([facility]) Smoking 05/01/2021 12:00:00 AM EDT Current Smoker completed Curre nt Smoker eCW1 ([facility]) Smoking 05/01/2021 12:00:00 AM EDT Current Smoker completed Curre nt Smoker eCW1 ([facility]) Smoking 05/01/2021 12:00:00 AM EDT Current Smoker completed Curre nt Smoker eCW1 ([facility]) Smoking 04/26/2021 12:00:00 AM EDT Current Smoker completed Curre nt Smoker eCW1 ([facility]) Smoking 04/26/2021 12:00:00 AM EDT Current Smoker completed Curre nt Smoker eCW1 ([facility]) Vital Signs ID Date Data Source [id number] Name Value Range Interpretation Code Description Data Source(s) Systolic blood pressure 124 mm[Hg] 124 mm[Hg] [facility] ([facility]) Diastolic blood pressure 76 mm[Hg] 76 mm[Hg] [facility] ([facility]) Heart rate 88 /min 88 /min [facility] ([facility]) Body height 66 [in_i] 66 [in_i] [facility] ([facility]) 5'6" Body weight 220.00 [lb_av] 220.00 [lb_av] [facility] ([facility]) Body mass index (BMI) [Ratio] 35.5 kg/m2 35.5 k g/m2 [facility] ([facility]) Oxygen saturation in Arterial blood by Pulse oximetry 97 % 97 % [facility] ([facility]) Systolic blood pressure 112 mm[Hg] 112 mm[Hg] [facility] ([facility]) RT Arm Diastolic blood pressure 70 mm[Hg] 70 mm[Hg] [facility] ([facility]) RT Arm Heart rate 68 /min 68 /min [facility] ([facility]) Body height 66 [in_i] 66 [in_i] [facility] ([facility]) 5'6" Body weight 215.12 [lb_av] 215.12 [lb_av] [facility] ([facility]) Oxygen saturation in Arterial blood by Pulse oximetry 96 % 96 % [facility] ([facility]) Body mass index (BMI) [Ratio] 34.7 kg/m2 34.7 k g/m2 [facility] ([facility]) Body weight 240 [lb_av] 240 [lb_av] eCW1 (Replaced by [facility]) Body weight 108.86 kg 108.86 kg W1 ([facility]) Body height 65 [in_i] 65 [in_i] eCW1 ([facility]) Body mass index (BMI) [Ratio] 39.93 kg/m2 39.93 kg/m2 eCW1 ([facility]) Heart rate 70 /min 70 /min eCW1 ([facility]) Respiratory rate 18 /min 18 /min eCW1 ([facility]) Body temperature 95.2 [degF] 95.2 [degF] eCW1 ( [facility]) Systolic blood pressure 121 mm[Hg] 121 mm[Hg] e CW1 ([facility]) Diastolic blood pressure 84 mm[Hg] 84 mm[Hg] eCW1 ([facility]) Body weight 240 [lb_av] 240 [lb_av] eCW1 (Replaced by [facility]) Body weight 108.86 kg 108.86 kg eCW1 ([facility]) Body height 65 [in_i] 65 [in_i] eCW1 ([facility]) Body mass index (BMI) [Ratio] 39.93 kg/m2 39.93 kg/m2 eCW1 ([facility]) Heart rate 153 /min 153 /min eCW1 ([facility]) Respiratory rate 18 /min 18 /min eCW1 ([facility]) Body temperature 98.2 [degF] 98.2 [degF] eCW1 ( [facility]) Systolic blood pressure 142 mm[Hg] 142 mm[Hg] e CW1 ([facility]) Diastolic blood pressure 96 mm[Hg] 96 mm[Hg] eCW1 ([facility]) Body mass index (BMI) [Ratio] 36.0 kg/m2 36.0 k g/m2 [facility] ([facility]) Systolic blood pressure 122 mm[Hg] 122 mm[Hg] M [facility] ([facility]) Diastolic blood pressure 76 mm[Hg] 76 mm[Hg] [facility] ([facility]) Heart rate 86 /min 86 /min [facility] ([facility]) Body height 66 [in_i] 66 [in_i] [facility] ([facility]) 5'6" Body weight 223.00 [lb_av] 223.00 [lb_av] [facility] T ([facility]) Body mass index (BMI) [Ratio] 35.0 kg/m2 35.0 k g/m2 [facility] ([facility]) Systolic blood pressure 124 mm[Hg] 124 mm[Hg] M [facility] ([facility]) Body height 66 [in_i] 66 [in_i] [facility] ([facility]) 5'6" Body weight 217.00 [lb_av] 217.00 [lb_av] [facility] T ([facility]) Diastolic blood pressure 68 mm[Hg] 68 mm[Hg] [facility] ([facility]) Heart rate 86 /min 86 /min [facility] ([facility]) Systolic blood pressure 114 mm[Hg] 114 mm[Hg] M EDENT ([facility]) Diastolic blood pressure 76 mm[Hg] 76 mm[Hg] [facility] ([facility]) Body height 66 [in_i] 66 [in_i] [facility] ([facility]) 5'6" Body weight 221.50 [lb_av] 221.50 [lb_av] [facility] ([facility]) Body mass index (BMI) [Ratio] 35.7 kg/m2 35.7 k g/m2 [facility] ([facility]) [place] body weight 130 [lb_av] 130 [lb_av] [facility] Body weight 100.472 kg 100.472 kg [facility] ([facility]) Body surface area Derived from formula 2.09 m2 2.09 m2 [facility] ([facility]) Systolic blood pressure 136 mm[Hg] 136 mm[Hg] M [facility] ([facility]) RT Arm Diastolic blood pressure 88 mm[Hg] 88 mm[Hg] [facility] ([facility]) RT Arm Heart rate 120 /min 120 /min [facility] Body height 66 [in_i] 66 [in_i] [facility] ([facility]) 5'6" Body weight 223.50 [lb_av] 223.50 [lb_av] [facility] ([facility]) Body mass index (BMI) [Ratio] 36.1 kg/m2 36.1 k g/m2 [facility] ([facility]) Body height 66 [in_i] 66 [in_i] [facility] ([facility]) 5'6" [place] body weight 130 [lb_av] 130 [lb_av] [facility] ([facility]) Body weight 102.060 kg 102.060 kg [facility] ([facility]) Diastolic blood pressure 77 mm[Hg] 77 mm[Hg] [facility] ([facility]) Body weight 225.00 [lb_av] 225.00 [lb_av] [facility] ([facility]) Body mass index (BMI) [Ratio] 36.3 kg/m2 36.3 k g/m2 [facility]) Body surface area Derived from formula 2.10 m2 2.10 m2 [facility] ([facility]) Systolic blood pressure 145 mm[Hg] 145 mm[Hg] [facility] Systolic blood pressure 148 mm[Hg] 148 mm[Hg] M [facility] ([facility]) RT Arm Diastolic blood pressure 72 mm[Hg] 72 mm[Hg] [facility] ([facility]) RT Arm Systolic blood pressure 140 mm[Hg] 140 mm[Hg] [facility] Diastolic blood pressure 70 mm[Hg] 70 mm[Hg] [facility] Heart rate 80 /min 80 /min [facility] Body height 66 [in_i] 66 [in_i] [facility] ([facility]) 5'6" Body weight 219.00 [lb_av] 219.00 [lb_av] [facility] ([facility]) Body mass index (BMI) [Ratio] 35.3 kg/m2 35.3 k g/m2 [facility] ([facility]) Body height 66 [in_i] 66 [in_i] [facility] ([facility] ) 5'6" Body weight 190.00 [lb_av] 190.00 [lb_av] [facility] ([facility] ) Body mass index (BMI) [Ratio] 30.7 kg/m2 30.7 k g/m2 [facility] ([facility] ) Body mass index (BMI) [Ratio] 35.7 kg/m2 35.7 k g/m2 [facility] ([facility] ) Body temperature 96.1 [degF] 96.1 [degF] [facility] ([facility] ) Body height 64.5 [in_i] 64.5 [in_i] [facility] ([facility] ) 5'4.50" Body weight 211.50 [lb_av] 211.50 [lb_av] [facility] T ([facility] ) Systolic blood pressure 142 mm[Hg] 142 mm[Hg] M [facility] ([facility]) Body weight 222.00 [lb_av] 222.00 [lb_av] [facility] ([facility]) Systolic blood pressure 154 mm[Hg] 154 mm[Hg] [facility] RT Arm Diastolic blood pressure 78 mm[Hg] 78 mm[Hg] [facility] ([facility]) RT Arm Diastolic blood pressure 80 mm[Hg] 80 mm[Hg] [facility] ([facility]) Heart rate 96 /min 96 /min [facility] ([facility]) Body height 66 [in_i] 66 [in_i] [facility] ([facility]) 5'6" Body mass index (BMI) [Ratio] 35.8 kg/m2 35.8 k g/m2 [facility] Systolic blood pressure 164 mm[Hg] 164 mm[Hg] [facility] ([facility]) Diastolic blood pressure 90 mm[Hg] 90 mm[Hg] [facility] ([facility]) Body height 66 [in_i] 66 [in_i] [facility] ([facility]) 5'6" Body weight 225.00 [lb_av] 225.00 [lb_av] [facility] T ([facility]) Body mass index (BMI) [Ratio] 36.3 kg/m2 36.3 k g/m2 [facility] ([facility]) [place] body weight 130 [lb_av] 130 [lb_av] [facility] ([facility]) Body weight 102.060 kg 102.060 kg [facility] ([facility]) Body surface area Derived from formula 2.10 m2 2.10 m2 [facility] ([facility]) Body weight 220.00 [lb_av] 220.00 [lb_av] [facility] ([facility]) Body height 65 [in_i] 65 [in_i] [facility] 5'5" Body mass index (BMI) [Ratio] 36.6 kg/m2 36.6 k g/m2 [facility] ([facility]) Heart rate 65 /min 65 /min [facility]) Systolic blood pressure--sitting 136 mm[Hg] 136 mm[Hg] [facility] ([facility]) Ra, large cuff Diastolic blood pressure--sitting 84 mm[Hg] 84 mm[Hg] [facility] ([facility]) Ra, large cuff Body height 66 [in_i] 66 [in_i] [facility] ([facility]) 5'6" Body weight 221.00 [lb_av] 221.00 [lb_av] [facility] ([facility]) Body mass index (BMI) [Ratio] 35.7 kg/m2 35.7 k g/m2 [facility] ([facility]) Diastolic blood pressure 70 mm[Hg] 70 mm[Hg] [facility] ([facility]) RT Arm Heart rate 60 /min 60 /min [facility] ([facility]) Body height 66 [in_i] 66 [in_i] [facility] ([facility]) 5'6" Body mass index (BMI) [Ratio] 35.7 kg/m2 35.7 k g/m2 [facility] ([facility]) Systolic blood pressure 148 mm[Hg] 148 mm[Hg] M [facility] ([facility]) RT Arm Body weight 221.00 [lb_av] 221.00 [lb_av] [facility] T ([facility]) Body weight 226.00 [lb_av] 226.00 [lb_av] [facility] ([facility]) Body mass index (BMI) [Ratio] 36.5 kg/m2 36.5 k g/m2 [facility] ([facility]) Body weight 226.00 [lb_av] 226.00 [lb_av] [facility] ([facility]) Systolic blood pressure 138 mm[Hg] 138 mm[Hg] M [facility] ([facility]) Diastolic blood pressure 90 mm[Hg] 90 mm[Hg] [facility] ([facility]) Body height 66 [in_i] 66 [in_i] [facility] ([facility]) 5'6" Body weight 217.00 [lb_av] 217.00 [lb_av] [facility] ([facility])
[2021-06-07] MEDS ORDERED: atenoloL 25 MG TAB PO ONE (18:55)
[2021-06-07 20:01] LABS: BASO % 0.4 % (0.0-1.0); EOS # 0.1 10^3/uL (0.0-0.5); EOS % 1.8 % (0.0-3.0); HEMATOCRIT 42.6 % (36.0-47.0); HEMOGLOBIN 13.2 g/dl (12.0-15.5); LYMPH # 1.4 10^3/uL (1.5-5.0); LYMPH % 27.8 % (24.0-44.0); MEAN CORPUSCULAR HEMOGLOBIN 31.7 pg (27.0-33.0); MEAN CORPUSCULAR VOLUME 102.2 fl (80.0-96.0); MONO # 0.4 10^3/uL (0.0-0.8); MONO % 7.9 % (2.0-8.0); NEUTROPHILS # 3.1 10^3/uL (1.5-8.5); NEUTROPHILS % 61.9 % (36.0-66.0); PLATELET COUNT, AUTOMATED 226 10^3/uL (150-450); RED BLOOD COUNT 4.17 10^6/uL (4.00-5.40); WHITE BLOOD COUNT 4.9 10^3/uL (4.0-10.0)
[2021-06-07 20:28] LABS: MAGNESIUM LEVEL 2.3 MG/DL (1.8-2.4)
--- NOTE | 2021-06-07 20:32 | REPVR ---
PROCEDURE INFORMATION: Exam: CTA Chest With Contrast Exam date and time: 06/07/2021 7:00 PM Age: 65 years old Clinical indication: Pain; Chest pressure; Additional info: Rule out pe TECHNIQUE: Imaging protocol: Computed tomographic angiography of the chest with contrast. 3D rendering (Not supervised by radiologist): MIP and/or 3D reconstructed images were created by the technologist. Radiation optimization: All CT scans at this facility use at least one of these dose optimization techniques: automated exposure control; mA and/or kV adjustment per patient size (includes targeted exams where dose is matched to clinical indication); or iterative reconstruction. Contrast material: ISOVUE 370; Contrast volume: 75 ml; Contrast route: INTRAVENOUS (IV); COMPARISON: No relevant prior studies available. FINDINGS: Pulmonary arteries: There is opacification of the pulmonary arteries with no evidence of pulmonary embolus. Aorta: Unremarkable. No aortic aneurysm. No aortic dissection. Thyroid: There is severe diffuse enlargement of the thyroid probably a multi lead nodular goiter. Lungs: Discoid atelectasis is noted in the left suprahilar region. Pleural spaces: There is no evidence of pneumothorax or pleural effusion. Heart: There is moderate cardiomegaly. Lymph nodes: There are several small and moderate-sized lymph nodes in the mediastinum. Moderate-sized lymph nodes are noted at the right hilum. Bones/joints: There is prominent anterior osteophyte formation of the thoracic spine. Soft tissues: Unremarkable. IMPRESSION: 1. No evidence of pulmonary embolus. 2. Moderate size mediastinal lymph nodes and right hilar lymph nodes. 3. Very large goiter. Electronically signed by: Oswaldo Camara On 06/07/2021 20:31:51 PM
[2021-06-07] MEDS ORDERED: FUROSEMIDE 40MG/4ML VIAL (J1940) IV ONE (21:15)
[2021-06-07] MEDS ORDERED: VITMTA PO (21:32)
[2021-06-07] MEDS ORDERED: BUPR150T12 PO (21:32)
[2021-06-07] MEDS ORDERED: FAMO1TAB11 PO (21:32)
[2021-06-07] MEDS ORDERED: ATOR1TAB21 PO (21:32)
[2021-06-07] MEDS ORDERED: ASPI-161 PO (21:32)
[2021-06-07] MEDS ORDERED: DICL1GEL3 TOP (21:32)
[2021-06-07] MEDS ORDERED: METO50TA7 PO (21:32)
[2021-06-07] MEDS ORDERED: FURO20TA2 PO (21:32)
[2021-06-07] MEDS ORDERED: METO25TA4 PO (21:32)
[2021-06-07] MEDS ORDERED: HOME MED LIST COMPLETE! XX SCH (21:35)
[2021-06-07] MEDS: FAMOTIDINE 20 MG TAB PO SCH (22:22)
[2021-06-07] MEDS: ATORVASTATIN 20 MG TAB PO SCH (22:22)
[2021-06-07] MEDS: METOPROLOL TART 25 MG TABLET PO SCH (22:22)
[2021-06-07] MEDS: APIXABAN 5 MG TAB (ELIQUIS) PO SCH (22:22)
--- OUTSIDE RECORDS SUMMARY | 2021-06-07 23:02 | CCD ---
Author Author [facility] Organization [facility] Address Unknown Phone Unavailable Care Team Providers Care Banquet Lead Name Role Phone Karen Calix MD Unavailable [...] B Santosh TINOCO Unavailable Unavailable Fish, [facility], PA-C Unavailable Unavailabl e Fish, [facility], PA-C Unavailable Unavailabl e Fish, [facility], PA-C Unavailable Unavailabl e Fish, [facility], PA-C Unavailable Unavailabl e Fish, [facility], PA-C Unavailable Unavailabl e Fish, [facility], PA-C Unavailable Unavailabl e Fish, [facility], PA-C Unavailable Unavailabl e Fish, [facility], PA-C Unavailable Unavailabl e Fish, [facility], PA-C Unavailable Unavailabl e Fish, [facility], PA-C Unavailable Unavailabl e Fish, [facility], PA-C Unavailable Unavailabl e Fish, [facility], PA-C Unavailable Unavailabl e Fish, [facility], PA-C Unavailable Unavailabl e Fish, [facility], PA-C Unavailable Unavailabl e Fish, [facility], PA-C Unavailable Unavailabl e Fish, [facility], PA-C Unavailable Unavailabl e Fish, [facility], PA-C Unavailable Unavailabl e Fish, [facility], PA-C Unavailable Unavailabl e Fish, [facility], PA-C Unavailable Unavailabl e Fish, [facility], PA-C Unavailable Unavailabl e Fish, [facility], PA-C Unavailable Unavailabl e Fish, [facility], PA-C Unavailable Unavailabl e Fish, [facility], PA-C Unavailable Unavailabl e Fish, [facility], PA-C Unavailable Unavailabl e Fish, [facility], PA-C Unavailable Unavailabl e Fish, [facility], PA-C Unavailable Unavailabl e Fish, [facility], PA-C Unavailable Unavailabl e Fish, [facility], PA-C Unavailable Unavailabl e Fish, [facility], PA-C Unavailable Unavailabl e Fish, [facility], PA-C Unavailable Unavailabl e Fish, [facility], PA-C Unavailable Unavailabl e Fish, [facility], PA-C Unavailable Unavailabl e Fish, [facility], PA-C Unavailable Unavailabl e Fish, [facility], PA-C Unavailable Unavailabl e Fish, [facility], PA-C Unavailable Unavailabl e Fish, [facility], PA-C Unavailable Unavailabl e PICKKaren GAUTAM JR, [...] Unavailable PAULA, L ALONSO PA Unavailable Unavailable PAUAL, L ALONSO PA Unavailable Unavailable PAULA, L ALONSO PA Unavailable Unavailable ADJAPONG, NOAM Unavailable Unavailable Vargas, L Lety RPA Unavailable Unavailable Vargas, L Lety RPA Unavailable Unavailable Vargas, L Lety RPA Unavailable Unavailable Vargas, L Ltey RPA Unavailable Unavailable Vargas, L Lety RPA [...] is protected by Article 27-F of the [facility] Public Health law. If you continue you may have access to information: Regarding HIV / AIDS; Provided by facilities licensed or operated by the [facility] Office of Mental Health; or Provided by the [facility] Office for People With Developmental Disabilities. If such information is present, then the following [facility] mandated warning applies: This information has [...] law may result in a fine or retirement sentence or both. A general authorization for the release of medical or other information is NOT sufficient authorization for further disc losure. Allergies and Adverse Reactions Type Description Substance Reaction Status Data Source(s ) Drug Allergy Drug Allergy NKDA MEDENT ([facility]) Family History Family Member Name Family Member Gender Family Member Status Date o f Status Description Data Source(s) Unknown Male Problem MEDENT ([facility]) Unknown Male Problem MEDENT ([facility]) Encounters Encounter Providers Location Date Indications Data Source(s ) O Attender: Apryl Recinos MD 05/30/2021 12:00:00 AM EST NDOC ([facility]) Patient admitted. [place] [address] [facility] [address] 05/22/2021 12:00:00 AM EST [facility] [place] [address] [address] 05/18/2021 12:00:00 AM EST eCW1 [facility] [place] [address] [facility] [address] 05/17/2021 12:00:00 AM EST eCW1 [facility] [place] [address] [facility] [address] 05/10/2021 12:00:00 AM EDT eCW1 [facility]) Outpatient [address] [facility] [place] [address] 05/01/2021 12:00:00 AM EDT eCW1 [facility]) (WND NP120) New Patient 120 Min [address] [place] [address] 04/26/2021 12:00:00 AM EDT eCW1 ([facility]) Unknown [address] [facility] [address] 04/26/2021 12:00:00 AM EDT eCW1 [facility]) Outpatient Attender: KELLY Saeed 1 03:20:00 PM EDT MEDENT ([facility] ) Outpatient Attender: KELLY Saeed 1 02:20:00 PM EDT MEDENT ([facility] ) Outpatient Admitter: NOAM ALReferrer: NOAM AL 01/17/2021 12:00:00 AM EDT Multiple myeloma not having achieved remission [facility] Multiple myeloma not having achieved rem ission Outpatient Attender: Lety Ordoñez/Kassidy/Lázaro/Zay veliz 01/01/2021 10:15:00 AM EDT MEDENT ([facility]) Outpatient Attender: Apryl Saeed 01:30:00 PM EDT MEDENT ([facility] ) Outpatient Attender: Lety Vargas RPA Tiago/Beach/Lázaro/R eindl 12/14/2020 10:45:00 AM EDT MEDENT ([facility] Outpatient Attender: Apryl Saeed 01:30:00 PM EDT MEDENT ([facility] ) Outpatient Attender: Jordan Calix MD Physical Therapy 10:30:00 AM EDT MEDENT ([facility] Office Visit Attender: Susy BURGOS PA-C Physical Therapy 10/17/2020 01:15:00 PM EDT MEDENT ([facility] ) Outpatient Attender: Santosh Bailey MD Physical Therapy 10/03/2020 1 2:45:00 PM EDT MEDENT ([facility] ) Outpatient Attender: Susy BURGOS PA-C Physical Therapy 09/26/2020 11:15:00 AM EDT [facility] Outpatient Attender: Apryl Saeed 02:30:00 PM EDT MEDENT ([facility] ) Outpatient Attender: Lety Alanizang/Beach/Lázaro/R eindl 09/14/2020 09:15:00 AM EST MEDENT ([facility] ) Outpatient Attender: ALONSO HARRIS Main Office 08/29/2020 1 1:45:00 AM EST MEDENT ([facility]) Outpatient Attender: Apryl Saeed 12:00:00 PM EST MEDENT ([facility] ) Outpatient Attender: Apryl Saeed 10:30:00 AM EDT MEDENT ([facility] ) Immunizations Vaccine Date Status Description Data Source(s) Influenza, injectable, MDCK, preservative free, pierce valent 04/11/2021 02:31:00 PM EDT completed [facility]) Influenza, injectable, MDCK, preservative free, pierce valent 04/20/2020 12:10:00 PM EDT completed MEDENT ([facility]) Medications Medication Brand Name Start Date Product Form Dose Route Admi nistrative Instructions Pharmacy Instructions Status Indications Reaction Description Data Source(s) Fluoxetine 20 MG Oral Capsule Fluoxetine HCL 05/22/2021 12:00:[address] ORAL active MEDENT ([facility]) Loratadine 10 MG Oral Tablet [Claritin] Claritin 05/22/2021 12:00:0 0 AM EST ORAL active MEDENT ([facility]) Cephalexin 500 MG Oral Capsule CEPHALEXIN [...] 04/11/2021 12:00:00 AM EDT ORAL completed MEDENT ([facility]) Administration Of Flu Vaccine 04/11/2021 12:00:00 AM EDT completed MEDENT ([facility]) Medication administered onsite 2 ML Sodium Hyaluronate 10 MG/ML Prefilled Syringe [Euflexxa ] Euflexxa 10/17/2020 12:00:00 AM EDT active MEDENT ([facility] ) atorvastatin 20 MG Oral Tablet [...] 09/20/2020 12:00:00 AM EDT activ e MEDENT ([facility]) 20 mg 09/20/2020 12:00:00 AM EDT [...] 09/19/2020 12:00:00 AM EDT ORAL active MEDENT ([facility]) 5 mg 09/18/2020 12:00:00 AM [...] ST ORAL active MEDENT ([facility]) 24 HR Bupropion Hydrochloride 150 MG Extended [...] 12:00:00 AM EST ORAL a ctive MEDENT ([facility]) 24 HR Bupropion Hydrochloride 150 MG Extended Release Oral Tablet Bupropion Hydrochloride ER (XL) 08/07/2020 12:00:00 AM EST ORAL a ctive MEDENT ([facility]) 5 mg 06/17/2020 12:00:00 AM EST [...] 12:00:[address] ORAL active MEDENT ([facility]) apixaban 5 MG Oral Tablet [Eliquis] Eliquis 05/22/2020 12:00:[address] ORAL active MEDENT ([facility]) Administration Of Flu Vaccine 04/20/2020 12:00:00 AM EDT completed [facility]) Medication administered onsite 20 mg [...] type / Coverage type Policy ID Covered democrat ID Covered democrat's relationship to marroquin Policy Marroquin Plan Information [place] [facility]) [facility] Part B [id number] Family Dependent [id number] [place] [facility]) [facility] Part B [id number] Family Dependent [id number] [place] [facility] Part B [id number] Family Dependent [id number] MEDICARE A [id number] Self [id number] [id number] Medicare Natl Govt Servic Medicare Primary [id number] Self [id number] [place] [id number] Self [id number] [place] Primary [id number] Self [id number] Medicare Natl Govt Servic Medicare Primary [id number] [id number] Self [id number] [place] Primary [id number] Self [id number] Medicare Natl Govt Servic Medicare Primary [id number] [id number] Self [id number] Medicare Natl Govt Servic Medicare Primary [id number] [id number] Self [id number] Medicare Natl Govt Servic Medicare Primary [id number] [id number] Self [id number] Medicare Natl Govt Serv Medicare Primary [id number] [id number] Self [id number] Medicare Natl Govt Serv Medicare Primary [id number] Self [id number] Medicare [facility] Medicare Primary [id number] [id number] Self [id number] Medicare Natl Govt Servic Medicare Primary [id number] Self [id number] Medicare Natl Govt Servic Medicare Primary [id number] Self [id number] Medicare [facility] Medicare Primary [id number] Self [id number] Medicare Natl Govt Servic Medicare Primary [id number] Self [id number] Medicare [facility] Medicare Primary [id number] Self [id number] FOR LIFE U [id number] Self [id number] WPS For Life Medigap Part B [id number] Family Dependent [id number] [facility] C [id number] S [id number] WPS For Life Medigap Part B [id number] Family Dependent [id number] [employer]PS For Life Medigap Part B [id number] Family Dependent [id number] [employer] For Life Medigap Part B [id number] Family Dependent [id number] MEDICARE [id number] SP [id number] R49 MEDICARE C [id number] S [id number] R49 FOR LIFE O [id number] S [id number] WPS For Life Medigap Part B [id number] Family Dependent [id number] WPS For Life Medigap Part B [id number] Family Dependent [id number] MEDICARE [id number] SP [id number] [id number] WPS For Life Medigap Part B [id number] Family Dependent [id number] WPS For Life Medigap Part B [id number] Family Dependent [id number] [employer]PS For Life Medigap Part B [id number] Family Dependent [id number] WPS For Life Medigap Part B [id number] Family Dependent [id number] FOR LIFE [id number] [facility] [id number] WPS For Life Medigap Part B [id number] Family Dependent [id number] WPS For Life Medigap Part B [id number] Family Dependent [id number] WPS For Life Medigap Part B [id number] Family Dependent [id number] MEDICARE [id number] SP [id number] A MEDICARE C [id number] S [id number] A Problems, Conditions, and Diagnoses Code Display Name Description Problem Type Effective Dates Data Source(s) Z86.711 Personal history of pulmonary embolism P ersonal history of pulmonary embolism Diagnosis 05/30/2021 12:00:00 AM EST NDOC (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 Diagnosis 05/30/2021 12:00:00 AM EST NDOC ([facility]) E78.5 Hyperlipidemia, unspecified Hyperlipidemia, unspecifie d Diagnosis 05/30/2021 12:00:00 AM EST NDOC ([facility]) K21.9 Gastro-esophageal reflux disease without esophagitis Gastro-esophageal reflux disease without esophagitis Diagnosis 05/30/2021 12:00:00 AM ES T NDOC ([facility]) D47.2 Monoclonal gammopathy Monoclonal gammopathy Diagnosis 05/30/2021 12:00:00 AM EST NDOC ([facility]) 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 Diagnosis 05/30/2021 12:00:00 AM EST NDOC ([facility]) F32.89 Other specified depressive episodes Other specif ied depressive episodes Diagnosis 05/30/2021 12:00:00 AM EST NDOC ([facility] ) N17.9 Acute kidney failure, unspecified Acute kidney f ailure, unspecified Diagnosis 05/30/2021 12:00:00 AM EST NDOC ([facility] ) G31.84 Mild cognitive impairment, so stated Mil d cognitive impairment, so stated Diagnosis 05/30/2021 12:00:00 AM EST NDOC ([facility]) I25.10 Atherosclerotic heart diseas e of [place] coronary artery without angina pectoris Atherosclerotic heart disease of [place] coronary artery without angina pectoris Diagnosis 05/30/2021 12:00:00 AM EST NDOC ([facility]) I48.20 I48.20 Chronic atrial fibrillation, unspecified Diagnosis 05/30/2021 12:00:00 AM EST NDOC ([facility]) I82.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 Chronic embolism and thrombosis of unspe cified deep veins of left lower extremity Diagnosis 05/30/2021 12:00:00 AM EST NDOC ([facility]) S81.802D Unspecified open wound, left lower leg, subsequent encounter Unspecified open wound, left lower leg, subsequent encounter Diagnosis 05/30/2021 12:00:00 AM EST NDOC ([facility]) I50.23 Acute on chronic systolic (congestive) h eart failure Acute on chronic systolic (congestive) heart failure Diagnosis 05/30/2021 12:00:[address] NDOC ([facility]) I11.0 Hypertensive heart disease with heart fa ilure Hypertensive heart disease with heart failure Diagnosis 05/30/2021 12:00:00 AM EST NDOC ([facility]) C90.00 Multiple myeloma not having achieved rem ission Multiple myeloma not having achieved remission Diagnosis 01/17/2021 01:43:00 PM EDT [facility] I87.312 [id number] Chronic venous hyper tension (idiopathic) with ulcer of left lower extremity Problem 04/26/2021 12:00:00 AM EDT eCW1 ([facility]) L97.822 [id number] Non-pressure chronic ulcer of other part of left lower leg with fat layer exposed Problem 04/26/2021 12:00:00 AM EDT eCW1 ([facility]) I27.81 Chronic cor pulmonale Chronic cor pulmonale Problem 02/26/2021 12:00:00 AM EDT MEDENT ([facility]) I65.29 Carotid artery occlusion Carotid artery occlusion Prob rubio 08/29/2020 12:00:00 AM EST MEDENT ([facility]) I82.503 Deep venous thrombosis of lower extremit y Deep venous thrombosis of lower extremity Problem 08/29/2020 12:00:00 AM EST MEDENT ([facility]) E78.2 Mixed hyperlipidemia Mixed hyperlipidemia Problem 08/29/2020 12:00:00 AM EST MEDENT ([facility]) Surgeries/Procedures Procedure Description Date Indications Data Source(s) FINE NEEDLE ASPIRATION W/O IMAGING GUIDANCE 05/01/2021 12:00:00 AM EDT eCW ([facility]) FINE NEEDLE ASPIRATION W/O IMAGING GUIDANCE 04/26/2021 12:00:00 AM EDT eC ([facility]) OFFICE OUTPATIENT VISIT 15 MINUTES 04/24/2021 12:00:00 AM EDT MEDENT ([facility]) OFFICE OUTPATIENT VISIT 15 MINUTES 04/11/2021 12:00:00 AM EDT MEDENT ([facility]) Complex Chronic Care Management SVC 1St 60 Min 021 12:00:00 AM EDT MEDENT ([facility]) Complex Chronic Care MGMT Service Ea Addl 30 Min 04/05 12:00:00 AM EDT MEDJD ([facility]) Complex Chronic Care Management SVC 1St 60 Min 021 12:00:00 AM EDT MEDENT ([facility]) Complex Chronic Care MGMT Service Ea Addl 30 Min 04/04 12:00:00 AM EDT [facility] ECG ROUTINE ECG W/LEAST 12 LDS W/I&R 03/09/2021 12:00: 00 AM EDT MEDENT ([facility]) OFFICE OUTPATIENT VISIT 25 MINUTES 03/09/2021 12:00:00 AM EDT MEDENT ([facility]) ECG ROUTINE ECG W/LEAST 12 LDS W/I&R 02/26/2021 12:00: 00 AM EDT MEDENT ([facility]) OFFICE OUTPATIENT VISIT 25 MINUTES 02/26/2021 12:00:00 AM EDT MEDJD ([facility]) Chronic Care Management Services Ea Addl 20 Min 2020 12:00:00 AM EDT MEDJD ([facility]) Chronic Care MGMT 20 Mins Clinical Staff Time Per Calendar [facility] 02/16/2021 12:00:00 AM EDT MEDJD ([facility] ) Complex Chronic Care Management SVC 1St 60 Min 021 12:00:00 AM EDT MEDJD ([facility]) Complex Chronic Care MGMT Service Ea Addl 30 Min 01/30 12:00:00 AM EDT MEDJD ([facility]) OFFICE OUTPATIENT VISIT 25 MINUTES 01/01/2021 12:00:00 AM EDT MEDENT ([facility] ) Complex Chronic Care Management SVC 1St 60 Min 021 12:00:00 AM EDT MEDENT ([facility]) Complex Chronic Care MGMT Service Ea Addl 30 Min 12/29 12:00:00 AM EDT MEDJD ([facility]) OFFICE OUTPATIENT VISIT 25 MINUTES 12/25/2020 12:00:00 AM EDT MEDENT ([facility]) OFFICE OUTPATIENT VISIT 25 MINUTES 12/14/2020 12:00:00 AM EDT MEDENT ([facility] ) Complex Chronic Care Management SVC 1St 60 Min 021 12:00:00 AM EDT MEDENT ([facility]) Complex Chronic Care MGMT Service Ea Addl 30 Min 11/27 12:00:00 AM EDT MEDJD ([facility]) Complex Chronic Care Management SVC 1St 60 Min 021 12:00:00 AM EDT MEDJD ([facility]) Complex Chronic Care MGMT Service Ea Addl 30 Min 10/27 12:00:00 AM EDT MEDJD ([facility]) OFFICE OUTPATIENT VISIT 25 MINUTES 10/26/2020 12:00:00 AM EDT MEDJD ([facility]) ARTHROCENTESIS ASPIR&/INJECTION MAJOR JT/BURSA 021 12:00:00 AM EDT MEDJD ([facility] ) RADEX SHOULDER COMPLETE MINIMUM 2 VIEWS 10/20/2020 12: 00:00 AM EDT MEDJD ([facility] ) ARTHROCENTESIS ASPIR&/INJECTION MAJOR JT/BURSA 021 12:00:00 AM EDT MEDJD ([facility] ) Complex Chronic Care Management SVC 1St 60 Min 021 12:00:00 AM EDT MEDJD ([facility]) Complex Chronic Care MGMT Service Ea Addl 30 Min 10/03 12:00:00 AM EDT MEDJD ([facility]) INJECTION 1 TENDON SHEATH/LIGAMENT APONEUROSIS 021 12:00:00 AM EDT MEDJD ([facility] ) ARTHROCENTESIS ASPIR&/INJECTION MAJOR JT/BURSA 021 12:00:00 AM EDT MEDJD ([facility] ) RADIOLOGIC EXAM KNEE COMPLETE 4/MORE VIEWS 09/26/2020 12:00:00 AM EDT MEDJD ([facility] ) RADIOLOGIC EXAM KNEE COMPLETE 4/MORE VIEWS 09/26/2020 12:00:00 AM EDT MEDJD ([facility]) Mammogram 09/21/2020 12:00:00 AM EDT M ELIZABETH ([facility]) Bone Mineral Density Test 09/21/2020 12:00:00 AM EDT MEDJD ([facility]) Brief Emotional/Behav Assessment W/ Scoring Doc Per Standard Inst 09/19/2020 12:00:00 AM EDBrianna LOERA ([facility] ) OFFICE OUTPATIENT VISIT 25 MINUTES 09/19/2020 12:00:00 AM EDT MEDJD ([facility]) OFFICE OUTPATIENT NEW 45 MINUTES 09/14/2020 12:00:00 A Brant LOERA ([facility] ) ECG ROUTINE ECG W/LEAST 12 LDS W/I&R 08/29/2020 12:00: 00 AM EST MEDENT ([facility]) OFFICE OUTPATIENT VISIT 15 MINUTES 08/29/2020 12:00:00 AM EST MEDENT ([facility]) Complex Chronic Care Management SVC 1St 60 Min 021 12:00:00 AM EST MEDENT ([facility]) Complex Chronic Care MGMT Service Ea Addl 30 Min 08/29 12:00:00 AM EST [facility] OUTPATIENT VISIT 25 MINUTES 08/07/2020 12:00:00 AM EST [facility] Complex Chronic Care Management SVC 1St 60 Min 020 12:00:00 AM EST [facility] Complex Chronic Care MGMT Service Ea Addl 30 Min 06/27 12:00:00 AM EST [facility] Brief Emotional/Behav Assessment W/ Scoring Doc Per Standard Inst 05/04/2020 12:00:00 AM EDT [facility] Results ID Date Data Source [id number] 06/07/2021 06:14:00 PM EST [facility] ([facility]) Name Value Range Interpretation Code Description Data Portia rce(s) Supporting Document(s) Laboratory test finding (navigational concept) 0.03 ng/mL 0.00-0.08 [facility] Troponin I.cardiac [Mass/volume] in Serum or Plasma Laboratory test result [facility] ID Date Data Source [id number] 06/07/2021 06:00:00 PM EST [facility] Name Value Range Interpretation Code Description Data Portia rce(s) Supporting Document(s) Laboratory test finding (navigational concept) 98 mg/dL 70-105 [facility] ([facility]) Laboratory test finding (navigational concept) 41.0 % 38.0-51.0 [facility] ([facility]) Laboratory test finding (navigational concept) 143 meq/L 136-145 [facility] ([facility]) Laboratory test finding (navigational concept) 4.2 meq/L 3.5-5.1 [facility] ([facility]) Laboratory test finding (navigational concept) 5.1 mg/dL 4.5-5.3 [facility] ([facility]) Laboratory test finding (navigational concept) 108 meq/L 98-109 [facility] ([facility]) Laboratory test finding (navigational concept) 24.0 MM/L 23.0-27.0 [facility] ([facility]) Laboratory test finding (navigational concept) 25 mg/dL 8-26 [facility] ([facility]) Laboratory test finding (navigational concept) 0.9 mg/dL 0.6-1.3 [facility] ([facility]) ID Date Data Source [id number] 06/07/2021 04:53:00 PM EST [facility] ([facility]) Name Value Range Interpretation Code Description Data Portia rce(s) Supporting Document(s) Magnesium [Moles/volume] in Serum or Plasma 2.3 mg/dL 1.8-2.4 [facility] ([facility]) Natriuretic peptide.B prohormone N-Terminal [Mass/volu me] in Serum or Plasma 4465 pg/mL [facility] ([facility] ) ID Date Data Source [id number] 06/07/2021 04:53:00 PM EST [facility] ([facility]) Name Value Range Interpretation Code Description Data Portia rce(s) Supporting Document(s) White Blood Count 4.9 10 4.0-10.0 [facility] ([facility]) Red Blood Count 4.17 10 4.00-5.40 [facility] ([facility]) Hemoglobin 13.2 g/dL 12.0-15.5 [facility] ([facility]) Mean Corpuscular Volume 102.2 fl 80.0-96.0 [facility] ([facility]) Hematocrit 42.6 % 36.0-47.0 [facility] ([facility]) Mean Corpuscular HGB Conc 31.0 g/dL 32.0-36.5 [facility] ([facility]) Mean Corpuscular Hemoglobin 31.7 pg 27.0-33.0 [facility] ([facility]) Red Cell Distribution Width 15.2 % 11.5-14.5 [facility] ([facility]) Neutrophils % 61.9 % 36.0-66.0 [facility] ([facility]) Platelet Count, Automated 226 10 150-450 [facility] ([facility]) Lymph % 27.8 % 24.0-44.0 [facility]) Estill % 7.9 % 2.0-8.0 [facility] ([facility]) Baso % 0.4 % 0.0-1.0 [facility] Eos % 1.8 % 0.0-3.0 [facility] ([facility]) Immature Granulocyte % 0.2 % 0-3.0 [facility] ([facility]) Nucleated Red Blood Cell % 0.0 % 0-0 [facility] ([facility]) Neutrophils # 3.1 10 1.5-8.5 [facility] ([facility]) Lymph # 1.4 10 1.5-5.0 [facility] Eos # 0.1 10 0.0-0.5 [facility] Estill # 0.4 10 0.0-0.8 [facility] ([facility]) Baso # 0.0 10 0.0-0.2 [facility] ID Date Data Source [id number] 05/22/2021 12:23:00 PM EST [facility] ([facility]) Name Value Range Interpretation Code Description Data Portia rce(s) Supporting Document(s) Digoxin [Mass/volume] in Serum or Plasma 0.1 ng/mL 0.5-2.0 [facility] ([facility]) <content>note:<nlbl:demographic_changed> </content>
<content></content> ID Date Data Source [id number] 05/22/2021 12:23:00 PM EST [facility] ([facility]) Name Value Range Interpretation Code Description Data Portia rce(s) Supporting Document(s) Glucose [Mass/volume] in Serum or Plasma 113 mg/dL 74-99 [facility] ([facility]) 100-125 mg/dL PRE-DIABETES/FASTING >126 mg/dL DIABETES/FASTING Sodium [Moles/volume] in Serum or Plasma 145 meq/L 136-145 [facility] ([facility]) Creatinine 1.0 mg/dL 0.6-1.3 [facility] ([facility]) Urea nitrogen [Mass/volume] in Serum or Plasma 14 mg/dL 7-18 [facility] ([facility]) Chloride [Moles/volume] in Serum or Plasma 105 meq/L 98-107 [facility] ([facility]) Potassium [Moles/volume] in Serum or Plasma 4.1 meq/L 3.5-5.1 [facility] ([facility]) Calcium [Mass/volume] in Serum or Plasma 10.5 mg/dL 8.5-10.1 [facility] ([facility]) NOTE: RESULT VERIFIED. Carbon dioxide, total [Moles/volume] in Serum or Plasma 31 meq/L 21 -32 [facility] ([facility]) Total Bilirubin 0.4 mg/dL 0.2-1.0 [facility] ([facility]) Alkaline phosphatase isoenzyme [Units/volume] in Serum or Pl asma 110 mg/dL 46-116 [facility] ([facility]) Aspartate aminotransferase [Enzymatic activity/volume] in Serum or Plasma 22 U/L 15-37 [facility] ([facility] ) Alanine aminotransferase [Enzymatic activity/volume] in Seru m or Plasma 27 U/L 12-78 [facility] ([facility]) Proteinase 3 Ab [Units/volume] in Serum 8.3 g/dL 6.4-8.2 [facility] ([facility]) Albumin [Mass/volume] in Serum or Plasma 2.8 g/dL 3.4-5.0 [facility] ([facility]) NOTE: RESULT VERIFIED. Glomerular filtration rate/1.73 sq M pre dicted among non-blacks [Volume Rate/Area] in Serum or Plasma by Creatinine-based formula (MDRD) 55 mL/min [facility] ([facility]) A/G Ratio 0.51 CALC 1.00-1.90 [facility] ([facility]) Glomerular filtration rate/1.73 sq M pre dicted among blacks [Volume Rate/Area] in Serum or Plasma by Creatinine-based formula (MDRD) Laboratory test result [facility] <content>CHRONIC KIDNEY DISEASE STAGING PER NKF</content>
<content></content>
<content>STAGE I & II GFR >= 60 NORMAL TO MILDLY DECREASED</content>
<content>STAGE III GFR 30-59 MODERATELY DECREASED</content>
<content>STAGE IV GFR 15-29 SEVERELY DECREASED</content>
<content>STAGE V GFR <15 VERY LITTLE GFR LEFT</content>
<content>ESRD GFR <15 ON DEPARTMENTAL SHIPPING CLERK</content>
<content></content> ID Date Data Source [id number] 05/22/2021 12:23:00 PM EST [facility] ([facility]) Name Value Range Interpretation Code Description Data Portia rce(s) Supporting Document(s) Magnesium 2.0 mg/dL 1.8-2.4 [facility] ([facility]) ID Date Data Source [id number] 05/22/2021 12:23:00 PM EST [facility] ([facility]) Name Value Range Interpretation Code Description Data Portia rce(s) Supporting Document(s) Leukocytes [#/volume] in Blood by Automated count 5.6 x10*3/UL 4.1-10 .9 [facility] Erythrocytes [#/volume] in Blood by Automated count 4.36 x10*6/UL 4.2 0-6.30 [facility] Hematocrit [Volume Fraction] of Blood by Automated count 40.9 % 3 7.0-51.0 [facility] MCV 93.9 fL 80.0-97.0 [facility] ([facility]) Hemoglobin [Mass/volume] in Blood 14.0 g/dL 12.0-18.0 [facility] MCHC 34.1 g/dL 31.0-38.0 [facility] ([facility]) MCH 32.0 pg 26.0-32.0 [facility] ([facility]) Platelets [#/volume] in Blood by Automated count 233 x10*3/UL 140-440 [facility] ([facility]) Erythrocyte distribution width [Ratio] by Automated count 14.0 % 11.6-13.7 [facility] ([facility]) MPV 8.9 FL 7.8-11.0 [facility] ([facility]) Lymph % 20.4 % 10.0-58.5 [facility] ([facility]) Neut % 74.4 % 37.0-92.0 [facility] ([facility]) Lymph # 1.1 x10*3/UL 0.6-4.1 [facility] ([facility]) Mid % 5.2 % 1.7-9.3 [facility] ([facility]) Mid # 0.3 x10*3/UL 0.1-0.6 [facility] ([facility]) Neut # 4.2 x10*3/UL 2.0-7.8 [facility] ([facility]) ID Date Data Source [id number] 05/01/2021 04:20:00 PM EDT [facility] Name Value Range Interpretation Code Description Data Portia rce(s) Supporting Document(s) SARS-CoV-2 (COVID 19) NEGATIVE - SARS-CoV-2 (COVID19) [facility] This lab was ordered by [facility] a nd reported by [facility]. ID Date Data Source [id number] 04/30/2021 03:51:00 PM EDT [facility] Name Value Range Interpretation Code Description Data Portia rce(s) Supporting Document(s) Influenza A Amplification Laboratory test result [facility] Negative results do not preclude influen za or RSV virus infection and should not be used as the sole basis for treatment or other patient management decisions. Influenza B Amplification Laboratory test result [facility] ([facility]) Negative results do not preclude influen za or RSV virus infection and should not be used as the sole basis for treatment or other patient management decisions. Laboratory test finding (navigational concept) Laboratory test result [facility] ([facility]) A false negative result may occur [...] pathogens. DISCLAIMER: Testing was performed using the [facility] SARS-CoV-2 test. This test was developed and its performance characteristics determined by [facility]. This test has not been FDA cleared [...] the authorization is terminated or revoked sooner. RSV Amplification Laboratory test result [facility] ([facility]) Negative results do not preclude influen za or RSV virus infection and should not be used as the sole basis for treatment or other patient management decisions. ID Date Data Source [id number] 04/30/2021 03:51:00 PM EDT [facility] Name Value Range Interpretation Code Description Data Portia rce(s) Supporting Document(s) SARS coronavirus 2 RNA [Presence] in Res piratory specimen by NITA with probe detection NEGATIVE [facility] This lab was ordered by [facility] a nd reported by [facility]. ID Date Data Source [id number] 04/30/2021 03:01:00 PM EDT [facility] ([facility]) Name Value Range Interpretation Code Description Data Portia rce(s) Supporting Document(s) White Blood Count 6.3 10 4.0-10.0 [facility] ([facility]) Hemoglobin 12.9 g/dL 12.0-15.5 [facility]) Red Blood Count 4.12 10 4.00-5.40 [facility] ([facility]) Hematocrit 41.3 % 36.0-47.0 [facility]) Mean Corpuscular Hemoglobin 31.3 pg 27.0-33.0 [facility] ([facility]) Mean Corpuscular Volume 100.2 fl 80.0-96.0 [facility] ([facility]) Red Cell Distribution Width 14.8 % 11.5-14.5 [facility] ([facility]) Mean Corpuscular HGB Conc 31.2 g/dL 32.0-36.5 [facility] ([facility]) Neutrophils % 79.5 % 36.0-66.0 [facility] ([facility]) Platelet Count, Automated 202 10 150-450 [facility] ([facility]) Lymph % 13.8 % 24.0-44.0 [facility]) Estill % 4.8 % 2.0-8.0 [facility]) Eos % 1.1 % 0.0-3.0 [facility]) Immature Granulocyte % 0.5 % 0-3.0 [facility] ([facility]) Baso % 0.3 % 0.0-1.0 [facility]) Neutrophils # 5.0 10 1.5-8.5 [facility] ([facility]) Nucleated Red Blood Cell % 0.0 % 0-0 [facility] ([facility]) Estill # 0.3 10 0.0-0.8 [facility]) Lymph # 0.9 10 1.5-5.0 [facility]) Eos # 0.1 10 0.0-0.5 [facility]) Baso # 0.0 10 0.0-0.2 [facility]) ID Date Data Source [id number] 04/30/2021 03:01:00 PM EDT [facility] ([facility]) Name Value Range Interpretation Code Description Data Portia rce(s) Supporting Document(s) CPK Creatine Phosphokinase 26 U/L 26-192 [facility] ([facility]) CK-MB Value Mass 1.0 ng/mL [facility] ([facility]) MB/CK Relative Index 3.85 [facility] ([facility]) <content>DIAGNOSIS CRITERIA</content>
<content>MMB ng/ml Relative Index (RI)</content>
<content>NON-AMI < or = 5 N/A</content>
<content>LAM ZONE > 5 < or = 4</content>
<content>AMI > 5 > 4</content>
<content></content> Troponin I 0.02 ng/mL [facility] <content>Troponin I Reference Interval f or Siemens [place] LOCI:</content>
<content></content>
<content>99th Percentile= 0.00-0.045 ng/ml</content>
<content></content>
<content>Risk Stratification:</content>
<content><= 0.10 ng/ml Decreased Risk for Adverse Clinical</content>
<content>Events.</content>
<content>0.10-1.50 ng/ml Increased Risk for Adverse Clinical</content>
<content>Events. Evaluation of additional</content>
<content>criterion and/or repeat testing in 2-6</content>
<content>hours is suggested to rule out myocardial</content>
<content>damage.</content>
<content>>= 1.50 ng/ml Indicative of Myocardial Injury.</content>
<content></content> ID Date Data Source [id number] 04/30/2021 03:01:00 PM EDT [facility] ([facility]) Name Value Range Interpretation Code Description Data Portia rce(s) Supporting Document(s) Glucose, Fasting 106 mg/dL 70-100 [facility] ([facility]) Blood Urea Nitrogen 18 mg/dL 7-18 [facility] ([facility]) Creatinine For GFR 0.94 mg/dL 0.55-1.30 [facility] ([facility]) Glomerular Filtration Rate Laboratory test result [facility] ([facility]) <content>Units are mL/min/1.73 m2</content>
<content></content>
<content>Chronic Kidney Disease Staging per NKF:</content>
<content></content>
<content>Stage I & II GFR >=60 Normal to Mildly Decreased</content>
<content>Stage III GFR 30- 59 Moderately Decreased</content>
<content>Stage IV GFR 15-29 Severely Decreased</content>
<content>Stage V GFR <15 Very Little GFR Left</content>
<content>ESRD GFR <15 on DEPARTMENTAL SHIPPING CLERK</content>
<content></content> Sodium Level 140 meq/L 136-145 [facility] ([facility]) Chloride Level 111 meq/L 98-107 [facility] ([facility]) Potassium Serum 4.6 meq/L 3.5-5.1 [facility] ([facility]) Anion Gap 7 meq/L 8-16 [facility] ([facility]) Carbon Dioxide Level 22 meq/L 21-32 [facility] ([facility]) Calcium Level 10.7 mg/dL 8.8-10.2 [facility] ([facility]) ID Date Data Source [id number] 04/30/2021 03:01:00 PM EDT [facility] ([facility]) Name Value Range Interpretation Code Description Data Portia rce(s) Supporting Document(s) Digoxin [Mass/volume] in Serum or Plasma 0.5 ng/mL 0.5-2.0 [facility] ([facility]) <content>note:<nlbl:demographic_changed> </content>
<content></content> Natriuretic peptide.B prohormone N-Terminal [Mass/volu me] in Serum or Plasma 5817 pg/mL [facility] ([facility] ) <content>note:<nlbl:demographic_changed> </content>
<content></content> Thyroxine (T4) Ab [Units/volume] in Serum 10.1 ug/dL 4.5-12.0 [facility] ([facility]) <content>note:<nlbl:demographic_changed> </content>
<content></content> Flecainide [Mass/volume] in Serum or Plasma Laboratory test result 0.20-1.00 [facility] ([facility]) This test was developed and its performa nce characteristics determined by [facility]. It has not been cleared or approved by the Food and Drug Administration. Detection Limit = 0.10 Performed at: [facility] [employer] [id number] Nurse Practical: Jyoti Espinal MD, Phone: [phone] Thyrotropin [Units/volume] in Serum or Plasma by Detec tion limit <= 0.05 mIU/L 0.051 uIU/ML 0.358-3.740 [facility] ([facility] ) <content>note:<nlbl:demographic_changed> </content>
<content></content> ID Date Data Source [id number] 04/30/2021 03:01:00 PM EDT [facility] ([facility]) Name Value Range Interpretation Code Description Data Portia rce(s) Supporting Document(s) Ast/Sgot 26 U/L 7-37 [facility] ([facility]) Alt/SGPT 28 U/L 12-78 [facility] ([facility]) Alkaline Phosphatase 105 U/L 45-117 [facility] ([facility]) Bilirubin,Direct 0.4 mg/dL 0.0-0.2 [facility] ([facility]) Bilirubin,Total 0.8 mg/dL 0.2-1.0 [facility] ([facility]) Total Protein 7.9 GM/DL 6.4-8.2 [facility] ([facility]) Albumin 2.8 GM/DL 3.2-5.2 [facility]) Albumin/Globulin Ratio 0.5 1.2-2.2 [facility] ([facility]) ID Date Data Source [id number] 04/11/2021 02:57:00 PM EDT [facility] ([facility]) Name Value Range Interpretation Code Description Data Portia rce(s) Supporting Document(s) Bacteria identified in Wound shallow by Aerobe culture Laborator y test result [facility] ([facility]) ID Date Data Source [id number] 01/17/2021 12:29:00 PM EDT [facility] ([facility]) Name Value Range Interpretation Code Description Data Portia rce(s) Supporting Document(s) White Blood Count 6.8 5.0-10.0 [facility] ([facility]) Platelets 187 172-450 [facility] Red Blood Count 3.85 4.00-5.40 [facility] ([facility]) Hemoglobin 12.7 [facility] ([facility]) Hematocrit 39.4 [facility] ([facility]) ID Date Data Source [id number] 01/17/2021 12:21:00 PM EDT [facility] ([facility]) Name Value Range Interpretation Code Description Data Portia rce(s) Supporting Document(s) Red Blood Count 3.85 10 4.00-5.40 [facility] ([facility]) White Blood Count 6.8 10 4.0-10.0 [facility] ([facility]) Hemoglobin 12.7 g/dL 12.0-15.5 [facility] Hematocrit 39.4 % 36.0-47.0 [facility]) Mean Corpuscular Volume 102.3 fl 80.0-96.0 [facility] ([facility]) Mean Corpuscular Hemoglobin 33.0 pg 27.0-33.0 [facility] ([facility]) Red Cell Distribution Width 12.3 % 11.5-14.5 [facility] ([facility]) Mean Corpuscular HGB Conc 32.2 g/dL 32.0-36.5 [facility] ([facility]) Neutrophils % 72.2 % 36.0-66.0 [facility]) Platelet Count, Automated 187 10 150-450 [facility] ([facility]) Estill % 6.0 % 2.0-8.0 [facility]) Lymph % 19.9 % 24.0-44.0 [facility]) Eos % 1.5 % 0.0-3.0 [facility]) Baso % 0.3 % 0.0-1.0 [facility]) Immature Granulocyte % 0.1 % 0-3.0 [facility] ([facility]) Nucleated Red Blood Cell % 0.0 % 0-0 [facility] ([facility]) Neutrophils # 4.9 10 1.5-8.5 [facility]) Lymph # 1.4 10 1.5-5.0 [facility]) Estill # 0.4 10 0.0-0.8 [facility]) Baso # 0.0 10 0.0-0.2 [facility]) Eos # 0.1 10 0.0-0.5 [facility]) ID Date Data Source [id number] 01/19/2021 05:25:00 PM EDT [facility] Hematopathology Report See Addendum Son wName: HERNANDEZ PILI L. Number: [id number] Date: 01/17/2021 00:00Received Date: 01/18/2021 13:57Physician(s): NOAM AL MD ADJAPONG, [facility] [place]opy To:[facility]s) ReceivedA: Bone Marrow, Flow Cytometry; RECEIVED 1 [...] and TP53, and an IgH rearrangement. See [id number] of 1q and deletion of 13q are associated with progression. [id number] is generally associated with an intermediate risk and 1q gain isassociated with high risk. Addendum Electronically Signed By: Yuni Batres M.D. 01/29/2021 11:16 ProceduresFlow Cytometry Date Ordered:01/18/2021 Status: Signed Out01/19/2021 InterpretationPERIPHERAL BLOOD: CBC performed at [facility] (01/17/21)WBC 6.8 K/uLRBC *3.85 M/uLHgb 12.7 g/dLHct 39.4 %MCV *102.3 fLMCH 33.0 pgMCHC 32.2 g/dLRDW 12.3 %Platelets 187 K/ulDifferential Count (automated):72.2 % Neutrophils 1.5 % Eosinophils 0.3 % Vbgtfhfqc60.9 % Lymphocytes 0.1 % Atypical Lymphocytes 6.0 % Monocytes-------100.0 % A peripheral blood film is reviewed. BONE MARROW ASPIRATE:Differential Count (100 cells): 6 % Erythroid Precursors 2 % N. Myelocytes 1 % N. Metamyelocytes and Band Forms80 % Neutrophils 4 % Eosinophils 1 % Basophils 5 % Lymphocytes 1 % Plasma Cells--------100 % Morphology: Dilute sample.Lymphoid Panel: Leandro Olivares 21 1829 [id number] following markers were assayed: CD45 (gate), CD2, CD3, CD4, CD5, CD7,CD8, CD10, CD19, CD20, CD33, CD34, CD38, CD56, CD57, CD64, CD117, CD123,HLA-DR, [place], and Lambda.#events: [id number]: 98%Flow Cytometry Differential (CD45/SSC)Lymphocyte [place]: 15%CD45 dim [place]: 1%Monocyte [place]: 4%Granulocyte [place]: 73%Nucleated/Erythroid [place]: 2%The lymphocyte gate showsB-cells (CD19): 14%T-cells (CD3): 75%NK-cells (CD3-/CD56+): 9%Rahway/Lambda Ratio: 2.9CD4/CD8 Ratio: 1.8Results: (expressed as % of lymphocyte gate)T-cell Markers: CD2 = 80, CD3 = 75, CD3/CD4 = 48, CD3/CD8 = 27, CD5 = 74,CD7 = 75, CD3/57 = 8B-cell linda ers: [place] = 9, Lambda = 3, CD19 = 14, CD20 = 16, CD19/10 = 1,CD19/CD5 = 3, CD38/CD20 = 15Light chain as % of B-Cells: CD19/Rahway = 54, CD19/Lambda = 17CD19/CD5/[place]way = 4, CD19/CD5/Lambda = 5CD19/CD10/[place] = 7, CD19/CD10/Lambda = 1NK cell Markers: CD56 = 12, CD57 = 13Other Markers: CD10 = 1, CD38 = 63Results: (expressed as % of CD45 dim gate)T-cell Markers: CD2 = 27, CD3 = 8, CD3/CD4 = 2, CD3/CD8 = 4, CD5 = 10, CD7= 26, CD3/57 = 2B-cell markers: [place] = 29, Lambda = 0, CD19 = 16, CD20 = 14, CD19/10 =12, CD19/CD5 = 3, CD38/CD20 = 11Light chain as % of B-Cells: CD19/[place]way = 0, CD19/Lambda = 0CD19/CD10/[place] = 6, CD19/CD10/Lambda = 2NK cell Markers: CD56 = 16, CD57 = 13Basophil Markers: CD123 (HLA-DR-) = 19Other Markers: CD10 = 25, CD38 = 85, CD33 = 47, CD34 = 23, CD64 = 20,CD117 = 5, CD123 = 56, HLA-DR = 57Myeloma Panel for Leandro Olivares MM HP21 1829 [id number] following markers were assayed: CD45 (cell gate), CD138 (plasma cellgate), CD19, CD20, CD38, CD56, cytoplasmic [place], and cytoplasmic La mbda.(Please note, that Cytoplasmic [place] and Cytoplasmic Lambda are used todetect plasma cells, while surface [place] and Lambda are for lymphocytes).#events: [id number]: Routinely a minimum of 500,000 events are collected in each paneltube. Due to sample cellularity and/or processing this number was notachievable for this sample.Flow Cytometry Differential:Lymphocyte [place]: 13%CD45 dim [place]: 2%Monocyte [place]: 4%Granulocyte [place]: 74%NRBC [place]: 3%CD138 Plasma Cell [place]: 0%Results: (expressed as % of lymphocyte gate)B-Cells (CD19): 14% CD19 = 14, CD20 = 14Light chain as % of B-Cells: Cytoplasmic [place]/ CD20 = 49, CytoplasmicLambda/CD20 = 26Results: (expressed as % of total CD138+ plasma cell gate)CD38 = 64, CD56 = 40, CD38/56 = 37, CD19 = 12, CD20 = 5Cytoplasmic [place]/CD138 = 0, Cytoplasmic Lambda/CD138 = 67 Results- [...] were developed and theirperformance characteristics determined by [facility] Pathology department.They have not been cleared or approved by the US Food and DrugAdminis tration. The FDA has determined that such clearance or approval isnot necessary. Name Value Range Interpretation Code Description Data Portia rce(s) Supporting Document(s) ID Date Data Source [id number] 01/26/2021 01:04:00 PM [facility] Cytogenetics ReportName: PILI HERNANDEZMRN: [id number] Number: [id number] Date: 01/17/2021 00:00Received Date: 01/18/2021 13:50Physician(s): NOAM AL MD ADJAPONG, OPOKU, MDSpecimen(s) ReceivedA: Bone Marrow - Karyo and Multiple Myel FISHClinical [id number] patient with multiple myeloma.TEST REQUESTED/PERFORMED: Chromosome analysis and fluorescence in situhybridization (FISH) DiagnosisFISH identified 11% of nuclei with gain of 1q; 11% with trisomy 5; and 10%with monosomy 13 in this plasma cell-enriched population of cells. FISHwas negative for gains or losses of chromosomes 7 and 9; deletions ko12e61.3 (IgH), and 17p13 (TP53); and an IgH [...] (1-3).Please correlate with the concurrent Hematopathology report, [id number]. References:1. Jared Sena. 1q rearrangements in multiple myeloma. AtlasGenet Cytogenet Oncol Haematol. 1998;2(3):86-87.[email or web address]. Lastvisited .2. Jennifer & Yuliana. Mature B- and T-cell neoplasms and Hodgkinlymphoma. In Cancer Cytogenetics: Chromosomal and Molecular GeneticAberrations of Tumor Cells, 4th Edition. Donavan & Tori, eds. [employer]. 2015. 3. Teressa BABCOCK. Multiple myeloma: 2020 update on diagnosis,risk-stratification and management. Am J Hematol. 2020 95(11):1444. Electronically Signed By Garland Conner, PhD Attending Pathologist 01/26/2021 13:04:45Gross DescriptionFluorescence in situ Hybridization (FISH)multiple myeloma FISH panel:nucish(VKFR6Ps0,CKS1Bx 3)[],(5p15.31,EGR1)x3[],(V96W768,13q34)x1[],(IgHx2)[],(T P53,D17Z1)x2[] CEP 7/A3G715 (7q31):nuc sulaiman(D7Z1,Z0W789)x2[] CEP 9:nuc sulaiman(D9Z1x2)[]DescriptionA plasma cell-enriched population evaluated by FISH: gain [...] 11% 0% *CEP 7 (D7Z1) G LSI D3W123 (7q31) R 3% 100 2G2R: 98% 0% 2% CEP 9 (D9Z1) G 3%100 2% 0% 2% *LSI S89Q916 (13q14.2) O LSI 13q34 G 3% 100 2O2% 1O1% 3% *LSI IgH(14q32) Y BA 3% 100 2Y: 97% 0% 3% *LSI TP53 (17p13.1) O CEP 17 (D17Z1) G 3% 100 2O2% 0% 2% Vendor: *[email or web address]. Probes: LSI: Locus Specific Probe; CEP: Centromeric [...] rce(s) Supporting Document(s) ID Date Data Source [id number] 01/02/2021 12:28:00 PM EDT [facility]) Name Value Range Interpretation Code Description Data Portia rce(s) Supporting Document(s) Albumin [Mass/volume] in Serum or Plasma 3.0 [facility] ([facility]) Calcium [Mass/volume] in Serum or Plasma 10.2 [facility] ([facility]) Alanine aminotransferase [Enzymatic activity/volume] in Serum or Pl asma 19 [facility] ([facility]) Carbon dioxide, total [Moles/volume] in Serum or Plasma 27 [facility] ([facility]) Chloride [Moles/volume] in Serum or Plasma 107 [facility] ([facility]) Potassium [Moles/volume] in Serum or Plasma 4.7 [facility] ([facility]) Alkaline phosphatase [Enzymatic activity/volume] in Serum or Plasma 7 7 [facility] ([facility]) Sodium 137 [facility] ([facility]) Protein [Mass/volume] in Serum or Plasma 8.3 [facility] ([facility]) Aspartate aminotransferase [Enzymatic activity/volume] in Serum or Plasma 23 [facility] ([facility]) Urea nitrogen [Mass/volume] in Serum or Plasma 28 [facility] ([facility]) Creatinine For GFR 0.90 [facility] ([facility]) Glucose 98 83-110 [facility] ([facility]) ID Date Data Source [id number] 01/02/2021 12:28:00 PM EDT [facility] ([facility]) Name Value Range Interpretation Code Description Data Portia rce(s) Supporting Document(s) White Blood Count 6.2 5.0-10.0 [facility] ([facility]) Red Blood Count 3.76 4.00-5.40 [facility] ([facility]io [facility]) Hemoglobin 12.5 [facility] ([facility]) Platelets 199 172-450 [facility] Hematocrit 39.0 [facility] ([facility]) ID Date Data Source [id number] 01/02/2021 12:03:00 PM EDT [facility] ([facility]) Name Value Range Interpretation Code Description Data Portia rce(s) Supporting Document(s) Prothrombin Time 13.8 s 12.5-14.3 [facility] ([facility]) Inr 1.04 [facility] ([place] [facility]) THERAPUTIC HUMAN INR VALUES INDICATIONS NORMAL RANGES PROPHYLAXIS/TREATMENT OF: VENOUS THROMBOSIS 2.0-3.0 PULMONARY EMBOLISM 2.0-3.0 PREVENTION OF SYSTEMIC EMBOLISM FROM: TISSUE HEART VALVES 2.0-3.0 ACUTE MYOCARDIAL INFARCTION 2.0-3.0 VALVULAR HEART DISEASE 2.0-3.0 ATRIAL FIBRILLATION 2.0-3.0 MECHANICAL VALVES(HIGH RISK) 2.5-3.5 RECURRENT MYOCARDIAL INFARCTION 2.5-3.5 Partial Thromboplastin Time 30.6 s 24.2-38.5 [facility] ([facility]) ID Date Data Source [id number] 01/02/2021 10:38:00 AM EDT [facility] ([facility]) Name Value Range Interpretation Code Description Data Portia rce(s) Supporting Document(s) Glucose, Fasting 98 mg/dL 70-100 [facility] ([facility]) Blood Urea Nitrogen 28 mg/dL 7-18 [facility] ([facility]) Creatinine For GFR 0.90 mg/dL 0.55-1.30 [facility] ([facility]) Sodium Level 137 meq/L 136-145 [facility] ([facility]) Glomerular Filtration Rate Laboratory test result [facility] [facility] <content>Units are mL/min/1.73 m2</content>
<content></content>
<content>Chronic Kidney Disease Staging per NKF:</content>
<content></content>
<content>Stage I & II GFR >=60 Normal to Mildly Decreased</content>
<content>Stage III GFR 30- 59 Moderately Decreased</content>
<content>Stage IV GFR 15-29 Severely Decreased</content>
<content>Stage V GFR <15 Very Little GFR Left</content>
<content>ESRD GFR <15 on DEPARTMENTAL SHIPPING CLERK</content>
<content></content> Chloride Level 107 meq/L 98-107 [facility] ([facility]) Potassium Serum 4.7 meq/L 3.5-5.1 [facility] ([facility]) Anion Gap 3 meq/L 8-16 [facility] ([place] [facility]) Carbon Dioxide Level 27 meq/L 21-32 [facility] ([facility]) Ast/Sgot 23 U/L 7-37 [facility] ([facility]) Calcium Level 10.2 mg/dL 8.8-10.2 [facility] ([facility]) Alkaline Phosphatase 77 U/L 45-117 [facility] ([facility]) Alt/SGPT 19 U/L 12-78 [facility] ([place] [facility]) Bilirubin,Total 0.5 mg/dL 0.2-1.0 [facility] ([facility]) Total Protein 8.3 GM/DL 6.4-8.2 [facility] ([facility]) Albumin 3.0 GM/DL 3.2-5.2 [facility] [facility] Albumin/Globulin Ratio 0.6 1.2-2.2 [facility] ([facility]) ID Date Data Source [id number] 01/02/2021 10:38:00 AM EDT [facility] ([facility]) Name Value Range Interpretation Code Description Data Portia rce(s) Supporting Document(s) White Blood Count 6.2 10 4.0-10.0 [facility] ([facility]) Red Blood Count 3.76 10 4.00-5.40 [facility] ([facility]) Hemoglobin 12.5 g/dL 12.0-15.5 [facility] ([place] [facility]) Mean Corpuscular Volume 103.7 fl 80.0-96.0 [facility] ([facility]) Hematocrit 39.0 % 36.0-47.0 [facility] [facility] Mean Corpuscular Hemoglobin 33.2 pg 27.0-33.0 [facility] ([facility]) Mean Corpuscular HGB Conc 32.1 g/dL 32.0-36.5 [facility] ([facility]) Red Cell Distribution Width 12.9 % 11.5-14.5 [facility] ([facility]) Neutrophils % 74.5 % 36.0-66.0 [facility] ([facility]) Platelet Count, Automated 199 10 150-450 [facility] ([facility]) Lymph % 16.4 % 24.0-44.0 [facility] ([place] [facility]) Estill % 7.0 % 2.0-8.0 [facility] ([place] [facility]) Eos % 1.1 % 0.0-3.0 [facility] ([place] [facility]) Immature Granulocyte % 0.5 % 0-3.0 [facility] ([facility]) Baso % 0.5 % 0.0-1.0 [facility] ([place] [facility]) Neutrophils # 4.6 10 1.5-8.5 [facility] ([facility]) Nucleated Red Blood Cell % 0.0 % 0-0 [facility] ([facility]) Lymph # 1.0 10 1.5-5.0 [facility] [facility] Estill # 0.4 10 0.0-0.8 [facility] [facility] Eos # 0.1 10 0.0-0.5 [facility] [facility] Baso # 0.0 10 0.0-0.2 [facility] ([place] [facility]) ID Date Data Source [id number] 12/25/2020 02:06:00 PM EDT [facility] ([facility]) Name Value Range Interpretation Code Description Data Portia rce(s) Supporting Document(s) Thyrotropin [Units/volume] in Serum or Plasma by Detec tion limit <= 0.05 mIU/L 0.19 uIU/mL 0.36-3.74 [facility] ([facility] ) ID Date Data Source [id number] 12/25/2020 02:06:00 PM EDT [facility] ([facility]) Name Value Range Interpretation Code Description Data Portia rce(s) Supporting Document(s) Urea nitrogen [Mass/volume] in Serum or Plasma 18 mg/dL 7-18 [facility] ([facility]) Glucose [Mass/volume] in Serum or Plasma 100 mg/dL 74-99 [facility] ([facility]) 100-125 mg/dL PRE-DIABETES/FASTING >126 mg/dL DIABETES/FASTING Sodium [Moles/volume] in Serum or Plasma 141 meq/L 136-145 [facility] ([facility]) Creatinine 0.8 mg/dL 0.6-1.3 [facility] ([facility]) Carbon dioxide, total [Moles/volume] in Serum or Plasma 29 meq/L 21 -32 [facility] ([facility]) Potassium [Moles/volume] in Serum or Plasma 3.8 meq/L 3.5-5.1 [facility] ([facility]) Chloride [Moles/volume] in Serum or Plasma 104 meq/L 98-107 [facility] ([facility]) Glomerular filtration rate/1.73 sq M pre dicted among non-blacks [Volume Rate/Area] in Serum or Plasma by Creatinine-based formula (MDRD) Laboratory test result [facility] ([facility] ) Calcium [Mass/volume] in Serum or Plasma 10.8 mg/dL 8.5-10.1 [facility] NOTE: CALCIUM,TSH VERIFIED Glomerular filtration rate/1.73 sq M pre dicted among blacks [Volume Rate/Area] in Serum or Plasma by Creatinine-based formula (MDRD) Laboratory test result [facility] ([facility]) <content>CHRONIC KIDNEY DISEASE STAGING PER NKF</content>
<content></content>
<content>STAGE I & II GFR >= 60 NORMAL TO MILDLY DECREASED</content>
<content>STAGE III GFR 30-59 MODERATELY DECREASED</content>
<content>STAGE IV GFR 15-29 SEVERELY DECREASED</content>
<content>STAGE V GFR <15 VERY LITTLE GFR LEFT</content>
<content>ESRD GFR <15 ON DEPARTMENTAL SHIPPING CLERK</content>
<content></content> ID Date Data Source [id number] 12/25/2020 02:06:00 PM EDT [facility] Name Value Range Interpretation Code Description Data Portia rce(s) Supporting Document(s) Erythrocyte sedimentation rate by Westergren method 25 mm/hr 0-15 [facility] ([facility]) ID Date Data Source [id number] 12/25/2020 02:06:00 PM EDT [facility] ([facility]) Name Value Range Interpretation Code Description Data Portia rce(s) Supporting Document(s) Erythrocytes [#/volume] in Blood by Automated count 4.11 x10*6/UL 4.2 0-6.30 [facility] [facility] Leukocytes [#/volume] in Blood by Automated count 5.9 x10*3/UL 4.1-10 .9 [facility] ([facility]) Hematocrit [Volume Fraction] of Blood by Automated count 40.0 % 3 7.0-51.0 [facility] ([facility]) Hemoglobin [Mass/volume] in Blood 13.6 g/dL 12.0-18.0 [facility] ([facility]) MCV 97.4 fL 80.0-97.0 [facility] ([place] [facility]) MCH 33.1 pg 26.0-32.0 [facility] ([place] [facility]) MCHC 34.0 g/dL 31.0-38.0 [facility] ([place] [facility]) Platelets [#/volume] in Blood by Automated count 209 x10*3/UL 140-440 [facility] ([facility]) Erythrocyte distribution width [Ratio] by Automated count 13.2 % 11.6-13.7 [facility] ([facility]) MPV 8.1 FL 7.8-11.0 [facility] ([place] [facility]) Lymph % 25.6 % 10.0-58.5 [facility] ([place] [facility]) Mid % 7.5 % 1.7-9.3 [facility] ([place] [facility]) Neut % 66.9 % 37.0-92.0 [facility] ([place] [facility]) Lymph # 1.5 x10*3/UL 0.6-4.1 [facility] ([facility]) Neut # 3.9 x10*3/UL 2.0-7.8 [facility] ([facility]) Mid # 0.5 x10*3/UL 0.1-0.6 [facility] ([facility]) ID Date Data Source [id number] 10/26/2020 01:37:00 PM EDT [facility] ([facility]) Name Value Range Interpretation Code Description Data Portia rce(s) Supporting Document(s) Digoxin [Mass/volume] in Serum or Plasma 0.3 ng/mL 0.5-2.0 [facility] ([facility]) <content>note:<nlbl:demographic_changed> </content>
<content></content> ID Date Data Source [id number] 10/26/2020 01:37:00 PM EDT [facility] ([facility]) Name Value Range Interpretation Code Description Data Portia rce(s) Supporting Document(s) Thyrotropin [Units/volume] in Serum or Plasma by Detec tion limit <= 0.05 mIU/L 0.32 uIU/mL 0.36-3.74 [facility] ([facility] ) ID Date Data Source [id number] 10/26/2020 01:37:00 PM EDT [facility] ([facility]) Name Value Range Interpretation Code Description Data Portia rce(s) Supporting Document(s) Cholesterol [Mass/volume] in Serum or Plasma 132 mg/dL 131-200 [facility] ([facility]) Cholesterol in HDL [Mass/volume] in Serum or Plasma 54 mg/dL 35-60 [facility] ([facility]) Cholesterol in LDL [Mass/volume] in Serum or Plasma by calcu lation 64 CALC 50-159 [facility] ([facility]) Triglyceride [Mass/volume] in Serum or Plasma 72 mg/dL 30-150 [facility] ([facility]) ID Date Data Source [id number] 10/26/2020 01:37:00 PM EDT [facility] ([facility]) Name Value Range Interpretation Code Description Data Portia rce(s) Supporting Document(s) Glucose [Mass/volume] in Serum or Plasma 70 mg/dL 74-99 [facility] ([facility]) 100-125 mg/dL PRE-DIABETES/FASTING >126 mg/dL DIABETES/FASTING Urea nitrogen [Mass/volume] in Serum or Plasma 23 mg/dL 7-18 [facility] ([facility]) Sodium [Moles/volume] in Serum or Plasma 144 meq/L 136-145 [facility] ([facility]) Creatinine 0.9 mg/dL 0.6-1.3 [facility] ([place] [facility]) Carbon dioxide, total [Moles/volume] in Serum or Plasma 32 meq/L 21 -32 [facility] ([facility]) Potassium [Moles/volume] in Serum or Plasma 3.8 meq/L 3.5-5.1 [facility] ([facility]) Chloride [Moles/volume] in Serum or Plasma 104 meq/L 98-107 [facility] [facility] Glomerular filtration rate/1.73 sq M pre dicted among blacks [Volume Rate/Area] in Serum or Plasma by Creatinine-based formula (MDRD) Laboratory test result [facility] ([place] [facility] <content>CHRONIC KIDNEY DISEASE STAGING PER NKF</content>
<content></content>
<content>STAGE I & II GFR >= 60 NORMAL TO MILDLY DECREASED</content>
<content>STAGE III GFR 30-59 MODERATELY DECREASED</content>
<content>STAGE IV GFR 15-29 SEVERELY DECREASED</content>
<content>STAGE V GFR <15 VERY LITTLE GFR LEFT</content>
<content>ESRD GFR <15 ON DEPARTMENTAL SHIPPING CLERK</content>
<content></content> Glomerular filtration rate/1.73 sq M pre dicted among non-blacks [Volume Rate/Area] in Serum or Plasma by Creatinine-based formula (MDRD) Laboratory test result [facility] ([place] [facility] Calcium [Mass/volume] in Serum or Plasma 10.1 mg/dL 8.5-10.1 [facility] ([place] [facility] ID Date Data Source [id number] 10/26/2020 01:37:00 PM EDT [facility] ([facility]) Name Value Range Interpretation Code Description Data Portia rce(s) Supporting Document(s) Erythrocyte sedimentation rate by Westergren method 45 mm/hr 0-15 [facility] ([facility]) Magnesium 1.8 mg/dL 1.8-2.4 [facility] ([place] [facility]) ID Date Data Source [id number] 10/26/2020 01:37:00 PM EDT [facility] ([facility] Name Value Range Interpretation Code Description Data Portia rce(s) Supporting Document(s) Leukocytes [#/volume] in Blood by Automated count 8.4 x10*3/UL 4.1-10 .9 [facility] ([place] [facility] Erythrocytes [#/volume] in Blood by Automated count 4.20 x10*6/UL 4.2 0-6.30 [facility] ([facility]) Hemoglobin [Mass/volume] in Blood 14.0 g/dL 12.0-18.0 [facility] ([facility]) Hematocrit [Volume Fraction] of Blood by Automated count 40.3 % 3 7.0-51.0 [facility] ([facility]) MCV 95.8 fL 80.0-97.0 [facility] ([place] [facility]) MCH 33.3 pg 26.0-32.0 [facility] ([place] [facility]) Erythrocyte distribution width [Ratio] by Automated count 13.3 % 11.6-13.7 [facility] ([facility]) MCHC 34.7 g/dL 31.0-38.0 [facility] ([place] [facility]) Lymph % 17.5 % 10.0-58.5 [facility] ([place] [facility]) Platelets [#/volume] in Blood by Automated count 207 x10*3/UL 140-440 [facility] ([facility]) MPV 8.0 FL 7.8-11.0 [facility] ([place] [facility]) Neut % 77.7 % 37.0-92.0 [facility] ([place] [facility]) Mid % 4.8 % 1.7-9.3 [facility] ([place] [facility]) Lymph # 1.4 x10*3/UL 0.6-4.1 [facility] ([facility]) Mid # 0.5 x10*3/UL 0.1-0.6 [facility] ([facility]) Neut # 6.5 x10*3/UL 2.0-7.8 [facility] ([facility]) ID Date Data Source [id number] 10/26/2020 01:37:00 PM EDT [facility] ([facility] Name Value Range Interpretation Code Description Data Portia rce(s) Supporting Document(s) Thyrotropin [Units/volume] in Serum or Plasma by Detec tion limit <= 0.05 mIU/L 0.32 uIU/mL 0.36-3.74 [facility] ([employer] [facility] Digoxin [Mass/volume] in Serum or Plasma 0.3 ng/mL 0.5-2.0 [facility] ([facility]) <content>note:<nlbl:demographic_changed></content>
<content></content>
< content></content> ID Date Data Source [id number] 10/26/2020 01:37:00 PM EDT [facility] ([facility] [place] [place]) Name Value Range Interpretation Code Description Data Portia rce(s) Supporting Document(s) Cholesterol [Mass/volume] in Serum or Plasma 132 mg/dL 131-200 [facility] ([facility]) Triglyceride [Mass/volume] in Serum or Plasma 72 mg/dL 30-150 [facility] ([facility]) Cholesterol in HDL [Mass/volume] in Serum or Plasma 54 mg/dL 35-60 [facility] Cholesterol in LDL [Mass/volume] in Serum or Plasma by calcu lation 64 CALC 50-159 [facility] ID Date Data Source [id number] 10/26/2020 01:37:00 PM EDT [facility] ([facility] [place] [place]) Name Value Range Interpretation Code Description Data Portia rce(s) Supporting Document(s) Glucose [Mass/volume] in Serum or Plasma 70 mg/dL 74-99 [facility] ([facility]) 100-125 mg/dL PRE-DIABETES/FASTING >126 mg/dL DIABETES/FASTING Urea nitrogen [Mass/volume] in Serum or Plasma 23 mg/dL 7-18 [facility] ([facility]) Creatinine 0.9 mg/dL 0.6-1.3 [facility] ([facility]) Sodium [Moles/volume] in Serum or Plasma 144 meq/L 136-145 [facility] ([facility]) Potassium [Moles/volume] in Serum or Plasma 3.8 meq/L 3.5-5.1 [facility] ([facility]) Carbon dioxide, total [Moles/volume] in Serum or Plasma 32 meq/L 21 -32 [facility] ([facility]) Chloride [Moles/volume] in Serum or Plasma 104 meq/L 98-107 [facility] ([facility]) Calcium [Mass/volume] in Serum or Plasma 10.1 mg/dL 8.5-10.1 [facility] ([facility]) Glomerular filtration rate/1.73 sq M pre dicted among non-blacks [Volume Rate/Area] in Serum or Plasma by Creatinine-based formula (MDRD) Laboratory test result [facility] ([employer] [facility]) Glomerular filtration rate/1.73 sq M pre dicted among blacks [Volume Rate/Area] in Serum or Plasma by Creatinine-based formula (MDRD) Laboratory test result [facility] ([facility]) <content>CHRONIC KIDNEY DISEASE STAGING PER NKF</content>
<content></content>
<content>STAGE I & II GFR >= 60 NORMAL TO MILDLY DECREASED</content>
<content>STAGE III GFR 30-59 MODERATELY DECREASED</content>
<content>STAGE IV GFR 15-29 SEVERELY DECREASED</content>
<content>STAGE V GFR <15 VERY LITTLE GFR LEFT</content>
<content>ESRD GFR <15 ON DEPARTMENTAL SHIPPING CLERK</content>
<content></content>
<content></content> ID Date Data Source [id number] 10/26/2020 01:37:00 PM EDT [facility] ([facility]) Name Value Range Interpretation Code Description Data Portia rce(s) Supporting Document(s) Leukocytes [#/volume] in Blood by Automated count 8.4 x10*3/UL 4.1-10 .9 [facility] ([facility]) Erythrocytes [#/volume] in Blood by Automated count 4.20 x10*6/UL 4.2 0-6.30 [facility] ([facility]) Hemoglobin [Mass/volume] in Blood 14.0 g/dL 12.0-18.0 [facility] ([facility]) Hematocrit [Volume Fraction] of Blood by Automated count 40.3 % 3 7.0-51.0 [facility] ([facility]) MCV 95.8 fL 80.0-97.0 [facility] ([facility]) MCH 33.3 pg 26.0-32.0 [facility] Erythrocyte distribution width [Ratio] by Automated count 13.3 % 11.6-13.7 [facility] ([facility]) MCHC 34.7 g/dL 31.0-38.0 [facility] ([facility]) Platelets [#/volume] in Blood by Automated count 207 x10*3/UL 140-440 [facility] ([facility]) Platelet mean volume [Entitic volume] in Blood by Valentín 8.0 FL 7.8-11.0 [facility] ([facility]) Lymphocytes/100 leukocytes in Blood by Automated count 17.5 % 10. 0-58.5 [facility] ([facility]) Mid % 4.8 % 1.7-9.3 [facility] ([facility]) Lymph # 1.4 x10*3/UL 0.6-4.1 [facility] ([facility]) Neut % 77.7 % 37.0-92.0 [facility] ([facility]) Neutrophils [#/volume] in [place] by Manual count 6.5 x10*3/UL 2.0-7.8 [facility] ([facility]) Mid # 0.5 x10*3/UL 0.1-0.6 [facility] ([facility]) ID Date Data Source [id number] 10/18/2020 02:59:00 PM EDT [facility] ([facility] Name Value Range Interpretation Code Description Data Portia rce(s) Supporting Document(s) Free Lambda Light Chains Serum 517.2 mg/L 5.7-26.3 [facility] ([facility]) Free [place] Light Chains Serum 6.4 mg/L 3.3-19.4 [facility] ([facility]) [place]/Lambda Ratio Serum 0.01 0.26-1.65 [facility] ([place] [facility] ID Date Data Source [id number] 10/18/2020 02:59:00 PM EDT [facility] ([facility] Name Value Range Interpretation Code Description Data Portia rce(s) Supporting Document(s) Ferritin [Mass/volume] in Serum or Plasma 128 ng/mL 8-252 [facility] <content>note:<nlbl:demographic_changed> </content>
<content></content> Tihn-8-Txfaytsvgzycw [Mass/volume] in Serum or Plasma 3.7 mg/L 0.6- 2.4 [facility] ([facility]) Siemens Immulite 2000 Immunochemiluminom etric assay (ICMA) . Values obtained with different assay methods or kits cannot be used interchangeably. Results cannot be interpreted as absolute evidence of the presence or absence of malignant disease. Performed at: - [facility] [address] [id number] Nurse Practical: Claudia Ellis MD, Phone: [phone] Performed at: - [facility] [id number] Nurse Practical: Jyoti Espinal MD, Phone: [phone] ID Date Data Source [id number] 10/18/2020 02:59:00 PM EDT [facility] ([facility]) Name Value Range Interpretation Code Description Data Portia rce(s) Supporting Document(s) Immunotyping Serum Iga Laboratory test result [facility] ([facility]) Immunotyping Serum Lambda Laboratory test result [facility] ([facility]) Laboratory test finding (navigational concept) Laboratory test result [facility] ([facility]) REV'D BY O ADJAPONG It Serum Interpretation Laboratory test result [facility] ([facility]) MONOCLONAL IGA,LAMBDA ID Date Data Source [id number] 10/18/2020 02:59:00 PM EDT [facility] ([facility]) Name Value Range Interpretation Code Description Data Portia rce(s) Supporting Document(s) Immunoglobulin G 510 mg/dL [id number] [facility] ([facility]) Immunoglobulin A 2640.0 mg/dL 70-400 [facility] ([facility]) Immunoglobulin M Laboratory test result 40-230 [facility] ([facility]) ID Date Data Source [id number] 10/18/2020 02:59:00 PM EDT [facility] ([facility]) Name Value Range Interpretation Code Description Data Portia rce(s) Supporting Document(s) Iron (Fe) 131 ug/dL 50-170 [facility]) Total Iron Binding Capacity 305 ug/dL 250-450 [facility] ([facility]) Percent Saturation 43.0 % 13.2-45.0 [facility] ID Date Data Source [id number] 10/18/2020 02:59:00 PM EDT [facility] ([facility]) Name Value Range Interpretation Code Description Data Portia rce(s) Supporting Document(s) Glucose, Fasting 97 mg/dL 70-100 [facility] ([facility]) Blood Urea Nitrogen 24 mg/dL 7-18 [facility] ([facility]) Creatinine For GFR 0.85 mg/dL 0.55-1.30 [facility] ([facility]) Glomerular Filtration Rate Laboratory test result [facility] ([facility]) <content>Units are mL/min/1.73 m2</content>
<content></content>
<content>Chronic Kidney Disease Staging per NKF:</content>
<content></content>
<content>Stage I & II GFR >=60 Normal to Mildly Decreased</content>
<content>Stage III GFR 30- 59 Moderately Decreased</content>
<content>Stage IV GFR 15-29 Severely Decreased</content>
<content>Stage V GFR <15 Very Little GFR Left</content>
<content>ESRD GFR <15 on DEPARTMENTAL SHIPPING CLERK</content>
<content></content> Sodium Level 139 meq/L 136-145 [facility] ([facility]) Carbon Dioxide Level 26 meq/L 21-32 [facility] ([facility]) Potassium Serum 4.6 meq/L 3.5-5.1 [facility] ([facility]) Chloride Level 106 meq/L 98-107 [facility] ([facility]) Calcium Level 11.8 mg/dL 8.8-10.2 [facility] ([facility]) Anion Gap 7 meq/L 8-16 [facility] ([place] [facility]) Alt/SGPT 44 U/L 12-78 [facility] [facility]) Alkaline Phosphatase 116 U/L 45-117 [facility] ([facility]) Ast/Sgot 33 U/L 7-37 [facility] ([place] [facility]) Bilirubin,Total 0.6 mg/dL 0.2-1.0 [facility] ([facility]) Total Protein 8.9 GM/DL 6.4-8.2 [facility] ([facility]) Albumin 3.2 GM/DL 3.2-5.2 [facility] ([place] [facility]) Albumin/Globulin Ratio 0.6 1.2-2.2 [facility] ([facility]) ID Date Data Source [id number] 10/18/2020 02:59:00 PM EDT [facility] ([facility]) Name Value Range Interpretation Code Description Data Portia rce(s) Supporting Document(s) Erythrocyte sedimentation rate by Westergren method 68 mm/hr 0-30 [facility] ([facility]) ID Date Data Source [id number] 10/18/2020 02:59:00 PM EDT [facility] ([facility]) Name Value Range Interpretation Code Description Data Portia rce(s) Supporting Document(s) White Blood Count 7.6 10 4.0-10.0 [facility] ([facility]) Red Blood Count 4.29 10 4.00-5.40 [facility] ([facility]) Hemoglobin 13.9 g/dL 12.0-15.5 [facility] ([place] [facility]) Hematocrit 43.3 % 36.0-47.0 [facility] ([facility]) Mean Corpuscular Hemoglobin 32.4 pg 27.0-33.0 [facility] ([facility]) Mean Corpuscular HGB Conc 32.1 g/dL 32.0-36.5 [facility] ([facility]) Mean Corpuscular Volume 100.9 fl 80.0-96.0 [facility] ([facility]) Red Cell Distribution Width 13.1 % 11.5-14.5 [facility] ([facility]) Platelet Count, Automated 175 10 150-450 [facility] ([facility]) Neutrophils % 73.1 % 36.0-66.0 [facility] ([facility]) Lymph % 18.1 % 24.0-44.0 [facility] ([place] [facility]) Eos % 1.3 % 0.0-3.0 [facility] Estill % 6.8 % 2.0-8.0 [facility] ([place] [facility]) Baso % 0.3 % 0.0-1.0 [facility] ([place]) Immature Granulocyte % 0.4 % 0-3.0 [facility] ([facility]) Nucleated Red Blood Cell % 0.0 % 0-0 [facility] ([facility]) Neutrophils # 5.6 10 1.5-8.5 [facility] ([facility]) Lymph # 1.4 10 1.5-5.0 [facility] ([place] [facility]) Estill # 0.5 10 0.0-0.8 [facility] ([place] [facility]) Eos # 0.1 10 0.0-0.5 [facility] ([place] [facility]) Baso # 0.0 10 0.0-0.2 [facility] ([place] [facility]) ID Date Data Source [id number] 10/18/2020 02:59:00 PM EDT [facility] ([facility]) Name Value Range Interpretation Code Description Data Portia rce(s) Supporting Document(s) Appearance, Urine Laboratory test result [facility] ([facility]) PH,Urine 5.0 units 5.0-9.0 [facility] ([place] [facility]) Color, Urine Laboratory test result [facility] ([facility]) Protein, Urine Auto Laboratory test result [facility] ([facility]) Specific [place] Urine Auto 1.028 1.002-1.035 [facility] ([facility]) Ketone, Urine Auto Laboratory test result [facility] ([facility]) Glucose, Urine (Ua) Auto Laboratory test result [facility] ([facility]) Urobilinogen, Urine Auto 4.0 mg/dL 0.0-2.0 [facility] ([facility]) Leukocyte Esterase, Urine Auto Laboratory test result [facility] ([facility]) Nitrite, Urine Auto Laboratory test result [facility] ([facility]) Bilirubin, Urine Auto Laboratory test result [facility] ([facility]) Blood, Urine Blood Laboratory test result [facility] ([facility]) WBC, Urine Auto 2 /HPF 0-3 [facility] ([facility]) Squamous Epithelial Cell Ur AU 0 /HPF 0-6 [facility] ([facility]) RBC, Urine Auto 2 /HPF 0-3 [facility] ([facility]) Bacteria, Urine Auto Laboratory test result [facility] ([facility]) Mucus, Urine Laboratory test result [facility] ([facility]) Hyaline Cast, Urine Auto 0 /LPF 0-1 [facility] ([facility]) ID Date Data Source [id number] 09/21/2020 02:43:00 PM EDT [facility] ([facility]) Name Value Range Interpretation Code Description Data Portia rce(s) Supporting Document(s) 3D Bi-Lateral Mammogram Laboratory test result [facility] ([facility]) Dexa/Bone Density Laboratory test result [facility] ([facility]) ID Date Data Source [id number] 09/19/2020 02:26:00 PM EDT [facility] ([facility]) Name Value Range Interpretation Code Description Data Portia rce(s) Supporting Document(s) Albumin % 41.3 % 55.8-66.1 [facility]) Zdkdf-9-Ninjknes % 3.8 % 2.9-4.9 [facility] ([facility]) Lvhnm-0-Fnzpnuozf % 8.9 % 7.1-11.8 [facility] ([facility]) Dlji-0-Badhubcys % 5.8 % 4.7-7.2 [facility] ([facility]) Ndzx-9-Mohwazzpj % 35.2 % 3.2-6.5 [facility] ([facility]) Gamma Globulin % 5.0 % 11.1-18.8 [facility] ([facility]) Albumin 3.39 GM/DL 3.29-5.55 [facility]) Yeccf-6-Ouremttsn 0.31 GM/DL 0.17-0.41 [facility] ([facility]) Erhuv-7-Xtmnczuue 0.73 GM/DL 0.42-0.99 [facility] ([facility]) Rumo-7-Nsfkyqeal 0.48 GM/DL 0.28-0.60 [facility] ([facility]) Ddcc-5-Tdkaogaph 2.89 GM/DL 0.19-0.55 [facility] ([facility]) Total Protein 8.2 GM/DL 6.4-8.2 [facility] ([facility]) Gamma Globulins 0.41 GM/DL 0.65-1.58 [facility] ([facility]) Spep Interpretation Laboratory test result [facility] ([facility]) M-SPIKE NOTED IN BETA 2 REGION. CONCENTRATION = 2.85 GM/DL SUGGEST SERUM AND URINE IMMUNOTYPING. Laboratory test finding (navigational concept) Laboratory test result [facility] ([facility]) REV'D BY Cindy AL ID Date Data Source [id number] 09/19/2020 02:26:00 PM EDT [facility] ([facility]) Name Value Range Interpretation Code Description Data Portia rce(s) Supporting Document(s) Immunotyping Serum Iga Laboratory test result [facility] ([facility]) Immunotyping Serum Lambda Laboratory test result [facility] ([facility]) It Serum Interpretation [facility] MONOCLONAL IGA LAMBDA Laboratory test finding (navigational concept) Laboratory test result [facility] ([facility]) ID Date Data Source [id number] 09/19/2020 02:25:00 PM EDT [facility] Name Value Range Interpretation Code Description Data Portia rce(s) Supporting Document(s) Glucose [Mass/volume] in Serum or Plasma 124 mg/dL 74-99 [facility] ([facility]) 100-125 mg/dL PRE-DIABETES/FASTING >126 mg/dL DIABETES/FASTING Urea nitrogen [Mass/volume] in Serum or Plasma 19 mg/dL 7-18 [facility] ([facility]) Creatinine 0.7 mg/dL 0.6-1.3 [facility]) Sodium [Moles/volume] in Serum or Plasma 143 meq/L 136-145 [facility] ([facility]) Chloride [Moles/volume] in Serum or Plasma 103 meq/L 98-107 [facility] ([facility]) Potassium [Moles/volume] in Serum or Plasma 3.8 meq/L 3.5-5.1 [facility] ([facility]) Carbon dioxide, total [Moles/volume] in Serum or Plasma 29 meq/L 21 -32 [facility] ([facility]) Calcium [Mass/volume] in Serum or Plasma 10.2 mg/dL 8.5-10.1 [facility] ([facility]) NOTE: RESULT VERIFIED. Glomerular filtration rate/1.73 sq M pre dicted among non-blacks [Volume Rate/Area] in Serum or Plasma by Creatinine-based formula (MDRD) Laboratory test result [facility] ([facility] ) Glomerular filtration rate/1.73 sq M pre dicted among blacks [Volume Rate/Area] in Serum or Plasma by Creatinine-based formula (MDRD) Laboratory test result [facility] ([facility]) <content>CHRONIC KIDNEY DISEASE STAGING PER NKF</content>
<content></content>
<content>STAGE I & II GFR >= 60 NORMAL TO MILDLY DECREASED</content>
<content>STAGE III GFR 30-59 MODERATELY DECREASED</content>
<content>STAGE IV GFR 15-29 SEVERELY DECREASED</content>
<content>STAGE V GFR <15 VERY LITTLE GFR LEFT</content>
<content>ESRD GFR <15 ON DEPARTMENTAL SHIPPING CLERK</content>
<content></content> ID Date Data Source [id number] 08/28/2020 11:17:00 AM EST [facility] Name Value Range Interpretation Code Description Data Portia rce(s) Supporting Document(s) Erythrocyte sedimentation rate by Westergren method 108 mm/hr 0-30 [facility] ID Date Data Source [id number] 08/28/2020 11:17:00 AM EST [facility] Name Value Range Interpretation Code Description Data Portia rce(s) Supporting Document(s) White Blood Count 4.3 10 4.0-10.0 [facility] Hematocrit 39.3 % 36.0-47.0 [facility]) Hemoglobin 12.4 g/dL 12.0-15.5 [facility]) Red Blood Count 3.96 10 4.00-5.40 [facility] ([facility]) Mean Corpuscular Hemoglobin 31.3 pg 27.0-33.0 [facility] ([facility]) Mean Corpuscular Volume 99.2 fl 80.0-96.0 [facility] ([facility]) Mean Corpuscular HGB Conc 31.6 g/dL 32.0-36.5 [facility] ([facility]) Red Cell Distribution Width 13.2 % 11.5-14.5 [facility] ([facility]) Platelet Count, Automated 193 10 150-450 [facility] ([facility]) Neutrophils % 62.7 % 36.0-66.0 [facility]) Estill % 7.4 % 2.0-8.0 [facility]) Lymph % 27.8 % 24.0-44.0 [facility]) Baso % 0.5 % 0.0-1.0 [facility]) Eos % 1.4 % 0.0-3.0 [facility]) Neutrophils # 2.7 10 1.5-8.5 [facility] ([facility]) Nucleated Red Blood Cell % 0.0 % 0-0 [facility] ([facility]) Immature Granulocyte % 0.2 % 0-3.0 [facility] ([facility]) Estill # 0.3 10 0.0-0.8 [facility]) Lymph # 1.2 10 1.5-5.0 [facility]) Baso # 0.0 10 0.0-0.2 [facility]) Eos # 0.1 10 0.0-0.5 [facility] ([facility]) ID Date Data Source [id number] 08/28/2020 11:17:00 AM EST [facility] ([facility]) Name Value Range Interpretation Code Description Data Portia rce(s) Supporting Document(s) C reactive protein [Mass/volume] in Serum or Plasma by High sensitivity method 0.52 mg/dL 0.00-0.30 [facility] ([facility] ) ID Date Data Source [id number] 08/28/2020 11:17:00 AM EST [facility] ([facility]) Name Value Range Interpretation Code Description Data Portia rce(s) Supporting Document(s) Glucose, Fasting 99 mg/dL 70-100 [facility] Creatinine For GFR 0.92 mg/dL 0.55-1.30 [facility] ([facility]) Blood Urea Nitrogen 29 mg/dL 7-18 [facility] ([facility]) Sodium Level 139 meq/L 136-145 [facility] ([facility]) Glomerular Filtration Rate Laboratory test result [facility] ([facility]) <content>Units are mL/min/1.73 m2</content>
<content></content>
<content>Chronic Kidney Disease Staging per NKF:</content>
<content></content>
<content>Stage I & II GFR >=60 Normal to Mildly Decreased</content>
<content>Stage III GFR 30- 59 Moderately Decreased</content>
<content>Stage IV GFR 15-29 Severely Decreased</content>
<content>Stage V GFR <15 Very Little GFR Left</content>
<content>ESRD GFR <15 on DEPARTMENTAL SHIPPING CLERK</content>
<content></content> Potassium Serum 4.9 meq/L 3.5-5.1 [facility] ([facility]) Chloride Level 105 meq/L 98-107 [facility] ([facility]) Carbon Dioxide Level 26 meq/L 21-32 [facility] ([facility]) Anion Gap 8 meq/L 8-16 [facility] ([facility]) Calcium Level 10.8 mg/dL 8.8-10.2 [facility] ([facility] ID Date Data Source [id number] 08/28/2020 11:17:00 AM EST [facility] ([facility] Name Value Range Interpretation Code Description Data Portia rce(s) Supporting Document(s) aPTT in Blood by Coagulation assay 35.2 s 24.2-38.5 [facility] ID Date Data Source [id number] 08/28/2020 11:17:00 AM EST [facility] ([facility] Name Value Range Interpretation Code Description Data Portia rce(s) Supporting Document(s) Inr 1.05 [facility] ([facility]) THERAPUTIC HUMAN INR VALUES INDICATIONS NORMAL RANGES PROPHYLAXIS/TREATMENT OF: VENOUS THROMBOSIS 2.0-3.0 PULMONARY EMBOLISM 2.0-3.0 PREVENTION OF SYSTEMIC EMBOLISM FROM: TISSUE HEART VALVES 2.0-3.0 ACUTE MYOCARDIAL INFARCTION 2.0-3.0 VALVULAR HEART DISEASE 2.0-3.0 ATRIAL FIBRILLATION 2.0-3.0 MECHANICAL VALVES(HIGH RISK) 2.5-3.5 RECURRENT MYOCARDIAL INFARCTION 2.5-3.5 Prothrombin Time 13.9 s 12.5-14.3 [facility] ([facility]) ID Date Data Source [id number] 08/07/2020 01:39:00 PM EST [facility] ([facility]) Name Value Range Interpretation Code Description Data Portia rce(s) Supporting Document(s) Parathyrin.intact [Mass/volume] in Serum or Plasma 26.3 pg/mL 18.5-88 .0 [facility] ([facility]) ID Date Data Source [id number] 08/07/2020 01:39:00 PM EST [facility] ([facility]) Name Value Range Interpretation Code Description Data Portia rce(s) Supporting Document(s) Calcidiol [Mass/volume] in Serum or Plasma 32.7 24.0-80.0 [facility] ([facility]) This test was performed using [employer] I P Vitamin D immunoassay kit. Values obtained with different assay methods should not be used interchangeably. ID Date Data Source [id number] 08/07/2020 01:39:00 PM EST [facility] ([facility]) Name Value Range Interpretation Code Description Data Portia rce(s) Supporting Document(s) Thyrotropin [Units/volume] in Serum or Plasma by Detec tion limit <= 0.05 mIU/L 0.54 uIU/mL 0.36-3.74 [facility] ([facility] ) ID Date Data Source [id number] 08/07/2020 01:39:00 PM EST [facility] ([facility]) Name Value Range Interpretation Code Description Data Portia rce(s) Supporting Document(s) Glucose [Mass/volume] in Serum or Plasma 98 mg/dL 74-99 [facility] ([facility]) 100-125 mg/dL PRE-DIABETES/FASTING >126 mg/dL DIABETES/FASTING Urea nitrogen [Mass/volume] in Serum or Plasma 49 mg/dL 7-18 [facility] ([facility]) NOTE: BUN,CALCIUM VERIFIED Potassium [Moles/volume] in Serum or Plasma 4.5 meq/L 3.5-5.1 [facility] ([facility]) Creatinine 1.2 mg/dL 0.6-1.3 [facility] Sodium [Moles/volume] in Serum or Plasma 142 meq/L 136-145 [facility] ([facility]) Chloride [Moles/volume] in Serum or Plasma 104 meq/L 98-107 [facility] ([facility]) Carbon dioxide, total [Moles/volume] in Serum or Plasma 23 meq/L 21 -32 [facility] ([facility]) Glomerular filtration rate/1.73 sq M pre dicted among non-blacks [Volume Rate/Area] in Serum or Plasma by Creatinine-based formula (MDRD) 45 mL/min [facility] ([facility]) Calcium [Mass/volume] in Serum or Plasma 10.6 mg/dL 8.5-10.1 [facility] ([facility]) Glomerular filtration rate/1.73 sq M pre dicted among blacks [Volume Rate/Area] in Serum or Plasma by Creatinine-based formula (MDRD) 55 mL/min [facility] ([facility]) <content>CHRONIC KIDNEY DISEASE STAGING PER NKF</content>
<content></content>
<content>STAGE I & II GFR >= 60 NORMAL TO MILDLY DECREASED</content>
<content>STAGE III GFR 30-59 MODERATELY DECREASED</content>
<content>STAGE IV GFR 15-29 SEVERELY DECREASED</content>
<content>STAGE V GFR <15 VERY LITTLE GFR LEFT</content>
<content>ESRD GFR <15 ON DEPARTMENTAL SHIPPING CLERK</content>
<content></content> ID Date Data Source [id number] 08/07/2020 01:39:00 PM EST [facility] ([facility]) Name Value Range Interpretation Code Description Data Portia rce(s) Supporting Document(s) Hemoglobin [Mass/volume] in Blood 13.1 g/dL 12.0-18.0 [facility] ([facility]) Leukocytes [#/volume] in Blood by Automated count 5.8 x10*3/UL 4.1-10 .9 [facility] ([facility]) Erythrocytes [#/volume] in Blood by Automated count 4.01 x10*6/UL 4.2 0-6.30 [facility] ([facility]) Hematocrit [Volume Fraction] of Blood by Automated count 37.5 % 3 7.0-51.0 [facility] ([facility]) MCV 93.4 fL 80.0-97.0 [facility] ([place] [facility]) MCH 32.6 pg 26.0-32.0 [facility] ([place] [facility]) MCHC 34.9 g/dL 31.0-38.0 [facility] ([facility]) Platelets [#/volume] in Blood by Automated count 191 x10*3/UL 140-440 [facility] ([facility]) MPV 8.6 FL 7.8-11.0 [facility] ([facility]) Erythrocyte distribution width [Ratio] by Automated count 13.8 % 11.6-13.7 [facility] ([facility]) Mid % 6.7 % 1.7-9.3 [facility] ([place] [facility]) Lymph % 24.4 % 10.0-58.5 [facility] ([facility]) Mid # 0.4 x10*3/UL 0.1-0.6 [facility] ([facility]) Neut % 68.9 % 37.0-92.0 [facility] ([facility]) Lymph # 1.4 x10*3/UL 0.6-4.1 [facility] ([facility]) Neut # 4.0 x10*3/UL 2.0-7.8 [facility] ([facility]) ID Date Data Source [id number] 05/18/2020 11:57:00 AM EST [facility] ([facility]) Name Value Range Interpretation Code Description Data Portia rce(s) Supporting Document(s) Inr 6.49 Above upper panic limits [facility] THERAPUTIC HUMAN INR VALUES INDICATIONS NORMAL RANGES PROPHYLAXIS/TREATMENT OF: VENOUS THROMBOSIS 2.0-3.0 PULMONARY EMBOLISM 2.0-3.0 PREVENTION OF SYSTEMIC EMBOLISM FROM: TISSUE HEART VALVES 2.0-3.0 ACUTE MYOCARDIAL INFARCTION 2.0-3.0 VALVULAR HEART DISEASE 2.0-3.0 ATRIAL FIBRILLATION 2.0-3.0 MECHANICAL VALVES(HIGH RISK) 2.5-3.5 RECURRENT MYOCARDIAL INFARCTION 2.5-3.5 Prothrombin Time 58.4 s 12.5-14.3 [facility] ([facility]) ID Date Data Source [id number] 05/18/2020 11:56:00 AM EST [facility] ([facility]) Name Value Range Interpretation Code Description Data Portia rce(s) Supporting Document(s) Leukocytes [#/volume] in Blood by Automated count 6.0 x10*3/UL 4.1-10 .9 [facility] ([facility]) Hemoglobin [Mass/volume] in Blood 13.0 g/dL 12.0-18.0 [facility] ([facility]) Erythrocytes [#/volume] in Blood by Automated count 4.11 x10*6/UL 4.2 0-6.30 [facility] ([facility]) MCV 91.1 fL 80.0-97.0 [facility] ([facility]) Hematocrit [Volume Fraction] of Blood by Automated count 37.5 % 3 7.0-51.0 [facility] ([facility]) MCH 31.6 pg 26.0-32.0 [facility] ([facility]) MCHC 34.7 g/dL 31.0-38.0 [facility] ([facility]) Erythrocyte distribution width [Ratio] by Automated count 14.2 % 11.6-13.7 [facility] Platelets [#/volume] in Blood by Automated count 243 x10*3/UL 140-440 [facility] MPV 8.3 FL 7.8-11.0 [facility] ([facility]) Lymph % 21.2 % 10.0-58.5 [facility] ([facility]) Mid % 5.8 % 1.7-9.3 [facility] ([facility]) Lymph # 1.2 x10*3/UL 0.6-4.1 [facility] ([facility]) Neut % 73.0 % 37.0-92.0 [facility] ([facility]) Neut # 4.4 x10*3/UL 2.0-7.8 [facility] ([facility]) Mid # 0.4 x10*3/UL 0.1-0.6 [facility] [facility]) ID Date Data Source [id number] 05/18/2020 11:29:00 AM EST MED[facility] ([facility]) Name Value Range Interpretation Code Description Data Portia rce(s) Supporting Document(s) INR in Platelet poor plasma by Coagulation assay 7.9 [facility] ID Date Data Source [id number] 05/18/2020 10:58:00 AM EST MEDENT ([facility]) Name Value Range Interpretation Code Description Data Portia rce(s) Supporting Document(s) Glucose [Mass/volume] in Serum or Plasma 100 mg/dL 74-99 [facility] ([facility]) 100-125 mg/dL PRE-DIABETES/FASTING >126 mg/dL DIABETES/FASTING Urea nitrogen [Mass/volume] in Serum or Plasma 17 mg/dL 7-18 [facility] ([facility]) Creatinine 0.7 mg/dL 0.6-1.3 [facility] ([facility]) Sodium [Moles/volume] in Serum or Plasma 141 meq/L 136-145 [facility] ([facility]) Potassium [Moles/volume] in Serum or Plasma 4.4 meq/L 3.5-5.1 [facility] ([facility]) Chloride [Moles/volume] in Serum or Plasma 103 meq/L 98-107 [facility] ([facility]) Carbon dioxide, total [Moles/volume] in Serum or Plasma 24 meq/L 21 -32 [facility] ([facility]) Calcium [Mass/volume] in Serum or Plasma 10.2 mg/dL 8.5-10.1 [facility] ([facility]) NOTE: RESULT VERIFIED. Glomerular filtration rate/1.73 sq M pre dicted among non-blacks [Volume Rate/Area] in Serum or Plasma by Creatinine-based formula (MDRD) Laboratory test result [facility] Glomerular filtration rate/1.73 sq M pre dicted among blacks [Volume Rate/Area] in Serum or Plasma by Creatinine-based formula (MDRD) Laboratory test result [facility] <content>CHRONIC KIDNEY DISEASE STAGING PER NKF</content>
<content></content>
<content>STAGE I & II GFR >= 60 NORMAL TO MILDLY DECREASED</content>
<content>STAGE III GFR 30-59 MODERATELY DECREASED</content>
<content>STAGE IV GFR 15-29 SEVERELY DECREASED</content>
<content>STAGE V GFR <15 VERY LITTLE GFR LEFT</content>
<content>ESRD GFR <15 ON DEPARTMENTAL SHIPPING CLERK</content>
<content></content> ID Date Data Source [id number] 05/09/2020 11:20:00 AM EST MEDENT ([facility]) Name Value Range Interpretation Code Description Data Portia rce(s) Supporting Document(s) INR in Platelet poor plasma by Coagulation assay 3.7 [facility] ID Date Data Source [id number] 05/04/2020 01:07:00 PM EDT [facility] ([facility]) Name Value Range Interpretation Code Description Data Portia rce(s) Supporting Document(s) INR in Platelet poor plasma by Coagulation assay 2.7 [facility] ([facility]) ID Date Data Source [id number] 05/04/2020 11:26:00 AM EDT [facility] ([facility]) Name Value Range Interpretation Code Description Data Portia rce(s) Supporting Document(s) Digoxin [Mass/volume] in Serum or Plasma 0.6 ng/mL 0.5-2.0 [facility] ([facility]) ID Date Data Source [id number] 05/04/2020 11:26:00 AM EDT [facility] ([facility]) Name Value Range Interpretation Code Description Data Portia rce(s) Supporting Document(s) Digoxin [Mass/volume] in Serum or Plasma 0.6 ng/mL 0.5-2.0 [facility] ([facility]) ID Date Data Source [id number] 05/04/2020 11:25:00 AM EDT [facility] ([facility]) Name Value Range Interpretation Code Description Data Portia rce(s) Supporting Document(s) Urine PH 6.5 units 5.0-9.0 [facility]) Urine Appearance Laboratory test result [facility] ([facility]) Urine Color Laboratory test result [facility] T ([facility]) Urine Leukocytes Laboratory test result [facility] ([facility]) Specific gravity of Urine 1.010 1.005-1.030 [facility] ([facility]) Urine Protein Laboratory test result 0-0 [facility] ([facility]) Urine Blood Laboratory test result [facility] T ([facility]) Urine Nitrite Laboratory test result [facility] ([facility]) Glucose [Presence] in Urine Laboratory test result [facility] ([facility]) Urine Ketone Laboratory test result MEDE NT ([facility]) Urine Urobilinogen 0.2 mg/dL 0.2-1.0 [facility] ([facility]) Bilirubin.total [Mass/volume] in Serum or Plasma Laboratory test resu lt [facility] ([facility]) ID Date Data Source [id number] 05/04/2020 11:25:00 AM EDT [facility] ([facility]) Name Value Range Interpretation Code Description Data Portia rce(s) Supporting Document(s) Thyrotropin [Units/volume] in Serum or Plasma by Detec tion limit <= 0.05 mIU/L 0.16 uIU/mL 0.36-3.74 [facility] ([facility] ) ID Date Data Source [id number] 05/04/2020 11:25:00 AM EDT [facility] ([facility]) Name Value Range Interpretation Code Description Data Portia rce(s) Supporting Document(s) Urea nitrogen [Mass/volume] in Serum or Plasma 17 mg/dL 7-18 [facility] ([facility]) Glucose [Mass/volume] in Serum or Plasma 101 mg/dL 74-99 [facility] ([facility]) 100-125 mg/dL PRE-DIABETES/FASTING >126 mg/dL DIABETES/FASTING Creatinine 0.7 mg/dL 0.6-1.3 [facility] ([facility]) Sodium [Moles/volume] in Serum or Plasma 143 meq/L 136-145 [facility] ([facility]) Chloride [Moles/volume] in Serum or Plasma 104 meq/L 98-107 [facility] ([facility]) Potassium [Moles/volume] in Serum or Plasma 4.0 meq/L 3.5-5.1 [facility] ([facility]) Carbon dioxide, total [Moles/volume] in Serum or Plasma 30 meq/L 21 -32 [facility] ([facility]) Calcium [Mass/volume] in Serum or Plasma 10.7 mg/dL 8.5-10.1 [facility] ([facility]) NOTE: RESULT VERIFIED. Glomerular filtration rate/1.73 sq M pre dicted among non-blacks [Volume Rate/Area] in Serum or Plasma by Creatinine-based formula (MDRD) Laboratory test result [facility] Glomerular filtration rate/1.73 sq M pre dicted among blacks [Volume Rate/Area] in Serum or Plasma by Creatinine-based formula (MDRD) Laboratory test result [facility] ([facility]) <content>CHRONIC KIDNEY DISEASE STAGING PER NKF</content>
<content></content>
<content>STAGE I & II GFR >= 60 NORMAL TO MILDLY DECREASED</content>
<content>STAGE III GFR 30-59 MODERATELY DECREASED</content>
<content>STAGE IV GFR 15-29 SEVERELY DECREASED</content>
<content>STAGE V GFR <15 VERY LITTLE GFR LEFT</content>
<content>ESRD GFR <15 ON DEPARTMENTAL SHIPPING CLERK</content>
<content></content> ID Date Data Source [id number] 05/04/2020 11:25:00 AM EDT [facility] ([facility]) Name Value Range Interpretation Code Description Data Portia rce(s) Supporting Document(s) Magnesium 2.1 mg/dL 1.8-2.4 [facility] ([facility]) ID Date Data Source [id number] 05/04/2020 11:25:00 AM EDT [facility] ([facility]) Name Value Range Interpretation Code Description Data Portia rce(s) Supporting Document(s) Erythrocytes [#/volume] in Blood by Automated count 4.36 x10*6/UL 4.2 0-6.30 [facility] ([facility]) Leukocytes [#/volume] in Blood by Automated count 6.2 x10*3/UL 4.1-10 .9 [facility] ([facility]) Hemoglobin [Mass/volume] in Blood 13.8 g/dL 12.0-18.0 [facility] ([facility]) Hematocrit [Volume Fraction] of Blood by Automated count 40.7 % 3 7.0-51.0 [facility] ([facility]) MCH 31.6 pg 26.0-32.0 [facility] MCV 93.2 fL 80.0-97.0 [facility]) MCHC 34.0 g/dL 31.0-38.0 [facility] ([facility]) Platelets [#/volume] in Blood by Automated count 236 x10*3/UL 140-440 [facility] ([facility]) Erythrocyte distribution width [Ratio] by Automated count 14.5 % 11.6-13.7 [facility] ([facility]) Lymph % 19.8 % 10.0-58.5 [facility]) MPV 7.8 FL 7.8-11.0 [facility]) Mid % 5.7 % 1.7-9.3 [facility]) Neut % 74.5 % 37.0-92.0 [facility]) Lymph # 1.2 x10*3/UL 0.6-4.1 [facility] ([facility]) Neut # 4.6 x10*3/UL 2.0-7.8 [facility] ([facility]) Mid # 0.4 x10*3/UL 0.1-0.6 [facility] ([facility]) ID Date Data Source [id number] 05/04/2020 11:25:00 AM EDT [facility] ([facility]) Name Value Range Interpretation Code Description Data Portia rce(s) Supporting Document(s) Leukocytes [#/volume] in Blood by Automated count 6.2 x10*3/UL 4.1-10 .9 [facility] ([facility]) Hematocrit [Volume Fraction] of Blood by Automated count 40.7 % 3 7.0-51.0 [facility] ([facility]) Erythrocytes [#/volume] in Blood by Automated count 4.36 x10*6/UL 4.2 0-6.30 [facility] ([facility]) Hemoglobin [Mass/volume] in Blood 13.8 g/dL 12.0-18.0 [facility] ([facility]) MCHC 34.0 g/dL 31.0-38.0 [facility] ([facility] MCV 93.2 fL 80.0-97.0 [facility] ([facility]) MCH 31.6 pg 26.0-32.0 [facility] ([facility] Erythrocyte distribution width [Ratio] by Automated count 14.5 % 11.6-13.7 [facility] ([facility]) Platelets [#/volume] in Blood by Automated count 236 x10*3/UL 140-440 [facility] ([facility]) Platelet mean volume [Entitic volume] in Blood by Jennyker 7.8 FL 7.8-11.0 [facility] ([facility]) Neut % 74.5 % 37.0-92.0 [facility] Mid % 5.7 % 1.7-9.3 [facility] Lymphocytes/100 leukocytes in Blood by Automated count 19.8 % 10. 0-58.5 [facility] ([facility]) Neutrophils [#/volume] in Semen by Manual count 4.6 x10*3/UL 2.0-7.8 [facility] ([facility]) Mid # 0.4 x10*3/UL 0.1-0.6 [facility] ([facility]) Lymph # 1.2 x10*3/UL 0.6-4.1 [facility] ([facility]) ID Date Data Source [id number] 05/04/2020 11:24:00 AM EDT [facility] ([facility]) Name Value Range Interpretation Code Description Data Portia rce(s) Supporting Document(s) Thyroxine (T4) free [Mass/volume] in Serum or Plasma 1.33 ng/dL 0.76- 1.46 [facility] ([facility]) ID Date Data Source [id number] 05/01/2020 11:44:00 AM EDT [facility] ([facility]) Name Value Range Interpretation Code Description Data Portia rce(s) Supporting Document(s) INR in Platelet poor plasma by Coagulation assay 1.2 [facility] ([facility]) ID Date Data Source [id number] 04/27/2020 12:43:00 PM EDT [facility] ([facility]) Name Value Range Interpretation Code Description Data Portia rce(s) Supporting Document(s) INR in Platelet poor plasma by Coagulation assay 7.2 [facility] ([facility]) ID Date Data Source [id number] 04/27/2020 11:33:00 AM EDT [facility] ([facility]) Name Value Range Interpretation Code Description Data Portia rce(s) Supporting Document(s) Prothrombin Time 49.4 s 12.5-14.3 [facility] ([facility]) Inr 5.24 Above upper panic limits [facility] T ([facility]) THERAPUTIC HUMAN INR VALUES INDICATIONS NORMAL RANGES PROPHYLAXIS/TREATMENT OF: VENOUS THROMBOSIS 2.0-3.0 PULMONARY EMBOLISM 2.0-3.0 PREVENTION OF SYSTEMIC EMBOLISM FROM: TISSUE HEART VALVES 2.0-3.0 ACUTE MYOCARDIAL INFARCTION 2.0-3.0 VALVULAR HEART DISEASE 2.0-3.0 ATRIAL FIBRILLATION 2.0-3.0 MECHANICAL VALVES(HIGH RISK) 2.5-3.5 RECURRENT MYOCARDIAL INFARCTION 2.5-3.5 ID Date Data Source [id number] 04/27/2020 11:33:00 AM EDT [facility] ([facility]) Name Value Range Interpretation Code Description Data Portia rce(s) Supporting Document(s) Erythrocytes [#/volume] in Blood by Automated count 4.37 x10*6/UL 4.2 0-6.30 [facility] ([facility]) Leukocytes [#/volume] in Blood by Automated count 6.6 x10*3/UL 4.1-10 .9 [facility] ([facility]) Hemoglobin [Mass/volume] in Blood 13.7 g/dL 12.0-18.0 [facility] ([facility]) Hematocrit [Volume Fraction] of Blood by Automated count 40.2 % 3 7.0-51.0 [facility] ([facility]) MCV 91.9 fL 80.0-97.0 [facility] ([facility]) MCH 31.4 pg 26.0-32.0 [facility] ([facility]) MCHC 34.2 g/dL 31.0-38.0 [facility] ([facility]) Erythrocyte distribution width [Ratio] by Automated count 13.7 % 11.6-13.7 [facility] ([facility]) Platelets [#/volume] in Blood by Automated count 251 x10*3/UL 140-440 [facility] ([facility]) MPV 8.3 FL 7.8-11.0 [facility]) Lymph % 16.8 % 10.0-58.5 [facility] Mid % 4.7 % 1.7-9.3 [facility] Lymph # 1.1 x10*3/UL 0.6-4.1 [facility] ([facility]) Neut % 78.5 % 37.0-92.0 [facility] Mid # 0.3 x10*3/UL 0.1-0.6 [facility] ([facility]) Neut # 5.2 x10*3/UL 2.0-7.8 [facility] ([facility]) ID Date Data Source [id number] 04/20/2020 12:07:00 PM EDT [facility] ([facility]) Name Value Range Interpretation Code Description Data Portia rce(s) Supporting Document(s) INR in Platelet poor plasma by Coagulation assay 1.3 [facility] ([facility]) Procedure Social History Code Duration Value Status Description Data Source(s ) Smoking 05/01/2021 12:00:00 AM EDT Current Smoker completed Curre nt Smoker eCW1 ([facility]) Smoking 05/01/2021 12:00:00 AM EDT Current Smoker completed Curre nt Smoker eCW1 ([facility]) Smoking 05/01/2021 12:00:00 AM EDT Current Smoker completed Curre nt Smoker eCW1 ([facility]) Smoking 05/01/2021 12:00:00 AM EDT Current Smoker completed Curre nt Smoker eCW1 ([facility]) Smoking 05/01/2021 12:00:00 AM EDT Current Smoker completed Curre nt Smoker eCW1 ([facility]) Smoking 04/26/2021 12:00:00 AM EDT Current Smoker completed Curre nt Smoker eCW1 ([facility]) Smoking 04/26/2021 12:00:00 AM EDT Current Smoker completed Curre nt Smoker eCW1 ([facility]) Vital Signs ID Date Data Source [id number] Name Value Range Interpretation Code Description Data Source(s) Systolic blood pressure 124 mm[Hg] 124 mm[Hg] [facility] Diastolic blood pressure 76 mm[Hg] 76 mm[Hg] [facility] ([facility]) Heart rate 88 /min 88 /min [facility] ([facility]) Body height 66 [in_i] 66 [in_i] [facility] ([facility]) 5'6" Body weight 220.00 [lb_av] 220.00 [lb_av] [facility] T ([facility]) Oxygen saturation in Arterial blood by Pulse oximetry 97 % 97 % [facility] ([facility]) Body mass index (BMI) [Ratio] 35.5 kg/m2 35.5 k g/m2 [facility] ([facility]) Systolic blood pressure 112 mm[Hg] 112 mm[Hg] M [facility]) RT Arm Heart rate 68 /min 68 /min [facility] ([facility]) Diastolic blood pressure 70 mm[Hg] 70 mm[Hg] [facility] ([facility]) RT Arm Body height 66 [in_i] 66 [in_i] [facility] ([facility]) 5'6" Body weight 215.12 [lb_av] 215.12 [lb_av] [facility] T ([facility]) Oxygen saturation in Arterial blood by Pulse oximetry 96 % 96 % [facility] ([facility]) Body mass index (BMI) [Ratio] 34.7 kg/m2 34.7 k g/m2 [facility] ([facility]) Body weight 240 [lb_av] 240 [lb_av] eCW1 ([facility]) Body weight 108.86 kg 108.86 kg eCW1 ([facility]placed by [facility]) Body height 65 [in_i] 65 [in_i] eCW1 ([facility]placed [facility]) Body mass index (BMI) [Ratio] 39.93 kg/m2 39.93 kg/m2 W1 ([facility]) Heart rate 70 /min 70 /min eCW1 ([facility]) Respiratory rate 18 /min 18 /min eCW1 ([facility]) Body temperature 95.2 [degF] 95.2 [degF] eCW1 ( [facility]) Systolic blood pressure 121 mm[Hg] 121 mm[Hg] e CW1 ([facility]) Diastolic blood pressure 84 mm[Hg] 84 mm[Hg] eCW1 ([facility]) Body weight 240 [lb_av] 240 [lb_av] eCW1 ([facility]) Body weight 108.86 kg 108.86 kg eCW1 ([facility]placed by [facility]) Body height 65 [in_i] 65 [in_i] eCW1 ([facility]placed by [facility]) Body mass index (BMI) [Ratio] 39.93 kg/m2 39.93 kg/m2 eCW1 ([facility]) Heart rate 153 /min 153 /min eCW1 ([facility]) Respiratory rate 18 /min 18 /min eCW1 ([facility]) Body temperature 98.2 [degF] 98.2 [degF] eCW1 ( [facility]) Systolic blood pressure 142 mm[Hg] 142 mm[Hg] e CW1 ([facility]) Diastolic blood pressure 96 mm[Hg] 96 mm[Hg] eCW1 ([facility]) Body mass index (BMI) [Ratio] 36.0 kg/m2 36.0 k g/m2 [facility] ([facility]) Systolic blood pressure 122 mm[Hg] 122 mm[Hg] M [facility] ([facility]) Diastolic blood pressure 76 mm[Hg] 76 mm[Hg] [facility] ([facility]) Heart rate 86 /min 86 /min [facility] ([facility]) Body height 66 [in_i] 66 [in_i] [facility] ([facility]) 5'6" Body weight 223.00 [lb_av] 223.00 [lb_av] [facility] T ([facility]) Body mass index (BMI) [Ratio] 35.0 kg/m2 35.0 k g/m2 [facility] ([facility]) Systolic blood pressure 124 mm[Hg] 124 mm[Hg] M [facility] ([facility]) Body height 66 [in_i] 66 [in_i] [facility] ([facility]) 5'6" Body weight 217.00 [lb_av] 217.00 [lb_av] [facility] T ([facility]) Diastolic blood pressure 68 mm[Hg] 68 mm[Hg] [facility] ([facility]) Heart rate 86 /min 86 /min [facility] ([facility]) Systolic blood pressure 114 mm[Hg] 114 mm[Hg] [facility] ([facility]) Diastolic blood pressure 76 mm[Hg] 76 mm[Hg] [facility] ([facility]) Body height 66 [in_i] 66 [in_i] [facility] ([facility]) 5'6" Body weight 221.50 [lb_av] 221.50 [lb_av] [facility] T ([facility]) Body mass index (BMI) [Ratio] 35.7 kg/m2 35.7 k g/m2 [facility] ([facility]) [place] body weight 130 [lb_av] 130 [lb_av] [facility] T ([facility]) Body weight 100.472 kg 100.472 kg [facility] ([facility]) Body surface area Derived from formula 2.09 m2 2.09 m2 [facility] ([facility]) Diastolic blood pressure 88 mm[Hg] 88 mm[Hg] [facility] ([facility]) RT Arm Systolic blood pressure 136 mm[Hg] 136 mm[Hg] [facility]) RT Arm Heart rate 120 /min 120 /min [facility] ([facility]) Body height 66 [in_i] 66 [in_i] [facility] ([facility]) 5'6" Body weight 223.50 [lb_av] 223.50 [lb_av] [facility] T ([facility]) Body mass index (BMI) [Ratio] 36.1 kg/m2 36.1 k g/m2 [facility] ([facility]) [place] body weight 130 [lb_av] 130 [lb_av] [facility] T ([facility]) Body weight 102.060 kg 102.060 kg [facility] ([facility]) Body height 66 [in_i] 66 [in_i] [facility] ([facility]) 5'6" Body mass index (BMI) [Ratio] 36.3 kg/m2 36.3 k g/m2 [facility] ([facility]) Body surface area Derived from formula 2.10 m2 2.10 m2 [facility] ([facility]) Diastolic blood pressure 77 mm[Hg] 77 mm[Hg] [facility] ([facility]) Body weight 225.00 [lb_av] 225.00 [lb_av] [facility] T ([facility]) Systolic blood pressure 145 mm[Hg] 145 mm[Hg] M [facility] ([facility]) Systolic blood pressure 148 mm[Hg] 148 mm[Hg] [facility]) RT Arm Diastolic blood pressure 72 mm[Hg] 72 mm[Hg] [facility] ([facility]) RT Arm Systolic blood pressure 140 mm[Hg] 140 mm[Hg] M [facility] ([facility]) Diastolic blood pressure 70 mm[Hg] 70 mm[Hg] [facility] ([facility]) Heart rate 80 /min 80 /min [facility] ([facility]) Body height 66 [in_i] 66 [in_i] [facility] ([facility]) 5'6" Body weight 219.00 [lb_av] 219.00 [lb_av] [facility] ([facility]) Body mass index (BMI) [Ratio] 35.3 kg/m2 35.3 k g/m2 [facility] ([facility]) Body height 66 [in_i] 66 [in_i] [facility] ([facility]) 5'6" Body weight 190.00 [lb_av] 190.00 [lb_av] MED[facility] T ([facility] ) Body mass index (BMI) [Ratio] 30.7 kg/m2 30.7 k g/m2 [facility] ([facility] ) Body mass index (BMI) [Ratio] 35.7 kg/m2 35.7 k g/m2 [facility] ([facility] ) Body temperature 96.1 [degF] 96.1 [degF] [facility] ([facility] ) Body height 64.5 [in_i] 64.5 [in_i] [facility] ([facility] 5'4.50" Body weight 211.50 [lb_av] 211.50 [lb_av] MED[facility] T ([facility] ) Systolic blood pressure 142 mm[Hg] 142 mm[Hg] M [facility] ([facility]) Body weight 222.00 [lb_av] 222.00 [lb_av] [facility] ([facility]) Systolic blood pressure 154 mm[Hg] 154 mm[Hg] M [facility] ([facility]) RT Arm Diastolic blood pressure 78 mm[Hg] 78 mm[Hg] [facility] ([facility]) RT Arm Diastolic blood pressure 80 mm[Hg] 80 mm[Hg] [facility] ([facility]) Heart rate 96 /min 96 /min [facility] ([facility]) Body height 66 [in_i] 66 [in_i] [facility] ([facility]) 5'6" Body mass index (BMI) [Ratio] 35.8 kg/m2 35.8 k g/m2 [facility] ([facility]) Systolic blood pressure 164 mm[Hg] 164 mm[Hg] [facility] ) Diastolic blood pressure 90 mm[Hg] 90 mm[Hg] [facility] ([facility], ) Body height 66 [in_i] 66 [in_i] [facility] ([facility], ) 5'6" Body weight 225.00 [lb_av] 225.00 [lb_av] [facility] T ([facility], ) Body mass index (BMI) [Ratio] 36.3 kg/m2 36.3 k g/m2 [facility] ([facility]) [place] body weight 130 [lb_av] 130 [lb_av] [facility] T ([facility]) Body weight 102.060 kg 102.060 kg [facility] ([facility]) Body surface area Derived from formula 2.10 m2 2.10 m2 [facility] ([facility], ) Body weight 220.00 [lb_av] 220.00 [lb_av] MED[facility] T ([facility]) Body height 65 [in_i] 65 [in_i] [facility] ([facility] 5'5" Body mass index (BMI) [Ratio] 36.6 kg/m2 36.6 k g/m2 [facility] ([facility]) Heart rate 65 /min 65 /min [facility] ([facility]) Systolic blood pressure--sitting 136 mm[Hg] 136 mm[Hg] MEDENT ([facility]) Ra, large cuff Diastolic blood pressure--sitting 84 mm[Hg] 84 mm[Hg] MEDENT ([facility]) Ra, large cuff Body height 66 [in_i] 66 [in_i] MEDENT ([facility] ) 5'6" Body mass index (BMI) [Ratio] 35.7 kg/m2 35.7 k g/m2 MEDENT ([facility] ) Body weight 221.00 [lb_av] 221.00 [lb_av] MEDEN T ([facility] ) Diastolic blood pressure 70 mm[Hg] 70 mm[Hg] MEDENT ([facility]) RT Arm Heart rate 60 /min 60 /min MEDENT ([facility]) Body height 66 [in_i] 66 [in_i] MEDENT ([facility]) 5'6" Body mass index (BMI) [Ratio] 35.7 kg/m2 35.7 k g/m2 MEDENT ([facility]) Systolic blood pressure 148 mm[Hg] 148 mm[Hg] M EDENT ([facility]) RT Arm Body weight 221.00 [lb_av] 221.00 [lb_av] MEDEN T ([facility]) Body weight 226.00 [lb_av] 226.00 [lb_av] MEDEN T ([facility]) Body mass index (BMI) [Ratio] 36.5 kg/m2 36.5 k g/m2 MEDENT ([facility]) Body weight 226.00 [lb_av] 226.00 [lb_av] MEDEN T ([facility]) Systolic blood pressure 138 mm[Hg] 138 mm[Hg] M ELIZABETH ([facility]) Diastolic blood pressure 90 mm[Hg] 90 mm[Hg] LUZ MARIA ([facility]) Body height 66 [in_i] 66 [in_i] LUZ MARIA ([facility]) 5'6" Body weight 217.00 [lb_av] 217.00 [lb_av] NICOLETTE Reed ([facility])
--- NOTE | 2021-06-07 23:45 | HPEPDOC ---
General Date of Admission 06/07/21 Date of Service: Jun 07, 2021 Chief Complaint The patient is a 65-year-old female admitted with a reason for visit of Head Ache. Source: Patient History of Present Illness Elise Reeves is a 65-year-old female with significant medical history of A. fib, hypertension, bilateral lower extremity venous stasis ulcerations, depression, and obesity who presents with complaints of tachycardia from PCP office. Patient reportedly was at PCP office and had heart rate in the 150s. She also endorses headache today and does describe some dyspnea on exertion but reports this has been progressive with activity over the past few months. Patient typically walks with a seated walker. Pt denies sinus congestion, sore throat, productive cough, chest pain, n/v/d, abdominal pain, weakness, sensory changes or syncope. Patient reports that she is headache free during exam. Patient reports that her bilateral lower extremities are always somewhat swollen she does not endorse increasing bilateral lower extremity swelling recently. She reports that she does at times sleep in a recliner but she reports that that recliner typically hurts her back and she does not intentionally have to sleep with her recliner; she just at times may doze off while watching TV most nights. Patient reports that she has been compliant with her medications including Lasix which is given for her swelling and Eliquis. HR rate upon arrival into the ED was in the 120s A. fib RVR and cardiology was consulted. Patient was given atenolol and heart rate improved. Patient consideration for whether or not she could have been sent home however when she was ambulated in the ED she was noted to desat in the 80s. Patient did have some peripheral edema and there is concern regarding new onset CHF. CTA chest completed negative for PE, no pleural effusion or infiltrates. PCR negative. BNP elevated 4465 EKG A. fib. Troponin less than 0.03. Patient will be admitted for further evaluation management presenting concerns Home Medications Scheduled Apixaban (Eliquis) 5 Mg Tablet, 5 MG PO BID, (Reported) Aspirin (Aspirin EC) 81 Mg Tablet.dr, 81 MG PO DAILY, (Reported) Atorvastatin Calcium (Atorvastatin Calcium) 20 Mg Tablet, 20 MG PO QHS, (Repo rted) Bupropion Hcl (Bupropion Xl) 150 Mg Tab.er.24h, 150 MG PO DAILY, (Reported) Famotidine (Famotidine) 20 Mg Tablet, 20 MG PO QHS, (Reported) Furosemide (Furosemide) 20 Mg Tablet, 20 MG PO BID, (Reported) Metoprolol Tartrate (Metoprolol Tartrate) 25 Mg Tablet, 25 MG PO BID, (Reported) Multivitamins (Thera M Plus Tablet) 1 Each Tablet, 1 TAB PO DAILY, (Reported) Scheduled PRN Diclofenac Sodium (Diclofenac Sodium) 1% 100GM Gel..gram., 4 GM TOP TID PRN for MILD PAIN (PS 1-4), (Reported) APPLY TO AFFECTED KNEE(S) Allergies Coded Allergies: ibuprofen (Verified Allergy, Unknown, 06/07/21) Past Medical History Medical History A. fib, hypertension, described BLE PVD, history of left lower extremity DVT, reported left lower extremity venous stasis ulcerations, depression, and obesity Surgical History Bilateral lower extremity vein stripping Family History Significant Family History: Heart disease, Hypertension Mother: Heart disease, hypertension, addiction; 1 sister at [facility]: Alzheimer's Social History * Smoker: current smoker (1 cigarette daily patient reports that she has cut back) Alcohol: occationally (Place of [facility]) Drugs: denies Recent Travel/Sick Contacts: Denies: Recent travel, Recent sick contacts Pets in the home: Dog(s) (1 dog) Psychosocial History: Depression Patient reports that she relocated from [place] when her as she was relocating to [place] to be close to his grave. Patient describes some discord with her closest living relative (sister) and due to the constraints had to relocate to [place] over [place] where her is very. Patient 1 of 7 siblings and majority of her siblings are spread out throughout the country with the exception of the one sister whom she does not get along with who is nearby and another sister who is at [facility]. Patient does have living children located in [place] patient reports that she lives alone but receives assistance from 2 neighbors to help her with concrete finisher and walking her dog. Patient is able to drive to her healthcare appointments. Patient reports that she does have a very close friend who does not drive but accompanies her to doctor's appointments as the friend is very helpful with schedules/asking questions at appointments. A-FIB/CHADSVASC A-FIB History Current/History of A-Fib/PAF?: Yes Current PO Anticoag Therapy: Yes Review of Systems Constitutional: Reports: Fatigue; Denies: Chills, Fever, Night Sweats Eyes: Denies: Pain, Vision change ENT: Denies: Head Aches, Ear Pain, Dysphagia Skin: Reports: Other (2 wounds left lower extremity ankle area); Denies: Rash, Lesions, Breakdown Pulmonary: Reports: Dyspnea; Denies: Cough Cardiovascular: Reports: Edema; Denies: Chest Pain, Palpitations, Orthopnea, Paroxysmal Noc. Dyspnea, Lt Headedness Gastrointestinal: Denies: Nausea, Vomiting, Abdominal Pain, Diarrhea Genitourinary: Denies: Dysuria, Frequency, Incontinence, Retention Hematologic: Denies: Bruising, Bleeding Excessively Musculoskeletal: Reports: Back Pain; Denies: Neck Pain, Joint Pain, Muscle Pain, Spasms Neurological: Denies: Weakness, Numbness, Change in speech, Confusion Psych: Reports: Mood Normal; Denies: Depression, Memory Issues Other systems LLE wounds: Patient describes circular type wounds that she has been changing dressing daily for and seen wound care outpatient for. Patient reports that she is prone to lower extremity ulcerations and cellulitis of the affected leg. One Wound is described as half dollar sized with serosanguineous drainage and additional smaller quarter size wound of distal inner left ankle. Physical Examination General Exam: Positive: Alert, Cooperative, No Acute Distress Eye Exam: Positive: PERRLA, Conjunctiva & lids normal, EOMI; Negative: Sclera icteric ENT Exam: Positive: Atraumatic, Mucous membr. moist/pink, Pharynx Normal, Other ENT (+ Goiter) Neck Exam: Positive: Supple; Negative: JVD, thyromegaly Chest Exam: Positive: Clear to auscultation, Normal air movement Heart Exam: Positive: Irregular Rhythm, Normal S1, Normal S2; Negative: Murmurs, Rubs Abdomen Exam: Positive: Normal bowel sounds, Soft; Negative: Tenderness, Hepatospenomegaly Extremity Exam: Positive: Edema (1+ BLE), Normal pulses; Negative: Clubbing, Cyanosis Skin Exam: Positive: Nl turgor and temperature, Other skin issue (Left ankle dressing clean dry intact); Negative: Breakdown, Lesion Neuro Exam: Positive: Normal Speech, Cranial Nerves 3-12 NL, Reflexes 2+; Negative: Normal Gait Psych Exam: Positive: Mental status NL, Mood NL, Oriented x 3 Vital Signs Vital Signs Date Time Temp Pulse Resp B/P (MAP) Pulse Ox O2 Delivery O2 Flow Rate FiO2 06/07/21 19:32 99 148/81 06/07/21 19:30 18 99 Room Air 06/07/21 14:01 96.2 Laboratory Data Labs 24H Laboratory Tests 2 06/07/21 16:53: Immature Granulocyte % (Auto) 0.2, Neutrophils (%) (Auto) 61.9, Lymphocytes (%) (Auto) 27.8, Monocytes (%) (Auto) 7.9, Eosinophils (%) (Auto) 1.8, Basophils (%) (Auto) 0.4, Neutrophils # (Auto) 3.1, Lymphocytes # (Auto) 1.4L, Monocytes # (Auto) 0.4, Eosinophils # (Auto) 0.1, Basophils # (Auto) 0.0, Nucleated Red Blood Cells % (auto) 0.0, Magnesium Level 2.3, [id number]-Type Natriuretic Peptide 4465H 06/07/21 18:00: POC Glucose (Misc Panel) 98, POC Sodium (Misc Panel) 143, POC Potassium (Misc Panel) 4.2, POC Chloride (Misc Panel) 108, POC Total CO2 (Misc Panel) 24.0, POC Blood Urea Nitrogen (Misc Panel 25, POC Ionized Calcium (Misc Panel) 5.1, POC Creatinine (Misc Panel) 0.9, POC Hematocrit (Misc Panel) 41.0 06/07/21 18:14: POC Troponin I (Misc) 0.03 CBC/BMP Laboratory Tests 06/07/21 16:53 Assessment/Plan 1. Exertional hypoxia secondary to presumed new onset CHF: BNP 4465 -No known history of CHF; last echo not on file however cardiology had been consulted in ED and was able to review their records reportedly confirm no history of CHF. -Monitor fluid balance, I's and O's, urinary output -Patient appears hypervolemic however there is a component of body habitus that could be contributing. -Plan for diuresis; will increase Lasix 20 mg twice daily that patient typically takes at home to Lasix 40 mg twice daily -Monitoring creatinine closely; A.m. labs -Echo in a.m. -Consider differential and patient would need to be ambulated again with pulse ox prior to d/c 2. A. fib RVR: Patient presently rate controlled however upon arrival she was in the 120s A. fib RVR. Cardiology consulted by ED and patient was given atenolol and heart rate improved to 80s. Patient also given Lasix 40 mg IV x1. Question whether or not overload causing A. fib RVR or if A. fib RVR contributed to fluid overload. -Telemetry monitoring, continue home medication -Check electrolytes and replete if needed 3. Current daily smoker: No reported history of COPD. Patient without wheeze. It is possible daily smoking underlying COPD could be contributing to exertional dyspnea/ambulatory desat. CT chest negative for infiltrates, but did show discoid atelectasis left suprahilar region and moderate mediastinal lymph nodes and right hilar lymph nodes. -Plan for as needed breathing treatments, IS and monitoring -Encourage smoking cessation: Patient reports that she has been cutting back she endorses 1 cigarette today -Patient notified regarding the size of lymph nodes and suggested continued monitoring with PCP 4. LLE wounds: Dressing clean dry intact during exam. Patient afebrile, no leukocytosis. Left lower extremity without erythema or tenderness concerning of cellulitis. -Monitor for signs symptoms infection -Wound care consult and daily dressing changes -Encourage patient to continue to follow-up with wound care outpatient upon DC 5. HTN: Monitor BP in setting of above. Continue home medications once reconciled. 6. Nodular Goiter: As noted on CT chest. Patient denies history of goiter or thyroid disease. -Will check thyroid studies and serum iodine -Consider thyroid US or further w/u Thyroid disease could explain some of patient's symptoms including dyspnea on exertion, intermittent tachycardia, mood imbalance and weight gain that patient has been mentioning. 7. Depression: Patient remarks that she has had a depressive episode for the past month. She reports that she is not taking anything for depression and she is hesitant to take mood related medications or opiates given patient's mother had a dependence on such medications. Patient reports that she has made some personal adjustments and this has helped improve her mood. She denies suicidal ideation and considers that she is no longer presently depressed. -Monitor patient mood and encourage expression 8. Back pain: Symptom management/ supportive care. pt reports she typically t akes Tylenol for this. 9. Obesity: Complicates care. Also, consideration of lymphedema component to BLE edema given body habitus. DVT Px: Continue Eliquis CODE STATUS: Full code Disposition planning: Home pending clinical improvement Plan / VTE VTE Prophylaxis Ordered?: Yes SIMRAN NICHOLS NP Jun 07, 2021 21:41
[2021-06-07 23:48] LABS: RSV AMPLIFICATION NEGATIVE (NEGATIVE)
[2021-06-08 00:02] LABS: PARTIAL THROMBOPLASTIN TIME 38.6 SECONDS (25.9-37.0)
[2021-06-08 00:09] LABS: FREE T4 1.51 NG/DL (0.76-1.46); THYROID STIMULATING HORMONE 0.023 uIU/ML (0.358-3.740)
[2021-06-08 00:14] LABS: INR 1.21; PROTHROMBIN TIME 15.7 SECONDS (12.7-14.5)
--- NOTE | 2021-06-08 01:04 | ECGEPIP ---
[facility] - ED Test Date: 2021-06-07 Pat Name: PILI HERNANDEZ Department: Room: - Gender: Female Note Taker: RS : 1955 Requested By: SAMANTHA Troncoso Order Number: [id number] Reading MD: Lyndon Manning Measurements Intervals [place] Rate: 92 P: IN: QRS: 101 QRSD: 146 T: -14 QT: 384 QTc: 474 Interpretive Statements Atrial flutter with variable AV block Right bundle branch block NO PRIORS FOR COMPARISON Electronically Signed on 06-08-2021 1:04:38 EST by Lyndon Manning
[2021-06-08 07:42] LABS: BASO % 0.7 % (0.0-1.0); EOS # 0.1 10^3/uL (0.0-0.5); EOS % 2.4 % (0.0-3.0); HEMATOCRIT 39.1 % (36.0-47.0); HEMOGLOBIN 12.3 g/dl (12.0-15.5); LYMPH % 24.4 % (24.0-44.0); MEAN CORPUSCULAR HEMOGLOBIN 31.3 pg (27.0-33.0); MEAN CORPUSCULAR HGB CONC 31.5 g/dl (32.0-36.5); MEAN CORPUSCULAR VOLUME 99.5 fl (80.0-96.0); MONO # 0.4 10^3/uL (0.0-0.8); NEUTROPHILS # 2.6 10^3/uL (1.5-8.5); NEUTROPHILS % 63.3 % (36.0-66.0); PLATELET COUNT, AUTOMATED 192 10^3/uL (150-450); RED BLOOD COUNT 3.93 10^6/uL (4.00-5.40); WHITE BLOOD COUNT 4.1 10^3/uL (4.0-10.0)
[2021-06-08 08:00] LABS: BLOOD UREA NITROGEN 21 MG/DL (7-18); CALCIUM LEVEL 10.6 MG/DL (8.8-10.2); CARBON DIOXIDE LEVEL 23 MEQ/L (21-32); CHLORIDE LEVEL 109 MEQ/L (98-107); GLOMERULAR FILTRATION RATE > 60.0 (>45); GLUCOSE, FASTING 98 MG/DL (70-100); MAGNESIUM LEVEL 2.2 MG/DL (1.8-2.4); POTASSIUM SERUM 3.9 MEQ/L (3.5-5.1); SODIUM LEVEL 142 MEQ/L (136-145)
[2021-06-08] MEDS ORDERED: FUROSEMIDE 40MG/4ML VIAL (J1940) IV SCH (09:00)
[2021-06-08] MEDS: ASPIRIN 81MG ENTERIC TABLET PO SCH (11:51)
[2021-06-08] MEDS: buPROPion **XL** TABLET 150MG (WELLBUTRIN XL) PO SCH (11:51)
[2021-06-08] MEDS: APIXABAN 5 MG TAB (ELIQUIS) PO SCH ×2 (11:52→20:16)
[2021-06-08] MEDS: METOPROLOL TART 25 MG TABLET PO SCH ×2 (11:52→20:16)
[2021-06-08] MEDS: MULTIVITAMINS/MINERALS THERAP 1 TAB PO SCH (11:53)
[2021-06-08] MEDS: FUROSEMIDE 40MG/4ML VIAL (J1940) IV SCH ×2 (11:54→18:01)
[2021-06-08 12:15] VITALS: BP 129/93
[2021-06-08 14:00] VITALS: BP 130/92
[2021-06-08] MEDS: ACETAMINOPHEN TAB 650MG DOSE (2X325MG) PO PRN (14:14)
[2021-06-08] MEDS: FAMOTIDINE 20 MG TAB PO SCH (20:15)
[2021-06-08] MEDS: ATORVASTATIN 20 MG TAB PO SCH (20:16)
[2021-06-08] MEDS: VANICREAM MOISTURIZING SKIN CREAM 113GM TUBE TOP SCH (20:16)
[2021-06-08 22:00] VITALS: BP_SYST 110; BP_SYST 118; BP_DIAS 68; BP_DIAS 70; O2SAT 95
--- NOTE | 2021-06-08 23:33 | IPNPDOC ---
Subjective Date Seen The patient was seen on 06/08/21. Subjective Chief Complaint/HPI Feels better, denies any SOB. reports that her legs are less swollen today. No palpitation Objective Physical Examination General Exam: Positive: Alert, Cooperative, No Acute Distress Eye Exam: Positive: PERRLA, Conjunctiva & lids normal, EOMI; Negative: Sclera icteric ENT Exam: Positive: Atraumatic, Mucous membr. moist/pink, Pharynx Normal, Other ENT (+ Goiter) Neck Exam: Positive: Supple; Negative: JVD, thyromegaly Chest Exam: Positive: Clear to auscultation, Normal air movement Heart Exam: Positive: Rate Normal, Irregular Rhythm, Normal S1, Normal S2; Negative: Murmurs, Rubs Abdomen Exam: Positive: Normal bowel sounds, Soft; Negative: Tenderness Extremity Exam: Positive: Edema (1+ BLE), Normal pulses; Negative: Clubbing, Cyanosis Skin Exam: Positive: Nl turgor and temperature, Other skin issue (Left leg chronic venous stasis ulcer. ) Neuro Exam: Positive: Normal Speech, Strength at 5/5 X4 ext, Normal Tone Psych Exam: Positive: Memory Intact, Oriented x 3 Assessment /Plan Assessment 65-year-old female with significant medical history of A. fib, hypertension, bilateral lower extremity venous stasis ulcerations, depression, and obesity presented with complaints of tachycardia from PCP office. Patient reportedly w as at PCP office and had heart rate in the 150s. HR rate upon arrival into the ED was in the 120s. EKG showed A. fib with RVR and cardiology was consulted. Patient was given atenolol and heart rate improved. There was a consideration for whether or not she could be sent home however when she was ambulated in the ED she was noted to desat in the 80s. Patient did have some peripheral edema and there is concern regarding new onset CHF. CTA chest completed negative for PE, no pleural effusion or infiltrates. She was admitted for likely new onset CHF Exertional hypoxia presumed to be due to new onset CHF: BNP 4465 No h/o COPD but has been a life long smoker so may may developed COPD which may also be causing her exertional dyspnea. No known history of CHF; No echo in EMR. However cardiology had been consulted in ED and was able to review their records reportedly confirm no history of CHF. Monitor fluid balance, I's and O's, urinary output Fluid restriction 2L Lasix dose increased. No hypoxia at rest. Will continue with diuresis and again ambulate her prior to discharge to see if she remains hypoxic. Chronic A. fib with RVR on presentation rate now controlled with metoprolol continue eliquis. Mediastinal and Hilar lymphadenopathy Patient notified regarding the size of lymph nodes and suggested continued monitoring with PCP encouraged to quit smoking. Chronic bilateral venous stasis Left worse than right. with lymphedema and venous stasis ulcer on the left. Ulcer is not infection. Patient had venous stripping and ligation done for varicose veins in wound consult appreciated. Will continue wound dressing as per wound care. HTN metoprolol Nodular Goiter: As noted on CT chest. Patient denies history of goiter or thyroid disease. decreased TSH with marginally elevated T4 May have subclinical hyperthyroidism. Follow up with PMD Depression Patient remarks that she has had a depressive episode for the past month. She reports that she is not taking anything for depression and she is hesitant to take mood related medications or opiates given patient's mother had a dependence on such medications. Patient reports that she has made some personal adjustments and this has helped improve her mood. She denies suicidal ideation and considers that she is no longer presently depressed. Monitor patient mood and encourage expression Chronic Back pain: Symptom management/ supportive care. pt reports she typically takes Tylenol for this. Obesity complicates care Plan/VTE VTE Prophylaxis Ordered?: Yes VS, I&O, 24H, Fishbone Vital Signs/I&O Vital Signs Date Time Temp Pulse Resp B/P (MAP) Pulse Ox O2 Delivery O2 Flow Rate FiO2 06/08/21 12:15 97.4 80 18 129/93 (105) 97 Room Air Laboratory Data 24H LABS Laboratory Tests 2 06/07/21 16:53: Immature Granulocyte % (Auto) 0.2, Neutrophils (%) (Auto) 61.9, Lymphocytes (%) (Auto) 27.8, Monocytes (%) (Auto) 7.9, Eosinophils (%) (Auto) 1.8, Basophils (%) (Auto) 0.4, Neutrophils # (Auto) 3.1, Lymphocytes # (Auto) 1.4L, Monocytes # (Auto) 0.4, Eosinophils # (Auto) 0.1, Basophils # (Auto) 0.0, Nucleated Red Blood Cells % (auto) 0.0, Magnesium Level 2.3, OX-Vqn-[id number]-Type Natriuretic Peptide 4465H, Thyroid Stimulating Hormone (TSH) 0.023L, Free Thyroxine 1.51H 06/07/21 18:00: POC Glucose (Misc Panel) 98, POC Sodium (Misc Panel) 143, POC Potassium (Misc Panel) 4.2, POC Chloride (Misc Panel) 108, POC Total CO2 (Misc Panel) 24.0, POC Blood Urea Nitrogen (Misc Panel 25, POC Ionized Calcium (Misc Panel) 5.1, POC Creatinine (Misc Panel) 0.9, POC Hematocrit (Misc Panel) 41.0 06/07/21 18:14: POC Troponin I (Misc) 0.03 06/07/21 22:29: Coronavirus (COVID-19)(PCR) NEGATIVE, Influenza Type A (RT-PCR) NEGATIVE, Influenza Type B (RT-PCR) NEGATIVE, Respiratory Syncytial Virus (PCR) NEGATIVE 06/07/21 23:41: Prothrombin Time 15.7H, Prothromb Time International Ratio 1.21, Activated Partial Thromboplast Time 38.6H 06/08/21 07:13: Immature Granulocyte % (Auto) 0.2, Neutrophils (%) (Auto) 63.3, Lymphocytes (%) (Auto) 24.4, Monocytes (%) (Auto) 9.0H, Eosinophils (%) (Auto) 2.4, Basophils (%) (Auto) 0.7, Neutrophils # (Auto) 2.6, Lymphocytes # (Auto) 1.0L, Monocytes # (Auto) 0.4, Eosinophils # (Auto) 0.1, Basophils # (Auto) 0.0, Nucleated Red B lood Cells % (auto) 0.0, Anion Gap 10, Glomerular Filtration Rate > 60.0, Calcium Level 10.6H, Magnesium Level 2.2, Thyroid Peroxidase Antibodies < 28.0 CBC/BMP Laboratory Tests 06/07/21 16:53 06/08/21 07:13 Karly Cook MD Jun 08, 2021 14:27
[2021-06-09 06:45] LABS: BASO % 0.7 % (0.0-1.0); EOS # 0.1 10^3/uL (0.0-0.5); EOS % 2.7 % (0.0-3.0); HEMATOCRIT 38.4 % (36.0-47.0); HEMOGLOBIN 12.2 g/dl (12.0-15.5); LYMPH # 1.1 10^3/uL (1.5-5.0); LYMPH % 28.3 % (24.0-44.0); MEAN CORPUSCULAR HEMOGLOBIN 31.4 pg (27.0-33.0); MEAN CORPUSCULAR HGB CONC 31.8 g/dl (32.0-36.5); MEAN CORPUSCULAR VOLUME 98.7 fl (80.0-96.0); MONO # 0.5 10^3/uL (0.0-0.8); MONO % 11.9 % (2.0-8.0); NEUTROPHILS # 2.3 10^3/uL (1.5-8.5); NEUTROPHILS % 56.2 % (36.0-66.0); PLATELET COUNT, AUTOMATED 175 10^3/uL (150-450); RED BLOOD COUNT 3.89 10^6/uL (4.00-5.40)
[2021-06-09 07:08] LABS: BLOOD UREA NITROGEN 21 MG/DL (7-18); CALCIUM LEVEL 10.5 MG/DL (8.8-10.2); CARBON DIOXIDE LEVEL 26 MEQ/L (21-32); CHLORIDE LEVEL 107 MEQ/L (98-107); CREATININE FOR GFR 0.76 MG/DL (0.55-1.30); GLOMERULAR FILTRATION RATE > 60.0 (>45); GLUCOSE, FASTING 92 MG/DL (70-100); POTASSIUM SERUM 3.8 MEQ/L (3.5-5.1); SODIUM LEVEL 141 MEQ/L (136-145)
[2021-06-09] MEDS ORDERED: PREVNAR 13 VACCINE SYRINGE IM ONE (09:00)
[2021-06-09 09:30] VITALS: O2SAT 97
--- NOTE | 2021-06-09 11:03 | IPNPDOC ---
Subjective Date Seen The patient was seen on 06/09/21. Subjective Chief Complaint/HPI Denies any SOB or cough or phlegm. Her heart rate is still not well controlled. Pulse rate going up to 140s when ambulating. Objective Physical Examination General Exam: Positive: Alert, Cooperative, No Acute Distress Eye Exam: Positive: PERRLA, Conjunctiva & lids normal, EOMI; Negative: Sclera icteric ENT Exam: Positive: Atraumatic, Mucous membr. moist/pink, Pharynx Normal, Other ENT (+ Goiter) Neck Exam: Positive: Supple; Negative: JVD, thyromegaly Chest Exam: Positive: Rhonchi (at the right base), Diminished Heart Exam: Positive: Rate Normal, Irregular Rhythm, Normal S1, Normal S2; Negative: Murmurs, Rubs Abdomen Exam: Positive: Normal bowel sounds, Soft; Negative: Tenderness Extremity Exam: Positive: Edema (1+ BLE); Negative: Clubbing, Cyanosis Skin Exam: Positive: Nl turgor and temperature, Other skin issue (Left leg chronic venous stasis ulcer. ) Neuro Exam: Positive: Normal Speech, Strength at 5/5 X4 ext, Normal Tone Psych Exam: Positive: Memory Intact, Oriented x 3 Assessment /Plan Assessment 65-year-old female with significant medical history of A. fib, hypertension, bilateral lower extremity venous stasis ulcerations, depression, and obesity presented with complaints of tachycardia from PCP office. Patient reportedly was at PCP office and had heart rate in the 150s. HR rate upon arrival into the ED was in the 120s. EKG showed A. fib with RVR and cardiology was consulted. Patient was given atenolol and heart rate improved. There was a consideration for whether or not she could be sent home however when she was ambulated in the ED she was noted to desat in the 80s. Patient did have some peripheral edema and there is concern regarding new onset CHF. CTA chest completed negative for PE, no pleural effusion or infiltrates. She was admitted for likely new onset CHF Exertional hypoxia presumed to be due to new onset CHF: BNP 4465 No h/o COPD but has been a life long smoker so may may developed COPD which may also be causing her exertional dyspnea. No echo in EMR. However cardiology had been consulted in ED and was able to review their records reportedly confirm no history of CHF. Monitor fluid balance, I's and O's, urinary output Fluid restriction 2L Lasix dose increased. No hypoxia at rest. Will continue with diuresis and again ambulate her prior to discharge to see if she remains hypoxic. Chronic A. fib with RVR pulse rate going up to 140s to 160s during ambulation. metoprolol is changed to bisoprolol for better rate controlled continue eliquis. Mediastinal and Hilar lymphadenopathy Patient notified regarding the size of lymph nodes and suggested continued monitoring with PCP encouraged to quit smoking. Chronic bilateral venous stasis Left worse than right. with lymphedema and venous stasis ulcer on the left. Ulcer is not infection. Patient had venous stripping and ligation done for varicose veins in wound consult appreciated. Will continue wound dressing as per wound care. HTN metoprolol Nodular Goiter: As noted on CT chest. Patient denies history of goiter or thyroid disease. decreased TSH with marginally elevated T4 May have subclinical hyperthyroidism. Follow up with PMD Depression Patient remarks that she has had a depressive episode for the past month. She reports that she is not taking anything for depression and she is hesitant to take mood related medications or opiates given patient's mother had a dependence on such medications. Patient reports that she has made some personal adjustments and this has helped improve her mood. She denies suicidal ideation and considers that she is no longer presently depressed. Monitor patient mood and encourage expression Chronic Back pain: Symptom management/ supportive care. pt reports she typically takes Tylenol for this. Obesity complicates care Plan/VTE VTE Prophylaxis Ordered?: Yes VS, I&O, 24H, Fishbone Vital Signs/I&O Vital Signs Date Time Temp Pulse Resp B/P (MAP) Pulse Ox O2 Delivery O2 Flow Rate FiO2 06/08/21 22:00 95 Room Air 06/08/21 22:00 96.2 74 19 110/70 (83) I&O- Last 24 Hours up to 6 AM 06/09/21 05:59 Intake Total 1020 ml Output Total 0 ml Balance 1020 ml Laboratory Data 24H LABS Laboratory Tests 2 06/09/21 05:57: Immature Granulocyte % (Auto) 0.2, Neutrophils (%) (Auto) 56.2, Lymphocytes (%) (Auto) 28.3, Monocytes (%) (Auto) 11.9H, Eosinophils (%) (Auto) 2.7, Basophils (%) (Auto) 0.7, Neutrophils # (Auto) 2.3, Lymphocytes # (Auto) 1.1L, Monocytes # (Auto) 0.5, Eosinophils # (Auto) 0.1, Basophils # (Auto) 0.0, Nucleated Red Blood Cells % (auto) 0.0, Anion Gap 8, Glomerular Filtration Rate > 60.0, Calcium Level 10.5H CBC/BMP Laboratory Tests 06/09/21 05:57 Karly Cook MD Jun 09, 2021 11:03
[2021-06-09] MEDS: MULTIVITAMINS/MINERALS THERAP 1 TAB PO SCH (11:13)
[2021-06-09] MEDS: buPROPion **XL** TABLET 150MG (WELLBUTRIN XL) PO SCH (11:13)
[2021-06-09] MEDS: ASPIRIN 81MG ENTERIC TABLET PO SCH (11:14)
[2021-06-09] MEDS: APIXABAN 5 MG TAB (ELIQUIS) PO SCH ×2 (11:14→20:07)
[2021-06-09] MEDS: bisoproloL fumarate 5 MG TAB PO SCH ×2 (11:21→20:08)
[2021-06-09] MEDS: FUROSEMIDE 40MG/4ML VIAL (J1940) IV SCH ×2 (11:23→18:02)
[2021-06-09] MEDS: VANICREAM MOISTURIZING SKIN CREAM 113GM TUBE TOP SCH ×2 (11:23→20:08)
[2021-06-09 14:00] VITALS: BP 132/96
--- NOTE | 2021-06-09 16:24 | ECHO ---
ECHOCARDIOGRAM DATE OF PROCEDURE: 06/08/2021 Age: 65 Gender: Height: 168 cm Weight: 100 kg PATIENT LOCATION: Room 4230 REFERRING PHYSICIAN: Keri Villar NP INDICATION: Edema. 2D MEASUREMENTS: IVS 1.1 cm LV 5.8 cm LVPW 1.0 cm LA 4.8 cm Aorta 3.3 cm DOPPLER MEASUREMENTS: Peak velocity across the aortic valve 1.2 m/s Peak velocity across the LVOT 0.79 m/s Mitral E 1.0 Maximum tricuspid valve velocity 2.4 m/s 2D COMMENTS: 1. Mildly dilated left ventricular with normal left ventricular wall thickness but a mildly depressed global left ventricular systolic function. The estimated left ventricular systolic ejection fraction is 45%-50%. 2. Mildly dilated left atrium. Subjectively, the right atrium and right ventricle appeared to be minimally enlarged. 3. Normal aortic root. 4. No pericardial effusion seen. 5. Mildly calcified aortic valve with normal leaflet excursion. Mildly calcified mitral annulus with normal anterior mitral valve leaflet motion. Normal tricuspid valve and pulmonic valve. The proximal pulmonary artery branches were not well visualized. 6. The inferior vena cava was normal in size. Central venous pressure is most likely normal. DOPPLER: It detects trace aortic regurgitation, moderate eccentric posteriorly detected mitral regurgitation, mild tricuspid regurgitation, and trace pulmonic regurgitation. The calculated pulmonary artery systolic pressure varies between 30-40 mmHg. Assessment of the left ventricular diastolic function was limited. IMPRESSION: 1. Mild global left ventricular systolic dysfunction with mild eccentric left ventricular hypertrophy/dilated left ventricle. There was global hypokinesis. 2. Assessment of the left ventricular diastolic function was not conclusive. 3. Aortic valve sclerosis with trace aortic regurgitation but no aortic stenosis. 4. Mitral annulus calcification with moderate mitral regurgitation and a mildly enlarged left atrium. 5. Mild tricuspid regurgitation with mild pulmonary hypertension.
[2021-06-09] MEDS: ACETAMINOPHEN TAB 650MG DOSE (2X325MG) PO PRN (20:07)
[2021-06-09] MEDS: ATORVASTATIN 20 MG TAB PO SCH (20:07)
[2021-06-09] MEDS: FAMOTIDINE 20 MG TAB PO SCH (20:08)
[2021-06-09 21:00] VITALS: O2SAT 95
[2021-06-09] MEDS: VALSARTAN 40MG TABLET (DIOVAN) PO SCH (21:00)
[2021-06-09 22:00] VITALS: BP 150/79
[2021-06-10 00:30] VITALS: BP 116/86
[2021-06-10 06:00] VITALS: BP 136/99
[2021-06-10 06:02] LABS: BASO % 0.7 % (0.0-1.0); EOS # 0.1 10^3/uL (0.0-0.5); HEMATOCRIT 39.3 % (36.0-47.0); HEMOGLOBIN 12.6 g/dl (12.0-15.5); LYMPH # 1.1 10^3/uL (1.5-5.0); LYMPH % 24.1 % (24.0-44.0); MEAN CORPUSCULAR HEMOGLOBIN 31.4 pg (27.0-33.0); MEAN CORPUSCULAR HGB CONC 32.1 g/dl (32.0-36.5); MONO # 0.4 10^3/uL (0.0-0.8); NEUTROPHILS # 2.8 10^3/uL (1.5-8.5); PLATELET COUNT, AUTOMATED 196 10^3/uL (150-450); RED BLOOD COUNT 4.01 10^6/uL (4.00-5.40); WHITE BLOOD COUNT 4.4 10^3/uL (4.0-10.0)
[2021-06-10 06:30] LABS: BLOOD UREA NITROGEN 20 MG/DL (7-18); CALCIUM LEVEL 10.4 MG/DL (8.8-10.2); CARBON DIOXIDE LEVEL 24 MEQ/L (21-32); CHLORIDE LEVEL 107 MEQ/L (98-107); CREATININE FOR GFR 0.82 MG/DL (0.55-1.30); GLOMERULAR FILTRATION RATE > 60.0 (>45); GLUCOSE, FASTING 103 MG/DL (70-100); SODIUM LEVEL 140 MEQ/L (136-145)
[2021-06-10] MEDS: bisoproloL fumarate 5 MG TAB PO SCH ×2 (09:26→20:55)
[2021-06-10] MEDS: buPROPion **XL** TABLET 150MG (WELLBUTRIN XL) PO SCH (09:26)
[2021-06-10] MEDS: APIXABAN 5 MG TAB (ELIQUIS) PO SCH ×2 (09:26→20:56)
[2021-06-10] MEDS: VALSARTAN 40MG TABLET (DIOVAN) PO SCH ×2 (09:26→20:56)
[2021-06-10] MEDS: MULTIVITAMINS/MINERALS THERAP 1 TAB PO SCH (09:26)
[2021-06-10] MEDS: VANICREAM MOISTURIZING SKIN CREAM 113GM TUBE TOP SCH ×2 (09:27→20:56)
[2021-06-10] MEDS: FUROSEMIDE 40MG/4ML VIAL (J1940) IV SCH ×2 (09:27→17:24)
[2021-06-10] MEDS: ASPIRIN 81MG ENTERIC TABLET PO SCH (09:27)
[2021-06-10] MEDS: DIGOXIN 0.25 MG TAB PO SCH ×2 (12:24→17:16)
--- NOTE | 2021-06-10 13:35 | IPNPDOC ---
Subjective Date Seen The patient was seen on 06/10/21. Subjective Chief Complaint/HPI Patient overall feels better. She is eager to go home however understands that she cannot be discharged until her heart rate is better controlled. She continues to have pulse rate in 130s to 160s on minimal ambulation to the bathroom. Objective Physical Examination General Exam: Positive: Alert, Cooperative, No Acute Distress Eye Exam: Positive: PERRLA, Conjunctiva & lids normal, EOMI; Negative: Sclera icteric ENT Exam: Positive: Atraumatic, Mucous membr. moist/pink, Pharynx Normal, Other ENT (+ Goiter) Neck Exam: Positive: Supple; Negative: JVD, thyromegaly Chest Exam: Positive: Rhonchi (at the right base), Diminished Heart Exam: Positive: Rate Normal, Irregular Rhythm, Normal S1, Normal S2; Negative: Murmurs, Rubs Abdomen Exam: Positive: Normal bowel sounds, Soft; Negative: Tenderness Extremity Exam: Positive: Edema (1+ BLE); Negative: Clubbing, Cyanosis Skin Exam: Positive: Nl turgor and temperature, Other skin issue (Left leg chronic venous stasis ulcer. ) Neuro Exam: Positive: Normal Speech, Strength at 5/5 X4 ext, Normal Tone Psych Exam: Positive: Memory Intact, Oriented x 3 Assessment /Plan Assessment 65-year-old female with significant medical history of A. fib, hypertension, bilateral lower extremity venous stasis ulcerations, depression, and obesity presented with complaints of tachycardia from PCP office. Patient reportedly was at PCP office and had heart rate in the 150s. HR rate upon arrival into the ED was in the 120s. EKG showed A. fib with RVR and cardiology was consulted. Patient was given atenolol and heart rate improved. There was a consideration for whether or not she could be sent home however when she was ambulated in the ED she was noted to desat in the 80s. Patient did have some peripheral edema and there is concern regarding new onset CHF. CTA chest completed negative for PE, no pleural effusion or infiltrates. She was admitted for likely new onset CHF Acute on chronic Systolic CHF EF of 45% to 50% with moderate mitral regurgitation. Monitor fluid balance, I's and O's, urinary output Fluid restriction 2L continue IV lasix. no hypoxia at rest or with ambulation at this time. Appreciate cardiology consultation. Started on valsartan Chronic A. fib with RVR pulse rate going up to 140s to 160s during ambulation. Continue bisoprolol Started on dig loading p.o. continue eliquis. Mediastinal and Hilar lymphadenopathy Patient notified regarding the size of lymph nodes and suggested continued monitoring with PCP encouraged to quit smoking. Chronic bilateral venous stasis Left worse than right. with lymphedema and venous stasis ulcer on the left. Ulcer is not infection. Patient had venous stripping and ligation done for varicose veins in 1980s wound consult appreciated. Will continue wound dressing as per wound care. HTN Bisoprolol and now on valsartan Nodular Goiter: As noted on CT chest. Patient denies history of goiter or thyroid disease. decreased TSH with marginally elevated T4 May have subclinical hyperthyroidism. Follow up with PMD Depression Patient remarks that she has had a depressive episode for the past month. She reports that she is not taking anything for depression and she is hesitant to take mood related medications or opiates given patient's mother had a dependence on such medications. Patient reports that she has made some personal adjustments and this has helped improve her mood. She denies suicidal ideation and considers that she is no longer presently depressed. Monitor patient mood and encourage expression Chronic Back pain: Symptom management/ supportive care. pt reports she typically takes Tylenol for this. Obesity complicates care Plan/VTE VTE Prophylaxis Ordered?: Yes VS, I&O, 24H, Demetrius Vital Signs/I&O Vital Signs Date Time Temp Pulse Resp B/P (MAP) Pulse Ox O2 Delivery O2 Flow Rate FiO2 06/10/21 06:00 97.3 93 17 136/99 (111) 95 Room Air I&O- Last 24 Hours up to 6 AM 06/10/21 06:00 Intake Total 2760 ml Output Total 0 ml Balance 2760 ml Laboratory Data 24H LABS Laboratory Tests 2 06/10/21 05:46: Immature Granulocyte % (Auto) 0.2, Neutrophils (%) (Auto) 64.0, Lymphocytes (%) (Auto) 24.1, Monocytes (%) (Auto) 9.0H, Eosinophils (%) (Auto) 2.0, Basophils (%) (Auto) 0.7, Neutrophils # (Auto) 2.8, Lymphocytes # (Auto) 1.1L, Monocytes # (Auto) 0.4, Eosinophils # (Auto) 0.1, Basophils # (Auto) 0.0, Nucleated Red Blood Cells % (auto) 0.0, Anion Gap 9, Glomerular Filtration Rate > 60.0, Calcium Level 10.4H CBC/BMP Laboratory Tests 06/10/21 05:46 Karly Cook MD Jun 10, 2021 07:08
[2021-06-10 14:00] VITALS: BP 125/73
[2021-06-10] MEDS: FAMOTIDINE 20 MG TAB PO SCH (20:54)
[2021-06-10] MEDS: ATORVASTATIN 20 MG TAB PO SCH (20:56)
[2021-06-10 22:00] VITALS: BP 125/76
[2021-06-11] MEDS: DIGOXIN 0.25 MG TAB PO SCH ×2 (00:21→05:51)
[2021-06-11 02:14] VITALS: BP 124/77
[2021-06-11 06:00] VITALS: BP 123/87
[2021-06-11 07:37] LABS: BASO % 0.5 % (0.0-1.0); EOS # 0.1 10^3/uL (0.0-0.5); EOS % 2.8 % (0.0-3.0); HEMATOCRIT 38.2 % (36.0-47.0); HEMOGLOBIN 12.1 g/dl (12.0-15.5); LYMPH # 0.9 10^3/uL (1.5-5.0); LYMPH % 23.4 % (24.0-44.0); MEAN CORPUSCULAR HEMOGLOBIN 31.3 pg (27.0-33.0); MEAN CORPUSCULAR HGB CONC 31.7 g/dl (32.0-36.5); MEAN CORPUSCULAR VOLUME 98.7 fl (80.0-96.0); MONO # 0.5 10^3/uL (0.0-0.8); MONO % 11.4 % (2.0-8.0); NEUTROPHILS # 2.4 10^3/uL (1.5-8.5); NEUTROPHILS % 61.6 % (36.0-66.0); PLATELET COUNT, AUTOMATED 190 10^3/uL (150-450); RED BLOOD COUNT 3.87 10^6/uL (4.00-5.40); WHITE BLOOD COUNT 3.9 10^3/uL (4.0-10.0)
[2021-06-11 08:05] LABS: BLOOD UREA NITROGEN 25 MG/DL (7-18); CALCIUM LEVEL 10.3 MG/DL (8.8-10.2); CARBON DIOXIDE LEVEL 27 MEQ/L (21-32); CHLORIDE LEVEL 105 MEQ/L (98-107); CREATININE FOR GFR 0.94 MG/DL (0.55-1.30); GLOMERULAR FILTRATION RATE > 60.0 (>45); GLUCOSE, FASTING 96 MG/DL (70-100); POTASSIUM SERUM 4.2 MEQ/L (3.5-5.1); SODIUM LEVEL 139 MEQ/L (136-145)
[2021-06-11 11:30] VITALS: BP 123/87
[2021-06-11] MEDS: buPROPion **XL** TABLET 150MG (WELLBUTRIN XL) PO SCH (11:30)
[2021-06-11] MEDS: bisoproloL fumarate 5 MG TAB PO SCH (11:30)
[2021-06-11] MEDS: MULTIVITAMINS/MINERALS THERAP 1 TAB PO SCH (11:30)
[2021-06-11] MEDS: VALSARTAN 40MG TABLET (DIOVAN) PO SCH (11:30)
[2021-06-11] MEDS: APIXABAN 5 MG TAB (ELIQUIS) PO SCH (11:30)
[2021-06-11] MEDS: FUROSEMIDE 40MG/4ML VIAL (J1940) IV SCH (11:31)
[2021-06-11] MEDS: ASPIRIN 81MG ENTERIC TABLET PO SCH (11:31)
[2021-06-11] MEDS: VANICREAM MOISTURIZING SKIN CREAM 113GM TUBE TOP SCH (11:33)
[2021-06-11] MEDS ORDERED: BISO5TAB14 PO ×2 (12:39→14:22)
[2021-06-11] MEDS ORDERED: LASI40TA9 PO ×2 (12:39→14:22)
[2021-06-11] MEDS ORDERED: DIOV40TA PO ×2 (12:39→14:22)
[2021-06-11] MEDS ORDERED: DIGO0.123 PO ×2 (12:39→14:22)
--- NOTE | 2021-06-11 13:56 | DS.PDOC ---
Discharge Summary General Date of Admission Jun 07, 2021 at 14:00 Date of Discharge 06/11/21 Discharge Summary PROCEDURES PERFORMED DURING STAY: [None]. DISCHARGE DIAGNOSES: Acute on chronic systolic CHF with EF of 45% A. fib with RVR Mediastinal and hilar lymphadenopathy Hypercalcemia Very large Nodular goiter noted in CT, mildly abnormal thyroid function tests Chronic venous stasis with venous stasis ulcer on the left lower leg Hypertension Obesity Depression Chronic back pain. COMPLICATIONS/CHIEF COMPLAINT: Hypoxia. HOSPITAL COURSE: 65-year-old female with significant medical history of A. fib, hypertension, bilateral lower extremity venous stasis ulcerations, depression, and obesity presented with complaints of tachycardia from PCP office. Patient reportedly was at PCP office and had heart rate in the 150s. HR rate upon arrival into the ED was in the 120s. EKG showed A. fib with RVR and cardiology was consulted. Patient was given atenolol and heart rate improved. There was a consideration for whether or not she could be sent home however when she was ambulated in the ED she was noted to desat in the 80s. Patient did have some peripheral edema and there is concern regarding new onset CHF. CTA chest completed negative for PE, no pleural effusion or infiltrates. She was admitted for likely new onset CHF Acute on chronic Systolic CHF EF of 45% to 50% with moderate mitral regurgitation. Fluid restriction 2L continue IV lasix. no hypoxia at rest or with ambulation at this time. Started on valsartan Chronic A. fib with RVR Loaded with digoxin and started on 0.125 mg of digoxin per day Bisoprolol 5 mg twice daily Rate now better controlled with pulse rate going up to only 110 on ambulation continue eliquis. Follow-up with Dr. Walker Mediastinal and Hilar lymphadenopathy Patient notified regarding the size of lymph nodes and suggested continued monitoring with PCP encouraged to quit smoking. Chronic bilateral venous stasis Left worse than right. with lymphedema and venous stasis ulcer on the left. Ulcer is not infected Patient had venous stripping and ligation done for varicose veins in 1980s HTN Bisoprolol and now on valsartan Nodular Goiter: As noted on CT chest. Patient denies history of goiter or thyroid disease. decreased TSH with marginally elevated T4 May have subclinical hyperthyroidism. Follow up with PMD Depression Patient remarks that she has had a depressive episode for the past month. She reports that she is not taking anything for depression and she is hesitant to take mood related medications or opiates given patient's mother had a dependence on such medications. Patient reports that she has made some personal adjustmen ts and this has helped improve her mood. She denies suicidal ideation and considers that she is no longer presently depressed. Monitor patient mood and encourage expression Chronic Back pain: Symptom management/ supportive care. pt reports she typically takes Tylenol for this. Obesity complicates care DISCHARGE MEDICATIONS: Please see below. ALLERGIES: Please see below. PHYSICAL EXAMINATION ON DISCHARGE: VITAL SIGNS: Please see below. General Exam: Positive: Alert, Cooperative, No Acute Distress Eye Exam: Positive: PERRLA, Conjunctiva & lids normal, EOMI; Negative: Sclera icteric ENT Exam: Positive: Atraumatic, Mucous membr. moist/pink, Pharynx Normal, Other ENT (+ Goiter) Neck Exam: Positive: Supple; Negative: JVD, thyromegaly Chest Exam: Positive: Rhonchi (at the right base), Diminished Heart Exam: Positive: Rate Normal, Irregular Rhythm, Normal S1, Normal S2; Negative: Murmurs, Rubs Abdomen Exam: Positive: Normal bowel sounds, Soft; Negative: Tenderness Extremity Exam: Positive: Edema (1+ BLE); Negative: Clubbing, Cyanosis Skin Exam: Positive: Nl turgor and temperature, Other skin issue (Left leg chronic venous stasis ulcer. ) Neuro Exam: Positive: Normal Speech, Strength at 5/5 X4 ext, Normal Tone Psych Exam: Positive: Memory Intact, Oriented x 3 LABORATORY DATA: Please see below. IMAGING: CT angio of Chest: FINDINGS: Pulmonary arteries: There is opacification of the pulmonary arteries with no evidence of pulmonary embolus. Aorta: Unremarkable. No aortic aneurysm. No aortic dissection. Thyroid: There is severe diffuse enlargement of the thyroid probably a multi lead nodular goiter. Lungs: Discoid atelectasis is noted in the left suprahilar region. Pleural spaces: There is no evidence of pneumothorax or pleural effusion. Heart: There is moderate cardiomegaly. Lymph nodes: There are several small and moderate-sized lymph nodes in the mediastinum. Moderate-sized lymph nodes are noted at the right hilum. Bones/joints: There is prominent anterior osteophyte formation of the thoracic spine. Soft tissues: Unremarkable. IMPRESSION: 1. No evidence of pulmonary embolus. 2. Moderate size mediastinal lymph nodes and right hilar lymph nodes. 3. Very large goiter ACTIVITY: [As tolerated]. DIET: 2 g sodium with 2 L fluid restriction DISCHARGE PLAN: Home DISCHARGE INSTRUCTIONS: Follow with PMD in 1 week Follow-up with the Dr. Walker in 2-week Needs dig level in 1 week Follow-up PTH level DISCHARGE CONDITION: [Stable]. TIME SPENT ON DISCHARGE: 40 minutes. Vital Signs/I&Os Vital Signs Date Time Temp Pulse Resp B/P (MAP) Pulse Ox O2 Delivery O2 Flow Rate FiO2 06/11/21 11:30 123/87 06/11/21 06:00 97.9 58 17 97 Room Air I&O- Last 24 Hours up to 6 AM 06/11/21 06:00 Intake Total 2670 ml Output Total 0 ml Balance 2670 ml Laboratory Data Labs 24H Laboratory Tests 2 06/11/21 06:57: Immature Granulocyte % (Auto) 0.3, Neutrophils (%) (Auto) 61.6, Lymphocytes (%) (Auto) 23.4L, Monocytes (%) (Auto) 11.4H, Eosinophils (%) (Auto) 2.8, Basophils (%) (Auto) 0.5, Neutrophils # (Auto) 2.4, Lymphocytes # (Auto) 0.9L, Monocytes # (Auto) 0.5, Eosinophils # (Auto) 0.1, Basophils # (Auto) 0.0, Nucleated Red Blood Cells % (auto) 0.0, Anion Gap 7L, Glomerular Filtration Rate > 60.0, Calcium Level 10.3H CBC/BMP Laboratory Tests 06/11/21 06:57 Discharge Medications Scheduled Apixaban (Eliquis) 5 Mg Tablet, 5 MG PO BID, (Reported) Aspirin (Aspirin EC) 81 Mg Tablet.dr, 81 MG PO DAILY, (Reported) Atorvastatin Calcium (Atorvastatin Calcium) 20 Mg Tablet, 20 MG PO QHS, (Reported) Bisoprolol Fumarate (Bisoprolol Fumarate) 5 Mg Tablet, 5 MG PO BID Bupropion Hcl (Bupropion Xl) 150 Mg Tab.er.24h, 150 MG PO DAILY, (Reported) Digoxin (Digoxin) 125 Mcg Tablet, 1 TAB PO DAILY Famotidine (Famotidine) 20 Mg Tablet, 20 MG PO QHS, (Reported) Furosemide (Lasix) 40 Mg Tablet, 1 TAB PO DAILY Multivitamins (Thera M Plus Tablet) 1 Each Tablet, 1 TAB PO DAILY, (Reported) Valsartan (Diovan) 40 Mg Tablet, 40 MG PO BID Scheduled PRN Diclofenac Sodium (Diclofenac Sodium) 1% 100GM Gel..gram., 4 GM TOP TID PRN for MILD PAIN (PS 1-4), (Reported) APPLY TO AFFECTED KNEE(S) Allergies Coded Allergies: ibuprofen (Verified Allergy, Unknown, 06/07/21) Karly Cook MD Jun 11, 2021 13:43
[2021-06-13 21:07] LABS: IODINE LEVEL 34.5 ug/L (40.0-92.0); TSH RECEPTOR ASSAY <1.10 IU/L (0.00-1.75)
== END 2021-06-11 15:01 | disposition home or self-care (01) | DRG 291 ==
LOC: M ED 13:59 → M ED INP 14:00 → OBSVTOIN 14:00 → ENRESERV 06-08 11:13 → M MSPAV 06-08 12:16
PROVIDERS: ADMIT Family Medicine; ATTEND Internal Medicine Nephrology
DX: I11.0 Hypertensive heart disease with heart failure (principal); I50.23 Acute on chronic systolic (congestive) heart failure; I48.20 Chronic atrial fibrillation, unspecified; I87.312 Chronic venous hypertension (idiopathic) with ulcer of left lower extremity; E66.9 Obesity, unspecified; E04.1 Nontoxic single thyroid nodule; F32.9 Major depressive disorder, single episode, unspecified; E83.52 Hypercalcemia; Z79.82 Long term (current) use of aspirin; Z79.899 Other long term (current) drug therapy; Z88.6 Allergy status to analgesic agent; F17.210 Nicotine dependence, cigarettes, uncomplicated